=== PATIENT | female | born 1960 | race Caucasian/White ===

== ENCOUNTER 2017-02-12 10:25 | Emergency (ER) | payer MEDICARE ==
[2017-02-12] MEDS ORDERED: Ketorolac 60 MG/2 ML SDV IM ONE (10:51)
--- NOTE | 2017-02-12 10:51 | EDM.PDOC ---
ED HPI GENERAL MEDICAL PROBLEM - General Chief Complaint: Back Pain or Injury Stated Complaint: SCIATIC NERVE PAIN Time Seen by Provider: 02/12/17 10:26 Source of Information: Reports: Patient History Limitations: Reports: No Limitations - History of Present Illness INITIAL COMMENTS - FREE TEXT/NARRATIVE: HISTORY AND PHYSICAL: History of present illness: Patient is a 56-year-old female who presents to the emergency room today with complaints of left low back pain that radiates down her left gluteal since . Patient reports she has a history of sciatica and has been treated for it multiple times through the emergency room and through her primary caregiver. she was "rolling out of bed" and felt left low back pain. Since that time the pain has increased with movement, twisting, or bending at the waist. Patient denies any dysuria or difficulty starting her stream. She denies any changes in her bowel patterns. Is not incontinent of urine or stool. Denies any numbness or tingling to the lower extremities. Denies any recent injury or trauma. Patient reports that she took a leftover Tramadol early this morning, around 0600, along with a Flexeril. These medications helped "somewhat" but proceeded to present to the emergency room for further medication treatment. Patient has a past medical history of diabetes type 2, sciatic nerve pain, and one episode of a kidney stone. Review of systems: As per history of present illness and below otherwise all systems reviewed and negative. Past medical history: As per history of present illness and as reviewed below otherwise noncontributory. Surgical history: As per history of present illness and as reviewed below otherwise noncontributory. Social history: No reported history of drug or alcohol abuse. Family history: As per history of present illness and as reviewed below otherwise noncontributory. Physical exam: Gen.: Nontoxic-appearing 56-year-old female. Able to speak in full sentences without shortness of breath. And oriented HEENT: Atraumatic, normocephalic, pupils reactive, negative for conjunctival pallor or scleral icterus, mucous membranes moist, throat clear, neck supple, nontender, trachea midline. Lungs: Clear to auscultation, breath sounds equal bilaterally, chest nontender. Heart: S1S2, regular rate and rhythm Abdomen: Soft, nondistended, nontender. Negative for masses or hepatosplenomegaly. Negative for costovertebral tenderness. Back: C-spine and back were palpated without any tenderness, crepitus, step- offs or obvious deformities. Pelvis: Stable nontender. Genitourinary: Deferred. Rectal: Deferred. Extremities: Atraumatic, negative for cords or calf pain. Neurovascular unremarkable. Neuro: Awake, alert, oriented. Cranial nerves II through XII unremarkable. Cerebellum unremarkable. Motor and sensory unremarkable throughout. Exam nonfocal. After doing a history and physical on the patient and would like to get a urinalysis. Patient reports "I know there is nothing urinary with this pain" and and declines a urinalysis at this time. He should reports that this pain is identical to previous sciatic pain. Encouraged patient to follow-up with her primary care provider, patient is agreeable. Limited amount of pain medication/ muscle relaxors will be given to patient to fill. Patient is agreeable to plan of care and denies any further questions at this time Diagnostics: Declined [facility] [employer]: IM Toradol and Norflex Impression: Sciatica back pain Plan: 1. Please take your medications as prescribed. Perform gentle stretching. May apply gentle heat to area, 20 minutes on and 20 minutes off. 2. Follow-up with your primary caregiver in the next 1-2 days. Turned to the ED as needed as discussed. Definitive disposition and diagnosis as appropriate pending reevaluation and review of above. Onset Date: 02/10/17 Duration: Day(s): Location: Reports: Back left lower back Pain Score (Numeric/FACES): 8 - Related Data Allergies Allergy/AdvReac Type Severity Reaction Status Date / Time adhesive Allergy Burning Verified 02/12/17 10:27 hydromorphone HCl Allergy Chest Verified 02/12/17 10:27 [From Dilaudid] Presssure latex Allergy Burning Verified 02/12/17 10:27 shellfish derived Allergy Swelling Verified 02/12/17 10:27 Home Meds: Home Meds Albuterol [Proair HFA] INH PRN 08/07/14 [History] Budesonide/Formoterol [Symbicort 160-4.5 MCG] INH 08/07/14 [History] Lisinopril PO DAILY 08/07/14 [History] Montelukast Sodium [Singulair] PO BEDTIME 08/07/14 [History] atorvaSTATin [Lipitor] 12/05/14 [History] metFORMIN [Glucophage] 1,500 mg PO WITHDINNER 08/08/15 [History] Past Medical History - Past Health History Medical/Surgical History: Denies Medical/Surgical History HEENT History: Reports: Impaired Vision, Other (See Below) Other HEENT History: Allergies Cardiovascular History: Reports: Hypertension Respiratory History: Reports: Asthma Gastrointestinal History: Reports: Cholelithiasis Genitourinary History: Reports: Renal Calculus [employer] History: Reports: Musculoskeletal History: Reports: Arthritis, Other (See Below) Other Musculoskeletal History: Degenerative bone disease Neurological History: Reports: None Psychiatric History: Reports: None Endocrine/Metabolic History: Reports: Diabetes, Type II, Obesity/BMI 30+ Hematologic History: Reports: None Immunologic History: Reports: None Oncologic (Cancer) History: Reports: None Dermatologic History: Reports: None - Infectious Disease History Infectious Disease History: Reports: Chicken Pox, Measles, Mumps - Past Surgical History GI Surgical History: Reports: Cholecystectomy Female Surgical History: Reports: Section, Hysterectomy Musculoskeletal Surgical History: Reports: Other (See Below) Social & Family History - Family History Family Medical History: Noncontributory - Tobacco Use Smoking Status *Q: Never Smoker Second Hand Smoke Exposure: No - Caffeine Use Caffeine Use: Reports: Coffee Caffeine Use Comment: 1 cup daily - Alcohol Use Days Per Week of Alcohol Use: 0 - Recreational Drug Use Recreational Drug Use: No ED ROS GENERAL - Review of Systems Review Of Systems: ROS reveals no pertinent complaints other than HPI. ED EXAM,LOWER BACK PAIN/INJURY - Physical Exam Exam: See Below (See dictation) Course - Vital Signs Last Recorded V/S: Last Vital Signs Temp 36.4 C 02/12/17 11:22 Pulse 59 L 02/12/17 11:22 Resp 12 02/12/17 11:22 BP 166/83 H 02/12/17 11:22 Pulse Ox 98 02/12/17 11:22 - Orders/Labs/Meds Meds: Medications Discontinued Medications Generic Name Dose Route Start Last Admin Trade Name Freq PRN Reason Stop Dose Admin Ketorolac Tromethamine 60 mg 02/12/17 10:51 02/12/17 11:08 Toradol IM 02/12/17 10:52 60 mg ONETIME ONE Administration Orphenadrine Citrate 60 mg 02/12/17 10:51 02/12/17 11:09 Norflex IM 02/12/17 10:52 60 mg NOW STA Administration Departure - Departure Time of Disposition: 11:36 Disposition: Home, Self-Care 01 Condition: Good Clinical Impression: Sciatica of left side - Discharge Information Referrals: Frank Boggs MD [Primary Care Provider] - Forms: ED Department Discharge Additional Instructions: My general discharge The following information is given to patients seen in the emergency department who are being discharged to home. This information is to outline your options for follow-up care. We provide all patients seen in our emergency department with a follow-up referral. The need for follow-up, as well as the timing and circumstances, are variable depending upon the specifics of your emergency department visit. If you don't have a primary care physician on staff, we will provide you with a referral. We always advise you to contact your personal physician following an emergency department visit to inform them of the circumstance of the visit and for follow-up with them and/or the need for any referrals to a consulting specialist. The emergency department will also refer you to a specialist when appropriate. This referral assures that you have the opportunity for follow-up care with a specialist. All of these measure are taken in an effort to provide you with optimal care, which includes your follow-up. Under all circumstances we always encourage you to contact your private physician who remains a resource for coordinating your care. When calling for follow-up care, please make the office aware that this follow-up is from your recent emergency room visit. If for any reason you are refused follow-up, please contact the [facility] Emergency Department at and asked to speak to the emergency department charge nurse. [facility] [address] [place] [id number] 1. Please take your medications as prescribed. Do not take any additional NSAIDs such as ibuprofen or Aleve while taking the [place]. Please take these medications with food. Please make sure you're not driving or needing to be functioning while taking the Flexeril. 2. Perform gentle stretching. May apply gentle heat to area, 20 minutes on and 20 minutes off. 3. Follow-up with your primary caregiver in the next 1-2 days. Turned to the ED as needed as discussed.
[2017-02-12 11:57] VITALS: BP 147/98
== END 2017-02-12 12:15 | disposition home or self-care (01) ==
LOC: MW.ED 10:25
DX: M54.42 Lumbago with sciatica, left side (principal); J45.909 Unspecified asthma, uncomplicated; I10 Essential (primary) hypertension; E11.9 Type 2 diabetes mellitus without complications; E66.9 Obesity, unspecified; Z88.5 Allergy status to narcotic agent; Z91.040 Latex allergy status; Z91.013 Allergy to seafood; Z87.442 Personal history of urinary calculi; Z90.49 Acquired absence of other specified parts of digestive tract; Z90.710 Acquired absence of both cervix and uterus; Z68.43 Body mass index [BMI] 50.0-59.9, adult
CPT/HCPCS: 96372; 99283; J1885; J2360

== ENCOUNTER 2017-09-25 15:22 | Emergency (ER) | payer MEDICARE ==
--- NOTE | 2017-09-25 16:01 | EDM.PDOC ---
ED HPI GENERAL MEDICAL PROBLEM - General Stated Complaint: UTI Time Seen by Provider: 09/25/17 15:37 Source of Information: Reports: Patient History Limitations: Reports: No Limitations - History of Present Illness INITIAL COMMENTS - FREE TEXT/NARRATIVE: HISTORY AND PHYSICAL: History of present illness: Patient is a 57-year-old female who presents to the emergency room today with complaints of dysuria, urgency and pelvic discomfort. She states she was treated on 09/06/2017 with oral Cipro. Since that time she felt like her symptoms have worsened. Review of systems: As per history of present illness and below otherwise all systems reviewed and negative. Past medical history: As per history of present illness and as reviewed below otherwise noncontributory. Surgical history: As per history of present illness and as reviewed below otherwise noncontributory. Social history: No reported history of drug or alcohol abuse. Family history: As per history of present illness and as reviewed below otherwise noncontributory. Physical exam: General: Well-developed and well-nourished 57-year-old female. Alert and oriented. Nontoxic appearing and in no acute distress. HEENT: Atraumatic, normocephalic, pupils equal and reactive bilaterally, negative for conjunctival pallor or scleral icterus, mucous membranes moist, throat clear, neck supple, nontender, trachea midline. No drooling or trismus noted. No meningeal signs Lungs: Clear to auscultation, breath sounds equal bilaterally, chest nontender. Heart: S1S2, regular rate and rhythm without overt murmur Abdomen: Soft, nondistended, nontender. Negative for masses or hepatosplenomegaly. Negative for costovertebral tenderness. Pelvis: Stable nontender. Genitourinary: Deferred. Rectal: Deferred. Skin: Intact, warm, dry. No lesions or rashes noted. Extremities: Atraumatic, negative for cords or calf pain. Neurovascular unremarkable. Neuro: Awake, alert, oriented. Cranial nerves II through XII unremarkable. Cerebellum unremarkable. Motor and sensory unremarkable throughout. Exam nonfocal. Notes: Culture was added onto the UA. Bactrim DS 1 tab twice a day 10 days. Pyridium 100 mg 3 times a day 2 days. Supportive care measures were reviewed and discussed. She voices understanding and is agreeable to plan of care. Denies any further questions at this time. Diagnostics: UA, [facility] [employer]: [] Impression: UTI Plan: 1. Please take the antibiotic as prescribed. Increase your oral fluids. 2. Pyridium for discomfort one tab 3 times daily over the next 2 days. 3. Follow-up with your primary care provider next week. Return to the ED as needed and as discussed. Definitive disposition and diagnosis as appropriate pending reevaluation and review of above. Duration: Day(s): Location: Reports: Pelvis bladder Pain Score (Numeric/FACES): 8 - Related Data Allergies Allergy/AdvReac Type Severity Reaction Status Date / Time adhesive Allergy Burning Verified 09/25/17 15:52 hydromorphone HCl Allergy Chest Verified 09/25/17 15:52 [From Dilaudid] Presssure latex Allergy Burning Verified 09/25/17 15:52 shellfish derived Allergy Swelling Verified 09/25/17 15:52 Home Meds: Home Meds Albuterol [Proair HFA] 1 dose INH ASDIRECTED PRN 08/07/14 [History] Budesonide/Formoterol [Symbicort 160-4.5 MCG] 1 dose INH ASDIRECTED PRN [History] Montelukast Sodium [Singulair] 10 mg PO BEDTIME 08/07/14 [History] atorvaSTATin [Lipitor] 10 mg PO DAILY 12/05/14 [History] Ciprofloxacin HCl [Cipro] 250 mg PO BID 09/25/17 [History] Losartan [Cozaar] 25 mg PO DAILY 09/25/17 [History] Past Medical History - Past Health History Medical/Surgical History: Denies Medical/Surgical History HEENT History: Reports: Impaired Vision, Other (See Below) Other HEENT History: Allergies Cardiovascular History: Reports: Hypertension Respiratory History: Reports: Asthma Gastrointestinal History: Reports: Cholelithiasis Genitourinary History: Reports: Renal Calculus [employer]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: Musculoskeletal History: Reports: Arthritis, Other (See Below) Other Musculoskeletal History: Degenerative bone disease Neurological History: Reports: None Psychiatric History: Reports: None Endocrine/Metabolic History: Reports: Diabetes, Type II, Obesity/BMI 30+ Hematologic History: Reports: None Immunologic History: Reports: None Oncologic (Cancer) History: Reports: None Dermatologic History: Reports: None - Infectious Disease History Infectious Disease History: Reports: Chicken Pox, Measles, Mumps - Past Surgical History Head Surgeries/Procedures: Reports: None HEENT Surgical History: Reports: None Cardiovascular Surgical History: Reports: None GI Surgical History: Reports: Cholecystectomy Female Surgical History: Reports: Section, Hysterectomy Musculoskeletal Surgical History: Reports: Other (See Below) Social & Family History - Family History Family Medical History: Noncontributory - Tobacco Use Smoking Status *Q: Never Smoker Second Hand Smoke Exposure: No - Caffeine Use Caffeine Use: Reports: Coffee, Tea Caffeine Use Comment: 1 cup daily - Recreational Drug Use Recreational Drug Use: No ED ROS GENERAL - Review of Systems Review Of Systems: ROS reveals no pertinent complaints other than HPI. ED EXAM, RENAL/ - Physical Exam Exam: See Below (See dictation) Course - Vital Signs Last Recorded V/S: Last Vital Signs Temp 96.9 F 09/25/17 15:56 Pulse 102 H 09/25/17 15:56 Resp 18 09/25/17 15:56 BP 170/79 H 09/25/17 15:56 Pulse Ox 96 09/25/17 15:56 - Orders/Labs/Meds Orders: Active Orders 24 hr Category Date Time Status CULTURE URINE [RM] Stat Lab 09/25/17 15:51 Ordered UA W/MICROSCOPIC [URIN] Stat Lab 09/25/17 15:51 Ordered Labs: Laboratory Tests 09/25/17 Range/Units 15:51 Urine Color YELLOW Urine Appearance CLEAR Urine pH 6.0 (5.0-8.0) Ur Specific [place] 1.010 (1.001-1.035) Urine Protein NEGATIVE (NEGATIVE) mg/dL Urine Glucose (UA) NEGATIVE (NEGATIVE) mg/dL Urine Ketones NEGATIVE (NEGATIVE) mg/dL Urine Occult Blood NEGATIVE (NEGATIVE) Urine Nitrite NEGATIVE (NEGATIVE) Urine Bilirubin NEGATIVE (NEGATIVE) Urine Urobilinogen 0.2 (<2.0) EU/dL Ur Leukocyte Esterase MODERATE (NEGATIVE) Urine RBC NONE SEEN (0-2/HPF) Urine WBC 2-4 (0-5/HPF) Ur Epithelial Cells FEW (NONE-FEW) Urine Bacteria FEW (NEGATIVE) Departure - Departure Time of Disposition: 16:17 Disposition: Home, Self-Care 01 Clinical Impression: UTI, Urinary tract infectious disease - Discharge Information Instructions: Urinary Tract Infection, Adult, [id number] Referrals: Frank Boggs MD [Primary Care Provider] - Additional Instructions: The following information is given to patients seen in the emergency department who are being discharged to home. This information is to outline your options for follow-up care. We provide all patients seen in our emergency department with a follow-up referral. The need for follow-up, as well as the timing and circumstances, are variable depending upon the specifics of your emergency department visit. If you don't have a primary care physician on staff, we will provide you with a referral. We always advise you to contact your personal physician following an emergency department visit to inform them of the circumstance of the visit and for follow-up with them and/or the need for any referrals to a consulting specialist. The emergency department will also refer you to a specialist when appropriate. This referral assures that you have the opportunity for follow-up care with a specialist. All of these measure are taken in an effort to provide you with optimal care, which includes your follow-up. Under all circumstances we always encourage you to contact your private physician who remains a resource for coordinating your care. When calling for follow-up care, please make the office aware that this follow-up is from your recent emergency room visit. If for any reason you are refused follow-up, please contact the [facility] Emergency Department at and asked to speak to the emergency department charge nurse. [facility] [address] [place], [place] [id number] 1. Please take the antibiotic as prescribed. Increase your oral fluids. 2. Pyridium for discomfort one tab 3 times daily over the next 2 days. 3. Follow-up with your primary care provider next week. Return to the ED as needed and as discussed. - My Orders Last 24 Hours: My Active Orders 09/25/17 15:51 CULTURE URINE [RM] Stat UA W/MICROSCOPIC [URIN] Stat - Assessment/Plan Last 24 Hours: My Active Orders 09/25/17 15:51 CULTURE URINE [RM] Stat UA W/MICROSCOPIC [URIN] Stat
[2017-09-25 17:24] VITALS: BP 143/81
== END 2017-09-25 16:30 | disposition home or self-care (01) ==
LOC: MW.ED 15:22
DX: N39.0 Urinary tract infection, site not specified (principal); I10 Essential (primary) hypertension; E11.9 Type 2 diabetes mellitus without complications; Z88.5 Allergy status to narcotic agent; Z91.040 Latex allergy status; Z91.013 Allergy to seafood; Z79.899 Other long term (current) drug therapy
CPT/HCPCS: 81001; 87086; 99283

== ENCOUNTER 2020-02-21 11:05 | Emergency (ER) | payer MEDICARE | END 2020-02-21 12:04 | disposition left against medical advice (07) | LOC: MW.ED 11:05 | DX: Z53.21 Procedure and treatment not carried out due to patient leaving prior to being seen by health care provider (principal) ==

== ENCOUNTER 2020-10-29 14:23 | Inpatient (IN) | payer MEDICARE ==
[2020-10-29] MEDS ORDERED: REMDESIVIR 200 MG in Sodium Chloride 0.9% 250 ML IV ONE ×2 (14:47→15:00)
--- NOTE | 2020-10-29 14:47 | PCM.EKG ---
#1 Interpretation EKG Date: 10/29/20 Time: 14:34 Rhythm: NSR Rate (Beats/Min): 111 [place]: LAD-Left [place]prise Deviation P-Wave: Present QRS: Normal (Q waves in III, aVF) ST-T: Normal QT: Normal Comparison: NA - No Prior EKG EKG Interpretation Comments: Sinus Rhythm with LAD and inferior Q waves
[2020-10-29] MEDS ORDERED: Dexamethasone 10 MG/ML SDV IVPUSH ONE (14:48)
[2020-10-29] MEDS ORDERED: Sodium Chloride 0.9% 1,000 ML IV SCH (15:15)
[2020-10-29 15:26] LABS: BLOOD UREA NITROGEN,BUN 15 mg/dL (7.0-18.0); CARBON DIOXIDE,CO2 22.3 mmol/L (21.0-32.0); CHLORIDE,CL 99 mmol/L (98-107); GLUCOSE RANDOM 274 mg/dL (74-106); SODIUM,NA 133 mmol/L (136-145)
--- NOTE | 2020-10-29 15:43 | CR ---
Indication: Dyspnea Technique: Chest 1 view Comparison: August 08, 2012 Findings/Impression: Normal cardiac size and pulmonary vasculature. Vague patchy opacities in lungs concerning for infection, including COVID-19. No pneumothorax or effusion. Internal fixation hardware in the upper thoracic spine. Dictated by Malika Zelaya MD @ 10/29/2020 3:42:[address] Malika Zelaya @ Oct 29 2020 3:42PM
--- NOTE | 2020-10-29 16:30 | EDM.PDOC ---
ED HPI GENERAL MEDICAL PROBLEM - General Chief Complaint: Respiratory Problem Stated Complaint: SOB Time Seen by Provider: 10/29/20 14:26 - Related Data Allergies Allergy/AdvReac Type Severity Reaction Status Date / Time adhesive Allergy Burning Verified 10/29/20 14:45 hydromorphone HCl Allergy Chest Verified 10/29/20 14:45 [From Dilaudid] Presssure latex Allergy Burning Verified 10/29/20 14:45 shellfish derived Allergy Swelling Verified 10/29/20 14:45 Home Meds: Home Meds Albuterol [Proair HFA] 1 dose INH ASDIRECTED PRN 08/07/14 [History] Budesonide/Formoterol [Symbicort 160-4.5 MCG] 1 dose INH ASDIRECTED PRN 08/07/14 [History] Montelukast Sodium [Singulair] 10 mg PO BEDTIME 08/07/14 [History] atorvaSTATin [Lipitor] 10 mg PO DAILY 12/05/14 [History] Ciprofloxacin HCl [Cipro] 250 mg PO BID 09/25/17 [History] Losartan [Cozaar] 25 mg PO DAILY 09/25/17 [History] Past Medical History - Past Health History Medical/Surgical History: Denies Medical/Surgical History HEENT History: Reports: Impaired Vision, Other (See Below) Other HEENT History: Allergies Cardiovascular History: Reports: Hypertension Respiratory History: Reports: Asthma Gastrointestinal History: Reports: Cholelithiasis Genitourinary History: Reports: Renal Calculus 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: Musculoskeletal History: Reports: Arthritis, Other (See Below) Other Musculoskeletal History: Degenerative bone disease Neurological History: Reports: None Psychiatric History: Reports: None Endocrine/Metabolic History: Reports: Diabetes, Type II, Obesity/BMI 30+ Hematologic History: Reports: None Immunologic History: Reports: None Oncologic (Cancer) History: Reports: None Dermatologic History: Reports: None - Infectious Disease History Infectious Disease History: Reports: Chicken Pox, Measles, Mumps - Past Surgical History Head Surgeries/Procedures: Reports: None HEENT Surgical History: Reports: None Cardiovascular Surgical History: Reports: None Respiratory Surgical History: Reports: None GI Surgical History: Reports: Cholecystectomy Female Surgical History: Reports: Section, Hysterectomy Endocrine Surgical History: Reports: None Neurological Surgical History: Reports: None Musculoskeletal Surgical History: Reports: Other (See Below) Other Musculoskeletal Surgeries/Procedures:: c-spine surgery Dermatological Surgical History: Reports: None Social & Family History - Family History Family Medical History: No Pertinent Family History - Tobacco Use Tobacco Use Status *Q: Never Tobacco User Second Hand Smoke Exposure: No - Caffeine Use Caffeine Use: Reports: None Caffeine Use Comment: 1 cup daily - Recreational Drug Use Recreational Drug Use: No Course - Vital Signs Last Recorded V/S: Last Vital Signs Temp 36.6 C 10/29/20 14:25 Pulse 107 H 10/29/20 15:01 Resp 23 H 10/29/20 15:01 BP 134/71 10/29/20 15:01 Pulse Ox 90 L 10/29/20 15:01 - Orders/Labs/Meds Orders: Active Orders 24 hr Category Date Time Status Admission Status [Patient Status] [ADT] Stat ADT 10/29/20 16:28 Ordered EKG Documentation Completion [RC] STAT Care 10/29/20 14:44 Active BILIRUBIN DIRECT [CHEM] DAILY Lab 10/30/20 15:00 Ordered BILIRUBIN DIRECT [CHEM] DAILY Lab 10/31/20 15:00 Ordered BILIRUBIN DIRECT [CHEM] DAILY Lab 11/01/20 15:00 Ordered BILIRUBIN DIRECT [CHEM] DAILY Lab 11/02/20 15:00 Ordered COMPREHENSIVE METABOLIC PN,CMP [CHEM] DAILY Lab 10/30/20 15:00 Ordered COMPREHENSIVE METABOLIC PN,CMP [CHEM] DAILY Lab 10/31/20 15:00 Ordered COMPREHENSIVE METABOLIC PN,CMP [CHEM] DAILY Lab 11/01/20 15:00 Ordered COMPREHENSIVE METABOLIC PN,CMP [CHEM] DAILY Lab 11/02/20 15:00 Ordered Sodium Chloride 0.9% [Normal Saline] 1,000 ml Med 10/29/20 15:15 Active IV ASDIRECTED Medication Orders Sodium Chloride (Normal Saline) 1,000 mls @ 50 mls/hr IV ASDIRECTED MITCHELL Last Admin: 10/29/20 15:21 Dose: 50 mls/hr Documented by: JAYDE Labs: Laboratory Tests 10/29/20 10/29/20 10/29/20 Range/Units 14:26 14:36 14:36 WBC 3.48 L (4.0-11.0) K/uL RBC 4.38 (4.30-5.90) M/uL Hgb 13.5 (12.0-16.0) g/dL Hct 39.4 (36.0-46.0) % MCV 90.0 (80.0-98.0) fL MCH 30.8 (27.0-32.0) pg MCHC 34.3 (31.0-37.0) g/dL RDW Std Deviation 44.2 (28.0-62.0) fl RDW Coeff of Ry 13 (11.0-15.0) % Plt Count 109 L (150-400) K/uL MPV 9.20 (7.40-12.00) fL Neut % (Auto) 64.9 (48.0-80.0) % Lymph % (Auto) 23.0 (16.0-40.0) % F[place]ardo % (Auto) 12.1 (0.0-15.0) % Eos % (Auto) 0.0 (0.0-7.0) % Baso % (Auto) 0.0 (0.0-1.5) % Neut # (Auto) 2.3 (1.4-5.7) K/uL Lymph # (Auto) 0.8 (0.6-2.4) K/uL [place]ardo # (Auto) 0.4 (0.0-0.8) K/uL Eos # (Auto) 0.0 (0.0-0.7) K/uL Baso # (Auto) 0.0 (0.0-0.1) K/uL Nucleated RBC % 0.0 /100WBC Nucleated RBCs # 0 K/uL D-Dimer, Quantitative 0.55 H (0.0-0.50) mg/L FEU Sodium (136-145) mmol/L Potassium (3.5-5.1) mmol/L Chloride (98-107) mmol/L Carbon Dioxide (21.0-32.0) mmol/L BUN (7.0-18.0) mg/dL Creatinine (0.6-1.0) mg/dL Est Cr Clr Drug Dosing mL/min Estimated GFR (MDRD) ml/min Glucose (74-106) mg/dL Lactic Acid (0.4-2.0) mmol/L Calcium (8.5-10.1) mg/dL Magnesium (1.8-2.4) mg/dL Total Bilirubin (0.2-1.0) mg/dL Direct Bilirubin 0.10 (0.0-0.5) mg/dL AST (15-37) IU/L ALT (14-63) IU/L Alkaline Phosphatase (46-116) U/L Troponin I (0.000-0.056) ng/mL Total Protein (6.4-8.2) g/dL Albumin (3.4-5.0) g/dL Globulin (2.6-4.0) g/dL Albumin/Globulin Ratio (0.9-1.6) 10/29/20 10/29/20 Range/Units 14:36 14:36 WBC (4.0-11.0) K/uL RBC (4.30-5.90) M/uL Hgb (12.0-16.0) g/dL Hct (36.0-46.0) % MCV (80.0-98.0) fL MCH (27.0-32.0) pg MCHC (31.0-37.0) g/dL RDW Std Deviation (28.0-62.0) fl RDW Coeff of Ry (11.0-15.0) % Plt Count (150-400) K/uL MPV (7.40-12.00) fL Neut % (Auto) (48.0-80.0) % Lymph % (Auto) (16.0-40.0) % [place]ardo % (Auto) (0.0-15.0) % Eos % (Auto) (0.0-7.0) % Baso % (Auto) (0.0-1.5) % Neut # (Auto) (1.4-5.7) K/uL Lymph # (Auto) (0.6-2.4) K/uL [place]ardo # (Auto) (0.0-0.8) K/uL Eos # (Auto) (0.0-0.7) K/uL Baso # (Auto) (0.0-0.1) K/uL Nucleated RBC % /100WBC Nucleated RBCs # K/uL D-Dimer, Quantitative (0.0-0.50) mg/L FEU Sodium 133 L (136-145) mmol/L Potassium 4.0 (3.5-5.1) mmol/L Chloride 99 (98-107) mmol/L Carbon Dioxide 22.3 (21.0-32.0) mmol/L BUN 15 (7.0-18.0) mg/dL Creatinine 1.0 (0.6-1.0) mg/dL Est Cr Clr Drug Dosing 54.60 mL/min Estimated GFR (MDRD) 56.2 ml/min Glucose 274 H (74-106) mg/dL Lactic Acid 1.9 (0.4-2.0) mmol/L Calcium 7.8 L (8.5-10.1) mg/dL Magnesium 1.9 (1.8-2.4) mg/dL Total Bilirubin 0.5 (0.2-1.0) mg/dL Direct Bilirubin (0.0-0.5) mg/dL AST 42 H (15-37) IU/L ALT 37 (14-63) IU/L Alkaline Phosphatase 85 (46-116) U/L Troponin I < 0.050 (0.000-0.056) ng/mL Total Protein 6.8 (6.4-8.2) g/dL Albumin 3.2 L (3.4-5.0) g/dL Globulin 3.6 (2.6-4.0) g/dL Albumin/Globulin Ratio 0.9 (0.9-1.6) Meds: Medications Generic Name Dose Route Start Last Admin Trade Name Blas PRN Reason Stop Dose Admin Sodium Chloride 1,000 mls @ 50 mls/hr 10/29/20 15:15 10/29/20 15:21 Normal Saline IV 50 mls/hr ASDIRECTED MITCHELL Administration Discontinued Medications Generic Name Dose Route Start Last Admin Trade Name Blas PRN Reason Stop Dose Admin Dexamethasone 10 mg 10/29/20 14:48 10/29/20 15:22 Dexamethasone 10 Mg/Ml Sdv IVPUSH 10/29/20 14:49 10 mg ONETIME ONE Administration Remdesivir 200 mg/ Sodium 250 mls @ 250 mls/hr 10/29/20 14:47 10/29/20 15:08 Chloride IV 10/29/20 14:48 Not Given ONETIME ONE Remdesivir 200 mg/ Sodium 250 mls @ 250 mls/hr 10/29/20 15:00 10/29/20 15:27 Chloride IV 10/29/20 15:59 250 mls/hr ONETIME ONE Administration Departure - Departure Time of Disposition: 16:29 Disposition: Admitted As Inpatient 64 Condition: Fair Clinical Impression: Hypoxia - Discharge Information Referrals: PCP,Unknown [Primary Care Provider] - Sepsis Event Note (ED) - Evaluation Sepsis Screening Result: Possible Sepsis Risk - Focused Exam Vital Signs: Vital Signs Temp Pulse Resp BP Pulse Ox 10/29/20 15:01 107 H 23 H 134/71 90 L 10/29/20 14:25 36.6 C 111 H 24 H 178/92 H 82 L - My Orders Last 24 Hours: My Active Orders 10/29/20 14:44 EKG Documentation Completion [RC] STAT 10/29/20 15:15 Sodium Chloride 0.9% [Normal Saline] 1,000 ml IV ASDIRECTED 10/29/20 16:28 Admission Status [Patient Status] [ADT] Stat 10/30/20 15:00 BILIRUBIN DIRECT [CHEM] DAILY COMPREHENSIVE METABOLIC PN,CMP [CHEM] DAILY 10/31/20 15:00 BILIRUBIN DIRECT [CHEM] DAILY COMPREHENSIVE METABOLIC PN,CMP [CHEM] DAILY 11/01/20 15:00 BILIRUBIN DIRECT [CHEM] DAILY COMPREHENSIVE METABOLIC PN,CMP [CHEM] DAILY 11/02/20 15:00 BILIRUBIN DIRECT [CHEM] DAILY COMPREHENSIVE METABOLIC PN,CMP [CHEM] DAILY - Assessment/Plan Last 24 Hours: My Active Orders 10/29/20 14:44 EKG Documentation Completion [RC] STAT 10/29/20 15:15 Sodium Chloride 0.9% [Normal Saline] 1,000 ml IV ASDIRECTED 10/29/20 16:28 Admission Status [Patient Status] [ADT] Stat 10/30/20 15:00 BILIRUBIN DIRECT [CHEM] DAILY COMPREHENSIVE METABOLIC PN,CMP [CHEM] DAILY 10/31/20 15:00 BILIRUBIN DIRECT [CHEM] DAILY COMPREHENSIVE METABOLIC PN,CMP [CHEM] DAILY 11/01/20 15:00 BILIRUBIN DIRECT [CHEM] DAILY COMPREHENSIVE METABOLIC PN,CMP [CHEM] DAILY 11/02/20 15:00 BILIRUBIN DIRECT [CHEM] DAILY COMPREHENSIVE METABOLIC PN,CMP [CHEM] DAILY
--- NOTE | 2020-10-29 17:46 | EDM.PDOC ---
ED HPI GENERAL MEDICAL PROBLEM - General Chief Complaint: Respiratory Problem Stated Complaint: SOB Time Seen by Provider: 10/29/20 14:26 - History of Present Illness INITIAL COMMENTS - FREE TEXT/NARRATIVE: CHIEF COMPLAINT(S): Shortness of breath HISTORY OF PRESENT ILLNESS: This is a 60-year-old woman with a past medical history diabetes mellitus, hypertension, hyperlipidemia, obstructive sleep apnea, asthma, COPD with recent diagnosis of COVID-19 6 days ago with symptoms for approximately 9 days who comes to the emergency department with a chief complaint of shortness of breath. The patient presents from [facility] as the patient was scheduled for outpatient Bamlanivimab, however the patient was found to be hypoxic and no longer a candidate for this treatment and they sent her to the emergency department. The patient states that she has been experiencing cough, shortness of breath and severe fatigue. She denies any chest pain. She states that she has had on and off fevers and just is not feeling well. She denies any lower extremity edema, recent travel, recent surgery, prior history of DVT or PE. She stated that initially she was having nausea, diarrhea which has since improved. REVIEW OF SYSTEMS: Constitutional: Positive for intermittent fever and fatigue. Denies chills Eyes: Denies eye pain Ears, Nose, Mouth, & Throat: Denies earache Cardiovascular: Denies chest pain Respiratory: Positive for shortness of breath and cough. Gastrointestinal: Denies Nausea, vomiting, diarrhea, hematochezia. Genitourinary: Denies hematuria Skin:Denies a rash MSK: Denies joint pain Neurological: Denies blurred vision Psychiatric: Denies depression PAST MEDICAL HISTORY: As per history of present illness and as reviewed below otherwise noncontributory. SURGICAL HISTORY: As per history of present illness and as reviewed below otherwise noncontributory. SOCIAL HISTORY: As per history of present illness and as reviewed below otherwise noncontributory. FAMILY HISTORY: As per history of present illness and as reviewed below otherwise noncontributory. EXAMINATION OF ORGAN SYSTEMS/BODY AREAS: Constitutional: Blood pressure was 178/92, heart rate 111, respiratory rate 24 with an oxygen saturation of 82% on room air. Temperature 36.6. On 4 L nasal cannula the patient did improve to 90 to 93%. General: Morbidly obese woman who is mildly tachypneic but overall is in no acute distress. Psychiatric: Appropriate mood and affect. Eyes: No scleral icterus or conjunctival erythema ENMT: Moist mucous membranes. No pharyngeal erythema Cardiovascular: Regular, rate, and rhythm. No gallops, murmurs, or rubs. Bilateral upper extremity pulses symmetric and intact. No peripheral edema. No JVD. Respiratory: Lungs clear to auscultation bilaterally. No wheezes, rales, or rhonchi. Gastrointestinal: Soft, non-tender, non-distended. Normoactive bowel sounds Genitourinary: No suprapubic tenderness Musculoskeletal: Normal range of motion. Skin: No lesions or abrasions. Neurological: Alert, GCS 15 MEDICAL DECISION MAKING AND COURSE IN THE ED WITH INTERPRETATION/REVIEW OF DIAGNOSTIC STUDIES: This is a 60-year-old woman with a past medical history diabetes mellitus, hypertension, hyperlipidemia, obstructive sleep apnea, asthma, COPD with recent diagnosis of COVID-19 6 days ago with symptoms for approximately 9 days who comes to the emergency department with worsening hypoxia with known COVID-19 positive approximately 6 days ago. At this time we did obtain a screening EKG which did not reveal acute signs of ischemia. Will obtain laboratory analysis including CBC, CMP, lactic acid, bilirubin, troponin, chest x-ray and a D-dimer as she is tachycardic. I do believe any further work- up is indicated. pvc monitor interpretation, pulse oximetry interpretation revealed sinus tachycardia on the monitor and with good waveform pulse oximetry was 93% on 4 L nasal cannula. Laboratory: CBC reveals leukopenia with a WBC count of 3.48 and thrombocytopenia with a platelet count of 109. D-dimer is elevated at 0.55 however age-adjusted it is within the normal range. CMP reveals hyponatremia at 133, hyperglycemia 274, hypocalcemia at 7.8, mild elevation in AST at 42. Troponin is negative. The radiological images were viewed by myself along with reading the report from the radiologist. Chest x-ray reveals vague patchy opacities in bilateral lungs concerning for infection including COVID-19. Given the patient does not have a white count and is known Covid positive I do not believe antibiotics are indicated at this time. I did start the patient on remdesivir and provided the patient with 10 mg of IV Decadron. I discussed admission for with the patient. She was amenable to this plan. I contacted Dr. Reardon who accepted the patient for admission. DISPOSITION: Patient was admitted to the hospital in stable condition CONDITION: Serious PROCEDURES: Cardiac monitoring interpretation, pulse oximetry interpretation FINAL IMPRESSION(S)/DIAGNOSES: 1. Acute hypoxic respiratory failure secondary to COVID-19 pneumonia 2. Acute COVID-19 pneumonia 3. Thrombocytopenia Critical Care Procedure Note Authorized and performed by: Sergei Mcmahon M.D. Critical Care Time: 34 minutes Due to a high probability of clinically significant, life threatening deterioration, the patient required my highest level of preparedness to intervene emergently and I personally spent this critical care time directly and personally managing the patient. This critical care time included obtaining a history, examining the patient, pulse oximetry; ordering and review of studies; arranging urgent treatment with development of a management plan; evaluation of a patients reponse to treatment; frequent assessment; and discussions with other providers. This critical care time was performed to assess and manage the high probability of imminent, life threatening deterioration that could result in multiorgan failure. It was exclusive of separate billable procedures and treat ing other patients. Please see MDM section and rest of the note for further information on patient assessment and treatment. Please see MDM section and rest of the note for further information on patient assessment and treatment. Sergei Mcmahon M.D. - Related Data Allergies Allergy/AdvReac Type Severity Reaction Status Date / Time adhesive Allergy Burning Verified 10/29/20 18:52 hydromorphone HCl Allergy Chest Verified 10/29/20 18:52 [From Dilaudid] Presssure latex Allergy Burning Verified 10/29/20 18:52 shellfish derived Allergy Swelling Verified 10/29/20 18:52 Home Meds: Home Meds Albuterol [Proair HFA] 1 dose INH ASDIRECTED PRN 08/07/14 [History] Budesonide/Formoterol [Symbicort 160-4.5 MCG] 1 dose INH BID PRN 08/07/14 [History] Montelukast Sodium [Singulair] 10 mg PO BEDTIME 08/07/14 [History] atorvaSTATin [Lipitor] 10 mg PO DAILY 12/05/14 [History] Ciprofloxacin HCl [Cipro] 250 mg PO BID 09/25/17 [History] Losartan [Cozaar] 25 mg PO DAILY 09/25/17 [History] Past Medical History - Past Health History Medical/Surgical History: Denies Medical/Surgical History HEENT History: Reports: Impaired Vision, Other (See Below) Other HEENT History: Allergies Cardiovascular History: Reports: Hypertension Respiratory History: Reports: Asthma Gastrointestinal History: Reports: Cholelithiasis Genitourinary History: Reports: Renal Calculus [employer] History: Reports: Musculoskeletal History: Reports: Arthritis, Other (See Below) Other Musculoskeletal History: Degenerative bone disease Neurological History: Reports: None Psychiatric History: Reports: None Endocrine/Metabolic History: Reports: Diabetes, Type II, Obesity/BMI 30+ Hematologic History: Reports: None Immunologic History: Reports: None Oncologic (Cancer) History: Reports: None Dermatologic History: Reports: None - Infectious Disease History Infectious Disease History: Reports: Chicken Pox, Measles, Mumps - Past Surgical History Head Surgeries/Procedures: Reports: None HEENT Surgical History: Reports: None Cardiovascular Surgical History: Reports: None Respiratory Surgical History: Reports: None GI Surgical History: Reports: Cholecystectomy Female Surgical History: Reports: Section, Hysterectomy Endocrine Surgical History: Reports: None Neurological Surgical History: Reports: None Musculoskeletal Surgical History: Reports: Other (See Below) Other Musculoskeletal Surgeries/Procedures:: c-spine surgery Dermatological Surgical History: Reports: None Social & Family History - Family History Family Medical History: No Pertinent Family History - Tobacco Use Tobacco Use Status *Q: Never Tobacco User Second Hand Smoke Exposure: No - Caffeine Use Caffeine Use: Reports: None Caffeine Use Comment: 1 cup daily - Recreational Drug Use Recreational Drug Use: No ED ROS GENERAL - Review of Systems Review Of Systems: See Below ED EXAM, GENERAL - Physical Exam Exam: See Below Course - Vital Signs Last Recorded V/S: Last Vital Signs Temp 36.2 C 10/29/20 20:00 Pulse 97 10/29/20 17:16 Resp 20 10/29/20 20:00 BP 141/84 H 10/29/20 20:00 Pulse Ox 91 L 10/29/20 20:00 - Orders/Labs/Meds Orders: Active Orders 24 hr Category Date Time Status BILIRUBIN DIRECT [CHEM] DAILY Lab 10/30/20 15:00 Ordered BILIRUBIN DIRECT [CHEM] DAILY Lab 10/31/20 15:00 Ordered BILIRUBIN DIRECT [CHEM] DAILY Lab 11/01/20 15:00 Ordered BILIRUBIN DIRECT [CHEM] DAILY Lab 11/02/20 15:00 Ordered COMPREHENSIVE METABOLIC PN,CMP [CHEM] DAILY Lab 10/30/20 15:00 Ordered COMPREHENSIVE METABOLIC PN,CMP [CHEM] DAILY Lab 10/31/20 15:00 Ordered COMPREHENSIVE METABOLIC PN,CMP [CHEM] DAILY Lab 11/01/20 15:00 Ordered COMPREHENSIVE METABOLIC PN,CMP [CHEM] DAILY Lab 11/02/20 15:00 Ordered Sodium Chloride 0.9% [Normal Saline] 1,000 ml Med 10/29/20 15:15 Active IV ASDIRECTED Medication Orders Dextrose/Water (50% Dextrose In Water 50 Ml Syringe) 50 ml IVPUSH ASDIRECTED PRN PRN Reason: Hypoglycemia Glucagon (Glucagon,Human Recombinant 1 Mg Vial) 1 mg IM ASDIRECTED PRN PRN Reason: Hypoglycemia Sodium Chloride (Normal Saline) 1,000 mls @ 50 mls/hr IV ASDIRECTED MITCHELL Last Admin: 10/29/20 15:21 Dose: 50 mls/hr Documented by: JAYDE Insulin Aspart (Insulin Aspart 100 Units/Ml 3 Ml Pen) [facility]; Protocol Last Admin: 10/29/20 20:32 Dose: 5 units Documented by: GÉNESIS Labs: Laboratory Tests 10/29/20 10/29/20 10/29/20 Range/Units 14:26 14:36 14:36 WBC 3.48 L (4.0-11.0) K/uL RBC 4.38 (4.30-5.90) M/uL Hgb 13.5 (12.0-16.0) g/dL Hct 39.4 (36.0-46.0) % MCV 90.0 (80.0-98.0) fL MCH 30.8 (27.0-32.0) pg MCHC 34.3 (31.0-37.0) g/dL RDW Std Deviation 44.2 (28.0-62.0) fl RDW Coeff of Ry 13 (11.0-15.0) % Plt Count 109 L (150-400) K/uL MPV 9.20 (7.40-12.00) fL Neut % (Auto) 64.9 (48.0-80.0) % Lymph % (Auto) 23.0 (16.0-40.0) % [place] % (Auto) 12.1 (0.0-15.0) % Eos % (Auto) 0.0 (0.0-7.0) % Baso % (Auto) 0.0 (0.0-1.5) % Neut # (Auto) 2.3 (1.4-5.7) K/uL Lymph # (Auto) 0.8 (0.6-2.4) K/uL [place] # (Auto) 0.4 (0.0-0.8) K/uL Eos # (Auto) 0.0 (0.0-0.7) K/uL Baso # (Auto) 0.0 (0.0-0.1) K/uL Nucleated RBC % 0.0 /100WBC Nucleated RBCs # 0 K/uL D-Dimer, Quantitative 0.55 H (0.0-0.50) mg/L FEU Sodium (136-145) mmol/L Potassium (3.5-5.1) mmol/L Chloride (98-107) mmol/L Carbon Dioxide (21.0-32.0) mmol/L BUN (7.0-18.0) mg/dL Creatinine (0.6-1.0) mg/dL Est Cr Clr Drug Dosing mL/min Estimated GFR (MDRD) ml/min Glucose (74-106) mg/dL Lactic Acid (0.4-2.0) mmol/L Calcium (8.5-10.1) mg/dL Magnesium (1.8-2.4) mg/dL Total Bilirubin (0.2-1.0) mg/dL Direct Bilirubin 0.10 (0.0-0.5) mg/dL AST (15-37) IU/L ALT (14-63) IU/L Alkaline Phosphatase (46-116) U/L Troponin I (0.000-0.056) ng/mL Total Protein (6.4-8.2) g/dL Albumin (3.4-5.0) g/dL Globulin (2.6-4.0) g/dL Albumin/Globulin Ratio (0.9-1.6) 10/29/20 10/29/20 Range/Units 14:36 14:36 WBC (4.0-11.0) K/uL RBC (4.30-5.90) M/uL Hgb (12.0-16.0) g/dL Hct (36.0-46.0) % MCV (80.0-98.0) fL MCH (27.0-32.0) pg MCHC (31.0-37.0) g/dL RDW Std Deviation (28.0-62.0) fl RDW Coeff of Ry (11.0-15.0) % Plt Count (150-400) K/uL MPV (7.40-12.00) fL Neut % (Auto) (48.0-80.0) % Lymph % (Auto) (16.0-40.0) % [place] % (Auto) (0.0-15.0) % Eos % (Auto) (0.0-7.0) % Baso % (Auto) (0.0-1.5) % Neut # (Auto) (1.4-5.7) K/uL Lymph # (Auto) (0.6-2.4) K/uL [place] # (Auto) (0.0-0.8) K/uL Eos # (Auto) (0.0-0.7) K/uL Baso # (Auto) (0.0-0.1) K/uL Nucleated RBC % /100WBC Nucleated RBCs # K/uL D-Dimer, Quantitative (0.0-0.50) mg/L FEU Sodium 133 L (136-145) mmol/L Potassium 4.0 (3.5-5.1) mmol/L Chloride 99 (98-107) mmol/L Carbon Dioxide 22.3 (21.0-32.0) mmol/L BUN 15 (7.0-18.0) mg/dL Creatinine 1.0 (0.6-1.0) mg/dL Est Cr Clr Drug Dosing 54.60 mL/min Estimated GFR (MDRD) 56.2 ml/min Glucose 274 H (74-106) mg/dL Lactic Acid 1.9 (0.4-2.0) mmol/L Calcium 7.8 L (8.5-10.1) mg/dL Magnesium 1.9 (1.8-2.4) mg/dL Total Bilirubin 0.5 (0.2-1.0) mg/dL Direct Bilirubin (0.0-0.5) mg/dL AST 42 H (15-37) IU/L ALT 37 (14-63) IU/L Alkaline Phosphatase 85 (46-116) U/L Troponin I < 0.050 (0.000-0.056) ng/mL Total Protein 6.8 (6.4-8.2) g/dL Albumin 3.2 L (3.4-5.0) g/dL Globulin 3.6 (2.6-4.0) g/dL Albumin/Globulin Ratio 0.9 (0.9-1.6) Meds: Medications Generic Name Dose Route Start Last Admin Trade Name Blas PRN Reason Stop Dose Admin Dextrose/Water 50 ml 10/29/20 19:38 50% Dextrose In Water 50 Ml Syringe IVPUSH ASDIRECTED PRN Hypoglycemia Glucagon 1 mg 10/29/20 19:38 Glucagon,Human Recombinant 1 Mg Vial IM ASDIRECTED PRN Hypoglycemia Sodium Chloride 1,000 mls @ 50 mls/hr 10/29/20 15:15 10/29/20 15:21 Normal Saline IV 50 mls/hr ASDIRECTED MITCHELL Administration Insulin Aspart 0 unit 10/29/20 20:15 10/29/20 20:32 Insulin Aspart 100 Units/Ml 3 Ml Pen SUBCUT 5 units [facility] Administration Protocol Discontinued Medications Generic Name Dose Route Start Last Admin Trade Name Blas PRN Reason Stop Dose Admin Dexamethasone 10 mg 10/29/20 14:48 10/29/20 15:22 Dexamethasone 10 Mg/Ml Sdv IVPUSH 10/29/20 14:49 10 mg ONETIME ONE Administration Remdesivir 200 mg/ Sodium 250 mls @ 250 mls/hr 10/29/20 14:47 10/29/20 15:08 Chloride IV 10/29/20 14:48 Not Given ONETIME ONE Remdesivir 200 mg/ Sodium 250 mls @ 250 mls/hr 10/29/20 15:00 10/29/20 15:27 Chloride IV 10/29/20 15:59 250 mls/hr ONETIME ONE Administration Insulin Aspart 0 unit 10/30/20 07:30 Insulin Aspart 100 Units/Ml 3 Ml Pen SUBCUT [facility] Protocol Departure - Departure Time of Disposition: 16:28 Disposition: Admitted As Inpatient 64 Condition: Fair Clinical Impression: Hypoxia - Discharge Information Sepsis Event Note (ED) - Evaluation Sepsis Screening Result: Possible Sepsis Risk - Focused Exam Vital Signs: Vital Signs Temp Pulse Resp BP Pulse Ox 10/29/20 16:01 22 H 131/73 93 L 10/29/20 15:01 107 H 23 H 134/71 90 L 10/29/20 14:25 36.6 C 111 H 24 H 178/92 H 82 L - My Orders Last 24 Hours: My Active Orders 10/29/20 15:15 Sodium Chloride 0.9% [Normal Saline] 1,000 ml IV ASDIRECTED 10/30/20 15:00 BILIRUBIN DIRECT [CHEM] DAILY COMPREHENSIVE METABOLIC PN,CMP [CHEM] DAILY 10/31/20 15:00 BILIRUBIN DIRECT [CHEM] DAILY COMPREHENSIVE METABOLIC PN,CMP [CHEM] DAILY 11/01/20 15:00 BILIRUBIN DIRECT [CHEM] DAILY COMPREHENSIVE METABOLIC PN,CMP [CHEM] DAILY 11/02/20 15:00 BILIRUBIN DIRECT [CHEM] DAILY COMPREHENSIVE METABOLIC PN,CMP [CHEM] DAILY - Assessment/Plan Last 24 Hours: My Active Orders 10/29/20 15:15 Sodium Chloride 0.9% [Normal Saline] 1,000 ml IV ASDIRECTED 10/30/20 15:00 BILIRUBIN DIRECT [CHEM] DAILY COMPREHENSIVE METABOLIC PN,CMP [CHEM] DAILY 10/31/20 15:00 BILIRUBIN DIRECT [CHEM] DAILY COMPREHENSIVE METABOLIC PN,CMP [CHEM] DAILY 11/01/20 15:00 BILIRUBIN DIRECT [CHEM] DAILY COMPREHENSIVE METABOLIC PN,CMP [CHEM] DAILY 11/02/20 15:00 BILIRUBIN DIRECT [CHEM] DAILY COMPREHENSIVE METABOLIC PN,CMP [CHEM] DAILY
[2020-10-29] MEDS ORDERED: 50% Dextrose in Water 50 ML Syringe IVPUSH PRN (19:38)
[2020-10-29] MEDS ORDERED: Glucagon,Human Recombinant 1 MG Vial IM PRN (19:38)
[2020-10-29] MEDS: Insulin Aspart 100 Units/ML 3 ML Pen SUBCUT SCH (20:32)
[2020-10-29] MEDS ORDERED: Enoxaparin 40 MG/0.4 ML Syringe SUBCUT SCH (22:00)
[2020-10-29] MEDS: Ciprofloxacin 250 MG Tab PO SCH (22:28)
[2020-10-29] MEDS: Montelukast 10 MG Tab PO SCH (22:28)
[2020-10-29] MEDS: Budesonide/Formoterol 160-4.5 MCG/Puff 6 GM Inhaler INH SCH (23:26)
--- NOTE | 2020-10-29 23:34 | PCM.HP.2 ---
H&P History of Present Illness - General Date of Service: 10/30/20 Admit Problem/Dx: Admission Diagnosis/Problem Admission Diagnosis/Problem Hypoxia - History of Present Illness Initial Comments - Free Text/Narative: 60 yo female with pmh of HTN, COPD, DM, JAZMIN who was recently diagnosed with COVID and scheduled for antibody therapy today. When she presented to infusion center she was found to be hypoxic satting mid 80s on room and was transfered to the ED. She reports one week history of shortness of breath, fever, chills and cough. - Related Data Allergies/Adverse Reactions: Allergies Allergy/AdvReac Type Severity Reaction Status Date / Time adhesive Allergy Burning Verified 10/29/20 18:52 hydromorphone HCl Allergy Chest Verified 10/29/20 18:52 [From Dilaudid] Presssure latex Allergy Burning Verified 10/29/20 18:52 shellfish derived Allergy Swelling Verified 10/29/20 18:52 Home Medications: Home Meds Albuterol [Proair HFA] 2 puff INH Q4HR PRN 08/07/14 [History] Budesonide/Formoterol [Symbicort 160-4.5 MCG] 2 puff INH BID 08/07/14 [History] Montelukast Sodium [Singulair] 10 mg PO BEDTIME 08/07/14 [History] Ciprofloxacin HCl [Cipro] 250 mg PO BID 09/25/17 [History] Losartan [Cozaar] 25 mg PO DAILY 09/25/17 [History] Omeprazole 20 mg PO BID 10/30/20 [History] nitrofurantoin macrocrystaL [Macrodantin] 50 mg PO BEDTIME 10/30/20 [History] Past Medical History - Past Health History Medical/Surgical History: Denies Medical/Surgical History HEENT History: Reports: Impaired Vision, Other (See Below) Other HEENT History: Allergies Cardiovascular History: Reports: Hypertension Respiratory History: Reports: Asthma Gastrointestinal History: Reports: Cholelithiasis Genitourinary History: Reports: Renal Calculus [employer] History: Reports: Musculoskeletal History: Reports: Arthritis, Other (See Below) Other Musculoskeletal History: Degenerative bone disease Neurological History: Reports: None Psychiatric History: Reports: None Endocrine/Metabolic History: Reports: Diabetes, Type II, Obesity/BMI 30+ Hematologic History: Reports: None Immunologic History: Reports: None Oncologic (Cancer) History: Reports: None Dermatologic History: Reports: None - Infectious Disease History Infectious Disease History: Reports: Chicken Pox, Measles, Mumps - Past Surgical History Head Surgeries/Procedures: Reports: None HEENT Surgical History: Reports: None Cardiovascular Surgical History: Reports: None Respiratory Surgical History: Reports: None GI Surgical History: Reports: Cholecystectomy Female Surgical History: Reports: Section, Hysterectomy Endocrine Surgical History: Reports: None Neurological Surgical History: Reports: None Musculoskeletal Surgical History: Reports: Other (See Below) Other Musculoskeletal Surgeries/Procedures:: c-spine surgery Dermatological Surgical History: Reports: None Social & Family History - Family History Family Medical History: No Pertinent Family History - Tobacco Use Tobacco Use Status *Q: Former Tobacco User Used Tobacco, but Quit: Yes Month/Year Tobacco Last Used: 1985 Tobacco Use Comment: Patient stopped smoking 35 years ago Second Hand Smoke Exposure: No - Caffeine Use Caffeine Use: Reports: Coffee Caffeine Use Comment: 1 iced coffee a day - Recreational Drug Use Recreational Drug Use: No H&P Review of Systems - Review of Systems: Review Of Systems: Comprehensive ROS is negative, except as noted in HPI. Exam - Exam Exam: See Below - Vital Signs Vital Signs: Last Vital Signs Temp 36.2 C 10/29/20 20:00 Pulse 97 10/29/20 17:16 Resp 20 10/29/20 20:00 BP 141/84 H 10/29/20 20:00 Pulse Ox 91 L 10/29/20 20:00 Weight: 175.767 kg - Exam General: Alert, Oriented HEENT: Mucosa Moist & [place] Lungs: Clear to Auscultation, Normal Respiratory Effort Cardiovascular: Regular Rate, Regular Rhythm GI/Abdominal Exam: Normal Bowel Sounds, Soft, Non-Tender Extremities: Non-Tender, Pedal Edema (+1) Skin: Warm, Dry, Intact - Patient Data Lab Results Last 24 hrs: Laboratory Results - last 24 hr 10/29/20 10/29/20 10/29/20 Range/Units 14:26 14:36 14:36 WBC 3.48 L (4.0-11.0) K/uL RBC 4.38 (4.30-5.90) M/uL Hgb 13.5 (12.0-16.0) g/dL Hct 39.4 (36.0-46.0) % MCV 90.0 (80.0-98.0) fL MCH 30.8 (27.0-32.0) pg MCHC 34.3 (31.0-37.0) g/dL RDW Std Deviation 44.2 (28.0-62.0) fl RDW Coeff of Ry 13 (11.0-15.0) % Plt Count 109 L (150-400) K/uL MPV 9.20 (7.40-12.00) fL Neut % (Auto) 64.9 (48.0-80.0) % Lymph % (Auto) 23.0 (16.0-40.0) % [place] % (Auto) 12.1 (0.0-15.0) % Eos % (Auto) 0.0 (0.0-7.0) % Baso % (Auto) 0.0 (0.0-1.5) % Neut # (Auto) 2.3 (1.4-5.7) K/uL Lymph # (Auto) 0.8 (0.6-2.4) K/uL [place] # (Auto) 0.4 (0.0-0.8) K/uL Eos # (Auto) 0.0 (0.0-0.7) K/uL Baso # (Auto) 0.0 (0.0-0.1) K/uL Nucleated RBC % 0.0 /100WBC Nucleated RBCs # 0 K/uL D-Dimer, Quantitative 0.55 H (0.0-0.50) mg/L FEU Sodium (136-145) mmol/L Potassium (3.5-5.1) mmol/L Chloride (98-107) mmol/L Carbon Dioxide (21.0-32.0) mmol/L BUN (7.0-18.0) mg/dL Creatinine (0.6-1.0) mg/dL Est Cr Clr Drug Dosing mL/min Estimated GFR (MDRD) ml/min Glucose (74-106) mg/dL POC Glucose (70-99) mg/dL Lactic Acid (0.4-2.0) mmol/L Calcium (8.5-10.1) mg/dL Magnesium (1.8-2.4) mg/dL Total Bilirubin (0.2-1.0) mg/dL Direct Bilirubin 0.10 (0.0-0.5) mg/dL AST (15-37) IU/L ALT (14-63) IU/L Alkaline Phosphatase (46-116) U/L Troponin I (0.000-0.056) ng/mL Total Protein (6.4-8.2) g/dL Albumin (3.4-5.0) g/dL Globulin (2.6-4.0) g/dL Albumin/Globulin Ratio (0.9-1.6) 10/29/20 10/29/20 10/29/20 Range/Units 14:36 14:36 19:58 WBC (4.0-11.0) K/uL RBC (4.30-5.90) M/uL Hgb (12.0-16.0) g/dL Hct (36.0-46.0) % MCV (80.0-98.0) fL MCH (27.0-32.0) pg MCHC (31.0-37.0) g/dL RDW Std Deviation (28.0-62.0) fl RDW Coeff of Ry (11.0-15.0) % Plt Count (150-400) K/uL MPV (7.40-12.00) fL Neut % (Auto) (48.0-80.0) % Lymph % (Auto) (16.0-40.0) % [place] % (Auto) (0.0-15.0) % Eos % (Auto) (0.0-7.0) % Baso % (Auto) (0.0-1.5) % Neut # (Auto) (1.4-5.7) K/uL Lymph # (Auto) (0.6-2.4) K/uL [place] # (Auto) (0.0-0.8) K/uL Eos # (Auto) (0.0-0.7) K/uL Baso # (Auto) (0.0-0.1) K/uL Nucleated RBC % /100WBC Nucleated RBCs # K/uL D-Dimer, Quantitative (0.0-0.50) mg/L FEU Sodium 133 L (136-145) mmol/L Potassium 4.0 (3.5-5.1) mmol/L Chloride 99 (98-107) mmol/L Carbon Dioxide 22.3 (21.0-32.0) mmol/L BUN 15 (7.0-18.0) mg/dL Creatinine 1.0 (0.6-1.0) mg/dL Est Cr Clr Drug Dosing 54.60 mL/min Estimated GFR (MDRD) 56.2 ml/min Glucose 274 H (74-106) mg/dL POC Glucose 305 H (70-99) mg/dL Lactic Acid 1.9 (0.4-2.0) mmol/L Calcium 7.8 L (8.5-10.1) mg/dL Magnesium 1.9 (1.8-2.4) mg/dL Total Bilirubin 0.5 (0.2-1.0) mg/dL Direct Bilirubin (0.0-0.5) mg/dL AST 42 H (15-37) IU/L ALT 37 (14-63) IU/L Alkaline Phosphatase 85 (46-116) U/L Troponin I < 0.050 (0.000-0.056) ng/mL Total Protein 6.8 (6.4-8.2) g/dL Albumin 3.2 L (3.4-5.0) g/dL Globulin 3.6 (2.6-4.0) g/dL Albumin/Globulin Ratio 0.9 (0.9-1.6) Result Diagrams: 10/31/20 05:23 10/31/20 05:23 Sepsis Event Note - Evaluation Sepsis Screening Result: Sepsis Risk - Focused Exam Vital Signs: Vital Signs Temp Pulse Resp BP BP Pulse Ox 10/29/20 20:00 36.2 C 20 141/84 H 91 L 10/29/20 18:38 36.3 C 16 134/79 89 L 10/29/20 17:16 97 25 H 143/79 H 93 L 10/29/20 16:01 22 H 131/73 93 L 10/29/20 15:01 107 H 23 H 134/71 90 L 10/29/20 14:25 36.6 C 111 H 24 H 178/92 H 82 L Problem List Initiated/Reviewed/Updated: Yes Orders Last 24hrs: Active Orders 24 hr Category Date Time Status Admission Status [Patient Status] [ADT] Stat ADT 10/29/20 16:28 Active Blood Glucose Check, Bedside [RC] TIDAC Care 10/30/20 06:30 Active RT Post Treatment Assessment [RC] Click to Edit Care 10/29/20 22:02 Active RT Pre-Treatment Assessment [RC] Click to Edit Care 10/29/20 22:02 Active ADA Diabetic [[place]izen [place] [employer] Diet] [DIET Diet 10/30/20 Dinner Active ] BILIRUBIN DIRECT [CHEM] DAILY Lab 10/30/20 15:00 Ordered BILIRUBIN DIRECT [CHEM] DAILY Lab 10/31/20 15:00 Ordered BILIRUBIN DIRECT [CHEM] DAILY Lab 11/01/20 15:00 Ordered BILIRUBIN DIRECT [CHEM] DAILY Lab 11/02/20 15:00 Ordered COMPREHENSIVE METABOLIC PN,CMP [CHEM] DAILY Lab 10/30/20 15:00 Ordered COMPREHENSIVE METABOLIC PN,CMP [CHEM] DAILY Lab 10/31/20 15:00 Ordered COMPREHENSIVE METABOLIC PN,CMP [CHEM] DAILY Lab 11/01/20 15:00 Ordered COMPREHENSIVE METABOLIC PN,CMP [CHEM] DAILY Lab 11/02/20 15:00 Ordered Albuterol [Ventolin HFA] Med 10/29/20 21:59 Active 0 gm INH Q4H PRN Budesonide/Formoterol [Symbicort 160-4.5 MCG] Med 10/29/20 22:00 Active 0 gm INH BID Ciprofloxacin [Ciprofloxacin HCl] Med 10/29/20 22:02 Active 250 mg PO BID Dextrose 50% in Water Med 10/29/20 19:38 Active 50 ml IVPUSH ASDIRECTED PRN Enoxaparin [Lovenox] Med 10/29/20 22:00 Active 40 mg SUBCUT Q24H Glucagon,Human Recombinant [GlucaGen] Med 10/29/20 19:38 Active 1 mg IM ASDIRECTED PRN Insulin Aspart [NovoLOG] Med 10/29/20 20:15 Active See Protocol SUBCUT TIDA Losartan [Cozaar] Med 10/30/20 09:00 Active 25 mg PO DAILY Montelukast [Singulair] Med 10/29/20 22:00 Active 10 mg PO BEDTIME Sodium Chloride 0.9% [Normal Saline] 1,000 ml Med 10/29/20 15:15 Active IV ASDIRECTED Medication Orders Albuterol (Albuterol 8 Gm Inhaler) 0 gm INH Q4H PRN PRN Reason: Shortness of Breath Budesonide/Formoterol Fumarate (Budesonide/Formoterol 160-4.5 Mcg/Puff 6 Gm Inhaler) 0 gm INH BID [facility] Last Admin: 10/29/20 23:26 Dose: Not Given Documented by: GÉNESIS Ciprofloxacin (Ciprofloxacin 250 Mg Tab) 250 mg PO BID [facility] Last Admin: 10/29/20 22:28 Dose: 250 mg Documented by: GÉNESIS Dextrose/Water (50% Dextrose In Water 50 Ml Syringe) 50 ml IVPUSH ASDIRECTED PRN PRN Reason: Hypoglycemia Enoxaparin Sodium (Enoxaparin 40 Mg/0.4 Ml Syringe) 40 mg SUBCUT Q24H [facility] Last Admin: 10/29/20 22:29 Dose: 40 mg Documented by: GÉNESIS Glucagon (Glucagon,Human Recombinant 1 Mg Vial) 1 mg IM ASDIRECTED PRN PRN Reason: Hypoglycemia Sodium Chloride (Normal Saline) 1,000 mls @ 50 mls/hr IV ASDIRECTED [facility] Last Admin: 10/29/20 15:21 Dose: 50 mls/hr Documented by: JAYDE Insulin Aspart (Insulin Aspart 100 Units/Ml 3 Ml Pen) 0 unit SUBCUT TIDAC [facility]; Protocol Last Admin: 10/29/20 20:32 Dose: 5 units Documented by: GÉNESIS Losartan Potassium (Losartan 50 Mg Tab) 25 mg PO DAILY [facility] Montelukast Sodium (Montelukast 10 Mg Tab) 10 mg PO BEDTIME [facility] Last Admin: 10/29/20 22:28 Dose: 10 mg Documented by: GÉNSEIS Assessment/Plan Comment:: 60 yo female admitted with acute hypoxic respiratory failure due to COVID pneumonia COVID: treating with remdesivir, dexamethasone and supplemental oxygen, lovenox for DVT prophylaxis JAZMIN: CPAP at night DM: sliding scale insulin, will check HgA1c HTN/COPD: resume home meds
[2020-10-30 05:57] LABS: HEMOGLOBIN A1C 8.3 %
[2020-10-30 06:15] LABS: CARBON DIOXIDE,CO2 23.2 mmol/L (21.0-32.0); POTASSIUM,K 4.3 mmol/L (3.5-5.1)
[2020-10-30] MEDS ORDERED: Insulin Aspart 100 Units/ML 3 ML Pen SUBCUT SCH (07:30)
[2020-10-30] MEDS: Losartan 50 MG Tab PO SCH (08:20)
[2020-10-30] MEDS: Ciprofloxacin 250 MG Tab PO SCH ×2 (08:21→20:16)
[2020-10-30] MEDS: Insulin Aspart 100 Units/ML 3 ML Pen SUBCUT SCH ×3 (08:23→18:42)
[2020-10-30] MEDS: Budesonide/Formoterol 160-4.5 MCG/Puff 6 GM Inhaler INH SCH ×2 (09:26→20:17)
[2020-10-30] MEDS: Enoxaparin 40 MG/0.4 ML Syringe SUBCUT SCH ×2 (12:27→23:35)
[2020-10-30] MEDS ORDERED: REMDESIVIR 100 MG in Sodium Chloride 0.9% 100 ML IV SCH (15:00)
[2020-10-30 15:42] LABS: CARBON DIOXIDE,CO2 24.4 mmol/L (21.0-32.0); POTASSIUM,K 4.5 mmol/L (3.5-5.1)
[2020-10-30] MEDS ORDERED: Sodium Chloride 0.9% 2.5 ML Syringe FLUSH PRN (15:49)
--- NOTE | 2020-10-30 16:44 | PCM.PN ---
- General Info Date of Service: 10/30/20 Admission Dx/Problem (Free Text): Admission Diagnosis/Problem Admission Diagnosis/Problem Hypoxia secondary to Covid pneumonia Subjective Update: 60-year-old female with past medical history of hypertension, COPD, diabetes mellitus, JAZMIN with recent diagnosis of Covid was found to be hypoxic saturating in the 80s with associated symptoms of shortness of breath, fever, chills and cough. There were no overnight events, patient remained on CPAP, this morning is on 4 l nasal cannula. States she is much improved, denies any fever, chills, shortness of breath. However continues to complain of productive cough. - Review of Systems General: Reports: No Symptoms HEENT: Reports: No Symptoms Pulmonary: Reports: Cough. Denies: Shortness of Breath, Pleuritic Chest Pain, Hemoptysis, Wheezing Cardiovascular: Reports: No Symptoms Gastrointestinal: Reports: No Symptoms Genitourinary: Reports: No Symptoms Musculoskeletal: Reports: No Symptoms Skin: Reports: No Symptoms Neurological: Reports: No Symptoms Psychiatric: Reports: No Symptoms - Patient Data Vitals - Most Recent: Last Vital Signs Temp 97.3 F 10/30/20 11:48 Pulse 90 10/30/20 11:48 Resp 19 10/30/20 11:48 BP 140/61 10/30/20 11:48 Pulse Ox 90 L 10/30/20 11:48 Weight - Most Recent: 387 lb 8 oz I&O - Last 24 Hours: Intake & Output 10/30/20 10/30/20 10/30/20 06:59 14:59 22:59 Intake Total 1500 Output Total 1450 Balance 50 Lab Results Last 24 Hours: Laboratory Results - last 24 hr 10/29/20 10/30/20 10/30/20 Range/Units 19:58 00:50 05:16 WBC 2.80 L (4.0-11.0) K/uL RBC 4.28 L (4.30-5.90) M/uL Hgb 13.1 (12.0-16.0) g/dL Hct 38.7 (36.0-46.0) % MCV 90.4 (80.0-98.0) fL MCH 30.6 (27.0-32.0) pg MCHC 33.9 (31.0-37.0) g/dL RDW Std Deviation 44.0 (28.0-62.0) fl RDW Coeff of Ry 13 (11.0-15.0) % Plt Count 120 L (150-400) K/uL MPV 9.20 (7.40-12.00) fL Neut % (Auto) 61.7 (48.0-80.0) % Lymph % (Auto) 25.4 (16.0-40.0) % [place] % (Auto) 12.5 (0.0-15.0) % Eos % (Auto) 0.0 (0.0-7.0) % Baso % (Auto) 0.4 (0.0-1.5) % Neut # (Auto) 1.7 (1.4-5.7) K/uL Lymph # (Auto) 0.7 (0.6-2.4) K/uL [place] # (Auto) 0.4 (0.0-0.8) K/uL Eos # (Auto) 0.0 (0.0-0.7) K/uL Baso # (Auto) 0.0 (0.0-0.1) K/uL Nucleated RBC % 0.0 /100WBC Nucleated RBCs # 0 K/uL Sodium (136-145) mmol/L Potassium (3.5-5.1) mmol/L Chloride (98-107) mmol/L Carbon Dioxide (21.0-32.0) mmol/L BUN (7.0-18.0) mg/dL Creatinine (0.6-1.0) mg/dL Est Cr Clr Drug Dosing mL/min Estimated GFR (MDRD) ml/min Glucose (74-106) mg/dL POC Glucose 305 H (70-99) mg/dL Hemoglobin A1c (4.5 - 6.2) % Calcium (8.5-10.1) mg/dL Total Bilirubin (0.2-1.0) mg/dL Direct Bilirubin 0.10 (0.0-0.5) mg/dL AST (15-37) IU/L ALT (14-63) IU/L Alkaline Phosphatase (46-116) U/L Total Protein (6.4-8.2) g/dL Albumin (3.4-5.0) g/dL Globulin (2.6-4.0) g/dL Albumin/Globulin Ratio (0.9-1.6) 10/30/20 10/30/20 10/30/20 Range/Units 05:16 05:16 06:48 WBC (4.0-11.0) K/uL RBC (4.30-5.90) M/uL Hgb (12.0-16.0) g/dL Hct (36.0-46.0) % MCV (80.0-98.0) fL MCH (27.0-32.0) pg MCHC (31.0-37.0) g/dL RDW Std Deviation (28.0-62.0) fl RDW Coeff of Ry (11.0-15.0) % Plt Count (150-400) K/uL MPV (7.40-12.00) fL Neut % (Auto) (48.0-80.0) % Lymph % (Auto) (16.0-40.0) % [place] % (Auto) (0.0-15.0) % Eos % (Auto) (0.0-7.0) % Baso % (Auto) (0.0-1.5) % Neut # (Auto) (1.4-5.7) K/uL Lymph # (Auto) (0.6-2.4) K/uL [place] # (Auto) (0.0-0.8) K/uL Eos # (Auto) (0.0-0.7) K/uL Baso # (Auto) (0.0-0.1) K/uL Nucleated RBC % /100WBC Nucleated RBCs # K/uL Sodium 134 L (136-145) mmol/L Potassium 4.3 (3.5-5.1) mmol/L Chloride 99 (98-107) mmol/L Carbon Dioxide 23.2 (21.0-32.0) mmol/L BUN 17 (7.0-18.0) mg/dL Creatinine 1.0 (0.6-1.0) mg/dL Est Cr Clr Drug Dosing 58.84 mL/min Estimated GFR (MDRD) 56.2 ml/min Glucose 311 H (74-106) mg/dL POC Glucose 299 H (70-99) mg/dL Hemoglobin A1c 8.3 H (4.5 - 6.2) % Calcium 7.6 L (8.5-10.1) mg/dL Total Bilirubin 0.4 (0.2-1.0) mg/dL Direct Bilirubin (0.0-0.5) mg/dL AST 41 H (15-37) IU/L ALT 37 (14-63) IU/L Alkaline Phosphatase 85 (46-116) U/L Total Protein 6.8 (6.4-8.2) g/dL Albumin 3.0 L (3.4-5.0) g/dL Globulin 3.8 (2.6-4.0) g/dL Albumin/Globulin Ratio 0.8 L (0.9-1.6) 10/30/20 10/30/20 Range/Units 12:23 15:13 WBC (4.0-11.0) K/uL RBC (4.30-5.90) M/uL Hgb (12.0-16.0) g/dL Hct (36.0-46.0) % MCV (80.0-98.0) fL MCH (27.0-32.0) pg MCHC (31.0-37.0) g/dL RDW Std Deviation (28.0-62.0) fl RDW Coeff of Ry (11.0-15.0) % Plt Count (150-400) K/uL MPV (7.40-12.00) fL Neut % (Auto) (48.0-80.0) % Lymph % (Auto) (16.0-40.0) % [place] % (Auto) (0.0-15.0) % Eos % (Auto) (0.0-7.0) % Baso % (Auto) (0.0-1.5) % Neut # (Auto) (1.4-5.7) K/uL Lymph # (Auto) (0.6-2.4) K/uL [place] # (Auto) (0.0-0.8) K/uL Eos # (Auto) (0.0-0.7) K/uL Baso # (Auto) (0.0-0.1) K/uL Nucleated RBC % /100WBC Nucleated RBCs # K/uL Sodium 136 (136-145) mmol/L Potassium 4.5 (3.5-5.1) mmol/L Chloride 100 (98-107) mmol/L Carbon Dioxide 24.4 (21.0-32.0) mmol/L BUN 17 (7.0-18.0) mg/dL Creatinine 1.0 (0.6-1.0) mg/dL Est Cr Clr Drug Dosing 58.84 mL/min Estimated GFR (MDRD) 56.2 ml/min Glucose 269 H (74-106) mg/dL POC Glucose 257 H (70-99) mg/dL Hemoglobin A1c (4.5 - 6.2) % Calcium 7.8 L (8.5-10.1) mg/dL Total Bilirubin 0.4 (0.2-1.0) mg/dL Direct Bilirubin 0.10 (0.0-0.5) mg/dL AST 45 H (15-37) IU/L ALT 34 (14-63) IU/L Alkaline Phosphatase 85 (46-116) U/L Total Protein 6.5 (6.4-8.2) g/dL Albumin 3.1 L (3.4-5.0) g/dL Globulin 3.4 (2.6-4.0) g/dL Albumin/Globulin Ratio 0.9 (0.9-1.6) Med Orders - Current: Current Medications Albuterol (Albuterol 8 Gm Inhaler) 0 gm INH Q4H PRN PRN Reason: Shortness of Breath Budesonide/Formoterol Fumarate (Budesonide/Formoterol 160-4.5 Mcg/Puff 6 Gm Inhaler) 0 gm INH BID [facility] Last Admin: 10/30/20 09:26 Dose: Not Given Documented by: Ciprofloxacin (Ciprofloxacin 250 Mg Tab) 250 mg PO BID [facility] Last Admin: 10/30/20 08:21 Dose: 250 mg Documented by: Dexamethasone (Dexamethasone 4 Mg Tab) 6 mg PO DAILY [facility] Dextrose/Water (50% Dextrose In Water 50 Ml Syringe) 50 ml IVPUSH ASDIRECTED PRN PRN Reason: Hypoglycemia Enoxaparin Sodium (Enoxaparin 40 Mg/0.4 Ml Syringe) 40 mg SUBCUT Q12H [facility] Last Admin: 10/30/20 12:27 Dose: 40 mg Documented by: Glucagon (Glucagon,Human Recombinant 1 Mg Vial) 1 mg IM ASDIRECTED PRN PRN Reason: Hypoglycemia Remdesivir 100 mg/ Sodium (Chloride) 100 mls @ 100 mls/hr IV Q24H [facility] Stop: 11/02/20 15:59 Insulin Aspart (Insulin Aspart 100 Units/Ml 3 Ml Pen) 0 unit SUBCUT TIDAC [facility]; Protocol Last Admin: 10/30/20 12:30 Dose: 3 units Documented by: Losartan Potassium (Losartan 50 Mg Tab) 25 mg PO DAILY [facility] Last Admin: 10/30/20 08:20 Dose: 25 mg Documented by: Montelukast Sodium (Montelukast 10 Mg Tab) 10 mg PO BEDTIME [facility] Last Admin: 10/29/20 22:28 Dose: 10 mg Documented by: Sodium Chloride (Sodium Chloride 0.9% 2.5 Ml Syringe) 2.5 ml FLUSH ASDIRECTED PRN PRN Reason: Keep Vein Open Discontinued Medications Dexamethasone (Dexamethasone 10 Mg/Ml Sdv) 10 mg IVPUSH ONETIME ONE Stop: 10/29/20 14:49 Last Admin: 10/29/20 15:22 Dose: 10 mg Documented by: Enoxaparin Sodium (Enoxaparin 40 Mg/0.4 Ml Syringe) 40 mg SUBCUT Q24H [facility] Last Admin: 10/29/20 22:29 Dose: 40 mg Documented by: Remdesivir 200 mg/ Sodium (Chloride) 250 mls @ 250 mls/hr IV ONETIME ONE Stop: 10/29/20 14:48 Last Admin: 10/29/20 15:08 Dose: Not Given Documented by: Remdesivir 200 mg/ Sodium (Chloride) 250 mls @ 250 mls/hr IV ONETIME ONE Stop: 10/29/20 15:59 Last Admin: 10/29/20 15:27 Dose: 250 mls/hr Documented by: Sodium Chloride (Normal Saline) 1,000 mls @ 50 mls/hr IV ASDIRECTED [facility] Last Admin: 10/29/20 15:21 Dose: 50 mls/hr Documented by: Insulin Aspart (Insulin Aspart 100 Units/Ml 3 Ml Pen) 0 unit SUBCUT TIDAC [facility]; Protocol - Exam Quality Assessment: Supplemental Oxygen, DVT Prophylaxis General: Alert, Oriented, Cooperative HEENT: Pupils Equal, Pupils Reactive, EOMI, Mucous Membr. Moist/[place] Neck: Supple Lungs: Clear to Auscultation, Normal Respiratory Effort Cardiovascular: Regular Rate, Regular Rhythm GI/Abdominal Exam: Normal Bowel Sounds, Soft, Non-Tender, No Organomegaly Extremities: Normal Inspection, Normal Range of Motion, Non-Tender, No Pedal Edema, Normal Capillary Refill Peripheral Pulses: 2+: Carotid (L), Carotid (R), Dorsalis Pedis (L), Dorsalis Pedis (R) Skin: Warm, Dry, Intact Neurological: No New Focal Deficit Psy/Mental Status: Alert, Normal Affect, Normal Mood - Patient Data Lab Results Last 24 hrs: Laboratory Results - last 24 hr 10/29/20 10/30/20 10/30/20 Range/Units 19:58 00:50 05:16 WBC 2.80 L (4.0-11.0) K/uL RBC 4.28 L (4.30-5.90) M/uL Hgb 13.1 (12.0-16.0) g/dL Hct 38.7 (36.0-46.0) % MCV 90.4 (80.0-98.0) fL MCH 30.6 (27.0-32.0) pg MCHC 33.9 (31.0-37.0) g/dL RDW Std Deviation 44.0 (28.0-62.0) fl RDW Coeff of Ry 13 (11.0-15.0) % Plt Count 120 L (150-400) K/uL MPV 9.20 (7.40-12.00) fL Neut % (Auto) 61.7 (48.0-80.0) % Lymph % (Auto) 25.4 (16.0-40.0) % [place] % (Auto) 12.5 (0.0-15.0) % Eos % (Auto) 0.0 (0.0-7.0) % Baso % (Auto) 0.4 (0.0-1.5) % Neut # (Auto) 1.7 (1.4-5.7) K/uL Lymph # (Auto) 0.7 (0.6-2.4) K/uL [place] # (Auto) 0.4 (0.0-0.8) K/uL Eos # (Auto) 0.0 (0.0-0.7) K/uL Baso # (Auto) 0.0 (0.0-0.1) K/uL Nucleated RBC % 0.0 /100WBC Nucleated RBCs # 0 K/uL Sodium (136-145) mmol/L Potassium (3.5-5.1) mmol/L Chloride (98-107) mmol/L Carbon Dioxide (21.0-32.0) mmol/L BUN (7.0-18.0) mg/dL Creatinine (0.6-1.0) mg/dL Est Cr Clr Drug Dosing mL/min Estimated GFR (MDRD) ml/min Glucose (74-106) mg/dL POC Glucose 305 H (70-99) mg/dL Hemoglobin A1c (4.5 - 6.2) % Calcium (8.5-10.1) mg/dL Total Bilirubin (0.2-1.0) mg/dL Direct Bilirubin 0.10 (0.0-0.5) mg/dL AST (15-37) IU/L ALT (14-63) IU/L Alkaline Phosphatase (46-116) U/L Total Protein (6.4-8.2) g/dL Albumin (3.4-5.0) g/dL Globulin (2.6-4.0) g/dL Albumin/Globulin Ratio (0.9-1.6) 10/30/20 10/30/20 10/30/20 Range/Units 05:16 05:16 06:48 WBC (4.0-11.0) K/uL RBC (4.30-5.90) M/uL Hgb (12.0-16.0) g/dL Hct (36.0-46.0) % MCV (80.0-98.0) fL MCH (27.0-32.0) pg MCHC (31.0-37.0) g/dL RDW Std Deviation (28.0-62.0) fl RDW Coeff of Ry (11.0-15.0) % Plt Count (150-400) K/uL MPV (7.40-12.00) fL Neut % (Auto) (48.0-80.0) % Lymph % (Auto) (16.0-40.0) % [place] % (Auto) (0.0-15.0) % Eos % (Auto) (0.0-7.0) % Baso % (Auto) (0.0-1.5) % Neut # (Auto) (1.4-5.7) K/uL Lymph # (Auto) (0.6-2.4) K/uL [place] # (Auto) (0.0-0.8) K/uL Eos # (Auto) (0.0-0.7) K/uL Baso # (Auto) (0.0-0.1) K/uL Nucleated RBC % /100WBC Nucleated RBCs # K/uL Sodium 134 L (136-145) mmol/L Potassium 4.3 (3.5-5.1) mmol/L Chloride 99 (98-107) mmol/L Carbon Dioxide 23.2 (21.0-32.0) mmol/L BUN 17 (7.0-18.0) mg/dL Creatinine 1.0 (0.6-1.0) mg/dL Est Cr Clr Drug Dosing 58.84 mL/min Estimated GFR (MDRD) 56.2 ml/min Glucose 311 H (74-106) mg/dL POC Glucose 299 H (70-99) mg/dL Hemoglobin A1c 8.3 H (4.5 - 6.2) % Calcium 7.6 L (8.5-10.1) mg/dL Total Bilirubin 0.4 (0.2-1.0) mg/dL Direct Bilirubin (0.0-0.5) mg/dL AST 41 H (15-37) IU/L ALT 37 (14-63) IU/L Alkaline Phosphatase 85 (46-116) U/L Total Protein 6.8 (6.4-8.2) g/dL Albumin 3.0 L (3.4-5.0) g/dL Globulin 3.8 (2.6-4.0) g/dL Albumin/Globulin Ratio 0.8 L (0.9-1.6) 10/30/20 10/30/20 Range/Units 12:23 15:13 WBC (4.0-11.0) K/uL RBC (4.30-5.90) M/uL Hgb (12.0-16.0) g/dL Hct (36.0-46.0) % MCV (80.0-98.0) fL MCH (27.0-32.0) pg MCHC (31.0-37.0) g/dL RDW Std Deviation (28.0-62.0) fl RDW Coeff of Ry (11.0-15.0) % Plt Count (150-400) K/uL MPV (7.40-12.00) fL Neut % (Auto) (48.0-80.0) % Lymph % (Auto) (16.0-40.0) % [place] % (Auto) (0.0-15.0) % Eos % (Auto) (0.0-7.0) % Baso % (Auto) (0.0-1.5) % Neut # (Auto) (1.4-5.7) K/uL Lymph # (Auto) (0.6-2.4) K/uL [place] # (Auto) (0.0-0.8) K/uL Eos # (Auto) (0.0-0.7) K/uL Baso # (Auto) (0.0-0.1) K/uL Nucleated RBC % /100WBC Nucleated RBCs # K/uL Sodium 136 (136-145) mmol/L Potassium 4.5 (3.5-5.1) mmol/L Chloride 100 (98-107) mmol/L Carbon Dioxide 24.4 (21.0-32.0) mmol/L BUN 17 (7.0-18.0) mg/dL Creatinine 1.0 (0.6-1.0) mg/dL Est Cr Clr Drug Dosing 58.84 mL/min Estimated GFR (MDRD) 56.2 ml/min Glucose 269 H (74-106) mg/dL POC Glucose 257 H (70-99) mg/dL Hemoglobin A1c (4.5 - 6.2) % Calcium 7.8 L (8.5-10.1) mg/dL Total Bilirubin 0.4 (0.2-1.0) mg/dL Direct Bilirubin 0.10 (0.0-0.5) mg/dL AST 45 H (15-37) IU/L ALT 34 (14-63) IU/L Alkaline Phosphatase 85 (46-116) U/L Total Protein 6.5 (6.4-8.2) g/dL Albumin 3.1 L (3.4-5.0) g/dL Globulin 3.4 (2.6-4.0) g/dL Albumin/Globulin Ratio 0.9 (0.9-1.6) Result Diagrams: 10/30/20 05:16 10/30/20 15:13 Sepsis Event Note - Evaluation Sepsis Screening Result: Sepsis Risk - Focused Exam Vital Signs: Vital Signs Temp Pulse Resp BP BP Pulse Ox 10/30/20 11:48 97.3 F 90 19 140/61 90 L 10/30/20 08:20 136/78 10/30/20 08:00 97.6 F 21 H 136/78 89 L - Problem List Review Problem List Initiated/Reviewed/Updated: Yes - My Orders Last 24 Hours: My Active Orders 10/30/20 11:46 Resuscitation Status Routine - Plan Plan:: 60 yo female admitted with acute hypoxic respiratory failure due to COVID pneumo cris. 1. Acute hypoxic respiratory failure secondary to Covid pneumonia: Supplemental O2 as necessary, currently on 4 l nasal cannula with use of CPAP at night, wean as tolerated. Continue with remdesivir, dexamethasone and supplemental oxygen, lovenox 40 every 12 hours for DVT prophylaxis per patient body habitus. 2. JAZMIN: CPAP at night 3. DM: sliding scale insulin, A1c was 8.3, therefore patient will require being put back on home regimen. Patient is currently on steroids therefore sugar levels also appear to be elevated, this morning was 311. Will evaluate daily use and adjust dose for long and short acting accordingly. 4. Past medical history of HTN/COPD: resume home meds.
[2020-10-30] MEDS: Dexamethasone 4 MG Tab PO SCH (17:29)
[2020-10-30] MEDS: REMDESIVIR 100 MG in Sodium Chloride 0.9% 100 ML IV SCH (17:30)
[2020-10-30] MEDS: Albuterol 8 GM Inhaler INH PRN ×2 (20:14→23:57)
[2020-10-30] MEDS: Benzonatate 100 MG Cap PO PRN (20:16)
[2020-10-30] MEDS: Montelukast 10 MG Tab PO SCH (20:16)
[2020-10-30] MEDS ORDERED: Insulin Glargine,Human Rec. Analog 100 Units/ML 3 ML Pen SUBCUT SCH (21:00)
[2020-10-30] MEDS ORDERED: Insulin Glargine,Human Rec. Analog 100 Units/ML 3 ML Pen ONE (23:51)
[2020-10-31] MEDS: Benzonatate 100 MG Cap PO PRN ×2 (02:30→08:31)
[2020-10-31 04:49] VITALS: PULSE 77
[2020-10-31] MEDS: Albuterol 8 GM Inhaler INH PRN (05:25)
[2020-10-31] MEDS: Insulin Aspart 100 Units/ML 3 ML Pen SUBCUT SCH ×3 (07:40→17:32)
--- NOTE | 2020-10-31 07:59 | PCM.PN ---
- General Info Date of Service: 10/31/20 Admission Dx/Problem (Free Text): Admission Diagnosis/Problem Admission Diagnosis/Problem Hypoxia secondary to Covid pneumonia - Patient Data Vitals - Most Recent: Last Vital Signs Temp 96.8 F L 10/31/20 04:00 Pulse 77 10/31/20 04:00 Resp 20 10/31/20 04:00 BP 165/79 H 10/31/20 04:00 Pulse Ox 92 L 10/31/20 07:39 Weight - Most Recent: 175.767 kg I&O - Last 24 Hours: Intake & Output 10/30/20 10/31/20 10/31/20 22:59 06:59 14:59 Intake Total 1350 980 Output Total 900 1250 Balance 450 -270 Lab Results Last 24 Hours: Laboratory Results - last 24 hr 10/30/20 10/30/20 10/30/20 Range/Units 12:23 15:13 17:23 WBC (4.0-11.0) K/uL RBC (4.30-5.90) M/uL Hgb (12.0-16.0) g/dL Hct (36.0-46.0) % MCV (80.0-98.0) fL MCH (27.0-32.0) pg MCHC (31.0-37.0) g/dL RDW Std Deviation (28.0-62.0) fl RDW Coeff of Ry (11.0-15.0) % Plt Count (150-400) K/uL MPV (7.40-12.00) fL Neut % (Auto) (48.0-80.0) % Lymph % (Auto) (16.0-40.0) % [place] % (Auto) (0.0-15.0) % Eos % (Auto) (0.0-7.0) % Baso % (Auto) (0.0-1.5) % Neut # (Auto) (1.4-5.7) K/uL Lymph # (Auto) (0.6-2.4) K/uL [place] # (Auto) (0.0-0.8) K/uL Eos # (Auto) (0.0-0.7) K/uL Baso # (Auto) (0.0-0.1) K/uL Nucleated RBC % /100WBC Nucleated RBCs # K/uL Sodium 136 (136-145) mmol/L Potassium 4.5 (3.5-5.1) mmol/L Chloride 100 (98-107) mmol/L Carbon Dioxide 24.4 (21.0-32.0) mmol/L BUN 17 (7.0-18.0) mg/dL Creatinine 1.0 (0.6-1.0) mg/dL Est Cr Clr Drug Dosing 58.84 mL/min Estimated GFR (MDRD) 56.2 ml/min Glucose 269 H (74-106) mg/dL POC Glucose 257 H 230 H (70-99) mg/dL Calcium 7.8 L (8.5-10.1) mg/dL Total Bilirubin 0.4 (0.2-1.0) mg/dL Direct Bilirubin 0.10 (0.0-0.5) mg/dL AST 45 H (15-37) IU/L ALT 34 (14-63) IU/L Alkaline Phosphatase 85 (46-116) U/L Total Protein 6.5 (6.4-8.2) g/dL Albumin 3.1 L (3.4-5.0) g/dL Globulin 3.4 (2.6-4.0) g/dL Albumin/Globulin Ratio 0.9 (0.9-1.6) 10/30/20 10/31/20 10/31/20 Range/Units 23:54 05:23 05:23 WBC 4.04 (4.0-11.0) K/uL RBC 4.35 (4.30-5.90) M/uL Hgb 13.2 (12.0-16.0) g/dL Hct 39.6 (36.0-46.0) % MCV 91.0 (80.0-98.0) fL MCH 30.3 (27.0-32.0) pg MCHC 33.3 (31.0-37.0) g/dL RDW Std Deviation 44.6 (28.0-62.0) fl RDW Coeff of Ry 13 (11.0-15.0) % Plt Count 143 L (150-400) K/uL MPV 9.20 (7.40-12.00) fL Neut % (Auto) 62.7 (48.0-80.0) % Lymph % (Auto) 26.5 (16.0-40.0) % [place] % (Auto) 10.6 (0.0-15.0) % Eos % (Auto) 0.0 (0.0-7.0) % Baso % (Auto) 0.2 (0.0-1.5) % Neut # (Auto) 2.5 (1.4-5.7) K/uL Lymph # (Auto) 1.1 (0.6-2.4) K/uL [place] # (Auto) 0.4 (0.0-0.8) K/uL Eos # (Auto) 0.0 (0.0-0.7) K/uL Baso # (Auto) 0.0 (0.0-0.1) K/uL Nucleated RBC % 0.0 /100WBC Nucleated RBCs # 0 K/uL Sodium 135 L (136-145) mmol/L Potassium 5.0 (3.5-5.1) mmol/L Chloride 100 (98-107) mmol/L Carbon Dioxide 25.0 (21.0-32.0) mmol/L BUN 21 H (7.0-18.0) mg/dL Creatinine 1.0 (0.6-1.0) mg/dL Est Cr Clr Drug Dosing 58.84 mL/min Estimated GFR (MDRD) 56.2 ml/min Glucose 356 H (74-106) mg/dL POC Glucose 305 H (70-99) mg/dL Calcium 7.9 L (8.5-10.1) mg/dL Total Bilirubin 0.4 (0.2-1.0) mg/dL Direct Bilirubin (0.0-0.5) mg/dL AST 43 H (15-37) IU/L ALT 38 (14-63) IU/L Alkaline Phosphatase 82 (46-116) U/L Total Protein 6.7 (6.4-8.2) g/dL Albumin 3.0 L (3.4-5.0) g/dL Globulin 3.7 (2.6-4.0) g/dL Albumin/Globulin Ratio 0.8 L (0.9-1.6) /18/ Range/Units 06:34 WBC (4.0-11.0) K/uL RBC (4.30-5.90) M/uL Hgb (12.0-16.0) g/dL Hct (36.0-46.0) % MCV (80.0-98.0) fL MCH (27.0-32.0) pg MCHC (31.0-37.0) g/dL RDW Std Deviation (28.0-62.0) fl RDW Coeff of Ry (11.0-15.0) % Plt Count (150-400) K/uL MPV (7.40-12.00) fL Neut % (Auto) (48.0-80.0) % Lymph % (Auto) (16.0-40.0) % [place] % (Auto) (0.0-15.0) % Eos % (Auto) (0.0-7.0) % Baso % (Auto) (0.0-1.5) % Neut # (Auto) (1.4-5.7) K/uL Lymph # (Auto) (0.6-2.4) K/uL [place] # (Auto) (0.0-0.8) K/uL Eos # (Auto) (0.0-0.7) K/uL Baso # (Auto) (0.0-0.1) K/uL Nucleated RBC % /100WBC Nucleated RBCs # K/uL Sodium (136-145) mmol/L Potassium (3.5-5.1) mmol/L Chloride (98-107) mmol/L Carbon Dioxide (21.0-32.0) mmol/L BUN (7.0-18.0) mg/dL Creatinine (0.6-1.0) mg/dL Est Cr Clr Drug Dosing mL/min Estimated GFR (MDRD) ml/min Glucose (74-106) mg/dL POC Glucose 319 H (70-99) mg/dL Calcium (8.5-10.1) mg/dL Total Bilirubin (0.2-1.0) mg/dL Direct Bilirubin (0.0-0.5) mg/dL AST (15-37) IU/L ALT (14-63) IU/L Alkaline Phosphatase (46-116) U/L Total Protein (6.4-8.2) g/dL Albumin (3.4-5.0) g/dL Globulin (2.6-4.0) g/dL Albumin/Globulin Ratio (0.9-1.6) Med Orders - Current: Current Medications Albuterol (Albuterol 8 Gm Inhaler) 0 gm INH Q4H PRN PRN Reason: Shortness of Breath Last Admin: 10/31/20 05:25 Dose: 2 puff Documented by: Benzonatate (Benzonatate 100 Mg Cap) 100 mg PO Q6H PRN PRN Reason: Cough Last Admin: 10/31/20 02:30 Dose: 100 mg Documented by: Budesonide/Formoterol Fumarate (Budesonide/Formoterol 160-4.5 Mcg/Puff 6 Gm Inha ler) 0 gm INH BID [facility] Last Admin: 10/30/20 20:17 Dose: Not Given Documented by: Ciprofloxacin (Ciprofloxacin 250 Mg Tab) 250 mg PO BID [facility] Last Admin: 10/30/20 20:16 Dose: 250 mg Documented by: Dexamethasone (Dexamethasone 4 Mg Tab) 6 mg PO DAILY [facility] Last Admin: 10/30/20 17:29 Dose: 6 mg Documented by: Dextrose/Water (50% Dextrose In Water 50 Ml Syringe) 50 ml IVPUSH ASDIRECTED PRN PRN Reason: Hypoglycemia Enoxaparin Sodium (Enoxaparin 40 Mg/0.4 Ml Syringe) 40 mg SUBCUT Q12H [facility] Last Admin: 10/30/20 23:35 Dose: 40 mg Documented by: Glucagon (Glucagon,Human Recombinant 1 Mg Vial) 1 mg IM ASDIRECTED PRN PRN Reason: Hypoglycemia Remdesivir 100 mg/ Sodium (Chloride) 100 mls @ 100 mls/hr IV Q24H [facility] Stop: 11/02/20 18:14 Last Admin: 10/30/20 17:30 Dose: 100 mls/hr Documented by: Insulin Aspart (Insulin Aspart 100 Units/Ml 3 Ml Pen) 0 unit SUBCUT TIDAC [facility]; Protocol Last Admin: 10/31/20 07:40 Dose: 8 units Documented by: Insulin Glargine (Insulin Glargine,Human Rec. Analog 100 Units/Ml 3 Ml Pen) 5 units SUBCUT BEDTIME [facility] Last Admin: 10/30/20 23:54 Dose: 5 units Documented by: Losartan Potassium (Losartan 50 Mg Tab) 25 mg PO DAILY [facility] Last Admin: 10/30/20 08:20 Dose: 25 mg Documented by: Montelukast Sodium (Montelukast 10 Mg Tab) 10 mg PO BEDTIME [facility] Last Admin: 10/30/20 20:16 Dose: 10 mg Documented by: Sodium Chloride (Sodium Chloride 0.9% 2.5 Ml Syringe) 2.5 ml FLUSH ASDIRECTED PRN PRN Reason: Keep Vein Open Discontinued Medications Dexamethasone (Dexamethasone 10 Mg/Ml Sdv) 10 mg IVPUSH ONETIME ONE Stop: 10/29/20 14:49 Last Admin: 10/29/20 15:22 Dose: 10 mg Documented by: Enoxaparin Sodium (Enoxaparin 40 Mg/0.4 Ml Syringe) 40 mg SUBCUT Q24H [facility] Last Admin: 10/29/20 22:29 Dose: 40 mg Documented by: Remdesivir 200 mg/ Sodium (Chloride) 250 mls @ 250 mls/hr IV ONETIME ONE Stop: 10/29/20 14:48 Last Admin: 10/29/20 15:08 Dose: Not Given Documented by: Remdesivir 200 mg/ Sodium (Chloride) 250 mls @ 250 mls/hr IV ONETIME ONE Stop: 10/29/20 15:59 Last Admin: 10/29/20 15:27 Dose: 250 mls/hr Documented by: Sodium Chloride (Normal Saline) 1,000 mls @ 50 mls/hr IV ASDIRECTED [facility] Last Admin: 10/29/20 15:21 Dose: 50 mls/hr Documented by: Remdesivir 100 mg/ Sodium (Chloride) 100 mls @ 100 mls/hr IV Q24H [facility] Stop: 11/02/20 15:59 Last Admin: 10/30/20 19:19 Dose: Not Given Documented by: Insulin Aspart (Insulin Aspart 100 Units/Ml 3 Ml Pen) 0 unit SUBCUT TIDAC [facility]; Protocol Insulin Glargine (Insulin Glargine,Human Rec. Analog 100 Units/Ml 3 Ml Pen) Confirm Administered Dose 300 units .ROUTE .STK-MED ONE Stop: 10/30/20 23:52 Last Admin: 10/31/20 00:45 Dose: Not Given Documented by: - Patient Data Lab Results Last 24 hrs: Laboratory Results - last 24 hr 06/17/21 06/17/21 06/17/21 Range/Units 12:23 15:13 17:23 WBC (4.0-11.0) K/uL RBC (4.30-5.90) M/uL Hgb (12.0-16.0) g/dL Hct (36.0-46.0) % MCV (80.0-98.0) fL MCH (27.0-32.0) pg MCHC (31.0-37.0) g/dL RDW Std Deviation (28.0-62.0) fl RDW Coeff of Ry (11.0-15.0) % Plt Count (150-400) K/uL MPV (7.40-12.00) fL Neut % (Auto) (48.0-80.0) % Lymph % (Auto) (16.0-40.0) % [place] % (Auto) (0.0-15.0) % Eos % (Auto) (0.0-7.0) % Baso % (Auto) (0.0-1.5) % Neut # (Auto) (1.4-5.7) K/uL Lymph # (Auto) (0.6-2.4) K/uL [place] # (Auto) (0.0-0.8) K/uL Eos # (Auto) (0.0-0.7) K/uL Baso # (Auto) (0.0-0.1) K/uL Nucleated RBC % /100WBC Nucleated RBCs # K/uL Sodium 136 (136-145) mmol/L Potassium 4.5 (3.5-5.1) mmol/L Chloride 100 (98-107) mmol/L Carbon Dioxide 24.4 (21.0-32.0) mmol/L BUN 17 (7.0-18.0) mg/dL Creatinine 1.0 (0.6-1.0) mg/dL Est Cr Clr Drug Dosing 58.84 mL/min Estimated GFR (MDRD) 56.2 ml/min Glucose 269 H (74-106) mg/dL POC Glucose 257 H 230 H (70-99) mg/dL Calcium 7.8 L (8.5-10.1) mg/dL Total Bilirubin 0.4 (0.2-1.0) mg/dL Direct Bilirubin 0.10 (0.0-0.5) mg/dL AST 45 H (15-37) IU/L ALT 34 (14-63) IU/L Alkaline Phosphatase 85 (46-116) U/L Total Protein 6.5 (6.4-8.2) g/dL Albumin 3.1 L (3.4-5.0) g/dL Globulin 3.4 (2.6-4.0) g/dL Albumin/Globulin Ratio 0.9 (0.9-1.6) 10/30/20 10/31/20 10/31/20 Range/Units 23:54 05:23 05:23 WBC 4.04 (4.0-11.0) K/uL RBC 4.35 (4.30-5.90) M/uL Hgb 13.2 (12.0-16.0) g/dL Hct 39.6 (36.0-46.0) % MCV 91.0 (80.0-98.0) fL MCH 30.3 (27.0-32.0) pg MCHC 33.3 (31.0-37.0) g/dL RDW Std Deviation 44.6 (28.0-62.0) fl RDW Coeff of Ry 13 (11.0-15.0) % Plt Count 143 L (150-400) K/uL MPV 9.20 (7.40-12.00) fL Neut % (Auto) 62.7 (48.0-80.0) % Lymph % (Auto) 26.5 (16.0-40.0) % [place] % (Auto) 10.6 (0.0-15.0) % Eos % (Auto) 0.0 (0.0-7.0) % Baso % (Auto) 0.2 (0.0-1.5) % Neut # (Auto) 2.5 (1.4-5.7) K/uL Lymph # (Auto) 1.1 (0.6-2.4) K/uL [place] # (Auto) 0.4 (0.0-0.8) K/uL Eos # (Auto) 0.0 (0.0-0.7) K/uL Baso # (Auto) 0.0 (0.0-0.1) K/uL Nucleated RBC % 0.0 /100WBC Nucleated RBCs # 0 K/uL Sodium 135 L (136-145) mmol/L Potassium 5.0 (3.5-5.1) mmol/L Chloride 100 (98-107) mmol/L Carbon Dioxide 25.0 (21.0-32.0) mmol/L BUN 21 H (7.0-18.0) mg/dL Creatinine 1.0 (0.6-1.0) mg/dL Est Cr Clr Drug Dosing 58.84 mL/min Estimated GFR (MDRD) 56.2 ml/min Glucose 356 H (74-106) mg/dL POC Glucose 305 H (70-99) mg/dL Calcium 7.9 L (8.5-10.1) mg/dL Total Bilirubin 0.4 (0.2-1.0) mg/dL Direct Bilirubin (0.0-0.5) mg/dL AST 43 H (15-37) IU/L ALT 38 (14-63) IU/L Alkaline Phosphatase 82 (46-116) U/L Total Protein 6.7 (6.4-8.2) g/dL Albumin 3.0 L (3.4-5.0) g/dL Globulin 3.7 (2.6-4.0) g/dL Albumin/Globulin Ratio 0.8 L (0.9-1.6) 10/31/20 Range/Units 06:34 WBC (4.0-11.0) K/uL RBC (4.30-5.90) M/uL Hgb (12.0-16.0) g/dL Hct (36.0-46.0) % MCV (80.0-98.0) fL MCH (27.0-32.0) pg MCHC (31.0-37.0) g/dL RDW Std Deviation (28.0-62.0) fl RDW Coeff of Ry (11.0-15.0) % Plt Count (150-400) K/uL MPV (7.40-12.00) fL Neut % (Auto) (48.0-80.0) % Lymph % (Auto) (16.0-40.0) % [place] % (Auto) (0.0-15.0) % Eos % (Auto) (0.0-7.0) % Baso % (Auto) (0.0-1.5) % Neut # (Auto) (1.4-5.7) K/uL Lymph # (Auto) (0.6-2.4) K/uL [place] # (Auto) (0.0-0.8) K/uL Eos # (Auto) (0.0-0.7) K/uL Baso # (Auto) (0.0-0.1) K/uL Nucleated RBC % /100WBC Nucleated RBCs # K/uL Sodium (136-145) mmol/L Potassium (3.5-5.1) mmol/L Chloride (98-107) mmol/L Carbon Dioxide (21.0-32.0) mmol/L BUN (7.0-18.0) mg/dL Creatinine (0.6-1.0) mg/dL Est Cr Clr Drug Dosing mL/min Estimated GFR (MDRD) ml/min Glucose (74-106) mg/dL POC Glucose 319 H (70-99) mg/dL Calcium (8.5-10.1) mg/dL Total Bilirubin (0.2-1.0) mg/dL Direct Bilirubin (0.0-0.5) mg/dL AST (15-37) IU/L ALT (14-63) IU/L Alkaline Phosphatase (46-116) U/L Total Protein (6.4-8.2) g/dL Albumin (3.4-5.0) g/dL Globulin (2.6-4.0) g/dL Albumin/Globulin Ratio (0.9-1.6) Result Diagrams: 10/31/20 05:23 10/31/20 05:23 Sepsis Event Note - Evaluation Sepsis Screening Result: Sepsis Risk - Focused Exam Vital Signs: Vital Signs Temp Pulse Resp BP Pulse Ox Pulse Ox 10/31/20 07:39 92 L 10/31/20 04:00 96.8 F L 77 20 165/79 H 94 L 10/30/20 23:32 97.5 F 20 145/73 H 91 L 10/30/20 20:00 97.7 F 110 H 20 140/73 89 L - My Orders Last 24 Hours: My Active Orders 10/30/20 11:30 Enoxaparin [Lovenox] 40 mg SUBCUT Q12H 10/30/20 15:49 Oxygen Therapy [RC] PRN Up to Chair [RC] ASDIRECTED VTE/DVT Education [RC] PER UNIT ROUTINE Vital Signs [RC] Q4H Sodium Chloride 0.9% [Saline Flush] 2.5 ml FLUSH ASDIRECTED PRN Saline Lock Insert [OM.PC] Routine 10/30/20 15:50 RT Incentive Spirometry [RC] Q1HWA RT Acapella [RESPCARE] Routine 10/30/20 15:54 Intake and Output [RC] QSHIFT - Plan Plan:: 60 yo female admitted with acute hypoxic respiratory failure due to COVID pneumonia. 1. Acute hypoxic respiratory failure secondary to Covid pneumonia: Supplemental O2 as necessary, currently on 4 l nasal cannula with use of CPAP at night, wean as tolerated. Continue with remdesivir, dexamethasone and supplemental oxygen, lovenox 40 every 12 hours for DVT prophylaxis per patient body habitus. 2. JAZMIN: CPAP at night 3. DM: sliding scale insulin, A1c was 8.3, therefore patient will require being put back on home regimen. Patient is currently on steroids therefore sugar levels also appear to be elevated, this morning was 311. Will evaluate daily use and adjust dose for long and short acting accordingly. 4. Past medical history of HTN/COPD: resume home meds.
[2020-10-31] MEDS: Losartan 50 MG Tab PO SCH (08:31)
[2020-10-31] MEDS: Ciprofloxacin 250 MG Tab PO SCH ×2 (08:32→21:30)
[2020-10-31] MEDS: Dexamethasone 4 MG Tab PO SCH (08:32)
[2020-10-31] MEDS ORDERED: Tocilizumab 400 MG/20 ML SDV IV ONE (09:47)
[2020-10-31] MEDS: Budesonide/Formoterol 160-4.5 MCG/Puff 6 GM Inhaler INH SCH ×2 (09:49→21:58)
[2020-10-31] MEDS: Enoxaparin 40 MG/0.4 ML Syringe SUBCUT SCH ×2 (10:58→23:43)
--- NOTE | 2020-10-31 11:10 | PCM.PN ---
- General Info Date of Service: 10/31/20 - Review of Systems Systems Review Comment:: feeling better, still short of breath - Patient Data Vitals - Most Recent: Last Vital Signs Temp 36.2 C 10/31/20 08:00 Pulse 77 10/31/20 04:00 Resp 22 H 10/31/20 08:00 BP 134/71 10/31/20 08:31 Pulse Ox 89 L 10/31/20 08:00 Weight - Most Recent: 175.767 kg I&O - Last 24 Hours: Intake & Output 10/30/20 10/31/20 10/31/20 22:59 06:59 14:59 Intake Total 1350 980 Output Total 900 1250 Balance 450 -270 Lab Results Last 24 Hours: Laboratory Results - last 24 hr 10/30/20 10/30/20 10/30/20 Range/Units 12:23 15:13 17:23 WBC (4.0-11.0) K/uL RBC (4.30-5.90) M/uL Hgb (12.0-16.0) g/dL Hct (36.0-46.0) % MCV (80.0-98.0) fL MCH (27.0-32.0) pg MCHC (31.0-37.0) g/dL RDW Std Deviation (28.0-62.0) fl RDW Coeff of Ry (11.0-15.0) % Plt Count (150-400) K/uL MPV (7.40-12.00) fL Neut % (Auto) (48.0-80.0) % Lymph % (Auto) (16.0-40.0) % [place] % (Auto) (0.0-15.0) % Eos % (Auto) (0.0-7.0) % Baso % (Auto) (0.0-1.5) % Neut # (Auto) (1.4-5.7) K/uL Lymph # (Auto) (0.6-2.4) K/uL [place] # (Auto) (0.0-0.8) K/uL Eos # (Auto) (0.0-0.7) K/uL Baso # (Auto) (0.0-0.1) K/uL Nucleated RBC % /100WBC Nucleated RBCs # K/uL Sodium 136 (136-145) mmol/L Potassium 4.5 (3.5-5.1) mmol/L Chloride 100 (98-107) mmol/L Carbon Dioxide 24.4 (21.0-32.0) mmol/L BUN 17 (7.0-18.0) mg/dL Creatinine 1.0 (0.6-1.0) mg/dL Est Cr Clr Drug Dosing 58.84 mL/min Estimated GFR (MDRD) 56.2 ml/min Glucose 269 H (74-106) mg/dL POC Glucose 257 H 230 H (70-99) mg/dL Calcium 7.8 L (8.5-10.1) mg/dL Total Bilirubin 0.4 (0.2-1.0) mg/dL Direct Bilirubin 0.10 (0.0-0.5) mg/dL AST 45 H (15-37) IU/L ALT 34 (14-63) IU/L Alkaline Phosphatase 85 (46-116) U/L Total Protein 6.5 (6.4-8.2) g/dL Albumin 3.1 L (3.4-5.0) g/dL Globulin 3.4 (2.6-4.0) g/dL Albumin/Globulin Ratio 0.9 (0.9-1.6) 10/30/20 10/31/20 10/31/20 Range/Units 23:54 05:23 05:23 WBC 4.04 (4.0-11.0) K/uL RBC 4.35 (4.30-5.90) M/uL Hgb 13.2 (12.0-16.0) g/dL Hct 39.6 (36.0-46.0) % MCV 91.0 (80.0-98.0) fL MCH 30.3 (27.0-32.0) pg MCHC 33.3 (31.0-37.0) g/dL RDW Std Deviation 44.6 (28.0-62.0) fl RDW Coeff of Ry 13 (11.0-15.0) % Plt Count 143 L (150-400) K/uL MPV 9.20 (7.40-12.00) fL Neut % (Auto) 62.7 (48.0-80.0) % Lymph % (Auto) 26.5 (16.0-40.0) % [place] % (Auto) 10.6 (0.0-15.0) % Eos % (Auto) 0.0 (0.0-7.0) % Baso % (Auto) 0.2 (0.0-1.5) % Neut # (Auto) 2.5 (1.4-5.7) K/uL Lymph # (Auto) 1.1 (0.6-2.4) K/uL [place] # (Auto) 0.4 (0.0-0.8) K/uL Eos # (Auto) 0.0 (0.0-0.7) K/uL Baso # (Auto) 0.0 (0.0-0.1) K/uL Nucleated RBC % 0.0 /100WBC Nucleated RBCs # 0 K/uL Sodium 135 L (136-145) mmol/L Potassium 5.0 (3.5-5.1) mmol/L Chloride 100 (98-107) mmol/L Carbon Dioxide 25.0 (21.0-32.0) mmol/L BUN 21 H (7.0-18.0) mg/dL Creatinine 1.0 (0.6-1.0) mg/dL Est Cr Clr Drug Dosing 58.84 mL/min Estimated GFR (MDRD) 56.2 ml/min Glucose 356 H (74-106) mg/dL POC Glucose 305 H (70-99) mg/dL Calcium 7.9 L (8.5-10.1) mg/dL Total Bilirubin 0.4 (0.2-1.0) mg/dL Direct Bilirubin (0.0-0.5) mg/dL AST 43 H (15-37) IU/L ALT 38 (14-63) IU/L Alkaline Phosphatase 82 (46-116) U/L Total Protein 6.7 (6.4-8.2) g/dL Albumin 3.0 L (3.4-5.0) g/dL Globulin 3.7 (2.6-4.0) g/dL Albumin/Globulin Ratio 0.8 L (0.9-1.6) /18/ Range/Units 06:34 WBC (4.0-11.0) K/uL RBC (4.30-5.90) M/uL Hgb (12.0-16.0) g/dL Hct (36.0-46.0) % MCV (80.0-98.0) fL MCH (27.0-32.0) pg MCHC (31.0-37.0) g/dL RDW Std Deviation (28.0-62.0) fl RDW Coeff of Ry (11.0-15.0) % Plt Count (150-400) K/uL MPV (7.40-12.00) fL Neut % (Auto) (48.0-80.0) % Lymph % (Auto) (16.0-40.0) % [place] % (Auto) (0.0-15.0) % Eos % (Auto) (0.0-7.0) % Baso % (Auto) (0.0-1.5) % Neut # (Auto) (1.4-5.7) K/uL Lymph # (Auto) (0.6-2.4) K/uL [place] # (Auto) (0.0-0.8) K/uL Eos # (Auto) (0.0-0.7) K/uL Baso # (Auto) (0.0-0.1) K/uL Nucleated RBC % /100WBC Nucleated RBCs # K/uL Sodium (136-145) mmol/L Potassium (3.5-5.1) mmol/L Chloride (98-107) mmol/L Carbon Dioxide (21.0-32.0) mmol/L BUN (7.0-18.0) mg/dL Creatinine (0.6-1.0) mg/dL Est Cr Clr Drug Dosing mL/min Estimated GFR (MDRD) ml/min Glucose (74-106) mg/dL POC Glucose 319 H (70-99) mg/dL Calcium (8.5-10.1) mg/dL Total Bilirubin (0.2-1.0) mg/dL Direct Bilirubin (0.0-0.5) mg/dL AST (15-37) IU/L ALT (14-63) IU/L Alkaline Phosphatase (46-116) U/L Total Protein (6.4-8.2) g/dL Albumin (3.4-5.0) g/dL Globulin (2.6-4.0) g/dL Albumin/Globulin Ratio (0.9-1.6) Med Orders - Current: Current Medications Albuterol (Albuterol 8 Gm Inhaler) 0 gm INH Q4H PRN PRN Reason: Shortness of Breath Last Admin: 10/31/20 05:25 Dose: 2 puff Documented by: Benzonatate (Benzonatate 100 Mg Cap) 100 mg PO Q6H PRN PRN Reason: Cough Last Admin: 10/31/20 08:31 Dose: 100 mg Documented by: Budesonide/Formoterol Fumarate (Budesonide/Formoterol 160-4.5 Mcg/Puff 6 Gm Inhaler) 0 gm INH BID [facility] Last Admin: 10/31/20 09:49 Dose: Not Given Documented by: Ciprofloxacin (Ciprofloxacin 250 Mg Tab) 250 mg PO BID [facility] Last Admin: 10/31/20 08:32 Dose: 250 mg Documented by: Dexamethasone (Dexamethasone 4 Mg Tab) 6 mg PO DAILY [facility] Last Admin: 10/31/20 08:32 Dose: 6 mg Documented by: Dextrose/Water (50% Dextrose In Water 50 Ml Syringe) 50 ml IVPUSH ASDIRECTED PRN PRN Reason: Hypoglycemia Enoxaparin Sodium (Enoxaparin 40 Mg/0.4 Ml Syringe) 40 mg SUBCUT Q12H [facility] Last Admin: 10/31/20 10:58 Dose: 40 mg Documented by: Glucagon (Glucagon,Human Recombinant 1 Mg Vial) 1 mg IM ASDIRECTED PRN PRN Reason: Hypoglycemia Remdesivir 100 mg/ Sodium (Chloride) 100 mls @ 100 mls/hr IV Q24H [facility] Stop: 11/02/20 18:14 Last Admin: 10/30/20 17:30 Dose: 100 mls/hr Documented by: Tocilizumab 800 mg/ Sodium (Chloride) 100 mls @ 100 mls/hr IV ONETIME ONE Stop: 10/31/20 11:29 Last Admin: 10/31/20 10:45 Dose: 100 mls/hr Documented by: Insulin Aspart (Insulin Aspart 100 Units/Ml 3 Ml Pen) 0 unit SUBCUT TIDAC [facility]; Protocol Last Admin: 10/31/20 07:40 Dose: 8 units Documented by: Insulin Glargine (Insulin Glargine,Human Rec. Analog 100 Units/Ml 3 Ml Pen) 10 units SUBCUT BEDTIME [facility] Losartan Potassium (Losartan 50 Mg Tab) 25 mg PO DAILY [facility] Last Admin: 10/31/20 08:31 Dose: 25 mg Documented by: Montelukast Sodium (Montelukast 10 Mg Tab) 10 mg PO BEDTIME [facility] Last Admin: 10/30/20 20:16 Dose: 10 mg Documented by: Sodium Chloride (Sodium Chloride 0.9% 2.5 Ml Syringe) 2.5 ml FLUSH ASDIRECTED PRN PRN Reason: Keep Vein Open Discontinued Medications Dexamethasone (Dexamethasone 10 Mg/Ml Sdv) 10 mg IVPUSH ONETIME ONE Stop: 10/29/20 14:49 Last Admin: 10/29/20 15:22 Dose: 10 mg Documented by: Enoxaparin Sodium (Enoxaparin 40 Mg/0.4 Ml Syringe) 40 mg SUBCUT Q24H [facility] Last Admin: 10/29/20 22:29 Dose: 40 mg Documented by: Remdesivir 200 mg/ Sodium (Chloride) 250 mls @ 250 mls/hr IV ONETIME ONE Stop: 10/29/20 14:48 Last Admin: 10/29/20 15:08 Dose: Not Given Documented by: Remdesivir 200 mg/ Sodium (Chloride) 250 mls @ 250 mls/hr IV ONETIME ONE Stop: 10/29/20 15:59 Last Admin: 10/29/20 15:27 Dose: 250 mls/hr Documented by: Sodium Chloride (Normal Saline) 1,000 mls @ 50 mls/hr IV ASDIRECTED [facility] Last Admin: 10/29/20 15:21 Dose: 50 mls/hr Documented by: Remdesivir 100 mg/ Sodium (Chloride) 100 mls @ 100 mls/hr IV Q24H [facility] Stop: 11/02/20 15:59 Last Admin: 10/30/20 19:19 Dose: Not Given Documented by: Insulin Aspart (Insulin Aspart 100 Units/Ml 3 Ml Pen) 0 unit SUBCUT TIDAC [facility]; Protocol Insulin Glargine (Insulin Glargine,Human Rec. Analog 100 Units/Ml 3 Ml Pen) 5 units SUBCUT BEDTIME [facility] Last Admin: 10/30/20 23:54 Dose: 5 units Documented by: Insulin Glargine (Insulin Glargine,Human Rec. Analog 100 Units/Ml 3 Ml Pen) Confirm Administered Dose 300 units .ROUTE .STK-MED ONE Stop: 10/30/20 23:52 Last Admin: 10/31/20 00:45 Dose: Not Given Documented by: - Exam General: Alert, Oriented Neck: Supple Lungs: Clear to Auscultation, Normal Respiratory Effort Cardiovascular: Regular Rate, Regular Rhythm GI/Abdominal Exam: Soft, Non-Tender, No Distention Extremities: Non-Tender, Pedal Edema (+1) Skin: Warm, Dry, Intact Neurological: No New Focal Deficit - Patient Data Lab Results Last 24 hrs: Laboratory Results - last 24 hr 10/30/20 10/30/20 10/30/20 Range/Units 12:23 15:13 17:23 WBC (4.0-11.0) K/uL RBC (4.30-5.90) M/uL Hgb (12.0-16.0) g/dL Hct (36.0-46.0) % MCV (80.0-98.0) fL MCH (27.0-32.0) pg MCHC (31.0-37.0) g/dL RDW Std Deviation (28.0-62.0) fl RDW Coeff of Ry (11.0-15.0) % Plt Count (150-400) K/uL MPV (7.40-12.00) fL Neut % (Auto) (48.0-80.0) % Lymph % (Auto) (16.0-40.0) % [place] % (Auto) (0.0-15.0) % Eos % (Auto) (0.0-7.0) % Baso % (Auto) (0.0-1.5) % Neut # (Auto) (1.4-5.7) K/uL Lymph # (Auto) (0.6-2.4) K/uL [place] # (Auto) (0.0-0.8) K/uL Eos # (Auto) (0.0-0.7) K/uL Baso # (Auto) (0.0-0.1) K/uL Nucleated RBC % /100WBC Nucleated RBCs # K/uL Sodium 136 (136-145) mmol/L Potassium 4.5 (3.5-5.1) mmol/L Chloride 100 (98-107) mmol/L Carbon Dioxide 24.4 (21.0-32.0) mmol/L BUN 17 (7.0-18.0) mg/dL Creatinine 1.0 (0.6-1.0) mg/dL Est Cr Clr Drug Dosing 58.84 mL/min Estimated GFR (MDRD) 56.2 ml/min Glucose 269 H (74-106) mg/dL POC Glucose 257 H 230 H (70-99) mg/dL Calcium 7.8 L (8.5-10.1) mg/dL Total Bilirubin 0.4 (0.2-1.0) mg/dL Direct Bilirubin 0.10 (0.0-0.5) mg/dL AST 45 H (15-37) IU/L ALT 34 (14-63) IU/L Alkaline Phosphatase 85 (46-116) U/L Total Protein 6.5 (6.4-8.2) g/dL Albumin 3.1 L (3.4-5.0) g/dL Globulin 3.4 (2.6-4.0) g/dL Albumin/Globulin Ratio 0.9 (0.9-1.6) 10/30/20 10/31/20 10/31/20 Range/Units 23:54 05:23 05:23 WBC 4.04 (4.0-11.0) K/uL RBC 4.35 (4.30-5.90) M/uL Hgb 13.2 (12.0-16.0) g/dL Hct 39.6 (36.0-46.0) % MCV 91.0 (80.0-98.0) fL MCH 30.3 (27.0-32.0) pg MCHC 33.3 (31.0-37.0) g/dL RDW Std Deviation 44.6 (28.0-62.0) fl RDW Coeff of Ry 13 (11.0-15.0) % Plt Count 143 L (150-400) K/uL MPV 9.20 (7.40-12.00) fL Neut % (Auto) 62.7 (48.0-80.0) % Lymph % (Auto) 26.5 (16.0-40.0) % [place] % (Auto) 10.6 (0.0-15.0) % Eos % (Auto) 0.0 (0.0-7.0) % Baso % (Auto) 0.2 (0.0-1.5) % Neut # (Auto) 2.5 (1.4-5.7) K/uL Lymph # (Auto) 1.1 (0.6-2.4) K/uL [place] # (Auto) 0.4 (0.0-0.8) K/uL Eos # (Auto) 0.0 (0.0-0.7) K/uL Baso # (Auto) 0.0 (0.0-0.1) K/uL Nucleated RBC % 0.0 /100WBC Nucleated RBCs # 0 K/uL Sodium 135 L (136-145) mmol/L Potassium 5.0 (3.5-5.1) mmol/L Chloride 100 (98-107) mmol/L Carbon Dioxide 25.0 (21.0-32.0) mmol/L BUN 21 H (7.0-18.0) mg/dL Creatinine 1.0 (0.6-1.0) mg/dL Est Cr Clr Drug Dosing 58.84 mL/min Estimated GFR (MDRD) 56.2 ml/min Glucose 356 H (74-106) mg/dL POC Glucose 305 H (70-99) mg/dL Calcium 7.9 L (8.5-10.1) mg/dL Total Bilirubin 0.4 (0.2-1.0) mg/dL Direct Bilirubin (0.0-0.5) mg/dL AST 43 H (15-37) IU/L ALT 38 (14-63) IU/L Alkaline Phosphatase 82 (46-116) U/L Total Protein 6.7 (6.4-8.2) g/dL Albumin 3.0 L (3.4-5.0) g/dL Globulin 3.7 (2.6-4.0) g/dL Albumin/Globulin Ratio 0.8 L (0.9-1.6) /18/21 Range/Units 06:34 WBC (4.0-11.0) K/uL RBC (4.30-5.90) M/uL Hgb (12.0-16.0) g/dL Hct (36.0-46.0) % MCV (80.0-98.0) fL MCH (27.0-32.0) pg MCHC (31.0-37.0) g/dL RDW Std Deviation (28.0-62.0) fl RDW Coeff of Ry (11.0-15.0) % Plt Count (150-400) K/uL MPV (7.40-12.00) fL Neut % (Auto) (48.0-80.0) % Lymph % (Auto) (16.0-40.0) % [place] % (Auto) (0.0-15.0) % Eos % (Auto) (0.0-7.0) % Baso % (Auto) (0.0-1.5) % Neut # (Auto) (1.4-5.7) K/uL Lymph # (Auto) (0.6-2.4) K/uL [place] # (Auto) (0.0-0.8) K/uL Eos # (Auto) (0.0-0.7) K/uL Baso # (Auto) (0.0-0.1) K/uL Nucleated RBC % /100WBC Nucleated RBCs # K/uL Sodium (136-145) mmol/L Potassium (3.5-5.1) mmol/L Chloride (98-107) mmol/L Carbon Dioxide (21.0-32.0) mmol/L BUN (7.0-18.0) mg/dL Creatinine (0.6-1.0) mg/dL Est Cr Clr Drug Dosing mL/min Estimated GFR (MDRD) ml/min Glucose (74-106) mg/dL POC Glucose 319 H (70-99) mg/dL Calcium (8.5-10.1) mg/dL Total Bilirubin (0.2-1.0) mg/dL Direct Bilirubin (0.0-0.5) mg/dL AST (15-37) IU/L ALT (14-63) IU/L Alkaline Phosphatase (46-116) U/L Total Protein (6.4-8.2) g/dL Albumin (3.4-5.0) g/dL Globulin (2.6-4.0) g/dL Albumin/Globulin Ratio (0.9-1.6) Result Diagrams: 10/31/20 05:23 10/31/20 05:23 Sepsis Event Note - Evaluation Sepsis Screening Result: Sepsis Risk - Focused Exam Vital Signs: Vital Signs Temp Pulse Resp BP BP Pulse Ox Pulse Ox 10/31/20 08:31 134/71 10/31/20 08:00 36.2 C 22 H 134/71 89 L 10/31/20 07:39 92 L 10/31/20 04:00 36.0 C L 77 20 165/79 H 94 L 10/30/20 23:32 36.4 C 20 145/73 H 91 L - Problem List Review Problem List Initiated/Reviewed/Updated: Yes - My Orders Last 24 Hours: My Active Orders 10/30/20 15:00 dexAMETHasone 6 mg PO DAILY 10/30/20 Dinner ADA Diabetic [[place] [employer] Diet] [DIET] 10/30/20 17:15 Remdesivir 100 mg Sodium Chloride 0.9% [Normal Saline] 100 ml IV Q24H 10/31/20 07:23 Supplemental O2 [Oxygen Therapy] [RC] ASDIRECTED 11/01/20 05:11 CBC WITH AUTO DIFF [HEME] AM COMPREHENSIVE METABOLIC PN,CMP [CHEM] AM 11/02/20 05:11 CBC WITH AUTO DIFF [HEME] AM COMPREHENSIVE METABOLIC PN,CMP [CHEM] AM 11/03/20 05:11 CBC WITH AUTO DIFF [HEME] AM COMPREHENSIVE METABOLIC PN,CMP [CHEM] AM - Plan Plan:: 60 yo female admitted with acute hypoxic respiratory failure due to COVID pneumonia COVID: treating with remdesivir, dexamethasone lovenox for DVT prophylaxis, due to increasing oxygen demands with heated high flow nasal canula will give Actemra and CT PE scan ordered JAZMIN: CPAP at night DM: sliding scale insulin, will check HgA1c, will increase lantus to 10 daily HTN/COPD: resume home meds
[2020-10-31] MEDS ORDERED: Iopamidol 755 MG/ML 200 ML Multipack Bottle IVPUSH ONE ×2 (12:58→13:00)
[2020-10-31] MEDS ORDERED: Iopamidol 755 MG/ML 500 ML Multipack Bottle IVPUSH ONE (13:01)
--- NOTE | 2020-10-31 14:00 | CT ---
INDICATION: Dyspnea, positive COVID-19 infection TECHNIQUE: CT chest pulmonary PE protocol acquired with 100 cc Isovue 370 IV contrast. COMPARISON: None FINDINGS: Cardiovascular structures: Normal vascular enhancement of the pulmonary arteries, no sign of pulmonary embolism. Heart size is normal. No sign of aneurysm in the thoracic aorta. Mediastinum and navjot: No mass or adenopathy. Shotty mediastinal lymph nodes. Lungs: Ground-glass opacities throughout the lungs. Pleura and pericardium: No effusions. Chest wall and axilla: No mass or adenopathy. Upper abdomen: Unremarkable. Bones: No significant findings. IMPRESSION: No pulmonary embolism. Ground-glass opacities throughout the lungs consistent with COVID-19 infection. Please note that all CT scans at this facility use dose modulation, iterative reconstruction, and/or weight-based dosing when appropriate to reduce radiation dose to as low as reasonably achievable. Dictated by Malika Zelaya MD @ 10/31/2020 1:58:[address] Malika Zelaya @ Oct 31 2020 1:58PM
[2020-10-31] MEDS: REMDESIVIR 100 MG in Sodium Chloride 0.9% 100 ML IV SCH (17:32)
[2020-10-31] MEDS ORDERED: Insulin Glargine,Human Rec. Analog 100 Units/ML 3 ML Pen SUBCUT SCH (21:00)
[2020-10-31] MEDS: Montelukast 10 MG Tab PO SCH (21:52)
[2020-11-01 05:55] LABS: BLOOD UREA NITROGEN,BUN 23 mg/dL (7.0-18.0); CARBON DIOXIDE,CO2 24.3 mmol/L (21.0-32.0); CHLORIDE,CL 102 mmol/L (98-107); GLUCOSE RANDOM 314 mg/dL (74-106); POTASSIUM,K 4.7 mmol/L (3.5-5.1); SODIUM,NA 137 mmol/L (136-145)
[2020-11-01] MEDS: Budesonide/Formoterol 160-4.5 MCG/Puff 6 GM Inhaler INH SCH ×2 (08:34→20:19)
[2020-11-01] MEDS: Albuterol 8 GM Inhaler INH PRN (08:38)
[2020-11-01] MEDS: Ciprofloxacin 250 MG Tab PO SCH ×2 (08:57→20:13)
[2020-11-01] MEDS: Benzonatate 100 MG Cap PO PRN (08:57)
[2020-11-01] MEDS: Losartan 50 MG Tab PO SCH (08:57)
[2020-11-01] MEDS: Dexamethasone 4 MG Tab PO SCH (08:57)
[2020-11-01] MEDS: Insulin Aspart 100 Units/ML 3 ML Pen SUBCUT SCH ×3 (08:58→17:46)
[2020-11-01] MEDS: Enoxaparin 40 MG/0.4 ML Syringe SUBCUT SCH ×2 (12:21→23:59)
--- NOTE | 2020-11-01 14:04 | PCM.PN ---
- General Info Date of Service: 11/01/20 - Review of Systems Systems Review Comment:: feeling a little bit better - Patient Data Vitals - Most Recent: Last Vital Signs Temp 36.4 C 11/01/20 08:00 Pulse 77 10/31/20 04:00 Resp 20 11/01/20 08:00 BP 134/69 11/01/20 08:57 Pulse Ox 91 L 11/01/20 08:00 Weight - Most Recent: 175.767 kg I&O - Last 24 Hours: Intake & Output 10/31/20 11/01/20 11/01/20 22:59 06:59 14:59 Intake Total 2000 900 Output Total 1500 Balance 2000 -600 Lab Results Last 24 Hours: Laboratory Results - last 24 hr 10/31/20 10/31/20 11/01/20 Range/Units 17:30 21:55 05:05 WBC 3.30 L (4.0-11.0) K/uL RBC 4.36 (4.30-5.90) M/uL Hgb 13.4 (12.0-16.0) g/dL Hct 39.2 (36.0-46.0) % MCV 89.9 (80.0-98.0) fL MCH 30.7 (27.0-32.0) pg MCHC 34.2 (31.0-37.0) g/dL RDW Std Deviation 43.4 (28.0-62.0) fl RDW Coeff of Ry 13 (11.0-15.0) % Plt Count 161 (150-400) K/uL MPV 9.20 (7.40-12.00) fL Neut % (Auto) 44.5 L (48.0-80.0) % Lymph % (Auto) 35.5 (16.0-40.0) % [place] % (Auto) 19.7 H (0.0-15.0) % Eos % (Auto) 0.0 (0.0-7.0) % Baso % (Auto) 0.3 (0.0-1.5) % Neut # (Auto) 1.5 (1.4-5.7) K/uL Lymph # (Auto) 1.2 (0.6-2.4) K/uL [place] # (Auto) 0.7 (0.0-0.8) K/uL Eos # (Auto) 0.0 (0.0-0.7) K/uL Baso # (Auto) 0.0 (0.0-0.1) K/uL Nucleated RBC % 0.0 /100WBC Nucleated RBCs # 0 K/uL Sodium (136-145) mmol/L Potassium (3.5-5.1) mmol/L Chloride (98-107) mmol/L Carbon Dioxide (21.0-32.0) mmol/L BUN (7.0-18.0) mg/dL Creatinine (0.6-1.0) mg/dL Est Cr Clr Drug Dosing mL/min Estimated GFR (MDRD) ml/min Glucose (74-106) mg/dL POC Glucose 325 H 312 H (70-99) mg/dL Calcium (8.5-10.1) mg/dL Total Bilirubin (0.2-1.0) mg/dL AST (15-37) IU/L ALT (14-63) IU/L Alkaline Phosphatase (46-116) U/L Total Protein (6.4-8.2) g/dL Albumin (3.4-5.0) g/dL Globulin (2.6-4.0) g/dL Albumin/Globulin Ratio (0.9-1.6) 11/01/20 11/01/20 Range/Units 05:05 08:51 WBC (4.0-11.0) K/uL RBC (4.30-5.90) M/uL Hgb (12.0-16.0) g/dL Hct (36.0-46.0) % MCV (80.0-98.0) fL MCH (27.0-32.0) pg MCHC (31.0-37.0) g/dL RDW Std Deviation (28.0-62.0) fl RDW Coeff of Ry (11.0-15.0) % Plt Count (150-400) K/uL MPV (7.40-12.00) fL Neut % (Auto) (48.0-80.0) % Lymph % (Auto) (16.0-40.0) % [place] % (Auto) (0.0-15.0) % Eos % (Auto) (0.0-7.0) % Baso % (Auto) (0.0-1.5) % Neut # (Auto) (1.4-5.7) K/uL Lymph # (Auto) (0.6-2.4) K/uL [place] # (Auto) (0.0-0.8) K/uL Eos # (Auto) (0.0-0.7) K/uL Baso # (Auto) (0.0-0.1) K/uL Nucleated RBC % /100WBC Nucleated RBCs # K/uL Sodium 137 (136-145) mmol/L Potassium 4.7 (3.5-5.1) mmol/L Chloride 102 (98-107) mmol/L Carbon Dioxide 24.3 (21.0-32.0) mmol/L BUN 23 H (7.0-18.0) mg/dL Creatinine 0.9 (0.6-1.0) mg/dL Est Cr Clr Drug Dosing 65.38 mL/min Estimated GFR (MDRD) > 60.0 ml/min Glucose 314 H (74-106) mg/dL POC Glucose 280 H (70-99) mg/dL Calcium 8.0 L (8.5-10.1) mg/dL Total Bilirubin 0.4 (0.2-1.0) mg/dL AST 41 H (15-37) IU/L ALT 38 (14-63) IU/L Alkaline Phosphatase 82 (46-116) U/L Total Protein 6.7 (6.4-8.2) g/dL Albumin 3.0 L (3.4-5.0) g/dL Globulin 3.7 (2.6-4.0) g/dL Albumin/Globulin Ratio 0.8 L (0.9-1.6) Med Orders - Current: Current Medications Albuterol (Albuterol 8 Gm Inhaler) 0 gm INH Q4HRRT PRN PRN Reason: Shortness of Breath Last Admin: 11/01/20 08:38 Dose: 2 puff Documented by: Benzonatate (Benzonatate 100 Mg Cap) 100 mg PO Q6H PRN PRN Reason: Cough Last Admin: 11/01/20 08:57 Dose: 100 mg Documented by: Budesonide/Formoterol Fumarate (Budesonide/Formoterol 160-4.5 Mcg/Puff 6 Gm Inhaler) 0 gm INH BID [facility] Last Admin: 11/01/20 08:34 Dose: Not Given Documented by: Ciprofloxacin (Ciprofloxacin 250 Mg Tab) 250 mg PO BID [facility] Last Admin: 11/01/20 08:57 Dose: 250 mg Documented by: Dexamethasone (Dexamethasone 4 Mg Tab) 6 mg PO DAILY [facility] Last Admin: 11/01/20 08:57 Dose: 6 mg Documented by: Dextrose/Water (50% Dextrose In Water 50 Ml Syringe) 50 ml IVPUSH ASDIRECTED PRN PRN Reason: Hypoglycemia Enoxaparin Sodium (Enoxaparin 40 Mg/0.4 Ml Syringe) 40 mg SUBCUT Q12H [facility] Last Admin: 11/01/20 12:21 Dose: 40 mg Documented by: Glucagon (Glucagon,Human Recombinant 1 Mg Vial) 1 mg IM ASDIRECTED PRN PRN Reason: Hypoglycemia Remdesivir 100 mg/ Sodium (Chloride) 100 mls @ 100 mls/hr IV Q24H [facility] Stop: 11/02/20 18:14 Last Admin: 10/31/20 17:32 Dose: 100 mls/hr Documented by: Insulin Aspart (Insulin Aspart 100 Units/Ml 3 Ml Pen) 0 unit SUBCUT TIDAC [facility]; Protocol Last Admin: 11/01/20 12:26 Dose: 12 units Documented by: Insulin Glargine (Insulin Glargine,Human Rec. Analog 100 Units/Ml 3 Ml Pen) 15 units SUBCUT BEDTIME [facility] Losartan Potassium (Losartan 50 Mg Tab) 25 mg PO DAILY [facility] Last Admin: 11/01/20 08:57 Dose: 25 mg Documented by: Montelukast Sodium (Montelukast 10 Mg Tab) 10 mg PO BEDTIME [facility] Last Admin: 10/31/20 21:52 Dose: 10 mg Documented by: Sodium Chloride (Sodium Chloride 0.9% 2.5 Ml Syringe) 2.5 ml FLUSH ASDIRECTED PRN PRN Reason: Keep Vein Open Discontinued Medications Albuterol (Albuterol 8 Gm Inhaler) 0 gm INH Q4H PRN PRN Reason: Shortness of Breath Last Admin: 10/31/20 05:25 Dose: 2 puff Documented by: Dexamethasone (Dexamethasone 10 Mg/Ml Sdv) 10 mg IVPUSH ONETIME ONE Stop: 10/29/20 14:49 Last Admin: 10/29/20 15:22 Dose: 10 mg Documented by: Enoxaparin Sodium (Enoxaparin 40 Mg/0.4 Ml Syringe) 40 mg SUBCUT Q24H [facility] Last Admin: 10/29/20 22:29 Dose: 40 mg Documented by: Remdesivir 200 mg/ Sodium (Chloride) 250 mls @ 250 mls/hr IV ONETIME ONE Stop: 10/29/20 14:48 Last Admin: 10/29/20 15:08 Dose: Not Given Documented by: Remdesivir 200 mg/ Sodium (Chloride) 250 mls @ 250 mls/hr IV ONETIME ONE Stop: 10/29/20 15:59 Last Admin: 10/29/20 15:27 Dose: 250 mls/hr Documented by: Sodium Chloride (Normal Saline) 1,000 mls @ 50 mls/hr IV ASDIRECTED [facility] Last Admin: 10/29/20 15:21 Dose: 50 mls/hr Documented by: Remdesivir 100 mg/ Sodium (Chloride) 100 mls @ 100 mls/hr IV Q24H [facility] Stop: 11/02/20 15:59 Last Admin: 10/30/20 19:19 Dose: Not Given Documented by: Tocilizumab 800 mg/ Sodium (Chloride) 100 mls @ 100 mls/hr IV ONETIME ONE Stop: 10/31/20 11:29 Last Admin: 10/31/20 10:45 Dose: 100 mls/hr Documented by: Insulin Aspart (Insulin Aspart 100 Units/Ml 3 Ml Pen) 0 unit SUBCUT TIDAC [facility]; Protocol Insulin Glargine (Insulin Glargine,Human Rec. Analog 100 Units/Ml 3 Ml Pen) 5 units SUBCUT BEDTIME [facility] Last Admin: 10/30/20 23:54 Dose: 5 units Documented by: Insulin Glargine (Insulin Glargine,Human Rec. Analog 100 Units/Ml 3 Ml Pen) Confirm Administered Dose 300 units .ROUTE .STK-MED ONE Stop: 10/30/20 23:52 Last Admin: 10/31/20 00:45 Dose: Not Given Documented by: Insulin Glargine (Insulin Glargine,Human Rec. Analog 100 Units/Ml 3 Ml Pen) 10 units SUBCUT BEDTIME [facility] Last Admin: 10/31/20 21:53 Dose: 10 units Documented by: Iopamidol (Iopamidol 755 Mg/Ml 200 Ml Multipack Bottle) 100 ml IVPUSH ONETIME ONE Stop: 10/31/20 12:59 Last Admin: 10/31/20 19:36 Dose: Not Given Documented by: Iopamidol (Iopamidol 755 Mg/Ml 200 Ml Multipack Bottle) 100 ml IVPUSH ONETIME ONE Stop: 10/31/20 13:01 Last Admin: 10/31/20 19:34 Dose: Not Given Documented by: Iopamidol (Iopamidol 755 Mg/Ml 500 Ml Multipack Bottle) 100 ml IVPUSH ONETIME ONE Stop: 10/31/20 13:02 Last Admin: 10/31/20 13:02 Dose: 100 ml Documented by: - Exam General: Alert, Oriented Lungs: Clear to Auscultation, Normal Respiratory Effort, Crackles (at right base) GI/Abdominal Exam: Soft, Non-Tender, No Distention Extremities: Non-Tender, Pedal Edema (+1) Skin: Warm, Dry, Intact Neurological: No New Focal Deficit - Patient Data Lab Results Last 24 hrs: Laboratory Results - last 24 hr 10/31/20 10/31/20 11/01/20 Range/Units 17:30 21:55 05:05 WBC 3.30 L (4.0-11.0) K/uL RBC 4.36 (4.30-5.90) M/uL Hgb 13.4 (12.0-16.0) g/dL Hct 39.2 (36.0-46.0) % MCV 89.9 (80.0-98.0) fL MCH 30.7 (27.0-32.0) pg MCHC 34.2 (31.0-37.0) g/dL RDW Std Deviation 43.4 (28.0-62.0) fl RDW Coeff of Ry 13 (11.0-15.0) % Plt Count 161 (150-400) K/uL MPV 9.20 (7.40-12.00) fL Neut % (Auto) 44.5 L (48.0-80.0) % Lymph % (Auto) 35.5 (16.0-40.0) % [place] % (Auto) 19.7 H (0.0-15.0) % Eos % (Auto) 0.0 (0.0-7.0) % Baso % (Auto) 0.3 (0.0-1.5) % Neut # (Auto) 1.5 (1.4-5.7) K/uL Lymph # (Auto) 1.2 (0.6-2.4) K/uL [place] # (Auto) 0.7 (0.0-0.8) K/uL Eos # (Auto) 0.0 (0.0-0.7) K/uL Baso # (Auto) 0.0 (0.0-0.1) K/uL Nucleated RBC % 0.0 /100WBC Nucleated RBCs # 0 K/uL Sodium (136-145) mmol/L Potassium (3.5-5.1) mmol/L Chloride (98-107) mmol/L Carbon Dioxide (21.0-32.0) mmol/L BUN (7.0-18.0) mg/dL Creatinine (0.6-1.0) mg/dL Est Cr Clr Drug Dosing mL/min Estimated GFR (MDRD) ml/min Glucose (74-106) mg/dL POC Glucose 325 H 312 H (70-99) mg/dL Calcium (8.5-10.1) mg/dL Total Bilirubin (0.2-1.0) mg/dL AST (15-37) IU/L ALT (14-63) IU/L Alkaline Phosphatase (46-116) U/L Total Protein (6.4-8.2) g/dL Albumin (3.4-5.0) g/dL Globulin (2.6-4.0) g/dL Albumin/Globulin Ratio (0.9-1.6) 11/01/20 11/01/20 Range/Units 05:05 08:51 WBC (4.0-11.0) K/uL RBC (4.30-5.90) M/uL Hgb (12.0-16.0) g/dL Hct (36.0-46.0) % MCV (80.0-98.0) fL MCH (27.0-32.0) pg MCHC (31.0-37.0) g/dL RDW Std Deviation (28.0-62.0) fl RDW Coeff of Ry (11.0-15.0) % Plt Count (150-400) K/uL MPV (7.40-12.00) fL Neut % (Auto) (48.0-80.0) % Lymph % (Auto) (16.0-40.0) % [place] % (Auto) (0.0-15.0) % Eos % (Auto) (0.0-7.0) % Baso % (Auto) (0.0-1.5) % Neut # (Auto) (1.4-5.7) K/uL Lymph # (Auto) (0.6-2.4) K/uL [place] # (Auto) (0.0-0.8) K/uL Eos # (Auto) (0.0-0.7) K/uL Baso # (Auto) (0.0-0.1) K/uL Nucleated RBC % /100WBC Nucleated RBCs # K/uL Sodium 137 (136-145) mmol/L Potassium 4.7 (3.5-5.1) mmol/L Chloride 102 (98-107) mmol/L Carbon Dioxide 24.3 (21.0-32.0) mmol/L BUN 23 H (7.0-18.0) mg/dL Creatinine 0.9 (0.6-1.0) mg/dL Est Cr Clr Drug Dosing 65.38 mL/min Estimated GFR (MDRD) > 60.0 ml/min Glucose 314 H (74-106) mg/dL POC Glucose 280 H (70-99) mg/dL Calcium 8.0 L (8.5-10.1) mg/dL Total Bilirubin 0.4 (0.2-1.0) mg/dL AST 41 H (15-37) IU/L ALT 38 (14-63) IU/L Alkaline Phosphatase 82 (46-116) U/L Total Protein 6.7 (6.4-8.2) g/dL Albumin 3.0 L (3.4-5.0) g/dL Globulin 3.7 (2.6-4.0) g/dL Albumin/Globulin Ratio 0.8 L (0.9-1.6) Result Diagrams: 11/01/20 05:05 11/01/20 05:05 Sepsis Event Note - Evaluation Sepsis Screening Result: No Definite Risk - Focused Exam Vital Signs: Vital Signs Temp Resp BP BP Pulse Ox Pulse Ox 11/01/20 08:57 134/69 11/01/20 08:00 36.4 C 20 134/69 91 L 11/01/20 07:00 92 L 11/01/20 04:00 36.4 C 20 129/72 91 L - Problem List Review Problem List Initiated/Reviewed/Updated: Yes - My Orders Last 24 Hours: My Active Orders 11/01/20 10:00 Albuterol [Ventolin HFA] 0 gm INH Q4HRRT PRN 11/01/20 21:00 Insulin Glarg,Human.Rec.Analog [LantUS Solostar] 15 units SUBCUT BEDTIME 11/02/20 05:11 CBC WITH AUTO DIFF [HEME] AM COMPREHENSIVE METABOLIC PN,CMP [CHEM] AM 11/03/20 05:11 CBC WITH AUTO DIFF [HEME] AM COMPREHENSIVE METABOLIC PN,CMP [CHEM] AM - Plan Plan:: 60 yo female admitted with acute hypoxic respiratory failure due to COVID pneumonia COVID: treating with remdesivir, dexamethasone lovenox for DVT prophylaxis, continue HHFNC, received Actemra yesterday. CT chest was negative for PE, did show bilateral ground glass opacities JAZMIN: CPAP at night DM: sliding scale insulin, will check HgA1c, will increase lantus to 15 daily HTN/COPD: resume home meds
[2020-11-01] MEDS: Albuterol/Ipratropium 4 GM Inhalation Spray INH SCH ×3 (14:31→23:59)
[2020-11-01] MEDS: REMDESIVIR 100 MG in Sodium Chloride 0.9% 100 ML IV SCH (17:31)
[2020-11-01] MEDS: Montelukast 10 MG Tab PO SCH (20:13)
[2020-11-01] MEDS ORDERED: Insulin Glargine,Human Rec. Analog 100 Units/ML 3 ML Pen SUBCUT SCH (21:00)
[2020-11-02] MEDS: Omeprazole 20 MG Cap.CR PO SCH ×3 (00:53→17:43)
[2020-11-02] MEDS: Albuterol 8 GM Inhaler INH PRN (03:36)
[2020-11-02] MEDS: Benzonatate 100 MG Cap PO PRN ×2 (03:37→17:41)
[2020-11-02] MEDS: Albuterol/Ipratropium 4 GM Inhalation Spray INH SCH ×3 (05:47→17:31)
[2020-11-02 05:57] LABS: CARBON DIOXIDE,CO2 26.3 mmol/L (21.0-32.0); POTASSIUM,K 4.5 mmol/L (3.5-5.1)
[2020-11-02] MEDS: Dexamethasone 4 MG Tab PO SCH (08:48)
[2020-11-02] MEDS: Losartan 50 MG Tab PO SCH (08:48)
[2020-11-02] MEDS: Ciprofloxacin 250 MG Tab PO SCH ×2 (08:49→20:15)
[2020-11-02] MEDS: Insulin Aspart 100 Units/ML 3 ML Pen SUBCUT SCH ×5 (08:52→18:43)
[2020-11-02] MEDS: Budesonide/Formoterol 160-4.5 MCG/Puff 6 GM Inhaler INH SCH ×2 (08:54→20:16)
--- NOTE | 2020-11-02 10:42 | PCM.PN ---
- General Info Date of Service: 11/02/20 Admission Dx/Problem (Free Text): Admission Diagnosis/Problem Admission Diagnosis/Problem acute hypoxic respiratory failure secondary to Covid pneumonia Subjective Update: Patient is a 60-year-old female with past medical history of hypertension, COPD, diabetes mellitus, JAZMIN who was admitted for acute hypoxic respiratory failure secondary to Covid pneumonia. Overnight patient, refused to use her CPAP as it she said it felt uncomfortable, was found to be satting in the 70s with activity, therefore was given Ventolin and Tessalon Perles, which quickly resumed her O2 saturations into normal range once patient settled down. This morning pt was sitting up in chair, enjoying her breakfast in no acute distress with heated high flow setting 90 to 91%. Patient appears to be stable, denies any fever, chills, shortness of breath. All questions and concerns were addressed at bedside. Functional Status: Reports: Pain Controlled, Tolerating Diet, Urinating, Incentive Spirometry - Review of Systems General: Reports: No Symptoms HEENT: Reports: No Symptoms Pulmonary: Reports: Cough, Wheezing Cardiovascular: Reports: No Symptoms Gastrointestinal: Reports: No Symptoms Genitourinary: Reports: No Symptoms Musculoskeletal: Reports: No Symptoms Skin: Reports: No Symptoms Neurological: Reports: No Symptoms Psychiatric: Reports: No Symptoms - Patient Data Vitals - Most Recent: Last Vital Signs Temp 96.8 F L 11/02/20 08:00 Pulse 77 10/31/20 04:00 Resp 22 H 11/02/20 08:00 BP 127/67 11/02/20 08:48 Pulse Ox 86 L 11/02/20 08:00 Weight - Most Recent: 387 lb 8 oz I&O - Last 24 Hours: Intake & Output 11/01/20 11/02/20 11/02/20 22:59 06:59 14:59 Intake Total 800 850 Output Total 1500 1350 Balance -700 -500 Lab Results Last 24 Hours: Laboratory Results - last 24 hr 11/01/20 11/01/20 11/01/20 Range/Units 12:23 17:45 20:15 WBC (4.0-11.0) K/uL RBC (4.30-5.90) M/uL Hgb (12.0-16.0) g/dL Hct (36.0-46.0) % MCV (80.0-98.0) fL MCH (27.0-32.0) pg MCHC (31.0-37.0) g/dL RDW Std Deviation (28.0-62.0) fl RDW Coeff of Ry (11.0-15.0) % Plt Count (150-400) K/uL MPV (7.40-12.00) fL Add Manual Diff Neutrophils % (Manual) (48.0-80.0) % Lymphocytes % (Manual) (16.0-40.0) % Monocytes % (Manual) (0.0-15.0) % Nucleated RBC % /100WBC Absolute Seg Neuts (1.4-5.7) Lymphocytes # (Manual) (0.6-2.4) Monocytes # (Manual) (0.0-0.8) Nucleated RBCs # K/uL Sodium (136-145) mmol/L Potassium (3.5-5.1) mmol/L Chloride (98-107) mmol/L Carbon Dioxide (21.0-32.0) mmol/L BUN (7.0-18.0) mg/dL Creatinine (0.6-1.0) mg/dL Est Cr Clr Drug Dosing mL/min Estimated GFR (MDRD) ml/min Glucose (74-106) mg/dL POC Glucose 342 H 324 H 359 H (70-99) mg/dL Calcium (8.5-10.1) mg/dL Total Bilirubin (0.2-1.0) mg/dL AST (15-37) IU/L ALT (14-63) IU/L Alkaline Phosphatase (46-116) U/L Total Protein (6.4-8.2) g/dL Albumin (3.4-5.0) g/dL Globulin (2.6-4.0) g/dL Albumin/Globulin Ratio (0.9-1.6) 11/02/20 11/02/20 11/02/20 Range/Units 05:05 05:05 06:24 WBC 3.33 L (4.0-11.0) K/uL RBC 4.32 (4.30-5.90) M/uL Hgb 13.2 (12.0-16.0) g/dL Hct 38.7 (36.0-46.0) % MCV 89.6 (80.0-98.0) fL MCH 30.6 (27.0-32.0) pg MCHC 34.1 (31.0-37.0) g/dL RDW Std Deviation 43.2 (28.0-62.0) fl RDW Coeff of Ry 13 (11.0-15.0) % Plt Count 163 (150-400) K/uL MPV 9.20 (7.40-12.00) fL Add Manual Diff YES Neutrophils % (Manual) 55 (48.0-80.0) % Lymphocytes % (Manual) 29 (16.0-40.0) % Monocytes % (Manual) 16 H (0.0-15.0) % Nucleated RBC % 0.0 /100WBC Absolute Seg Neuts 1.8 (1.4-5.7) Lymphocytes # (Manual) 1.0 (0.6-2.4) Monocytes # (Manual) 0.5 (0.0-0.8) Nucleated RBCs # 0 K/uL Sodium 136 (136-145) mmol/L Potassium 4.5 (3.5-5.1) mmol/L Chloride 101 (98-107) mmol/L Carbon Dioxide 26.3 (21.0-32.0) mmol/L BUN 22 H (7.0-18.0) mg/dL Creatinine 1.0 (0.6-1.0) mg/dL Est Cr Clr Drug Dosing 58.84 mL/min Estimated GFR (MDRD) 56.2 ml/min Glucose 285 H (74-106) mg/dL POC Glucose 265 H (70-99) mg/dL Calcium 7.7 L (8.5-10.1) mg/dL Total Bilirubin 0.5 (0.2-1.0) mg/dL AST 41 H (15-37) IU/L ALT 54 (14-63) IU/L Alkaline Phosphatase 72 (46-116) U/L Total Protein 6.4 (6.4-8.2) g/dL Albumin 2.9 L (3.4-5.0) g/dL Globulin 3.5 (2.6-4.0) g/dL Albumin/Globulin Ratio 0.8 L (0.9-1.6) Med Orders - Current: Current Medications Albuterol (Albuterol 8 Gm Inhaler) 0 gm INH Q4HRRT PRN PRN Reason: Shortness of Breath Last Admin: 11/02/20 03:36 Dose: 2 puff Documented by: Albuterol/Ipratropium (Albuterol/Ipratropium 4 Gm Inhalation [place]) 0 gm INH Q6HRRT [facility] Last Admin: 11/02/20 05:47 Dose: 1 puff Documented by: Benzonatate (Benzonatate 100 Mg Cap) 100 mg PO Q6H PRN PRN Reason: Cough Last Admin: 11/02/20 03:37 Dose: 100 mg Documented by: Budesonide/Formoterol Fumarate (Budesonide/Formoterol 160-4.5 Mcg/Puff 6 Gm Inhaler) 0 gm INH BID [facility] Last Admin: 11/02/20 08:54 Dose: Not Given Documented by: Ciprofloxacin (Ciprofloxacin 250 Mg Tab) 250 mg PO BID [facility] Last Admin: 11/02/20 08:49 Dose: 250 mg Documented by: Dexamethasone (Dexamethasone 4 Mg Tab) 6 mg PO DAILY [facility] Last Admin: 11/02/20 08:48 Dose: 6 mg Documented by: Dextrose/Water (50% Dextrose In Water 50 Ml Syringe) 50 ml IVPUSH ASDIRECTED PRN PRN Reason: Hypoglycemia Enoxaparin Sodium (Enoxaparin 40 Mg/0.4 Ml Syringe) 40 mg SUBCUT Q12H [facility] Last Admin: 11/01/20 23:59 Dose: 40 mg Documented by: Glucagon (Glucagon,Human Recombinant 1 Mg Vial) 1 mg IM ASDIRECTED PRN PRN Reason: Hypoglycemia Remdesivir 100 mg/ Sodium (Chloride) 100 mls @ 100 mls/hr IV Q24H [facility] Stop: 11/02/20 18:14 Last Admin: 11/01/20 17:31 Dose: 100 mls/hr Documented by: Insulin Aspart (Insulin Aspart 100 Units/Ml 3 Ml Pen) 5 unit SUBCUT TIDAC [facility]; Protocol Insulin Glargine (Insulin Glargine,Human Rec. Analog 100 Units/Ml 3 Ml Pen) 20 units SUBCUT BEDTIME [facility] Losartan Potassium (Losartan 50 Mg Tab) 25 mg PO DAILY [facility] Last Admin: 11/02/20 08:48 Dose: 25 mg Documented by: Montelukast Sodium (Montelukast 10 Mg Tab) 10 mg PO BEDTIME [facility] Last Admin: 11/01/20 20:13 Dose: 10 mg Documented by: Omeprazole (Omeprazole 20 Mg Cap.Cr) 20 mg PO BIDAC [facility] Last Admin: 11/02/20 08:50 Dose: 20 mg Documented by: Sodium Chloride (Sodium Chloride 0.9% 2.5 Ml Syringe) 2.5 ml FLUSH ASDIRECTED PRN PRN Reason: Keep Vein Open Discontinued Medications Albuterol (Albuterol 8 Gm Inhaler) 0 gm INH Q4H PRN PRN Reason: Shortness of Breath Last Admin: 10/31/20 05:25 Dose: 2 puff Documented by: Dexamethasone (Dexamethasone 10 Mg/Ml Sdv) 10 mg IVPUSH ONETIME ONE Stop: 10/29/20 14:49 Last Admin: 10/29/20 15:22 Dose: 10 mg Documented by: Enoxaparin Sodium (Enoxaparin 40 Mg/0.4 Ml Syringe) 40 mg SUBCUT Q24H [facility] Last Admin: 10/29/20 22:29 Dose: 40 mg Documented by: Remdesivir 200 mg/ Sodium (Chloride) 250 mls @ 250 mls/hr IV ONETIME ONE Stop: 10/29/20 14:48 Last Admin: 10/29/20 15:08 Dose: Not Given Documented by: Remdesivir 200 mg/ Sodium (Chloride) 250 mls @ 250 mls/hr IV ONETIME ONE Stop: 10/29/20 15:59 Last Admin: 10/29/20 15:27 Dose: 250 mls/hr Documented by: Sodium Chloride (Normal Saline) 1,000 mls @ 50 mls/hr IV ASDIRECTED [facility] Last Admin: 10/29/20 15:21 Dose: 50 mls/hr Documented by: Remdesivir 100 mg/ Sodium (Chloride) 100 mls @ 100 mls/hr IV Q24H [facility] Stop: 11/02/20 15:59 Last Admin: 10/30/20 19:19 Dose: Not Given Documented by: Tocilizumab 800 mg/ Sodium (Chloride) 100 mls @ 100 mls/hr IV ONETIME ONE Stop: 10/31/20 11:29 Last Admin: 10/31/20 10:45 Dose: 100 mls/hr Documented by: Insulin Aspart (Insulin Aspart 100 Units/Ml 3 Ml Pen) 0 unit SUBCUT TIDAC [facility]; Protocol Insulin Aspart (Insulin Aspart 100 Units/Ml 3 Ml Pen) 0 unit SUBCUT TIDAC [facility]; Protocol Last Admin: 11/02/20 08:52 Dose: 9 units Documented by: Insulin Glargine (Insulin Glargine,Human Rec. Analog 100 Units/Ml 3 Ml Pen) 5 units SUBCUT BEDTIME [place] Last Admin: 10/30/20 23:54 Dose: 5 units Documented by: Insulin Glargine (Insulin Glargine,Human Rec. Analog 100 Units/Ml 3 Ml Pen) Confirm Administered Dose 300 units .ROUTE .STK-MED ONE Stop: 10/30/20 23:52 Last Admin: 10/31/20 00:45 Dose: Not Given Documented by: Insulin Glargine (Insulin Glargine,Human Rec. Analog 100 Units/Ml 3 Ml Pen) 10 units SUBCUT BEDTIME [facility] Last Admin: 10/31/20 21:53 Dose: 10 units Documented by: Insulin Glargine (Insulin Glargine,Human Rec. Analog 100 Units/Ml 3 Ml Pen) 15 units SUBCUT BEDTIME [facility] Last Admin: 11/01/20 20:13 Dose: 15 units Documented by: Iopamidol (Iopamidol 755 Mg/Ml 200 Ml Multipack Bottle) 100 ml IVPUSH ONETIME ONE Stop: 10/31/20 12:59 Last Admin: 10/31/20 19:36 Dose: Not Given Documented by: Iopamidol (Iopamidol 755 Mg/Ml 200 Ml Multipack Bottle) 100 ml IVPUSH ONETIME ONE Stop: 10/31/20 13:01 Last Admin: 10/31/20 19:34 Dose: Not Given Documented by: Iopamidol (Iopamidol 755 Mg/Ml 500 Ml Multipack Bottle) 100 ml IVPUSH ONETIME ONE Stop: 10/31/20 13:02 Last Admin: 10/31/20 13:02 Dose: 100 ml Documented by: - Exam Quality Assessment: Supplemental Oxygen, DVT Prophylaxis General: Alert, Oriented, Cooperative HEENT: Pupils Equal, Pupils Reactive, EOMI, Mucous Membr. Moist/[place] Neck: Supple, No JVD Lungs: Clear to Auscultation, Normal Respiratory Effort Cardiovascular: Regular Rate, Regular Rhythm GI/Abdominal Exam: Normal Bowel Sounds, Soft, Non-Tender, No Organomegaly, No Distention Extremities: Normal Inspection, Normal Range of Motion, Non-Tender, No Pedal Edema, Normal Capillary Refill Peripheral Pulses: 2+: Carotid (L), Carotid (R), Dorsalis Pedis (L), Dorsalis Pedis (R) Skin: Warm, Dry, Intact Neurological: No New Focal Deficit Psy/Mental Status: Alert, Normal Affect, Normal Mood - Patient Data Lab Results Last 24 hrs: Laboratory Results - last 24 hr 11/01/20 11/01/20 11/01/20 Range/Units 12:23 17:45 20:15 WBC (4.0-11.0) K/uL RBC (4.30-5.90) M/uL Hgb (12.0-16.0) g/dL Hct (36.0-46.0) % MCV (80.0-98.0) fL MCH (27.0-32.0) pg MCHC (31.0-37.0) g/dL RDW Std Deviation (28.0-62.0) fl RDW Coeff of Ry (11.0-15.0) % Plt Count (150-400) K/uL MPV (7.40-12.00) fL Add Manual Diff Neutrophils % (Manual) (48.0-80.0) % Lymphocytes % (Manual) (16.0-40.0) % Monocytes % (Manual) (0.0-15.0) % Nucleated RBC % /100WBC Absolute Seg Neuts (1.4-5.7) Lymphocytes # (Manual) (0.6-2.4) Monocytes # (Manual) (0.0-0.8) Nucleated RBCs # K/uL Sodium (136-145) mmol/L Potassium (3.5-5.1) mmol/L Chloride (98-107) mmol/L Carbon Dioxide (21.0-32.0) mmol/L BUN (7.0-18.0) mg/dL Creatinine (0.6-1.0) mg/dL Est Cr Clr Drug Dosing mL/min Estimated GFR (MDRD) ml/min Glucose (74-106) mg/dL POC Glucose 342 H 324 H 359 H (70-99) mg/dL Calcium (8.5-10.1) mg/dL Total Bilirubin (0.2-1.0) mg/dL AST (15-37) IU/L ALT (14-63) IU/L Alkaline Phosphatase (46-116) U/L Total Protein (6.4-8.2) g/dL Albumin (3.4-5.0) g/dL Globulin (2.6-4.0) g/dL Albumin/Globulin Ratio (0.9-1.6) 11/02/20 11/02/20 11/02/20 Range/Units 05:05 05:05 06:24 WBC 3.33 L (4.0-11.0) K/uL RBC 4.32 (4.30-5.90) M/uL Hgb 13.2 (12.0-16.0) g/dL Hct 38.7 (36.0-46.0) % MCV 89.6 (80.0-98.0) fL MCH 30.6 (27.0-32.0) pg MCHC 34.1 (31.0-37.0) g/dL RDW Std Deviation 43.2 (28.0-62.0) fl RDW Coeff of Ry 13 (11.0-15.0) % Plt Count 163 (150-400) K/uL MPV 9.20 (7.40-12.00) fL Add Manual Diff YES Neutrophils % (Manual) 55 (48.0-80.0) % Lymphocytes % (Manual) 29 (16.0-40.0) % Monocytes % (Manual) 16 H (0.0-15.0) % Nucleated RBC % 0.0 /100WBC Absolute Seg Neuts 1.8 (1.4-5.7) Lymphocytes # (Manual) 1.0 (0.6-2.4) Monocytes # (Manual) 0.5 (0.0-0.8) Nucleated RBCs # 0 K/uL Sodium 136 (136-145) mmol/L Potassium 4.5 (3.5-5.1) mmol/L Chloride 101 (98-107) mmol/L Carbon Dioxide 26.3 (21.0-32.0) mmol/L BUN 22 H (7.0-18.0) mg/dL Creatinine 1.0 (0.6-1.0) mg/dL Est Cr Clr Drug Dosing 58.84 mL/min Estimated GFR (MDRD) 56.2 ml/min Glucose 285 H (74-106) mg/dL POC Glucose 265 H (70-99) mg/dL Calcium 7.7 L (8.5-10.1) mg/dL Total Bilirubin 0.5 (0.2-1.0) mg/dL AST 41 H (15-37) IU/L ALT 54 (14-63) IU/L Alkaline Phosphatase 72 (46-116) U/L Total Protein 6.4 (6.4-8.2) g/dL Albumin 2.9 L (3.4-5.0) g/dL Globulin 3.5 (2.6-4.0) g/dL Albumin/Globulin Ratio 0.8 L (0.9-1.6) Result Diagrams: 11/02/20 05:05 11/02/20 05:05 Sepsis Event Note - Evaluation Sepsis Screening Result: No Definite Risk - Focused Exam Vital Signs: Vital Signs Temp Resp BP BP Pulse Ox Pulse Ox 11/02/20 08:48 127/67 11/02/20 08:00 96.8 F L 22 H 127/67 86 L 11/02/20 07:00 91 L 11/02/20 04:00 96.9 F 20 138/71 91 L 11/01/20 23:55 96.9 F 20 132/78 91 L - Problem List Review Problem List Initiated/Reviewed/Updated: Yes - My Orders Last 24 Hours: My Active Orders 11/02/20 10:41 Echo 2D wo Cont [US] Routine 11/02/20 11:30 Insulin Aspart [NovoLOG] 5 unit SUBCUT TIDAC 11/02/20 21:00 Insulin Glarg,Human.Rec.Analog [LantUS Solostar] 20 units SUBCUT BEDTIME - Plan Plan:: 60 yo female with past medical history of COPD/JAZMIN admitted with acute hypoxic respiratory failure due to COVID pneumonia. 1. AHRF secondary to COVID pneumonia: Patient remains on heated high flow, will continue to wean as tolerated, Combivent Q6HRS and Ventolin Q4Hrs as needed, completed remdesivir last night, continue with dexamethasone for total 10 days, DVT prophylaxis Lovenox 40 BID, Tessalon Perles for cough and ciprofloxacin 250 BID. Echo ordered to ensure no underlying CHF contributing to hypoxia. 2. Past medical history of diabetes mellitus: Patient is on steroids, home dose was adjusted to long-acting 15 units, and moderate dose sliding scale. Will increase to 20 units long-acting at bedtime, 5 units NovoLog using moderate dose sliding scale. Continue with [place] diabetic diet. 3. Past medical history of JAZMIN: Continue using CPAP at night; patient states that she tolerates her home device better, will have her daughter bring in home device. 4. Past medical history of HTN/COPD: resume home meds
[2020-11-02] MEDS: Enoxaparin 40 MG/0.4 ML Syringe SUBCUT SCH ×2 (12:12→22:42)
[2020-11-02] MEDS: REMDESIVIR 100 MG in Sodium Chloride 0.9% 100 ML IV SCH (17:40)
[2020-11-02] MEDS: Montelukast 10 MG Tab PO SCH (20:16)
[2020-11-02] MEDS ORDERED: Insulin Glargine,Human Rec. Analog 100 Units/ML 3 ML Pen SUBCUT SCH (21:00)
[2020-11-03] MEDS: Albuterol 8 GM Inhaler INH PRN (05:04)
[2020-11-03] MEDS: Benzonatate 100 MG Cap PO PRN ×2 (05:20→21:56)
[2020-11-03 06:00] LABS: CARBON DIOXIDE,CO2 23.5 mmol/L (21.0-32.0); POTASSIUM,K 4.1 mmol/L (3.5-5.1)
[2020-11-03] MEDS: Albuterol/Ipratropium 4 GM Inhalation Spray INH SCH ×5 (06:16→21:55)
[2020-11-03] MEDS: Omeprazole 20 MG Cap.CR PO SCH ×2 (08:41→18:03)
[2020-11-03] MEDS: Losartan 50 MG Tab PO SCH (08:42)
[2020-11-03] MEDS: Dexamethasone 4 MG Tab PO SCH (08:42)
[2020-11-03] MEDS: Ciprofloxacin 250 MG Tab PO SCH ×2 (08:42→20:51)
[2020-11-03] MEDS: Budesonide/Formoterol 160-4.5 MCG/Puff 6 GM Inhaler INH SCH ×2 (09:00→20:33)
[2020-11-03] MEDS: Insulin Aspart 100 Units/ML 3 ML Pen SUBCUT SCH ×6 (09:22→18:04)
--- NOTE | 2020-11-03 10:59 | PCM.PN ---
- General Info Date of Service: 11/03/20 Admission Dx/Problem (Free Text): Admission Diagnosis/Problem Admission Diagnosis/Problem acute hypoxic respiratory failure secondary to Covid pneumonia Subjective Update: 60-year-old female admitted for acute hypoxic respiratory failure secondary to Covid pneumonia. Overnight patient, was unable to localize her home CPAP due to requiring settings. Therefore was continued heated high flow, did not rest comfortably appears tired and dyspneic. Again this morning patient was found to be satting in the 70s with ambulation to the restroom, therefore was given Ventolin and Tessalon Perles, which eventually settled down back into the 89-91. Patient seen and examined at bedside this morning sitting up in chair, enjoying her breakfast in no acute distress with heated high flow setting 90 to 91%. Patient appears to be stable, denies any fever, chills, shortness of breath. All questions and concerns were addressed at bedside. Functional Status: Reports: Tolerating Diet, Ambulating, Urinating, Incentive Spirometry - Review of Systems General: Reports: No Symptoms HEENT: Reports: No Symptoms Pulmonary: Reports: Cough, Wheezing Cardiovascular: Reports: No Symptoms Gastrointestinal: Reports: Constipation Genitourinary: Reports: No Symptoms Musculoskeletal: Reports: No Symptoms Skin: Reports: No Symptoms Neurological: Reports: No Symptoms Psychiatric: Reports: No Symptoms - Patient Data Vitals - Most Recent: Last Vital Signs Temp 96.6 F L 11/03/20 08:00 Pulse 77 10/31/20 04:00 Resp 21 H 11/03/20 08:00 BP 115/74 11/03/20 08:42 Pulse Ox 83 L 11/03/20 08:00 Weight - Most Recent: 387 lb 8 oz I&O - Last 24 Hours: Intake & Output 11/02/20 11/03/20 11/03/20 22:59 06:59 14:59 Intake Total 500 Output Total 600 Balance -100 Lab Results Last 24 Hours: Laboratory Results - last 24 hr 11/02/20 11/02/20 11/02/20 Range/Units 08:41 14:19 18:41 WBC (4.0-11.0) K/uL RBC (4.30-5.90) M/uL Hgb (12.0-16.0) g/dL Hct (36.0-46.0) % MCV (80.0-98.0) fL MCH (27.0-32.0) pg MCHC (31.0-37.0) g/dL RDW Std Deviation (28.0-62.0) fl RDW Coeff of Ry (11.0-15.0) % Plt Count (150-400) K/uL MPV (7.40-12.00) fL Add Manual Diff Neutrophils % (Manual) (48.0-80.0) % Lymphocytes % (Manual) (16.0-40.0) % Monocytes % (Manual) (0.0-15.0) % Nucleated RBC % /100WBC Absolute Seg Neuts (1.4-5.7) Lymphocytes # (Manual) (0.6-2.4) Monocytes # (Manual) (0.0-0.8) Nucleated RBCs # K/uL ABG pH (7.35-7.45) ABG pCO2 (35-45) mmHG ABG pO2 (80-105) mmHG ABG HCO3 (22-26) mEq/L ABG Total CO2 (23-27) mmol/L ABG Base Excess (-2.0-3.0) Sodium (136-145) mmol/L Potassium (3.5-5.1) mmol/L Chloride (98-107) mmol/L Carbon Dioxide (21.0-32.0) mmol/L BUN (7.0-18.0) mg/dL Creatinine (0.6-1.0) mg/dL Est Cr Clr Drug Dosing mL/min Estimated GFR (MDRD) ml/min Glucose (74-106) mg/dL POC Glucose 262 H 351 H 332 H (70-99) mg/dL Calcium (8.5-10.1) mg/dL Magnesium (1.8-2.4) mg/dL Total Bilirubin (0.2-1.0) mg/dL AST (15-37) IU/L ALT (14-63) IU/L Alkaline Phosphatase (46-116) U/L Total Protein (6.4-8.2) g/dL Albumin (3.4-5.0) g/dL Globulin (2.6-4.0) g/dL Albumin/Globulin Ratio (0.9-1.6) 11/02/20 11/03/20 11/03/20 Range/Units 22:38 04:53 04:53 WBC 3.87 L (4.0-11.0) K/uL RBC 4.48 (4.30-5.90) M/uL Hgb 13.5 (12.0-16.0) g/dL Hct 39.8 (36.0-46.0) % MCV 88.8 (80.0-98.0) fL MCH 30.1 (27.0-32.0) pg MCHC 33.9 (31.0-37.0) g/dL RDW Std Deviation 42.3 (28.0-62.0) fl RDW Coeff of Ry 13 (11.0-15.0) % Plt Count 177 (150-400) K/uL MPV 9.30 (7.40-12.00) fL Add Manual Diff YES Neutrophils % (Manual) 53 (48.0-80.0) % Lymphocytes % (Manual) 31 (16.0-40.0) % Monocytes % (Manual) 16 H (0.0-15.0) % Nucleated RBC % 0.0 /100WBC Absolute Seg Neuts 2.1 (1.4-5.7) Lymphocytes # (Manual) 1.2 (0.6-2.4) Monocytes # (Manual) 0.6 (0.0-0.8) Nucleated RBCs # 0 K/uL ABG pH (7.35-7.45) ABG pCO2 (35-45) mmHG ABG pO2 (80-105) mmHG ABG HCO3 (22-26) mEq/L ABG Total CO2 (23-27) mmol/L ABG Base Excess (-2.0-3.0) Sodium 136 (136-145) mmol/L Potassium 4.1 (3.5-5.1) mmol/L Chloride 102 (98-107) mmol/L Carbon Dioxide 23.5 (21.0-32.0) mmol/L BUN 23 H (7.0-18.0) mg/dL Creatinine 1.0 (0.6-1.0) mg/dL Est Cr Clr Drug Dosing 58.84 mL/min Estimated GFR (MDRD) 56.2 ml/min Glucose 277 H (74-106) mg/dL POC Glucose 274 H (70-99) mg/dL Calcium 7.9 L (8.5-10.1) mg/dL Magnesium (1.8-2.4) mg/dL Total Bilirubin 0.5 (0.2-1.0) mg/dL AST 38 H (15-37) IU/L ALT 52 (14-63) IU/L Alkaline Phosphatase 78 (46-116) U/L Total Protein 6.3 L (6.4-8.2) g/dL Albumin 3.0 L (3.4-5.0) g/dL Globulin 3.3 (2.6-4.0) g/dL Albumin/Globulin Ratio 0.9 (0.9-1.6) 11/03/20 11/03/20 11/03/20 Range/Units 04:53 06:18 09:40 WBC (4.0-11.0) K/uL RBC (4.30-5.90) M/uL Hgb (12.0-16.0) g/dL Hct (36.0-46.0) % MCV (80.0-98.0) fL MCH (27.0-32.0) pg MCHC (31.0-37.0) g/dL RDW Std Deviation (28.0-62.0) fl RDW Coeff of Ry (11.0-15.0) % Plt Count (150-400) K/uL MPV (7.40-12.00) fL Add Manual Diff Neutrophils % (Manual) (48.0-80.0) % Lymphocytes % (Manual) (16.0-40.0) % Monocytes % (Manual) (0.0-15.0) % Nucleated RBC % /100WBC Absolute Seg Neuts (1.4-5.7) Lymphocytes # (Manual) (0.6-2.4) Monocytes # (Manual) (0.0-0.8) Nucleated RBCs # K/uL ABG pH 7.46 H (7.35-7.45) ABG pCO2 34 L (35-45) mmHG ABG pO2 56 L (80-105) mmHG ABG HCO3 24 (22-26) mEq/L ABG Total CO2 21.5 L (23-27) mmol/L ABG Base Excess 0.9 (-2.0-3.0) Sodium (136-145) mmol/L Potassium (3.5-5.1) mmol/L Chloride (98-107) mmol/L Carbon Dioxide (21.0-32.0) mmol/L BUN (7.0-18.0) mg/dL Creatinine (0.6-1.0) mg/dL Est Cr Clr Drug Dosing mL/min Estimated GFR (MDRD) ml/min Glucose (74-106) mg/dL POC Glucose 233 H (70-99) mg/dL Calcium (8.5-10.1) mg/dL Magnesium 2.1 (1.8-2.4) mg/dL Total Bilirubin (0.2-1.0) mg/dL AST (15-37) IU/L ALT (14-63) IU/L Alkaline Phosphatase (46-116) U/L Total Protein (6.4-8.2) g/dL Albumin (3.4-5.0) g/dL Globulin (2.6-4.0) g/dL Albumin/Globulin Ratio (0.9-1.6) Med Orders - Current: Current Medications Albuterol (Albuterol 8 Gm Inhaler) 0 gm INH Q4HRRT PRN PRN Reason: Shortness of Breath Last Admin: 11/03/20 05:04 Dose: 2 puff Documented by: Albuterol/Ipratropium (Albuterol/Ipratropium 4 Gm Inhalation [place]) 0 gm INH Q4H [facility] Benzonatate (Benzonatate 100 Mg Cap) 100 mg PO Q6H PRN PRN Reason: Cough Last Admin: 11/03/20 05:20 Dose: 100 mg Documented by: Budesonide/Formoterol Fumarate (Budesonide/Formoterol 160-4.5 Mcg/Puff 6 Gm Inhaler) 0 gm INH BID [facility] Last Admin: 11/03/20 09:00 Dose: Not Given Documented by: Ciprofloxacin (Ciprofloxacin 250 Mg Tab) 250 mg PO BID [facility] Last Admin: 11/03/20 08:42 Dose: 250 mg Documented by: Dexamethasone (Dexamethasone 4 Mg Tab) 6 mg PO DAILY [facility] Last Admin: 11/03/20 08:42 Dose: 6 mg Documented by: Dextrose/Water (50% Dextrose In Water 50 Ml Syringe) 50 ml IVPUSH ASDIRECTED PRN PRN Reason: Hypoglycemia Enoxaparin Sodium (Enoxaparin 40 Mg/0.4 Ml Syringe) 40 mg SUBCUT Q12H [facility] Last Admin: 11/02/20 22:42 Dose: 40 mg Documented by: Glucagon (Glucagon,Human Recombinant 1 Mg Vial) 1 mg IM ASDIRECTED PRN PRN Reason: Hypoglycemia Insulin Aspart (Insulin Aspart 100 Units/Ml 3 Ml Pen) 0 unit SUBCUT TIDAC [facility]; Protocol Last Admin: 11/03/20 09:23 Dose: 4 units Documented by: Insulin Aspart (Insulin Aspart 100 Units/Ml 3 Ml Pen) 6 unit SUBCUT TIDAC [facility] Insulin Glargine (Insulin Glargine,Human Rec. Analog 100 Units/Ml 3 Ml Pen) 24 units SUBCUT BEDTIME [facility] Losartan Potassium (Losartan 50 Mg Tab) 25 mg PO DAILY [facility] Last Admin: 11/03/20 08:42 Dose: 25 mg Documented by: Montelukast Sodium (Montelukast 10 Mg Tab) 10 mg PO BEDTIME [facility] Last Admin: 11/02/20 20:16 Dose: 10 mg Documented by: Omeprazole (Omeprazole 20 Mg Cap.Cr) 20 mg PO BIDAC [facility] Last Admin: 11/03/20 08:41 Dose: 20 mg Documented by: Sodium Chloride (Sodium Chloride 0.9% 2.5 Ml Syringe) 2.5 ml FLUSH ASDIRECTED PRN PRN Reason: Keep Vein Open Discontinued Medications Albuterol (Albuterol 8 Gm Inhaler) 0 gm INH Q4H PRN PRN Reason: Shortness of Breath Last Admin: 10/31/20 05:25 Dose: 2 puff Documented by: Albuterol/Ipratropium (Albuterol/Ipratropium 4 Gm Inhalation [place]) 0 gm INH Q6HRRT [facility] Last Admin: 11/03/20 06:16 Dose: 1 puff Documented by: Dexamethasone (Dexamethasone 10 Mg/Ml Sdv) 10 mg IVPUSH ONETIME ONE Stop: 10/29/20 14:49 Last Admin: 10/29/20 15:22 Dose: 10 mg Documented by: Enoxaparin Sodium (Enoxaparin 40 Mg/0.4 Ml Syringe) 40 mg SUBCUT Q24H [facility] Last Admin: 10/29/20 22:29 Dose: 40 mg Documented by: Remdesivir 200 mg/ Sodium (Chloride) 250 mls @ 250 mls/hr IV ONETIME ONE Stop: 10/29/20 14:48 Last Admin: 10/29/20 15:08 Dose: Not Given Documented by: Remdesivir 200 mg/ Sodium (Chloride) 250 mls @ 250 mls/hr IV ONETIME ONE Stop: 10/29/20 15:59 Last Admin: 10/29/20 15:27 Dose: 250 mls/hr Documented by: Sodium Chloride (Normal Saline) 1,000 mls @ 50 mls/hr IV ASDIRECTED [facility] Last Admin: 10/29/20 15:21 Dose: 50 mls/hr Documented by: Remdesivir 100 mg/ Sodium (Chloride) 100 mls @ 100 mls/hr IV Q24H [facility] Stop: 11/02/20 15:59 Last Admin: 10/30/20 19:19 Dose: Not Given Documented by: Remdesivir 100 mg/ Sodium (Chloride) 100 mls @ 100 mls/hr IV Q24H [facility] Stop: 11/02/20 18:14 Last Admin: 11/02/20 17:40 Dose: 100 mls/hr Documented by: Tocilizumab 800 mg/ Sodium (Chloride) 100 mls @ 100 mls/hr IV ONETIME ONE Stop: 10/31/20 11:29 Last Admin: 10/31/20 10:45 Dose: 100 mls/hr Documented by: Insulin Aspart (Insulin Aspart 100 Units/Ml 3 Ml Pen) 0 unit SUBCUT TIDAC [facility]; Protocol Insulin Aspart (Insulin Aspart 100 Units/Ml 3 Ml Pen) 0 unit SUBCUT TIDAC [facility]; Protocol Last Admin: 11/02/20 08:52 Dose: 9 units Documented by: Insulin Aspart (Insulin Aspart 100 Units/Ml 3 Ml Pen) 5 unit SUBCUT TIDAC [facility] Last Admin: 11/03/20 09:22 Dose: 5 units Documented by: Insulin Glargine (Insulin Glargine,Human Rec. Analog 100 Units/Ml 3 Ml Pen) 5 units SUBCUT BEDTIME [facility] Last Admin: 10/30/20 23:54 Dose: 5 units Documented by: Insulin Glargine (Insulin Glargine,Human Rec. Analog 100 Units/Ml 3 Ml Pen) Confirm Administered Dose 300 units .ROUTE .STK-MED ONE Stop: 10/30/20 23:52 Last Admin: 10/31/20 00:45 Dose: Not Given Documented by: Insulin Glargine (Insulin Glargine,Human Rec. Analog 100 Units/Ml 3 Ml Pen) 10 units SUBCUT BEDTIME [facility] Last Admin: 10/31/20 21:53 Dose: 10 units Documented by: Insulin Glargine (Insulin Glargine,Human Rec. Analog 100 Units/Ml 3 Ml Pen) 15 units SUBCUT BEDTIME [facility] Last Admin: 11/01/20 20:13 Dose: 15 units Documented by: Insulin Glargine (Insulin Glargine,Human Rec. Analog 100 Units/Ml 3 Ml Pen) 20 units SUBCUT BEDTIME [facility] Last Admin: 11/02/20 22:00 Dose: 20 units Documented by: Iopamidol (Iopamidol 755 Mg/Ml 200 Ml Multipack Bottle) 100 ml IVPUSH ONETIME ONE Stop: 10/31/20 12:59 Last Admin: 10/31/20 19:36 Dose: Not Given Documented by: Iopamidol (Iopamidol 755 Mg/Ml 200 Ml Multipack Bottle) 100 ml IVPUSH ONETIME ONE Stop: 10/31/20 13:01 Last Admin: 10/31/20 19:34 Dose: Not Given Documented by: Iopamidol (Iopamidol 755 Mg/Ml 500 Ml Multipack Bottle) 100 ml IVPUSH ONETIME ONE Stop: 10/31/20 13:02 Last Admin: 10/31/20 13:02 Dose: 100 ml Documented by: - Exam Quality Assessment: Supplemental Oxygen, DVT Prophylaxis General: Alert, Oriented, Cooperative, No Acute Distress HEENT: Pupils Equal, Pupils Reactive, EOMI, Mucous Membr. Moist/[place] Neck: Supple, No JVD Lungs: Clear to Auscultation, Normal Respiratory Effort Cardiovascular: Regular Rate, Regular Rhythm GI/Abdominal Exam: Normal Bowel Sounds, Soft, Non-Tender, No Organomegaly, No Distention. No: Distended, Guarding, Rigid, Tender, Abnormal Bowel Sounds Extremities: Normal Inspection, Normal Range of Motion, Non-Tender, Normal Capillary Refill, Pedal Edema (1+) Peripheral Pulses: 2+: Carotid (L), Carotid (R), Dorsalis Pedis (L), Dorsalis Pedis (R) Skin: Warm, Dry, Intact Neurological: No New Focal Deficit Psy/Mental Status: Alert, Normal Affect, Normal Mood - Patient Data Lab Results Last 24 hrs: Laboratory Results - last 24 hr 11/02/20 11/02/20 11/02/20 Range/Units 08:41 14:19 18:41 WBC (4.0-11.0) K/uL RBC (4.30-5.90) M/uL Hgb (12.0-16.0) g/dL Hct (36.0-46.0) % MCV (80.0-98.0) fL MCH (27.0-32.0) pg MCHC (31.0-37.0) g/dL RDW Std Deviation (28.0-62.0) fl RDW Coeff of Ry (11.0-15.0) % Plt Count (150-400) K/uL MPV (7.40-12.00) fL Add Manual Diff Neutrophils % (Manual) (48.0-80.0) % Lymphocytes % (Manual) (16.0-40.0) % Monocytes % (Manual) (0.0-15.0) % Nucleated RBC % /100WBC Absolute Seg Neuts (1.4-5.7) Lymphocytes # (Manual) (0.6-2.4) Monocytes # (Manual) (0.0-0.8) Nucleated RBCs # K/uL ABG pH (7.35-7.45) ABG pCO2 (35-45) mmHG ABG pO2 (80-105) mmHG ABG HCO3 (22-26) mEq/L ABG Total CO2 (23-27) mmol/L ABG Base Excess (-2.0-3.0) Sodium (136-145) mmol/L Potassium (3.5-5.1) mmol/L Chloride (98-107) mmol/L Carbon Dioxide (21.0-32.0) mmol/L BUN (7.0-18.0) mg/dL Creatinine (0.6-1.0) mg/dL Est Cr Clr Drug Dosing mL/min Estimated GFR (MDRD) ml/min Glucose (74-106) mg/dL POC Glucose 262 H 351 H 332 H (70-99) mg/dL Calcium (8.5-10.1) mg/dL Magnesium (1.8-2.4) mg/dL Total Bilirubin (0.2-1.0) mg/dL AST (15-37) IU/L ALT (14-63) IU/L Alkaline Phosphatase (46-116) U/L Total Protein (6.4-8.2) g/dL Albumin (3.4-5.0) g/dL Globulin (2.6-4.0) g/dL Albumin/Globulin Ratio (0.9-1.6) 11/02/20 11/03/20 11/03/20 Range/Units 22:38 04:53 04:53 WBC 3.87 L (4.0-11.0) K/uL RBC 4.48 (4.30-5.90) M/uL Hgb 13.5 (12.0-16.0) g/dL Hct 39.8 (36.0-46.0) % MCV 88.8 (80.0-98.0) fL MCH 30.1 (27.0-32.0) pg MCHC 33.9 (31.0-37.0) g/dL RDW Std Deviation 42.3 (28.0-62.0) fl RDW Coeff of Ry 13 (11.0-15.0) % Plt Count 177 (150-400) K/uL MPV 9.30 (7.40-12.00) fL Add Manual Diff YES Neutrophils % (Manual) 53 (48.0-80.0) % Lymphocytes % (Manual) 31 (16.0-40.0) % Monocytes % (Manual) 16 H (0.0-15.0) % Nucleated RBC % 0.0 /100WBC Absolute Seg Neuts 2.1 (1.4-5.7) Lymphocytes # (Manual) 1.2 (0.6-2.4) Monocytes # (Manual) 0.6 (0.0-0.8) Nucleated RBCs # 0 K/uL ABG pH (7.35-7.45) ABG pCO2 (35-45) mmHG ABG pO2 (80-105) mmHG ABG HCO3 (22-26) mEq/L ABG Total CO2 (23-27) mmol/L ABG Base Excess (-2.0-3.0) Sodium 136 (136-145) mmol/L Potassium 4.1 (3.5-5.1) mmol/L Chloride 102 (98-107) mmol/L Carbon Dioxide 23.5 (21.0-32.0) mmol/L BUN 23 H (7.0-18.0) mg/dL Creatinine 1.0 (0.6-1.0) mg/dL Est Cr Clr Drug Dosing 58.84 mL/min Estimated GFR (MDRD) 56.2 ml/min Glucose 277 H (74-106) mg/dL POC Glucose 274 H (70-99) mg/dL Calcium 7.9 L (8.5-10.1) mg/dL Magnesium (1.8-2.4) mg/dL Total Bilirubin 0.5 (0.2-1.0) mg/dL AST 38 H (15-37) IU/L ALT 52 (14-63) IU/L Alkaline Phosphatase 78 (46-116) U/L Total Protein 6.3 L (6.4-8.2) g/dL Albumin 3.0 L (3.4-5.0) g/dL Globulin 3.3 (2.6-4.0) g/dL Albumin/Globulin Ratio 0.9 (0.9-1.6) 11/03/20 11/03/20 11/03/20 Range/Units 04:53 06:18 09:40 WBC (4.0-11.0) K/uL RBC (4.30-5.90) M/uL Hgb (12.0-16.0) g/dL Hct (36.0-46.0) % MCV (80.0-98.0) fL MCH (27.0-32.0) pg MCHC (31.0-37.0) g/dL RDW Std Deviation (28.0-62.0) fl RDW Coeff of Ry (11.0-15.0) % Plt Count (150-400) K/uL MPV (7.40-12.00) fL Add Manual Diff Neutrophils % (Manual) (48.0-80.0) % Lymphocytes % (Manual) (16.0-40.0) % Monocytes % (Manual) (0.0-15.0) % Nucleated RBC % /100WBC Absolute Seg Neuts (1.4-5.7) Lymphocytes # (Manual) (0.6-2.4) Monocytes # (Manual) (0.0-0.8) Nucleated RBCs # K/uL ABG pH 7.46 H (7.35-7.45) ABG pCO2 34 L (35-45) mmHG ABG pO2 56 L (80-105) mmHG ABG HCO3 24 (22-26) mEq/L ABG Total CO2 21.5 L (23-27) mmol/L ABG Base Excess 0.9 (-2.0-3.0) Sodium (136-145) mmol/L Potassium (3.5-5.1) mmol/L Chloride (98-107) mmol/L Carbon Dioxide (21.0-32.0) mmol/L BUN (7.0-18.0) mg/dL Creatinine (0.6-1.0) mg/dL Est Cr Clr Drug Dosing mL/min Estimated GFR (MDRD) ml/min Glucose (74-106) mg/dL POC Glucose 233 H (70-99) mg/dL Calcium (8.5-10.1) mg/dL Magnesium 2.1 (1.8-2.4) mg/dL Total Bilirubin (0.2-1.0) mg/dL AST (15-37) IU/L ALT (14-63) IU/L Alkaline Phosphatase (46-116) U/L Total Protein (6.4-8.2) g/dL Albumin (3.4-5.0) g/dL Globulin (2.6-4.0) g/dL Albumin/Globulin Ratio (0.9-1.6) Result Diagrams: 11/03/20 04:53 11/03/20 04:53 Sepsis Event Note - Evaluation Sepsis Screening Result: No Definite Risk - Focused Exam Vital Signs: Vital Signs Temp Resp BP BP Pulse Ox Pulse Ox 11/03/20 08:42 115/74 11/03/20 08:00 96.6 F L 21 H 115/74 83 L 11/03/20 07:00 91 L 11/03/20 04:00 97.2 F 21 H 133/71 89 L 11/03/20 00:00 96.7 F L 21 H 135/71 90 L - Problem List & Annotations (1) COVID-19 SNOMED Code(s): 331840810 Code(s): U07.1 - COVID-19 Status: Acute Current Visit: Yes (2) Hypoxia SNOMED Code(s): 263465247 Code(s): R09.02 - HYPOXEMIA Status: Acute Current Visit: Yes - Problem List Review Problem List Initiated/Reviewed/Updated: Yes - My Orders Last 24 Hours: My Active Orders 11/02/20 10:41 Echo 2D wo Cont [US] Routine 11/02/20 11:30 Insulin Aspart [NovoLOG] 0 unit SUBCUT TIDAC - Plan Plan:: 60 yo female with past medical history of COPD/JAZMIN admitted with acute hypoxic respiratory failure due to COVID pneumonia. 1. AHRF secondary to COVID pneumonia: Patient remains on heated high flow with increased oxygen demand pressure 40 FiO2 90%, will continue to wean as tolerated, Combivent adjusted to Q4HRS and V entolin Q4Hrs as needed, completed remdesivir last night, continue with dexamethasone for total 10 days, DVT prophylaxis Lovenox 40 BID, Tessalon Perles for cough and ciprofloxacin 250 BID. Echo ordered to ensure no underlying CHF contributing to hypoxia. Repeat chest x-ray indicated shallow inspiration infiltrates no significant changes from previous compared October 29, 2020. 20 Lasix one-time dose. Patient has history of leg cramping due to hypokalemia associated with use of Lasix, therefore we will continue to monitor potassium levels and magnesium closely. Continue to maintain a negative balance to avoid any chest congestion. Encourage patient to prone to recruit more airways. eICU consulted, they will continue to follow their recommendations are much appreciated. 2. Past medical history of diabetes mellitus: Sugars remain elevated to 77 this morning Patient is on steroids, adjusted Lantus to 25 units, and moderate dose sliding scale with 6 units. Continue with [place] diabetic diet. 3. Constipation: No BM since 2 days, patient tolerating diet, will provide patient with 100 mg docusate twice daily, senna 8.6 mg twice daily. 4. Past medical history of JAZMIN: Continue using CPAP at night; patient states that she tolerates her home device better, will have her daughter bring in home device. 5. Past medical history of HTN/COPD: resume home meds
--- NOTE | 2020-11-03 11:39 | CR ---
INDICATION: Worsening hypoxia. TECHNIQUE: Upright portable AP image of the chest. COMPARISON: 10/29/2020. FINDINGS: Shallow inspiration and the diffuse infiltrates. No pleural effusion. Heart size within normal limits. Mild right diaphragmatic elevation. Pulmonary veins difficult to assess due to the infiltrates. IMPRESSION: 1. Shallow inspiration and diffuse infiltrates. 2. Mild right diaphragmatic elevation. Dictated by Ayush Juarez MD @ 11/03/2020 11:37:[address] Ayush Juarez @ Nov 03 2020 11:37AM
[2020-11-03] MEDS ORDERED: Furosemide 20 MG/2 ML VIAL IVPUSH ONE (12:06)
--- NOTE | 2020-11-03 12:26 | PN ---
[facility] Physician - Brief Progress [id number]/21/2021 12:20[facility] [place], [place] - EMERALDN (ARIANA) - EMERALDN ANNA NOESandyDate of Service 11/03/2020 12:20HPI/Events of Note eICU Admission NotePatient is a 60-year-old female with a past medical history significant fo r COPD, JAZMIN on CPAP, type 2 diabetes, hypertension. Patient was recently diagnosed with COVID-19 wit h symptom onset almost 10 days ago. Was admitted for acute hypoxemic respiratory failure. Has been having increasing FiO2 requirements on heated high flow nasal cannula. CT PE study was negative for acute PE. No concern for bacterial pneumonia. Patient has been on remdesivir and steroid therapy.On cameraxthe patient is awake, comfortably tachypneic on heated high flow nasal cannulaReviewedVitalsE MR notesLabsNone available imagingMicroMedicationseICU impressionsAcute hypoxemic respiratory failure COVID-19 pneumoniaHistory of JAZMIN on CPAPHistory of COPD, not in exacerbationHypertensionType 2 diabet esQI measureseICU recommendationsContinue respiratory support with heated high flow nasal cannula, ma ximize flow rate, maintain saturations greater than 92%Highly encouraged self proning as tolerated, p recedex may assist compliance/tolerance with proningIf patient develops progressive hypoxemia or incr eased work of breathing, or increasing CO2 retention can transition to BiPAP for additional support a nd oxygenationCovid therapy with course of dexamethasone, remdesivirPatient is a candidate for Tocili zumab and would add this to her regiment, this was discussed with primary teamContinue ciprofloxacin, at this time however there is no concern for external pneumonia, procalcitonin is a send out testTre nd daily BMP LFTs while on remdesivirTrend Covid inflammatory markersMaintain euvolemiaVTE prophylaxi s with Lovenox BID notedGlycemic control per protocol, blood sugar target between 140-180Thank you fo r allowing us to participate in the care of your patient. Critical care; 35 minutes total evaluation time Interventions Major-Infection - evaluation and management, Respiratory failure - evaluation and management
[2020-11-03] MEDS: Enoxaparin 40 MG/0.4 ML Syringe SUBCUT SCH ×2 (12:42→22:45)
[2020-11-03] MEDS ORDERED: Docusate Sodium 100 MG Cap PO PRN (14:02)
[2020-11-03] MEDS ORDERED: Sennosides 8.6 MG Tab PO PRN (14:04)
[2020-11-03] MEDS: Montelukast 10 MG Tab PO SCH (20:51)
[2020-11-03] MEDS: Insulin Glargine,Human Rec. Analog 100 Units/ML 3 ML Pen SUBCUT SCH (20:57)
[2020-11-04] MEDS: Albuterol/Ipratropium 4 GM Inhalation Spray INH SCH ×6 (01:08→21:12)
[2020-11-04] MEDS: Benzonatate 100 MG Cap PO PRN ×2 (05:22→21:12)
[2020-11-04] MEDS: Albuterol 8 GM Inhaler INH PRN ×2 (05:22→20:25)
[2020-11-04 06:07] LABS: CARBON DIOXIDE,CO2 24.5 mmol/L (21.0-32.0); POTASSIUM,K 3.9 mmol/L (3.5-5.1)
--- NOTE | 2020-11-04 08:16 | PCM.PN ---
<Isabel Eason - Last Filed: 11/05/20 20:32> - General Info Date of Service: 11/04/20 Admission Dx/Problem (Free Text): Admission Diagnosis/Problem Admission Diagnosis/Problem acute hypoxic respiratory failure secondary to Covid pneumonia Subjective Update: 60-year-old female admitted for acute hypoxic respiratory failure secondary to Covid pneumonia. on heated high flow, tolerating it well, no chest pain, patient states that she feels fine. Functional Status: Reports: Tolerating Diet, Incentive Spirometry - Review of Systems General: Reports: No Symptoms HEENT: Reports: No Symptoms Pulmonary: Reports: Cough, Sputum. Denies: Shortness of Breath, Pleuritic Chest Pain, Hemoptysis, Wheezing Cardiovascular: Reports: No Symptoms Gastrointestinal: Reports: No Symptoms Genitourinary: Reports: No Symptoms Musculoskeletal: Reports: No Symptoms Skin: Reports: No Symptoms Neurological: Reports: No Symptoms Psychiatric: Reports: No Symptoms - Patient Data Vitals - Most Recent: Last Vital Signs Temp 97 F 11/04/20 05:00 Pulse 77 10/31/20 04:00 Resp 19 11/04/20 07:00 BP 122/63 11/04/20 05:00 Pulse Ox 88 L 11/04/20 07:00 Weight - Most Recent: 175.767 kg I&O - Last 24 Hours: Intake & Output 11/03/20 11/04/20 11/04/20 22:59 06:59 14:59 Intake Total 1000 650 Output Total 1500 1300 Balance -500 -650 Lab Results Last 24 Hours: Laboratory Results - last 24 hr 11/03/20 11/03/20 11/03/20 Range/Units 04:53 09:40 12:49 WBC (4.0-11.0) K/uL RBC (4.30-5.90) M/uL Hgb (12.0-16.0) g/dL Hct (36.0-46.0) % MCV (80.0-98.0) fL MCH (27.0-32.0) pg MCHC (31.0-37.0) g/dL RDW Std Deviation (28.0-62.0) fl RDW Coeff of Ry (11.0-15.0) % Plt Count (150-400) K/uL MPV (7.40-12.00) fL Neut % (Auto) (48.0-80.0) % Lymph % (Auto) (16.0-40.0) % [place] % (Auto) (0.0-15.0) % Eos % (Auto) (0.0-7.0) % Baso % (Auto) (0.0-1.5) % Neut # (Auto) (1.4-5.7) K/uL Lymph # (Auto) (0.6-2.4) K/uL [place] # (Auto) (0.0-0.8) K/uL Eos # (Auto) (0.0-0.7) K/uL Baso # (Auto) (0.0-0.1) K/uL Nucleated RBC % /100WBC Nucleated RBCs # K/uL ABG pH 7.46 H (7.35-7.45) ABG pCO2 34 L (35-45) mmHG ABG pO2 56 L (80-105) mmHG ABG HCO3 24 (22-26) mEq/L ABG Total CO2 21.5 L (23-27) mmol/L ABG Base Excess 0.9 (-2.0-3.0) Sodium (136-145) mmol/L Potassium (3.5-5.1) mmol/L Chloride (98-107) mmol/L Carbon Dioxide (21.0-32.0) mmol/L BUN (7.0-18.0) mg/dL Creatinine (0.6-1.0) mg/dL Est Cr Clr Drug Dosing mL/min Estimated GFR (MDRD) ml/min Glucose (74-106) mg/dL POC Glucose 277 H (70-99) mg/dL Calcium (8.5-10.1) mg/dL Phosphorus (2.6-4.7) mg/dL Magnesium 2.1 (1.8-2.4) mg/dL Total Bilirubin (0.2-1.0) mg/dL AST (15-37) IU/L ALT (14-63) IU/L Alkaline Phosphatase (46-116) U/L Total Protein (6.4-8.2) g/dL Albumin (3.4-5.0) g/dL Globulin (2.6-4.0) g/dL Albumin/Globulin Ratio (0.9-1.6) 06/21/21 06/21/21 06/22/21 Range/Units 18:01 20:55 05:25 WBC 5.76 (4.0-11.0) K/uL RBC 4.71 (4.30-5.90) M/uL Hgb 14.5 (12.0-16.0) g/dL Hct 41.8 (36.0-46.0) % MCV 88.7 (80.0-98.0) fL MCH 30.8 (27.0-32.0) pg MCHC 34.7 (31.0-37.0) g/dL RDW Std Deviation 42.4 (28.0-62.0) fl RDW Coeff of Ry 13 (11.0-15.0) % Plt Count 226 (150-400) K/uL MPV 9.40 (7.40-12.00) fL Neut % (Auto) 46.7 L (48.0-80.0) % Lymph % (Auto) 42.7 H (16.0-40.0) % [place] % (Auto) 10.4 (0.0-15.0) % Eos % (Auto) 0.0 (0.0-7.0) % Baso % (Auto) 0.2 (0.0-1.5) % Neut # (Auto) 2.7 (1.4-5.7) K/uL Lymph # (Auto) 2.5 H (0.6-2.4) K/uL [place] # (Auto) 0.6 (0.0-0.8) K/uL Eos # (Auto) 0.0 (0.0-0.7) K/uL Baso # (Auto) 0.0 (0.0-0.1) K/uL Nucleated RBC % 0.0 /100WBC Nucleated RBCs # 0 K/uL ABG pH (7.35-7.45) ABG pCO2 (35-45) mmHG ABG pO2 (80-105) mmHG ABG HCO3 (22-26) mEq/L ABG Total CO2 (23-27) mmol/L ABG Base Excess (-2.0-3.0) Sodium (136-145) mmol/L Potassium (3.5-5.1) mmol/L Chloride (98-107) mmol/L Carbon Dioxide (21.0-32.0) mmol/L BUN (7.0-18.0) mg/dL Creatinine (0.6-1.0) mg/dL Est Cr Clr Drug Dosing mL/min Estimated GFR (MDRD) ml/min Glucose (74-106) mg/dL POC Glucose 244 H 249 H (70-99) mg/dL Calcium (8.5-10.1) mg/dL Phosphorus (2.6-4.7) mg/dL Magnesium (1.8-2.4) mg/dL Total Bilirubin (0.2-1.0) mg/dL AST (15-37) IU/L ALT (14-63) IU/L Alkaline Phosphatase (46-116) U/L Total Protein (6.4-8.2) g/dL Albumin (3.4-5.0) g/dL Globulin (2.6-4.0) g/dL Albumin/Globulin Ratio (0.9-1.6) 11/04/20 11/04/20 Range/Units 05:25 05:26 WBC (4.0-11.0) K/uL RBC (4.30-5.90) M/uL Hgb (12.0-16.0) g/dL Hct (36.0-46.0) % MCV (80.0-98.0) fL MCH (27.0-32.0) pg MCHC (31.0-37.0) g/dL RDW Std Deviation (28.0-62.0) fl RDW Coeff of Ry (11.0-15.0) % Plt Count (150-400) K/uL MPV (7.40-12.00) fL Neut % (Auto) (48.0-80.0) % Lymph % (Auto) (16.0-40.0) % [place] % (Auto) (0.0-15.0) % Eos % (Auto) (0.0-7.0) % Baso % (Auto) (0.0-1.5) % Neut # (Auto) (1.4-5.7) K/uL Lymph # (Auto) (0.6-2.4) K/uL [place] # (Auto) (0.0-0.8) K/uL Eos # (Auto) (0.0-0.7) K/uL Baso # (Auto) (0.0-0.1) K/uL Nucleated RBC % /100WBC Nucleated RBCs # K/uL ABG pH (7.35-7.45) ABG pCO2 (35-45) mmHG ABG pO2 (80-105) mmHG ABG HCO3 (22-26) mEq/L ABG Total CO2 (23-27) mmol/L ABG Base Excess (-2.0-3.0) Sodium 138 (136-145) mmol/L Potassium 3.9 (3.5-5.1) mmol/L Chloride 101 (98-107) mmol/L Carbon Dioxide 24.5 (21.0-32.0) mmol/L BUN 20 H (7.0-18.0) mg/dL Creatinine 1.1 H (0.6-1.0) mg/dL Est Cr Clr Drug Dosing 53.49 mL/min Estimated GFR (MDRD) 50.3 ml/min Glucose 199 H (74-106) mg/dL POC Glucose 198 H (70-99) mg/dL Calcium 8.3 L (8.5-10.1) mg/dL Phosphorus 3.7 (2.6-4.7) mg/dL Magnesium 2.1 (1.8-2.4) mg/dL Total Bilirubin 0.6 (0.2-1.0) mg/dL AST 36 (15-37) IU/L ALT 59 (14-63) IU/L Alkaline Phosphatase 79 (46-116) U/L Total Protein 6.3 L (6.4-8.2) g/dL Albumin 3.0 L (3.4-5.0) g/dL Globulin 3.3 (2.6-4.0) g/dL Albumin/Globulin Ratio 0.9 (0.9-1.6) Med Orders - Current: Current Medications Albuterol (Albuterol 8 Gm Inhaler) 0 gm INH Q4HRRT PRN PRN Reason: Shortness of Breath Last Admin: 11/04/20 05:22 Dose: 2 puff Documented by: Albuterol/Ipratropium (Albuterol/Ipratropium 4 Gm Inhalation [place]) 0 gm INH Q4H [facility] Last Admin: 11/04/20 05:12 Dose: 1 puff Documented by: Benzonatate (Benzonatate 100 Mg Cap) 100 mg PO Q6H PRN PRN Reason: Cough Last Admin: 11/04/20 05:22 Dose: 100 mg Documented by: Budesonide/Formoterol Fumarate (Budesonide/Formoterol 160-4.5 Mcg/Puff 6 Gm Inhaler) 0 gm INH BID [facility] [place] Last Admin: 11/03/20 20:33 Dose: Not Given Documented by: Ciprofloxacin (Ciprofloxacin 250 Mg Tab) 250 mg PO BID [facility] [place] Last Admin: 11/03/20 20:51 Dose: 250 mg Documented by: Dexamethasone (Dexamethasone 4 Mg Tab) 6 mg PO DAILY [facility] [place] Last Admin: 11/03/20 08:42 Dose: 6 mg Documented by: Dextrose/Water (50% Dextrose In Water 50 Ml Syringe) 50 ml IVPUSH ASDIRECTED PRN PRN Reason: Hypoglycemia Docusate Sodium (Docusate Sodium 100 Mg Cap) 100 mg PO Q12H PRN PRN Reason: Constipation Enoxaparin Sodium (Enoxaparin 40 Mg/0.4 Ml Syringe) 40 mg SUBCUT Q12H [facility] [place] Last Admin: 11/03/20 22:45 Dose: 40 mg Documented by: Glucagon (Glucagon,Human Recombinant 1 Mg Vial) 1 mg IM ASDIRECTED PRN PRN Reason: Hypoglycemia Insulin Aspart (Insulin Aspart 100 Units/Ml 3 Ml Pen) 0 unit SUBCUT TIDAC [facility] [place]; Protocol Last Admin: 11/03/20 18:04 Dose: 4 units Documented by: Insulin Aspart (Insulin Aspart 100 Units/Ml 3 Ml Pen) 6 unit SUBCUT TIDAC [facility] [place] Last Admin: 11/03/20 18:03 Dose: 6 units Documented by: Insulin Glargine (Insulin Glargine,Human Rec. Analog 100 Units/Ml 3 Ml Pen) 24 units SUBCUT BEDTIME [facility] [place] Last Admin: 11/03/20 20:57 Dose: 24 units Documented by: Losartan Potassium (Losartan 50 Mg Tab) 25 mg PO DAILY [facility] [place] Last Admin: 11/03/20 08:42 Dose: 25 mg Documented by: Montelukast Sodium (Montelukast 10 Mg Tab) 10 mg PO BEDTIME [facility] [place] Last Admin: 11/03/20 20:51 Dose: 10 mg Documented by: Omeprazole (Omeprazole 20 Mg Cap.Cr) 20 mg PO BIDAC [facility] [place] Last Admin: 11/03/20 18:03 Dose: 20 mg Documented by: Senna (Sennosides 8.6 Mg Tab) 8.6 mg PO Q12H PRN PRN Reason: Constipation Sodium Chloride (Sodium Chloride 0.9% 2.5 Ml Syringe) 2.5 ml FLUSH ASDIRECTED PRN PRN Reason: Keep Vein Open Discontinued Medications Albuterol (Albuterol 8 Gm Inhaler) 0 gm INH Q4H PRN PRN Reason: Shortness of Breath Last Admin: 10/31/20 05:25 Dose: 2 puff Documented by: Albuterol/Ipratropium (Albuterol/Ipratropium 4 Gm Inhalation [place]) 0 gm INH Q6HRRT [facility] [place] Last Admin: 11/03/20 06:16 Dose: 1 puff Documented by: Dexamethasone (Dexamethasone 10 Mg/Ml Sdv) 10 mg IVPUSH ONETIME ONE Stop: 10/29/20 14:49 Last Admin: 10/29/20 15:22 Dose: 10 mg Documented by: Enoxaparin Sodium (Enoxaparin 40 Mg/0.4 Ml Syringe) 40 mg SUBCUT Q24H [facility] [place] Last Admin: 10/29/20 22:29 Dose: 40 mg Documented by: Furosemide (Furosemide 20 Mg/2 Ml Vial) 20 mg IVPUSH NOW ONE Stop: 11/03/20 12:07 Last Admin: 11/03/20 12:42 Dose: 20 mg Documented by: Remdesivir 200 mg/ Sodium (Chloride) 250 mls @ 250 mls/hr IV ONETIME ONE Stop: 10/29/20 14:48 Last Admin: 10/29/20 15:08 Dose: Not Given Documented by: Remdesivir 200 mg/ Sodium (Chloride) 250 mls @ 250 mls/hr IV ONETIME ONE Stop: 10/29/20 15:59 Last Admin: 10/29/20 15:27 Dose: 250 mls/hr Documented by: Sodium Chloride (Normal Saline) 1,000 mls @ 50 mls/hr IV ASDIRECTED [facility] [place] Last Admin: 10/29/20 15:21 Dose: 50 mls/hr Documented by: Remdesivir 100 mg/ Sodium (Chloride) 100 mls @ 100 mls/hr IV Q24H [facility] [place] Stop: 11/02/20 15:59 Last Admin: 10/30/20 19:19 Dose: Not Given Documented by: Remdesivir 100 mg/ Sodium (Chloride) 100 mls @ 100 mls/hr IV Q24H [facility] Stop: 11/02/20 18:14 Last Admin: 11/02/20 17:40 Dose: 100 mls/hr Documented by: Tocilizumab 800 mg/ Sodium (Chloride) 100 mls @ 100 mls/hr IV ONETIME ONE Stop: 10/31/20 11:29 Last Admin: 10/31/20 10:45 Dose: 100 mls/hr Documented by: Insulin Aspart (Insulin Aspart 100 Units/Ml 3 Ml Pen) 0 unit SUBCUT TIDAC [facility]; Protocol Insulin Aspart (Insulin Aspart 100 Units/Ml 3 Ml Pen) 0 unit SUBCUT TIDAC [facility]; Protocol Last Admin: 11/02/20 08:52 Dose: 9 units Documented by: Insulin Aspart (Insulin Aspart 100 Units/Ml 3 Ml Pen) 5 unit SUBCUT TIDAC [facility] [place] Last Admin: 11/03/20 09:22 Dose: 5 units Documented by: Insulin Glargine (Insulin Glargine,Human Rec. Analog 100 Units/Ml 3 Ml Pen) 5 units SUBCUT BEDTIME [facility] [place] Last Admin: 10/30/20 23:54 Dose: 5 units Documented by: Insulin Glargine (Insulin Glargine,Human Rec. Analog 100 Units/Ml 3 Ml Pen) Confirm Administered Dose 300 units .ROUTE .STK-MED ONE Stop: 10/30/20 23:52 Last Admin: 10/31/20 00:45 Dose: Not Given Documented by: Insulin Glargine (Insulin Glargine,Human Rec. Analog 100 Units/Ml 3 Ml Pen) 10 units SUBCUT BEDTIME [facility] [place] Last Admin: 10/31/20 21:53 Dose: 10 units Documented by: Insulin Glargine (Insulin Glargine,Human Rec. Analog 100 Units/Ml 3 Ml Pen) 15 units SUBCUT BEDTIME [facility] [place] Last Admin: 11/01/20 20:13 Dose: 15 units Documented by: Insulin Glargine (Insulin Glargine,Human Rec. Analog 100 Units/Ml 3 Ml Pen) 20 units SUBCUT BEDTIME [facility] [place] Last Admin: 11/02/20 22:00 Dose: 20 units Documented by: Iopamidol (Iopamidol 755 Mg/Ml 200 Ml Multipack Bottle) 100 ml IVPUSH ONETIME ONE Stop: 10/31/20 12:59 Last Admin: 10/31/20 19:36 Dose: Not Given Documented by: Iopamidol (Iopamidol 755 Mg/Ml 200 Ml Multipack Bottle) 100 ml IVPUSH ONETIME ONE Stop: 10/31/20 13:01 Last Admin: 10/31/20 19:34 Dose: Not Given Documented by: Iopamidol (Iopamidol 755 Mg/Ml 500 Ml Multipack Bottle) 100 ml IVPUSH ONETIME ONE Stop: 10/31/20 13:02 Last Admin: 10/31/20 13:02 Dose: 100 ml Documented by: - Exam Quality Assessment: Supplemental Oxygen, DVT Prophylaxis General: Alert, Oriented, Cooperative, No Acute Distress HEENT: Pupils Equal, Pupils Reactive Neck: Supple Lungs: Clear to Auscultation, Normal Respiratory Effort Cardiovascular: Regular Rate, Regular Rhythm GI/Abdominal Exam: Normal Bowel Sounds, Soft, Non-Tender Extremities: Normal Inspection, Normal Range of Motion, Non-Tender, Normal Capillary Refill, Pedal Edema. No: Umu's Sign, Leg Pain, Limited Range of Motion, Increased Warmth, Redness Peripheral Pulses: 2+: Carotid (L), Carotid (R), Dorsalis Pedis (L), Dorsalis P geovanni (R) Skin: Warm, Dry, Intact Neurological: No New Focal Deficit Psy/Mental Status: Alert, Normal Affect, Normal Mood - Patient Data Lab Results Last 24 hrs: Laboratory Results - last 24 hr 11/03/20 11/03/20 11/03/20 Range/Units 04:53 09:40 12:49 WBC (4.0-11.0) K/uL RBC (4.30-5.90) M/uL Hgb (12.0-16.0) g/dL Hct (36.0-46.0) % MCV (80.0-98.0) fL MCH (27.0-32.0) pg MCHC (31.0-37.0) g/dL RDW Std Deviation (28.0-62.0) fl RDW Coeff of Ry (11.0-15.0) % Plt Count (150-400) K/uL MPV (7.40-12.00) fL Neut % (Auto) (48.0-80.0) % Lymph % (Auto) (16.0-40.0) % [place] % (Auto) (0.0-15.0) % Eos % (Auto) (0.0-7.0) % Baso % (Auto) (0.0-1.5) % Neut # (Auto) (1.4-5.7) K/uL Lymph # (Auto) (0.6-2.4) K/uL [place] # (Auto) (0.0-0.8) K/uL Eos # (Auto) (0.0-0.7) K/uL Baso # (Auto) (0.0-0.1) K/uL Nucleated RBC % /100WBC Nucleated RBCs # K/uL ABG pH 7.46 H (7.35-7.45) ABG pCO2 34 L (35-45) mmHG ABG pO2 56 L (80-105) mmHG ABG HCO3 24 (22-26) mEq/L ABG Total CO2 21.5 L (23-27) mmol/L ABG Base Excess 0.9 (-2.0-3.0) Sodium (136-145) mmol/L Potassium (3.5-5.1) mmol/L Chloride (98-107) mmol/L Carbon Dioxide (21.0-32.0) mmol/L BUN (7.0-18.0) mg/dL Creatinine (0.6-1.0) mg/dL Est Cr Clr Drug Dosing mL/min Estimated GFR (MDRD) ml/min Glucose (74-106) mg/dL POC Glucose 277 H (70-99) mg/dL Calcium (8.5-10.1) mg/dL Phosphorus (2.6-4.7) mg/dL Magnesium 2.1 (1.8-2.4) mg/dL Total Bilirubin (0.2-1.0) mg/dL AST (15-37) IU/L ALT (14-63) IU/L Alkaline Phosphatase (46-116) U/L Total Protein (6.4-8.2) g/dL Albumin (3.4-5.0) g/dL Globulin (2.6-4.0) g/dL Albumin/Globulin Ratio (0.9-1.6) 11/03/20 11/03/20 11/04/20 Range/Units 18:01 20:55 05:25 WBC 5.76 (4.0-11.0) K/uL RBC 4.71 (4.30-5.90) M/uL Hgb 14.5 (12.0-16.0) g/dL Hct 41.8 (36.0-46.0) % MCV 88.7 (80.0-98.0) fL MCH 30.8 (27.0-32.0) pg MCHC 34.7 (31.0-37.0) g/dL RDW Std Deviation 42.4 (28.0-62.0) fl RDW Coeff of Ry 13 (11.0-15.0) % Plt Count 226 (150-400) K/uL MPV 9.40 (7.40-12.00) fL Neut % (Auto) 46.7 L (48.0-80.0) % Lymph % (Auto) 42.7 H (16.0-40.0) % [place] % (Auto) 10.4 (0.0-15.0) % Eos % (Auto) 0.0 (0.0-7.0) % Baso % (Auto) 0.2 (0.0-1.5) % Neut # (Auto) 2.7 (1.4-5.7) K/uL Lymph # (Auto) 2.5 H (0.6-2.4) K/uL [place] # (Auto) 0.6 (0.0-0.8) K/uL Eos # (Auto) 0.0 (0.0-0.7) K/uL Baso # (Auto) 0.0 (0.0-0.1) K/uL Nucleated RBC % 0.0 /100WBC Nucleated RBCs # 0 K/uL ABG pH (7.35-7.45) ABG pCO2 (35-45) mmHG ABG pO2 (80-105) mmHG ABG HCO3 (22-26) mEq/L ABG Total CO2 (23-27) mmol/L ABG Base Excess (-2.0-3.0) Sodium (136-145) mmol/L Potassium (3.5-5.1) mmol/L Chloride (98-107) mmol/L Carbon Dioxide (21.0-32.0) mmol/L BUN (7.0-18.0) mg/dL Creatinine (0.6-1.0) mg/dL Est Cr Clr Drug Dosing mL/min Estimated GFR (MDRD) ml/min Glucose (74-106) mg/dL POC Glucose 244 H 249 H (70-99) mg/dL Calcium (8.5-10.1) mg/dL Phosphorus (2.6-4.7) mg/dL Magnesium (1.8-2.4) mg/dL Total Bilirubin (0.2-1.0) mg/dL AST (15-37) IU/L ALT (14-63) IU/L Alkaline Phosphatase (46-116) U/L Total Protein (6.4-8.2) g/dL Albumin (3.4-5.0) g/dL Globulin (2.6-4.0) g/dL Albumin/Globulin Ratio (0.9-1.6) 11/04/20 11/04/20 Range/Units 05:25 05:26 WBC (4.0-11.0) K/uL RBC (4.30-5.90) M/uL Hgb (12.0-16.0) g/dL Hct (36.0-46.0) % MCV (80.0-98.0) fL MCH (27.0-32.0) pg MCHC (31.0-37.0) g/dL RDW Std Deviation (28.0-62.0) fl RDW Coeff of Ry (11.0-15.0) % Plt Count (150-400) K/uL MPV (7.40-12.00) fL Neut % (Auto) (48.0-80.0) % Lymph % (Auto) (16.0-40.0) % [place] % (Auto) (0.0-15.0) % Eos % (Auto) (0.0-7.0) % Baso % (Auto) (0.0-1.5) % Neut # (Auto) (1.4-5.7) K/uL Lymph # (Auto) (0.6-2.4) K/uL [place] # (Auto) (0.0-0.8) K/uL Eos # (Auto) (0.0-0.7) K/uL Baso # (Auto) (0.0-0.1) K/uL Nucleated RBC % /100WBC Nucleated RBCs # K/uL ABG pH (7.35-7.45) ABG pCO2 (35-45) mmHG ABG pO2 (80-105) mmHG ABG HCO3 (22-26) mEq/L ABG Total CO2 (23-27) mmol/L ABG Base Excess (-2.0-3.0) Sodium 138 (136-145) mmol/L Potassium 3.9 (3.5-5.1) mmol/L Chloride 101 (98-107) mmol/L Carbon Dioxide 24.5 (21.0-32.0) mmol/L BUN 20 H (7.0-18.0) mg/dL Creatinine 1.1 H (0.6-1.0) mg/dL Est Cr Clr Drug Dosing 53.49 mL/min Estimated GFR (MDRD) 50.3 ml/min Glucose 199 H (74-106) mg/dL POC Glucose 198 H (70-99) mg/dL Calcium 8.3 L (8.5-10.1) mg/dL Phosphorus 3.7 (2.6-4.7) mg/dL Magnesium 2.1 (1.8-2.4) mg/dL Total Bilirubin 0.6 (0.2-1.0) mg/dL AST 36 (15-37) IU/L ALT 59 (14-63) IU/L Alkaline Phosphatase 79 (46-116) U/L Total Protein 6.3 L (6.4-8.2) g/dL Albumin 3.0 L (3.4-5.0) g/dL Globulin 3.3 (2.6-4.0) g/dL Albumin/Globulin Ratio 0.9 (0.9-1.6) Result Diagrams: 11/05/20 04:55 11/05/20 04:55 Sepsis Event Note - Evaluation Sepsis Screening Result: No Definite Risk - Focused Exam Vital Signs: Vital Signs Temp Resp BP Pulse Ox Pulse Ox 11/04/20 07:00 19 88 L 11/04/20 06:00 21 H 95 11/04/20 05:00 97 F 16 122/63 90 L 11/04/20 04:00 20 93 L 11/04/20 03:58 93 L 11/04/20 03:00 22 H 91 L 11/04/20 02:00 19 97 11/04/20 01:00 97.2 F 19 141/69 H 95 11/04/20 00:00 23 H 91 L 11/03/20 23:00 17 93 L 11/03/20 22:00 23 H 90 L 11/03/20 21:00 21 H 121/76 92 L - Problem List & Annotations (1) COVID-19 SNOMED Code(s): 960165137 Code(s): U07.1 - COVID-19 Status: Acute Current Visit: Yes (2) Hypoxia SNOMED Code(s): 279024613 Code(s): R09.02 - HYPOXEMIA Status: Acute Current Visit: Yes - Problem List Review Problem List Initiated/Reviewed/Updated: Yes - My Orders Last 24 Hours: My Active Orders 11/03/20 14:02 Docusate Sodium [Colace] 100 mg PO Q12H PRN 11/03/20 14:04 Sennosides [Senna] 8.6 mg PO Q12H PRN 11/05/20 05:11 CBC WITH AUTO DIFF [HEME] AM CMP [COMPREHENSIVE METABOLIC PN,CMP] [CHEM] AM MAGNESIUM [CHEM] AM PHOSPHORUS [CHEM] AM 11/06/20 05:11 CBC WITH AUTO DIFF [HEME] AM CMP [COMPREHENSIVE METABOLIC PN,CMP] [CHEM] AM MAGNESIUM [CHEM] AM PHOSPHORUS [CHEM] AM 11/07/20 05:11 CBC WITH AUTO DIFF [HEME] AM CMP [COMPREHENSIVE METABOLIC PN,CMP] [CHEM] AM MAGNESIUM [CHEM] AM PHOSPHORUS [CHEM] AM - Plan Plan:: 60 yo female with past medical history of COPD/JAZMIN admitted with acute hypoxic respiratory failure due to COVID pneumonia. 1. AHRF secondary to COVID pneumonia: Patient remains on heated high flow with increased oxygen demand pressure 50 FiO2 80%, will continue to wean as tolerated, Combivent Q4HRS and Ventolin Q4Hrs as needed, completed remdesivir and Taclozimab , continue with dexamethasone for total 10 days, DVT prophylaxis Lovenox 40 BID, Tessalon Perles for cough and ciprofloxacin 250 BID. Echo ordered to ensure no underlying CHF contributing to hypoxia. Repeat chest x-ray indicated shallow inspiration infiltrates no significant changes from previous compared October 29, 2020. Continue to maintain a negative balance to avoid any chest congestion. Encourage patient to prone to recruit more airways. eICU consulted, they will continue to follow their recommendations are much appreciated. Will have CTA again to ensure no new clots contributing to oxygen demand. 2. Past medical history of diabetes mellitus: Improved, 199 this morning patient remains on steroids, however will adjust l yesi-acting and sliding scale with goals of keeping blood sugars between 140 and 180. Continue with [place] diabetic diet. 3. Constipation: Resolved, 1 bowel movement last in last 24 hours. Continue with docusate and senna, encourage fiber intake and appropriate hydration while maintaining nega tive fluid balance. 4. Past medical history of JAZMIN: Ensure appropriate use of either CPAP or heated high flow appropriate oxygenation overnight. 5. Past medical history of HTN/COPD: resume home meds <Kathy Vieyra - Last Filed: 11/07/20 11:34> - Patient Data Vitals - Most Recent: Last Vital Signs Temp 36.6 C 11/07/20 09:00 Pulse 77 10/31/20 04:00 Resp 23 H 11/07/20 11:00 BP 118/65 11/07/20 10:00 Pulse Ox 92 L 11/07/20 11:00 I&O - Last 24 Hours: Intake & Output 11/06/20 11/07/20 11/07/20 22:59 06:59 14:59 Intake Total 850 150 Output Total 0 Balance 850 150 Lab Results Last 24 Hours: Laboratory Results - last 24 hr 11/06/20 11/06/20 11/06/20 Range/Units 11:42 13:47 17:14 WBC (4.0-11.0) K/uL RBC (4.30-5.90) M/uL Hgb (12.0-16.0) g/dL Hct (36.0-46.0) % MCV (80.0-98.0) fL MCH (27.0-32.0) pg MCHC (31.0-37.0) g/dL RDW Std Deviation (28.0-62.0) fl RDW Coeff of Ry (11.0-15.0) % Plt Count (150-400) K/uL MPV (7.40-12.00) fL Neut % (Auto) (48.0-80.0) % Lymph % (Auto) (16.0-40.0) % [place] % (Auto) (0.0-15.0) % Eos % (Auto) (0.0-7.0) % Baso % (Auto) (0.0-1.5) % Neut # (Auto) (1.4-5.7) K/uL Lymph # (Auto) (0.6-2.4) K/uL [place] # (Auto) (0.0-0.8) K/uL Eos # (Auto) (0.0-0.7) K/uL Baso # (Auto) (0.0-0.1) K/uL Sodium (136-145) mmol/L Potassium (3.5-5.1) mmol/L Chloride (98-107) mmol/L Carbon Dioxide (21.0-32.0) mmol/L BUN (7.0-18.0) mg/dL Creatinine (0.6-1.0) mg/dL Est Cr Clr Drug Dosing mL/min Estimated GFR (MDRD) ml/min Glucose (74-106) mg/dL POC Glucose 248 H 241 H 292 H (70-99) mg/dL Calcium (8.5-10.1) mg/dL Phosphorus (2.6-4.7) mg/dL Magnesium (1.8-2.4) mg/dL 11/06/20 11/07/20 11/07/20 Range/Units 20:57 05:10 05:10 WBC 3.47 L (4.0-11.0) K/uL RBC 4.52 (4.30-5.90) M/uL Hgb 14.0 (12.0-16.0) g/dL Hct 40.6 (36.0-46.0) % MCV 89.8 (80.0-98.0) fL MCH 31.0 (27.0-32.0) pg MCHC 34.5 (31.0-37.0) g/dL RDW Std Deviation 42.8 (28.0-62.0) fl RDW Coeff of Ry 13 (11.0-15.0) % Plt Count 206 (150-400) K/uL MPV 9.40 (7.40-12.00) fL Neut % (Auto) 59.3 (48.0-80.0) % Lymph % (Auto) 27.7 (16.0-40.0) % [place] % (Auto) 8.4 (0.0-15.0) % Eos % (Auto) 4.3 (0.0-7.0) % Baso % (Auto) 0.3 (0.0-1.5) % Neut # (Auto) 2.1 (1.4-5.7) K/uL Lymph # (Auto) 1.0 (0.6-2.4) K/uL [place] # (Auto) 0.3 (0.0-0.8) K/uL Eos # (Auto) 0.2 (0.0-0.7) K/uL Baso # (Auto) 0.0 (0.0-0.1) K/uL Sodium (136-145) mmol/L Potassium (3.5-5.1) mmol/L Chloride (98-107) mmol/L Carbon Dioxide (21.0-32.0) mmol/L BUN (7.0-18.0) mg/dL Creatinine (0.6-1.0) mg/dL Est Cr Clr Drug Dosing mL/min Estimated GFR (MDRD) ml/min Glucose (74-106) mg/dL POC Glucose 230 H (70-99) mg/dL Calcium (8.5-10.1) mg/dL Phosphorus 3.6 (2.6-4.7) mg/dL Magnesium 1.9 (1.8-2.4) mg/dL 11/07/20 11/07/20 Range/Units 05:10 06:23 WBC (4.0-11.0) K/uL RBC (4.30-5.90) M/uL Hgb (12.0-16.0) g/dL Hct (36.0-46.0) % MCV (80.0-98.0) fL MCH (27.0-32.0) pg MCHC (31.0-37.0) g/dL RDW Std Deviation (28.0-62.0) fl RDW Coeff of Ry (11.0-15.0) % Plt Count (150-400) K/uL MPV (7.40-12.00) fL Neut % (Auto) (48.0-80.0) % Lymph % (Auto) (16.0-40.0) % [place] % (Auto) (0.0-15.0) % Eos % (Auto) (0.0-7.0) % Baso % (Auto) (0.0-1.5) % Neut # (Auto) (1.4-5.7) K/uL Lymph # (Auto) (0.6-2.4) K/uL [place] # (Auto) (0.0-0.8) K/uL Eos # (Auto) (0.0-0.7) K/uL Baso # (Auto) (0.0-0.1) K/uL Sodium 140 (136-145) mmol/L Potassium 4.2 (3.5-5.1) mmol/L Chloride 105 (98-107) mmol/L Carbon Dioxide 25.9 (21.0-32.0) mmol/L BUN 17 (7.0-18.0) mg/dL Creatinine 1.0 (0.6-1.0) mg/dL Est Cr Clr Drug Dosing 58.84 mL/min Estimated GFR (MDRD) 56.2 ml/min Glucose 169 H (74-106) mg/dL POC Glucose 164 H (70-99) mg/dL Calcium 8.4 L (8.5-10.1) mg/dL Phosphorus (2.6-4.7) mg/dL Magnesium (1.8-2.4) mg/dL Med Orders - Current: Current Medications Albuterol (Albuterol 8 Gm Inhaler) 0 gm INH Q4HRRT PRN PRN Reason: Shortness of Breath Last Admin: 11/06/20 02:15 Dose: 2 puff Documented by: Albuterol/Ipratropium (Albuterol/Ipratropium 4 Gm Inhalation [place]) 0 gm INH Q4H MITCHELL Last Admin: 11/07/20 10:30 Dose: 1 puff Documented by: Benzonatate (Benzonatate 100 Mg Cap) 100 mg PO Q6H PRN PRN Reason: Cough Last Admin: 11/07/20 09:26 Dose: 100 mg Documented by: Dexamethasone (Dexamethasone 4 Mg Tab) 6 mg PO DAILY [facility] Last Admin: 11/07/20 09:09 Dose: 6 mg Documented by: Dextrose/Water (50% Dextrose In Water 50 Ml Syringe) 50 ml IVPUSH ASDIRECTED PRN PRN Reason: Hypoglycemia Docusate Sodium (Docusate Sodium 100 Mg Cap) 100 mg PO Q12H PRN PRN Reason: Constipation Enoxaparin Sodium (Enoxaparin 40 Mg/0.4 Ml Syringe) 40 mg SUBCUT Q12H [facility] Last Admin: 11/06/20 22:32 Dose: 40 mg Documented by: Glucagon (Glucagon,Human Recombinant 1 Mg Vial) 1 mg IM ASDIRECTED PRN PRN Reason: Hypoglycemia Insulin Aspart (Insulin Aspart 100 Units/Ml 3 Ml Pen) 0 unit SUBCUT TIDAC [facility]; Protocol Last Admin: 11/07/20 09:07 Dose: 2 units Documented by: Insulin Aspart (Insulin Aspart 100 Units/Ml 3 Ml Pen) 6 unit SUBCUT TIDAC [facility] Last Admin: 11/07/20 09:06 Dose: 6 units Documented by: Insulin Glargine (Insulin Glargine,Human Rec. Analog 100 Units/Ml 3 Ml Pen) 24 units SUBCUT BEDTIME [facility] Last Admin: 11/06/20 21:03 Dose: 24 units Documented by: Lorazepam (Lorazepam 2 Mg/Ml Sdv) 0.5 mg IVPUSH Q4H PRN PRN Reason: Anxiety Last Admin: 11/06/20 22:58 Dose: 0.5 mg Documented by: Losartan Potassium (Losartan 50 Mg Tab) 25 mg PO DAILY [facility] Last Admin: 11/07/20 09:09 Dose: 25 mg Documented by: Montelukast Sodium (Montelukast 10 Mg Tab) 10 mg PO BEDTIME [facility] Last Admin: 11/06/20 21:02 Dose: 10 mg Documented by: Omeprazole (Omeprazole 20 Mg Cap.Cr) 20 mg PO BIDAC [facility] Last Admin: 11/07/20 09:09 Dose: 20 mg Documented by: Budesonide/Formoterol 160-4.5 Mcg/Puff 6 Gm Inhaler 0 each INH BID [facility] Senna (Sennosides 8.6 Mg Tab) 8.6 mg PO Q12H PRN PRN Reason: Constipation Sodium Chloride (Sodium Chloride 0.9% 2.5 Ml Syringe) 2.5 ml FLUSH ASDIRECTED PRN PRN Reason: Keep Vein Open Discontinued Medications Albuterol (Albuterol 8 Gm Inhaler) 0 gm INH Q4H PRN PRN Reason: Shortness of Breath Last Admin: 10/31/20 05:25 Dose: 2 puff Documented by: Albuterol/Ipratropium (Albuterol/Ipratropium 4 Gm Inhalation [place]) 0 gm INH Q6HRRT [facility] Last Admin: 11/03/20 06:16 Dose: 1 puff Documented by: Budesonide/Formoterol Fumarate (Budesonide/Formoterol 160-4.5 Mcg/Puff 6 Gm In haler) 0 gm INH BID [facility] Last Admin: 11/07/20 09:15 Dose: Not Given Documented by: Ciprofloxacin (Ciprofloxacin 250 Mg Tab) 250 mg PO BID [facility] Last Admin: 11/04/20 08:30 Dose: 250 mg Documented by: Dexamethasone (Dexamethasone 10 Mg/Ml Sdv) 10 mg IVPUSH ONETIME ONE Stop: 10/29/20 14:49 Last Admin: 10/29/20 15:22 Dose: 10 mg Documented by: Enoxaparin Sodium (Enoxaparin 40 Mg/0.4 Ml Syringe) 40 mg SUBCUT Q24H [facility] [place] Last Admin: 10/29/20 22:29 Dose: 40 mg Documented by: Furosemide (Furosemide 20 Mg/2 Ml Vial) 20 mg IVPUSH NOW ONE Stop: 11/03/20 12:07 Last Admin: 11/03/20 12:42 Dose: 20 mg Documented by: Remdesivir 200 mg/ Sodium (Chloride) 250 mls @ 250 mls/hr IV ONETIME ONE Stop: 10/29/20 14:48 Last Admin: 10/29/20 15:08 Dose: Not Given Documented by: Remdesivir 200 mg/ Sodium (Chloride) 250 mls @ 250 mls/hr IV ONETIME ONE Stop: 10/29/20 15:59 Last Admin: 10/29/20 15:27 Dose: 250 mls/hr Documented by: Sodium Chloride (Normal Saline) 1,000 mls @ 50 mls/hr IV ASDIRECTED [facility] [place] Last Admin: 10/29/20 15:21 Dose: 50 mls/hr Documented by: Remdesivir 100 mg/ Sodium (Chloride) 100 mls @ 100 mls/hr IV Q24H [facility] Stop: 11/02/20 15:59 Last Admin: 10/30/20 19:19 Dose: Not Given Documented by: Remdesivir 100 mg/ Sodium (Chloride) 100 mls @ 100 mls/hr IV Q24H [facility] Stop: 11/02/20 18:14 Last Admin: 11/02/20 17:40 Dose: 100 mls/hr Documented by: Tocilizumab 800 mg/ Sodium (Chloride) 100 mls @ 100 mls/hr IV ONETIME ONE Stop: 10/31/20 11:29 Last Admin: 10/31/20 10:45 Dose: 100 mls/hr Documented by: Insulin Aspart (Insulin Aspart 100 Units/Ml 3 Ml Pen) 0 unit SUBCUT TIDAC [facility]; Protocol Insulin Aspart (Insulin Aspart 100 Units/Ml 3 Ml Pen) 0 unit SUBCUT TIDAC [facility]; Protocol Last Admin: 11/02/20 08:52 Dose: 9 units Documented by: Insulin Aspart (Insulin Aspart 100 Units/Ml 3 Ml Pen) 5 unit SUBCUT TIDAC [facility] Last Admin: 11/03/20 09:22 Dose: 5 units Documented by: Insulin Glargine (Insulin Glargine,Human Rec. Analog 100 Units/Ml 3 Ml Pen) 5 units SUBCUT BEDTIME [facility] Last Admin: 10/30/20 23:54 Dose: 5 units Documented by: Insulin Glargine (Insulin Glargine,Human Rec. Analog 100 Units/Ml 3 Ml Pen) Confirm Administered Dose 300 units .ROUTE .STK-MED ONE Stop: 10/30/20 23:52 Last Admin: 10/31/20 00:45 Dose: Not Given Documented by: Insulin Glargine (Insulin Glargine,Human Rec. Analog 100 Units/Ml 3 Ml Pen) 10 units SUBCUT BEDTIME [facility] Last Admin: 10/31/20 21:53 Dose: 10 units Documented by: Insulin Glargine (Insulin Glargine,Human Rec. Analog 100 Units/Ml 3 Ml Pen) 15 units SUBCUT BEDTIME [facility] Last Admin: 11/01/20 20:13 Dose: 15 units Documented by: Insulin Glargine (Insulin Glargine,Human Rec. Analog 100 Units/Ml 3 Ml Pen) 20 units SUBCUT BEDTIME [facility] Last Admin: 11/02/20 22:00 Dose: 20 units Documented by: Iopamidol (Iopamidol 755 Mg/Ml 200 Ml Multipack Bottle) 100 ml IVPUSH ONETIME ONE Stop: 10/31/20 12:59 Last Admin: 10/31/20 19:36 Dose: Not Given Documented by: Iopamidol (Iopamidol 755 Mg/Ml 200 Ml Multipack Bottle) 100 ml IVPUSH ONETIME ONE Stop: 10/31/20 13:01 Last Admin: 10/31/20 19:34 Dose: Not Given Documented by: Iopamidol (Iopamidol 755 Mg/Ml 500 Ml Multipack Bottle) 100 ml IVPUSH ONETIME ONE Stop: 10/31/20 13:02 Last Admin: 10/31/20 13:02 Dose: 100 ml Documented by: Iopamidol (Iopamidol 755 Mg/Ml 500 Ml Multipack Bottle) 100 ml IVPUSH ONETIME STA Stop: 11/04/20 15:19 Last Admin: 11/04/20 15:19 Dose: 100 ml Documented by: Budesonide/Formoterol 160-4.5 Mcg/Puff 6 Gm Inhaler 0 each INH BID [facility] - Patient Data Lab Results Last 24 hrs: Laboratory Results - last 24 hr 11/06/20 11/06/20 11/06/20 Range/Units 11:42 13:47 17:14 WBC (4.0-11.0) K/uL RBC (4.30-5.90) M/uL Hgb (12.0-16.0) g/dL Hct (36.0-46.0) % MCV (80.0-98.0) fL MCH (27.0-32.0) pg MCHC (31.0-37.0) g/dL RDW Std Deviation (28.0-62.0) fl RDW Coeff of Ry (11.0-15.0) % Plt Count (150-400) K/uL MPV (7.40-12.00) fL Neut % (Auto) (48.0-80.0) % Lymph % (Auto) (16.0-40.0) % [place] % (Auto) (0.0-15.0) % Eos % (Auto) (0.0-7.0) % Baso % (Auto) (0.0-1.5) % Neut # (Auto) (1.4-5.7) K/uL Lymph # (Auto) (0.6-2.4) K/uL [place] # (Auto) (0.0-0.8) K/uL Eos # (Auto) (0.0-0.7) K/uL Baso # (Auto) (0.0-0.1) K/uL Sodium (136-145) mmol/L Potassium (3.5-5.1) mmol/L Chloride (98-107) mmol/L Carbon Dioxide (21.0-32.0) mmol/L BUN (7.0-18.0) mg/dL Creatinine (0.6-1.0) mg/dL Est Cr Clr Drug Dosing mL/min Estimated GFR (MDRD) ml/min Glucose (74-106) mg/dL POC Glucose 248 H 241 H 292 H (70-99) mg/dL Calcium (8.5-10.1) mg/dL Phosphorus (2.6-4.7) mg/dL Magnesium (1.8-2.4) mg/dL 11/06/20 11/07/20 11/07/20 Range/Units 20:57 05:10 05:10 WBC 3.47 L (4.0-11.0) K/uL RBC 4.52 (4.30-5.90) M/uL Hgb 14.0 (12.0-16.0) g/dL Hct 40.6 (36.0-46.0) % MCV 89.8 (80.0-98.0) fL MCH 31.0 (27.0-32.0) pg MCHC 34.5 (31.0-37.0) g/dL RDW Std Deviation 42.8 (28.0-62.0) fl RDW Coeff of Ry 13 (11.0-15.0) % Plt Count 206 (150-400) K/uL MPV 9.40 (7.40-12.00) fL Neut % (Auto) 59.3 (48.0-80.0) % Lymph % (Auto) 27.7 (16.0-40.0) % [place] % (Auto) 8.4 (0.0-15.0) % Eos % (Auto) 4.3 (0.0-7.0) % Baso % (Auto) 0.3 (0.0-1.5) % Neut # (Auto) 2.1 (1.4-5.7) K/uL Lymph # (Auto) 1.0 (0.6-2.4) K/uL [place] # (Auto) 0.3 (0.0-0.8) K/uL Eos # (Auto) 0.2 (0.0-0.7) K/uL Baso # (Auto) 0.0 (0.0-0.1) K/uL Sodium (136-145) mmol/L Potassium (3.5-5.1) mmol/L Chloride (98-107) mmol/L Carbon Dioxide (21.0-32.0) mmol/L BUN (7.0-18.0) mg/dL Creatinine (0.6-1.0) mg/dL Est Cr Clr Drug Dosing mL/min Estimated GFR (MDRD) ml/min Glucose (74-106) mg/dL POC Glucose 230 H (70-99) mg/dL Calcium (8.5-10.1) mg/dL Phosphorus 3.6 (2.6-4.7) mg/dL Magnesium 1.9 (1.8-2.4) mg/dL 11/07/20 11/07/20 Range/Units 05:10 06:23 WBC (4.0-11.0) K/uL RBC (4.30-5.90) M/uL Hgb (12.0-16.0) g/dL Hct (36.0-46.0) % MCV (80.0-98.0) fL MCH (27.0-32.0) pg MCHC (31.0-37.0) g/dL RDW Std Deviation (28.0-62.0) fl RDW Coeff of Ry (11.0-15.0) % Plt Count (150-400) K/uL MPV (7.40-12.00) fL Neut % (Auto) (48.0-80.0) % Lymph % (Auto) (16.0-40.0) % [place] % (Auto) (0.0-15.0) % Eos % (Auto) (0.0-7.0) % Baso % (Auto) (0.0-1.5) % Neut # (Auto) (1.4-5.7) K/uL Lymph # (Auto) (0.6-2.4) K/uL [place] # (Auto) (0.0-0.8) K/uL Eos # (Auto) (0.0-0.7) K/uL Baso # (Auto) (0.0-0.1) K/uL Sodium 140 (136-145) mmol/L Potassium 4.2 (3.5-5.1) mmol/L Chloride 105 (98-107) mmol/L Carbon Dioxide 25.9 (21.0-32.0) mmol/L BUN 17 (7.0-18.0) mg/dL Creatinine 1.0 (0.6-1.0) mg/dL Est Cr Clr Drug Dosing 58.84 mL/min Estimated GFR (MDRD) 56.2 ml/min Glucose 169 H (74-106) mg/dL POC Glucose 164 H (70-99) mg/dL Calcium 8.4 L (8.5-10.1) mg/dL Phosphorus (2.6-4.7) mg/dL Magnesium (1.8-2.4) mg/dL Result Diagrams: 11/07/20 05:10 11/07/20 05:10 Sepsis Event Note - Focused Exam Vital Signs: Vital Signs Temp Resp BP BP Pulse Ox Pulse Ox 11/07/20 11:00 23 H 92 L 11/07/20 10:00 24 H 118/65 94 L 11/07/20 09:09 115/66 11/07/20 09:00 36.6 C 21 H 115/66 84 L 11/07/20 08:00 36.5 C 21 H 128/68 90 L 11/07/20 07:00 20 146/72 H 92 L 11/07/20 06:00 21 H 144/74 H 86 L 88 L 11/07/20 05:00 22 H 89 L 11/07/20 04:00 35.8 C L 21 H 161/91 H 89 L 11/07/20 03:00 21 H 90 L 11/07/20 02:00 21 H 88 L 11/07/20 01:00 20 149/81 H 91 L 11/07/20 00:00 36.2 C 22 H 91 L - Problem List & Annotations (1) Acute respiratory failure with hypoxia SNOMED Code(s): 36870699, 254876198 Code(s): J96.01 - ACUTE RESPIRATORY FAILURE WITH HYPOXIA Status: Acute Current Visit: Yes (2) COVID-19 SNOMED Code(s): 415328405 Code(s): U07.1 - COVID-19 Status: Acute Current Visit: Yes (3) Hypoxia SNOMED Code(s): 301984250 Code(s): R09.02 - HYPOXEMIA Status: Acute Current Visit: Yes - Plan Plan:: I have seen and evaluated the patient and agree with the residents note unless specified in my note
[2020-11-04] MEDS: Losartan 50 MG Tab PO SCH (08:29)
[2020-11-04] MEDS: Omeprazole 20 MG Cap.CR PO SCH ×2 (08:30→18:16)
[2020-11-04] MEDS: Ciprofloxacin 250 MG Tab PO SCH (08:30)
[2020-11-04] MEDS: Dexamethasone 4 MG Tab PO SCH (08:31)
[2020-11-04] MEDS: Insulin Aspart 100 Units/ML 3 ML Pen SUBCUT SCH ×6 (08:32→18:17)
[2020-11-04] MEDS: Budesonide/Formoterol 160-4.5 MCG/Puff 6 GM Inhaler INH SCH ×2 (09:25→20:24)
[2020-11-04] MEDS: Enoxaparin 40 MG/0.4 ML Syringe SUBCUT SCH ×2 (12:23→23:18)
[2020-11-04] MEDS ORDERED: Iopamidol 755 MG/ML 500 ML Multipack Bottle IVPUSH STA (15:18)
--- NOTE | 2020-11-04 16:08 | CT ---
INDICATION: Shortness of breath. COMPARISON: 10/31/2020. TECHNIQUE: CT angiography of the chest PE protocol. 100 cc IV Isovue-[id number]. FINDINGS: No evidence of central PE. Opacification of the segmental and subsegmental branches is suboptimal. Heart is normal in size. No pericardial effusion. Prominent mediastinal lymph nodes are likely reactive. Cholecystectomy. Hepatic steatosis. Cervical spine hardware. Degenerative changes in the spine. Extensive bilateral ground-glass opacities consistent with history of COVID-19 pneumonia. Soft tissue gas in the upper mediastinum and neck is new from prior exam. No pleural effusion or pneumothorax. IMPRESSION: 1. No evidence of central PE. Limited evaluation of segmental and subsegmental branches. 2. Extensive ground-glass opacities are increased from prior consistent with history of COVID-19 infection. 3. Subcutaneous emphysema in the upper mediastinum and lower neck, new from prior exam. 4. Hepatic steatosis. Please note that all CT scans at this facility use dose modulation, iterative reconstruction, and/or weight-based dosing when appropriate to reduce radiation dose to as low as reasonably achievable. Dictated by Arik Solano MD @ 11/04/2020 4:07:[address] Arik Solano @ Nov 04 2020 4:07PM
--- NOTE | 2020-11-04 17:55 | PN ---
[facility] Physician - Brief Progress [id number]/22/2021 17:54[facility] [place], [facility] - [facility] ANNA NOESandyDate of Service 11/04/2020 17:54HPI/Events of Note eICU Progress [id number] admitted for hypoxic respiratory failure attributed to COVID. History o btained primarily from review of EMR and discussion with bedside physician.Notable events: HFNC requi rements continue to uptrend. Repeat CT imaging today revealed subcutaneous emphysema. Per discussion with bedside physician, patient had received 'antibody therapy', although it remains unclear whether patient had received tocilizumab. Per review of labs, ER documentation and H&P there does not appear to be mention of tocilizumab or a CRP level.Camera exam: Sitting up in chair. Vitals monitor reviewed .eICU Recommendations:Isolation precautions per local policyDexamethasone 6mg daily for 10 days, stat us post remdesivirContinue to monitor subcutaneous emphysemaSuggest targeting a neutral to negative n et fluid balance as tolerated hemodynamicallyCRP now, confirm whether patient has received tocilizuma b. If CRP elevated >7.5mg/dL, and patient has not received tocilizumab, would contact eICU to discuss tocilizumab therapyProcalcitonin now, stop antibiotics as patient has received 7 days of therapy. If procalcitonin returns elevated reasonable to restart antibiotics - would start broad spectrum antibi otic therapy if antibiotics are restartedDVT and GI prophylaxis as appropriate.Thank you for allowing us to participate in the care of this patient.Unless otherwise specified, defer implementation of ab ove recommendations to discretion of bedside provider. Please do not hesitate to contact the eICU ser vice for questions, clarification, or assistance with implementation.The above note transcribed with the assistance of dictation software. Please excuse any errors.Interventions Major-Respiratory failur e - evaluation and management
--- NOTE | 2020-11-04 18:14 | PN ---
[facility] Physician - Brief Progress [id number]/22/2021 18:14[facility] lanie [place], [place] - [place] (ARIANA) - ANNA JOHANSENDate of Service 11/04/2020 18:14HPI/Events of Note eICU Update NoteNotified patient received tocilizumab on 10/31.Interventions Major-Respiratory failure - evaluation and management 18:1 4
[2020-11-04] MEDS: Montelukast 10 MG Tab PO SCH (20:24)
[2020-11-04] MEDS: Insulin Glargine,Human Rec. Analog 100 Units/ML 3 ML Pen SUBCUT SCH (20:31)
[2020-11-05] MEDS: Albuterol/Ipratropium 4 GM Inhalation Spray INH SCH ×6 (02:49→22:34)
[2020-11-05 06:52] LABS: POTASSIUM,K 3.8 mmol/L (3.5-5.1)
[2020-11-05] MEDS: Losartan 50 MG Tab PO SCH (09:06)
[2020-11-05] MEDS: Omeprazole 20 MG Cap.CR PO SCH ×2 (09:06→18:04)
[2020-11-05] MEDS: Dexamethasone 4 MG Tab PO SCH (09:06)
[2020-11-05] MEDS: Insulin Aspart 100 Units/ML 3 ML Pen SUBCUT SCH ×6 (09:07→18:05)
[2020-11-05] MEDS: Budesonide/Formoterol 160-4.5 MCG/Puff 6 GM Inhaler INH SCH ×2 (09:32→20:18)
[2020-11-05] MEDS: Enoxaparin 40 MG/0.4 ML Syringe SUBCUT SCH ×2 (12:19→22:34)
--- NOTE | 2020-11-05 13:02 | PCM.PN ---
- General Info Date of Service: 11/05/20 Admission Dx/Problem (Free Text): Admission Diagnosis/Problem Admission Diagnosis/Problem acute hypoxic respiratory failure secondary to Covid pneumonia Subjective Update: 60-year-old female admitted for acute hypoxic respiratory failure secondary to Covid pneumonia. on heated high flow, tolerating it well, no chest pain, pat ient states that she feels fine. Functional Status: Reports: Tolerating Diet, Ambulating, Urinating - Review of Systems General: Denies: Fever, Weakness, Fatigue Pulmonary: Reports: Shortness of Breath, Cough. Denies: Pleuritic Chest Pain Cardiovascular: Reports: Dyspnea on Exertion. Denies: Chest Pain, Palpitations Gastrointestinal: Denies: Abdominal Pain, Constipation, Decreased Appetite Genitourinary: Denies: Dysuria, Frequency, Burning Musculoskeletal: Denies: Neck Pain, Shoulder Pain, Arm Pain Skin: Denies: Cyanosis, Jaundice, Mottled Neurological: Denies: Confusion, Dizziness, Headache - Patient Data Vitals - Most Recent: Last Vital Signs Temp 36.2 C 11/05/20 08:00 Pulse 77 10/31/20 04:00 Resp 13 11/05/20 09:00 BP 122/70 11/05/20 09:06 Pulse Ox 86 L 11/05/20 09:00 Weight - Most Recent: 175.767 kg I&O - Last 24 Hours: Intake & Output 11/04/20 11/05/20 11/05/20 22:59 06:59 14:59 Intake Total 900 Output Total 1000 Balance -100 Lab Results Last 24 Hours: Laboratory Results - last 24 hr 11/04/20 11/04/20 11/04/20 Range/Units 18:15 18:35 20:30 WBC (4.0-11.0) K/uL RBC (4.30-5.90) M/uL Hgb (12.0-16.0) g/dL Hct (36.0-46.0) % MCV (80.0-98.0) fL MCH (27.0-32.0) pg MCHC (31.0-37.0) g/dL RDW Std Deviation (28.0-62.0) fl RDW Coeff of Ry (11.0-15.0) % Plt Count (150-400) K/uL MPV (7.40-12.00) fL Add Manual Diff Neutrophils % (Manual) (48.0-80.0) % Lymphocytes % (Manual) (16.0-40.0) % Monocytes % (Manual) (0.0-15.0) % Eosinophils % (Manual) (0.0-7.0) % Nucleated RBC % /100WBC Absolute Seg Neuts (1.4-5.7) Lymphocytes # (Manual) (0.6-2.4) Monocytes # (Manual) (0.0-0.8) Eosinophils # (Manual) (0.0-0.7) Nucleated RBCs # K/uL Sodium (136-145) mmol/L Potassium (3.5-5.1) mmol/L Chloride (98-107) mmol/L Carbon Dioxide (21.0-32.0) mmol/L BUN (7.0-18.0) mg/dL Creatinine (0.6-1.0) mg/dL Est Cr Clr Drug Dosing mL/min Estimated GFR (MDRD) ml/min Glucose (74-106) mg/dL POC Glucose 284 H 250 H (70-99) mg/dL Calcium (8.5-10.1) mg/dL Phosphorus (2.6-4.7) mg/dL Magnesium (1.8-2.4) mg/dL Total Bilirubin (0.2-1.0) mg/dL AST (15-37) IU/L ALT (14-63) IU/L Alkaline Phosphatase (46-116) U/L C-Reactive Protein <0.20 (0.00-0.90) mg/dL Total Protein (6.4-8.2) g/dL Albumin (3.4-5.0) g/dL Globulin (2.6-4.0) g/dL Albumin/Globulin Ratio (0.9-1.6) 11/05/20 11/05/20 11/05/20 Range/Units 04:55 04:55 07:01 WBC 3.81 L (4.0-11.0) K/uL RBC 4.53 (4.30-5.90) M/uL Hgb 13.8 (12.0-16.0) g/dL Hct 40.2 (36.0-46.0) % MCV 88.7 (80.0-98.0) fL MCH 30.5 (27.0-32.0) pg MCHC 34.3 (31.0-37.0) g/dL RDW Std Deviation 42.5 (28.0-62.0) fl RDW Coeff of Ry 13 (11.0-15.0) % Plt Count 208 (150-400) K/uL MPV 9.50 (7.40-12.00) fL Add Manual Diff YES Neutrophils % (Manual) 66 (48.0-80.0) % Lymphocytes % (Manual) 30 (16.0-40.0) % Monocytes % (Manual) 3 (0.0-15.0) % Eosinophils % (Manual) 1 (0.0-7.0) % Nucleated RBC % 0.0 /100WBC Absolute Seg Neuts 2.5 (1.4-5.7) Lymphocytes # (Manual) 1.1 (0.6-2.4) Monocytes # (Manual) 0.1 (0.0-0.8) Eosinophils # (Manual) 0.0 (0.0-0.7) Nucleated RBCs # 0 K/uL Sodium 139 (136-145) mmol/L Potassium 3.8 (3.5-5.1) mmol/L Chloride 103 (98-107) mmol/L Carbon Dioxide 26.0 (21.0-32.0) mmol/L BUN 19 H (7.0-18.0) mg/dL Creatinine 1.0 (0.6-1.0) mg/dL Est Cr Clr Drug Dosing 58.84 mL/min Estimated GFR (MDRD) 56.2 ml/min Glucose 151 H (74-106) mg/dL POC Glucose 159 H (70-99) mg/dL Calcium 8.1 L (8.5-10.1) mg/dL Phosphorus 3.2 (2.6-4.7) mg/dL Magnesium 2.0 (1.8-2.4) mg/dL Total Bilirubin 0.7 (0.2-1.0) mg/dL AST 35 (15-37) IU/L ALT 52 (14-63) IU/L Alkaline Phosphatase 70 (46-116) U/L C-Reactive Protein (0.00-0.90) mg/dL Total Protein 6.0 L (6.4-8.2) g/dL Albumin 3.0 L (3.4-5.0) g/dL Globulin 3.0 (2.6-4.0) g/dL Albumin/Globulin Ratio 1.0 (0.9-1.6) 11/05/20 Range/Units 12:18 WBC (4.0-11.0) K/uL RBC (4.30-5.90) M/uL Hgb (12.0-16.0) g/dL Hct (36.0-46.0) % MCV (80.0-98.0) fL MCH (27.0-32.0) pg MCHC (31.0-37.0) g/dL RDW Std Deviation (28.0-62.0) fl RDW Coeff of Ry (11.0-15.0) % Plt Count (150-400) K/uL MPV (7.40-12.00) fL Add Manual Diff Neutrophils % (Manual) (48.0-80.0) % Lymphocytes % (Manual) (16.0-40.0) % Monocytes % (Manual) (0.0-15.0) % Eosinophils % (Manual) (0.0-7.0) % Nucleated RBC % /100WBC Absolute Seg Neuts (1.4-5.7) Lymphocytes # (Manual) (0.6-2.4) Monocytes # (Manual) (0.0-0.8) Eosinophils # (Manual) (0.0-0.7) Nucleated RBCs # K/uL Sodium (136-145) mmol/L Potassium (3.5-5.1) mmol/L Chloride (98-107) mmol/L Carbon Dioxide (21.0-32.0) mmol/L BUN (7.0-18.0) mg/dL Creatinine (0.6-1.0) mg/dL Est Cr Clr Drug Dosing mL/min Estimated GFR (MDRD) ml/min Glucose (74-106) mg/dL POC Glucose 271 H (70-99) mg/dL Calcium (8.5-10.1) mg/dL Phosphorus (2.6-4.7) mg/dL Magnesium (1.8-2.4) mg/dL Total Bilirubin (0.2-1.0) mg/dL AST (15-37) IU/L ALT (14-63) IU/L Alkaline Phosphatase (46-116) U/L C-Reactive Protein (0.00-0.90) mg/dL Total Protein (6.4-8.2) g/dL Albumin (3.4-5.0) g/dL Globulin (2.6-4.0) g/dL Albumin/Globulin Ratio (0.9-1.6) Med Orders - Current: Current Medications Albuterol (Albuterol 8 Gm Inhaler) 0 gm INH Q4HRRT PRN PRN Reason: Shortness of Breath Last Admin: 11/04/20 20:25 Dose: 2 puff Documented by: Albuterol/Ipratropium (Albuterol/Ipratropium 4 Gm Inhalation [facility]) 0 gm INH Q4H [facility] Last Admin: 11/05/20 09:31 Dose: 1 puff Documented by: Benzonatate (Benzonatate 100 Mg Cap) 100 mg PO Q6H PRN PRN Reason: Cough Last Admin: 11/04/20 21:12 Dose: 100 mg Documented by: Budesonide/Formoterol Fumarate (Budesonide/Formoterol 160-4.5 Mcg/Puff 6 Gm Inhaler) 0 gm INH BID [facility] Last Admin: 11/05/20 09:32 Dose: Not Given Documented by: Dexamethasone (Dexamethasone 4 Mg Tab) 6 mg PO DAILY [facility] [place] Last Admin: 11/05/20 09:06 Dose: 6 mg Documented by: Dextrose/Water (50% Dextrose In Water 50 Ml Syringe) 50 ml IVPUSH ASDIRECTED PRN PRN Reason: Hypoglycemia Docusate Sodium (Docusate Sodium 100 Mg Cap) 100 mg PO Q12H PRN PRN Reason: Constipation Enoxaparin Sodium (Enoxaparin 40 Mg/0.4 Ml Syringe) 40 mg SUBCUT Q12H [facility] [place] Last Admin: 11/05/20 12:19 Dose: 40 mg Documented by: Glucagon (Glucagon,Human Recombinant 1 Mg Vial) 1 mg IM ASDIRECTED PRN PRN Reason: Hypoglycemia Insulin Aspart (Insulin Aspart 100 Units/Ml 3 Ml Pen) 0 unit SUBCUT TIDAC [facility]; Protocol Last Admin: 11/05/20 12:19 Dose: 6 units Documented by: Insulin Aspart (Insulin Aspart 100 Units/Ml 3 Ml Pen) 6 unit SUBCUT TIDAC [facility] [place] Last Admin: 11/05/20 12:20 Dose: 6 units Documented by: Insulin Glargine (Insulin Glargine,Human Rec. Analog 100 Units/Ml 3 Ml Pen) 24 units SUBCUT BEDTIME [facility] [place] Last Admin: 11/04/20 20:31 Dose: 24 units Documented by: Losartan Potassium (Losartan 50 Mg Tab) 25 mg PO DAILY [facility] [place] Last Admin: 11/05/20 09:06 Dose: 25 mg Documented by: Montelukast Sodium (Montelukast 10 Mg Tab) 10 mg PO BEDTIME [facility] [place] Last Admin: 11/04/20 20:24 Dose: 10 mg Documented by: Omeprazole (Omeprazole 20 Mg Cap.Cr) 20 mg PO BIDAC [facility] [place] Last Admin: 11/05/20 09:06 Dose: 20 mg Documented by: Senna (Sennosides 8.6 Mg Tab) 8.6 mg PO Q12H PRN PRN Reason: Constipation Sodium Chloride (Sodium Chloride 0.9% 2.5 Ml Syringe) 2.5 ml FLUSH ASDIRECTED PRN PRN Reason: Keep Vein Open Discontinued Medications Albuterol (Albuterol 8 Gm Inhaler) 0 gm INH Q4H PRN PRN Reason: Shortness of Breath Last Admin: 10/31/20 05:25 Dose: 2 puff Documented by: Albuterol/Ipratropium (Albuterol/Ipratropium 4 Gm Inhalation [facility]) 0 gm INH Q6HRRT [facility] Last Admin: 11/03/20 06:16 Dose: 1 puff Documented by: Ciprofloxacin (Ciprofloxacin 250 Mg Tab) 250 mg PO BID [facility] [place] Last Admin: 11/04/20 08:30 Dose: 250 mg Documented by: Dexamethasone (Dexamethasone 10 Mg/Ml Sdv) 10 mg IVPUSH ONETIME ONE Stop: 10/29/20 14:49 Last Admin: 10/29/20 15:22 Dose: 10 mg Documented by: Enoxaparin Sodium (Enoxaparin 40 Mg/0.4 Ml Syringe) 40 mg SUBCUT Q24H [facility] [place] Last Admin: 10/29/20 22:29 Dose: 40 mg Documented by: Furosemide (Furosemide 20 Mg/2 Ml Vial) 20 mg IVPUSH NOW ONE Stop: 11/03/20 12:07 Last Admin: 11/03/20 12:42 Dose: 20 mg Documented by: Remdesivir 200 mg/ Sodium (Chloride) 250 mls @ 250 mls/hr IV ONETIME ONE Stop: 10/29/20 14:48 Last Admin: 10/29/20 15:08 Dose: Not Given Documented by: Remdesivir 200 mg/ Sodium (Chloride) 250 mls @ 250 mls/hr IV ONETIME ONE Stop: 10/29/20 15:59 Last Admin: 10/29/20 15:27 Dose: 250 mls/hr Documented by: Sodium Chloride (Normal Saline) 1,000 mls @ 50 mls/hr IV ASDIRECTED [facility] Last Admin: 10/29/20 15:21 Dose: 50 mls/hr Documented by: Remdesivir 100 mg/ Sodium (Chloride) 100 mls @ 100 mls/hr IV Q24H [facility] Stop: 11/02/20 15:59 Last Admin: 10/30/20 19:19 Dose: Not Given Documented by: Remdesivir 100 mg/ Sodium (Chloride) 100 mls @ 100 mls/hr IV Q24H [facility] Stop: 11/02/20 18:14 Last Admin: 11/02/20 17:40 Dose: 100 mls/hr Documented by: Tocilizumab 800 mg/ Sodium (Chloride) 100 mls @ 100 mls/hr IV ONETIME ONE Stop: 10/31/20 11:29 Last Admin: 10/31/20 10:45 Dose: 100 mls/hr Documented by: Insulin Aspart (Insulin Aspart 100 Units/Ml 3 Ml Pen) 0 unit SUBCUT TIDAC [facility]; Protocol Insulin Aspart (Insulin Aspart 100 Units/Ml 3 Ml Pen) 0 unit SUBCUT TIDAC [facility]; Protocol Last Admin: 11/02/20 08:52 Dose: 9 units Documented by: Insulin Aspart (Insulin Aspart 100 Units/Ml 3 Ml Pen) 5 unit SUBCUT TIDAC [facility] [place] Last Admin: 11/03/20 09:22 Dose: 5 units Documented by: Insulin Glargine (Insulin Glargine,Human Rec. Analog 100 Units/Ml 3 Ml Pen) 5 units SUBCUT BEDTIME [facility] [place] Last Admin: 10/30/20 23:54 Dose: 5 units Documented by: Insulin Glargine (Insulin Glargine,Human Rec. Analog 100 Units/Ml 3 Ml Pen) Confirm Administered Dose 300 units .ROUTE .STK-MED ONE Stop: 10/30/20 23:52 Last Admin: 10/31/20 00:45 Dose: Not Given Documented by: Insulin Glargine (Insulin Glargine,Human Rec. Analog 100 Units/Ml 3 Ml Pen) 10 units SUBCUT BEDTIME [facility] [place] Last Admin: 10/31/20 21:53 Dose: 10 units Documented by: Insulin Glargine (Insulin Glargine,Human Rec. Analog 100 Units/Ml 3 Ml Pen) 15 units SUBCUT BEDTIME [facility] [place] Last Admin: 11/01/20 20:13 Dose: 15 units Documented by: Insulin Glargine (Insulin Glargine,Human Rec. Analog 100 Units/Ml 3 Ml Pen) 20 units SUBCUT BEDTIME [facility] [place] Last Admin: 11/02/20 22:00 Dose: 20 units Documented by: Iopamidol (Iopamidol 755 Mg/Ml 200 Ml Multipack Bottle) 100 ml IVPUSH ONETIME ONE Stop: 10/31/20 12:59 Last Admin: 10/31/20 19:36 Dose: Not Given Documented by: Iopamidol (Iopamidol 755 Mg/Ml 200 Ml Multipack Bottle) 100 ml IVPUSH ONETIME ONE Stop: 10/31/20 13:01 Last Admin: 10/31/20 19:34 Dose: Not Given Documented by: Iopamidol (Iopamidol 755 Mg/Ml 500 Ml Multipack Bottle) 100 ml IVPUSH ONETIME ONE Stop: 10/31/20 13:02 Last Admin: 10/31/20 13:02 Dose: 100 ml Documented by: Iopamidol (Iopamidol 755 Mg/Ml 500 Ml Multipack Bottle) 100 ml IVPUSH ONETIME STA Stop: 11/04/20 15:19 Last Admin: 11/04/20 15:19 Dose: 100 ml Documented by: - Exam Quality Assessment: Supplemental Oxygen General: Alert, Oriented, Cooperative, No Acute Distress Neck: Supple Lungs: Normal Respiratory Effort, Crackles, Rhonchi, Other (Coarse breath sounds). No: Decreased Breath Sounds Cardiovascular: Regular Rate, Regular Rhythm, No Murmurs GI/Abdominal Exam: Normal Bowel Sounds, Soft, Non-Tender Extremities: Normal Inspection, Normal Range of Motion - Patient Data Lab Results Last 24 hrs: Laboratory Results - last 24 hr 0611/04/20 11/04/20 Range/Units 18:15 18:35 20:30 WBC (4.0-11.0) K/uL RBC (4.30-5.90) M/uL Hgb (12.0-16.0) g/dL Hct (36.0-46.0) % MCV (80.0-98.0) fL MCH (27.0-32.0) pg MCHC (31.0-37.0) g/dL RDW Std Deviation (28.0-62.0) fl RDW Coeff of Ry (11.0-15.0) % Plt Count (150-400) K/uL MPV (7.40-12.00) fL Add Manual Diff Neutrophils % (Manual) (48.0-80.0) % Lymphocytes % (Manual) (16.0-40.0) % Monocytes % (Manual) (0.0-15.0) % Eosinophils % (Manual) (0.0-7.0) % Nucleated RBC % /100WBC Absolute Seg Neuts (1.4-5.7) Lymphocytes # (Manual) (0.6-2.4) Monocytes # (Manual) (0.0-0.8) Eosinophils # (Manual) (0.0-0.7) Nucleated RBCs # K/uL Sodium (136-145) mmol/L Potassium (3.5-5.1) mmol/L Chloride (98-107) mmol/L Carbon Dioxide (21.0-32.0) mmol/L BUN (7.0-18.0) mg/dL Creatinine (0.6-1.0) mg/dL Est Cr Clr Drug Dosing mL/min Estimated GFR (MDRD) ml/min Glucose (74-106) mg/dL POC Glucose 284 H 250 H (70-99) mg/dL Calcium (8.5-10.1) mg/dL Phosphorus (2.6-4.7) mg/dL Magnesium (1.8-2.4) mg/dL Total Bilirubin (0.2-1.0) mg/dL AST (15-37) IU/L ALT (14-63) IU/L Alkaline Phosphatase (46-116) U/L C-Reactive Protein <0.20 (0.00-0.90) mg/dL Total Protein (6.4-8.2) g/dL Albumin (3.4-5.0) g/dL Globulin (2.6-4.0) g/dL Albumin/Globulin Ratio (0.9-1.6) 11/05/20 11/05/20 11/05/20 Range/Units 04:55 04:55 07:01 WBC 3.81 L (4.0-11.0) K/uL RBC 4.53 (4.30-5.90) M/uL Hgb 13.8 (12.0-16.0) g/dL Hct 40.2 (36.0-46.0) % MCV 88.7 (80.0-98.0) fL MCH 30.5 (27.0-32.0) pg MCHC 34.3 (31.0-37.0) g/dL RDW Std Deviation 42.5 (28.0-62.0) fl RDW Coeff of Ry 13 (11.0-15.0) % Plt Count 208 (150-400) K/uL MPV 9.50 (7.40-12.00) fL Add Manual Diff YES Neutrophils % (Manual) 66 (48.0-80.0) % Lymphocytes % (Manual) 30 (16.0-40.0) % Monocytes % (Manual) 3 (0.0-15.0) % Eosinophils % (Manual) 1 (0.0-7.0) % Nucleated RBC % 0.0 /100WBC Absolute Seg Neuts 2.5 (1.4-5.7) Lymphocytes # (Manual) 1.1 (0.6-2.4) Monocytes # (Manual) 0.1 (0.0-0.8) Eosinophils # (Manual) 0.0 (0.0-0.7) Nucleated RBCs # 0 K/uL Sodium 139 (136-145) mmol/L Potassium 3.8 (3.5-5.1) mmol/L Chloride 103 (98-107) mmol/L Carbon Dioxide 26.0 (21.0-32.0) mmol/L BUN 19 H (7.0-18.0) mg/dL Creatinine 1.0 (0.6-1.0) mg/dL Est Cr Clr Drug Dosing 58.84 mL/min Estimated GFR (MDRD) 56.2 ml/min Glucose 151 H (74-106) mg/dL POC Glucose 159 H (70-99) mg/dL Calcium 8.1 L (8.5-10.1) mg/dL Phosphorus 3.2 (2.6-4.7) mg/dL Magnesium 2.0 (1.8-2.4) mg/dL Total Bilirubin 0.7 (0.2-1.0) mg/dL AST 35 (15-37) IU/L ALT 52 (14-63) IU/L Alkaline Phosphatase 70 (46-116) U/L C-Reactive Protein (0.00-0.90) mg/dL Total Protein 6.0 L (6.4-8.2) g/dL Albumin 3.0 L (3.4-5.0) g/dL Globulin 3.0 (2.6-4.0) g/dL Albumin/Globulin Ratio 1.0 (0.9-1.6) 11/05/20 Range/Units 12:18 WBC (4.0-11.0) K/uL RBC (4.30-5.90) M/uL Hgb (12.0-16.0) g/dL Hct (36.0-46.0) % MCV (80.0-98.0) fL MCH (27.0-32.0) pg MCHC (31.0-37.0) g/dL RDW Std Deviation (28.0-62.0) fl RDW Coeff of Ry (11.0-15.0) % Plt Count (150-400) K/uL MPV (7.40-12.00) fL Add Manual Diff Neutrophils % (Manual) (48.0-80.0) % Lymphocytes % (Manual) (16.0-40.0) % Monocytes % (Manual) (0.0-15.0) % Eosinophils % (Manual) (0.0-7.0) % Nucleated RBC % /100WBC Absolute Seg Neuts (1.4-5.7) Lymphocytes # (Manual) (0.6-2.4) Monocytes # (Manual) (0.0-0.8) Eosinophils # (Manual) (0.0-0.7) Nucleated RBCs # K/uL Sodium (136-145) mmol/L Potassium (3.5-5.1) mmol/L Chloride (98-107) mmol/L Carbon Dioxide (21.0-32.0) mmol/L BUN (7.0-18.0) mg/dL Creatinine (0.6-1.0) mg/dL Est Cr Clr Drug Dosing mL/min Estimated GFR (MDRD) ml/min Glucose (74-106) mg/dL POC Glucose 271 H (70-99) mg/dL Calcium (8.5-10.1) mg/dL Phosphorus (2.6-4.7) mg/dL Magnesium (1.8-2.4) mg/dL Total Bilirubin (0.2-1.0) mg/dL AST (15-37) IU/L ALT (14-63) IU/L Alkaline Phosphatase (46-116) U/L C-Reactive Protein (0.00-0.90) mg/dL Total Protein (6.4-8.2) g/dL Albumin (3.4-5.0) g/dL Globulin (2.6-4.0) g/dL Albumin/Globulin Ratio (0.9-1.6) Result Diagrams: 11/05/20 04:55 11/05/20 04:55 Sepsis Event Note - Evaluation Sepsis Screening Result: No Definite Risk - Focused Exam Vital Signs: Vital Signs Temp Resp BP BP Pulse Ox Pulse Ox 11/05/20 09:06 122/70 11/05/20 09:00 13 86 L 11/05/20 08:00 36.2 C 14 122/70 98 11/05/20 07:00 24 H 123/68 91 L 89 L 11/05/20 06:00 15 123/65 91 L 11/05/20 05:00 18 115/67 92 L 11/05/20 04:00 35.9 C L 10 L 115/67 93 L 11/05/20 03:00 10 L 140/74 92 L 11/05/20 02:00 22 H 130/70 91 L 11/05/20 01:00 25 H 131/68 88 L - Problem List & Annotations (1) Acute respiratory failure with hypoxia SNOMED Code(s): 23140598, 776310018 Code(s): J96.01 - ACUTE RESPIRATORY FAILURE WITH HYPOXIA Status: Acute Current Visit: Yes (2) COVID-19 SNOMED Code(s): 562176691 Code(s): U07.1 - COVID-19 Status: Acute Current Visit: Yes (3) Hypoxia SNOMED Code(s): 320691298 Code(s): R09.02 - HYPOXEMIA Status: Acute Current Visit: Yes - Problem List Review Problem List Initiated/Reviewed/Updated: Yes - Plan Plan:: 60 yo female with past medical history of COPD/JAZMIN admitted with acute hypoxic respiratory failure due to COVID pneumonia. 1. AHRF secondary to COVID pneumonia: Patient remains on heated high flow with increased oxygen demand 50 FiO2 90%, will continue to wean as tolerated, Combivent adjusted to Q4HRS and Ventolin Q4Hrs as needed, completed remdesivir, continue with dexamethasone for total 10 days, DVT prophylaxis Lovenox 40 BID, Tessalon Perles for cough, antibiotics have been stopped after course was completed, follow-up on procalcitonin level 7 already received tocilizumab Echo ordered to ensure no underlying CHF contributing to hypoxia. CT of the chest done yesterday subcutaneous emphysema noted, no concern for any compartment syndrome or compression at this point, will continue to monitor closely Continue to maintain a negative balance to avoid any chest congestion. Encourage patient to prone to recruit more airways. eICU consulted, they will continue to follow their recommendations are much appreciated. -Patient's oxygen requirement has gone up in last 48 hours even though currently she is stable and tolerating high flow pretty well, next type of escalation would be BiPAP but patient has been on not to tolerate that well in the past. I reconfirmed with patient about her CODE STATUS and about possible intubation and transfer to higher level of care if she clinically deteriorates, patient continues wanting to be DNR/DNI and is not interested in intubation at any point. Patient states that she would rather prefer to be comfortable then be intubated. Patient states that she has discussed this thoroughly with her family who are aware of her wishes. 2. Past medical history of diabetes mellitus: Sliding scale insulin, high-dose Continue with Haitian diabetic diet. 3. Constipation: patient tolerating diet, will provide patient with 100 mg docusate twice daily, senna 8.6 mg twice daily. 4. Past medical history of JAZMIN: Continue using CPAP at night; patient states that she tolerates her home device better, will have her daughter bring in home device. 5. Past medical history of HTN/COPD: resume home meds
[2020-11-05] MEDS: Benzonatate 100 MG Cap PO PRN (20:29)
[2020-11-05] MEDS: Montelukast 10 MG Tab PO SCH (20:29)
[2020-11-05] MEDS: Insulin Glargine,Human Rec. Analog 100 Units/ML 3 ML Pen SUBCUT SCH (20:34)
[2020-11-06] MEDS: Albuterol/Ipratropium 4 GM Inhalation Spray INH SCH ×6 (02:15→21:03)
[2020-11-06] MEDS: Albuterol 8 GM Inhaler INH PRN (02:15)
[2020-11-06 06:39] LABS: BLOOD UREA NITROGEN,BUN 20 mg/dL (7.0-18.0); CARBON DIOXIDE,CO2 22.7 mmol/L (21.0-32.0); CHLORIDE,CL 105 mmol/L (98-107); GLUCOSE RANDOM 153 mg/dL (74-106); POTASSIUM,K 3.9 mmol/L (3.5-5.1); SODIUM,NA 138 mmol/L (136-145)
--- NOTE | 2020-11-06 07:27 | PCM.PN ---
<Isabel Eason - Last Filed: 11/06/20 18:04> - General Info Date of Service: 11/06/20 Admission Dx/Problem (Free Text): Admission Diagnosis/Problem Admission Diagnosis/Problem acute hypoxic respiratory failure secondary to Covid pneumonia Subjective Update: 60-year-old female admitted for acute hypoxic respiratory failure secondary to Covid pneumonia. on heated high flow, tolerating it well, no chest pain, patient states that she feels fine. Functional Status: Reports: Tolerating Diet, Urinating, Incentive Spirometry - Review of Systems General: Reports: No Symptoms HEENT: Reports: No Symptoms Pulmonary: Reports: No Symptoms Cardiovascular: Reports: No Symptoms Gastrointestinal: Reports: No Symptoms Genitourinary: Reports: No Symptoms Musculoskeletal: Reports: No Symptoms Skin: Reports: No Symptoms Neurological: Reports: No Symptoms Psychiatric: Reports: No Symptoms - Patient Data Vitals - Most Recent: Last Vital Signs Temp 97.4 F 11/06/20 04:00 Pulse 77 10/31/20 04:00 Resp 22 H 11/06/20 06:00 BP 138/73 11/06/20 05:00 Pulse Ox 89 L 11/06/20 06:00 Weight - Most Recent: 175.767 kg I&O - Last 24 Hours: Intake & Output 11/05/20 11/06/20 11/06/20 22:59 06:59 14:59 Intake Total 250 Balance 250 Lab Results Last 24 Hours: Laboratory Results - last 24 hr 11/04/20 11/05/20 11/05/20 Range/Units 18:35 12:18 18:01 WBC (4.0-11.0) K/uL RBC (4.30-5.90) M/uL Hgb (12.0-16.0) g/dL Hct (36.0-46.0) % MCV (80.0-98.0) fL MCH (27.0-32.0) pg MCHC (31.0-37.0) g/dL RDW Std Deviation (28.0-62.0) fl RDW Coeff of Ry (11.0-15.0) % Plt Count (150-400) K/uL MPV (7.40-12.00) fL Neut % (Auto) (48.0-80.0) % Lymph % (Auto) (16.0-40.0) % [place] % (Auto) (0.0-15.0) % Eos % (Auto) (0.0-7.0) % Baso % (Auto) (0.0-1.5) % Neut # (Auto) (1.4-5.7) K/uL Lymph # (Auto) (0.6-2.4) K/uL [place] # (Auto) (0.0-0.8) K/uL Eos # (Auto) (0.0-0.7) K/uL Baso # (Auto) (0.0-0.1) K/uL Nucleated RBC % /100WBC Nucleated RBCs # K/uL Sodium (136-145) mmol/L Potassium (3.5-5.1) mmol/L Chloride (98-107) mmol/L Carbon Dioxide (21.0-32.0) mmol/L BUN (7.0-18.0) mg/dL Creatinine (0.6-1.0) mg/dL Est Cr Clr Drug Dosing mL/min Estimated GFR (MDRD) ml/min Glucose (74-106) mg/dL POC Glucose 271 H 263 H (70-99) mg/dL Calcium (8.5-10.1) mg/dL Phosphorus (2.6-4.7) mg/dL Magnesium (1.8-2.4) mg/dL Procalcitonin <0.05 ng/mL 11/05/20 11/06/20 11/06/20 Range/Units 20:33 05:12 05:12 WBC 3.34 L (4.0-11.0) K/uL RBC 4.58 (4.30-5.90) M/uL Hgb 14.2 (12.0-16.0) g/dL Hct 40.6 (36.0-46.0) % MCV 88.6 (80.0-98.0) fL MCH 31.0 (27.0-32.0) pg MCHC 35.0 (31.0-37.0) g/dL RDW Std Deviation 43.4 (28.0-62.0) fl RDW Coeff of Ry 13 (11.0-15.0) % Plt Count 213 (150-400) K/uL MPV 10.10 (7.40-12.00) fL Neut % (Auto) 48.5 (48.0-80.0) % Lymph % (Auto) 41.9 H (16.0-40.0) % [place] % (Auto) 6.3 (0.0-15.0) % Eos % (Auto) 3.0 (0.0-7.0) % Baso % (Auto) 0.3 (0.0-1.5) % Neut # (Auto) 1.6 (1.4-5.7) K/uL Lymph # (Auto) 1.4 (0.6-2.4) K/uL [place] # (Auto) 0.2 (0.0-0.8) K/uL Eos # (Auto) 0.1 (0.0-0.7) K/uL Baso # (Auto) 0.0 (0.0-0.1) K/uL Nucleated RBC % 0.0 /100WBC Nucleated RBCs # 0 K/uL Sodium 138 (136-145) mmol/L Potassium 3.9 (3.5-5.1) mmol/L Chloride 105 (98-107) mmol/L Carbon Dioxide 22.7 (21.0-32.0) mmol/L BUN 20 H (7.0-18.0) mg/dL Creatinine 0.9 (0.6-1.0) mg/dL Est Cr Clr Drug Dosing 65.38 mL/min Estimated GFR (MDRD) > 60.0 ml/min Glucose 153 H (74-106) mg/dL POC Glucose 246 H (70-99) mg/dL Calcium 7.9 L (8.5-10.1) mg/dL Phosphorus 3.6 (2.6-4.7) mg/dL Magnesium 1.9 (1.8-2.4) mg/dL Procalcitonin ng/mL 11/06/20 Range/Units 06:22 WBC (4.0-11.0) K/uL RBC (4.30-5.90) M/uL Hgb (12.0-16.0) g/dL Hct (36.0-46.0) % MCV (80.0-98.0) fL MCH (27.0-32.0) pg MCHC (31.0-37.0) g/dL RDW Std Deviation (28.0-62.0) fl RDW Coeff of Ry (11.0-15.0) % Plt Count (150-400) K/uL MPV (7.40-12.00) fL Neut % (Auto) (48.0-80.0) % Lymph % (Auto) (16.0-40.0) % [place] % (Auto) (0.0-15.0) % Eos % (Auto) (0.0-7.0) % Baso % (Auto) (0.0-1.5) % Neut # (Auto) (1.4-5.7) K/uL Lymph # (Auto) (0.6-2.4) K/uL [place] # (Auto) (0.0-0.8) K/uL Eos # (Auto) (0.0-0.7) K/uL Baso # (Auto) (0.0-0.1) K/uL Nucleated RBC % /100WBC Nucleated RBCs # K/uL Sodium (136-145) mmol/L Potassium (3.5-5.1) mmol/L Chloride (98-107) mmol/L Carbon Dioxide (21.0-32.0) mmol/L BUN (7.0-18.0) mg/dL Creatinine (0.6-1.0) mg/dL Est Cr Clr Drug Dosing mL/min Estimated GFR (MDRD) ml/min Glucose (74-106) mg/dL POC Glucose 161 H (70-99) mg/dL Calcium (8.5-10.1) mg/dL Phosphorus (2.6-4.7) mg/dL Magnesium (1.8-2.4) mg/dL Procalcitonin ng/mL Med Orders - Current: Current Medications Albuterol (Albuterol 8 Gm Inhaler) 0 gm INH Q4HRRT PRN PRN Reason: Shortness of Breath Last Admin: 11/06/20 02:15 Dose: 2 puff Documented by: Albuterol/Ipratropium (Albuterol/Ipratropium 4 Gm Inhalation [place]) 0 gm INH Q4H [facility] Last Admin: 11/06/20 05:00 Dose: 1 puff Documented by: Benzonatate (Benzonatate 100 Mg Cap) 100 mg PO Q6H PRN PRN Reason: Cough Last Admin: 11/05/20 20:29 Dose: 100 mg Documented by: Budesonide/Formoterol Fumarate (Budesonide/Formoterol 160-4.5 Mcg/Puff 6 Gm Inhaler) 0 gm INH BID [facility] Last Admin: 11/05/20 20:18 Dose: Not Given Documented by: Dexamethasone (Dexamethasone 4 Mg Tab) 6 mg PO DAILY [facility] Last Admin: 11/05/20 09:06 Dose: 6 mg Documented by: Dextrose/Water (50% Dextrose In Water 50 Ml Syringe) 50 ml IVPUSH ASDIRECTED P RN PRN Reason: Hypoglycemia Docusate Sodium (Docusate Sodium 100 Mg Cap) 100 mg PO Q12H PRN PRN Reason: Constipation Enoxaparin Sodium (Enoxaparin 40 Mg/0.4 Ml Syringe) 40 mg SUBCUT Q12H [facility] Last Admin: 11/05/20 22:34 Dose: 40 mg Documented by: Glucagon (Glucagon,Human Recombinant 1 Mg Vial) 1 mg IM ASDIRECTED PRN PRN Reason: Hypoglycemia Insulin Aspart (Insulin Aspart 100 Units/Ml 3 Ml Pen) 0 unit SUBCUT TIDAC [facility]; Protocol Last Admin: 11/05/20 18:05 Dose: 6 units Documented by: Insulin Aspart (Insulin Aspart 100 Units/Ml 3 Ml Pen) 6 unit SUBCUT TIDAC [facility] Last Admin: 11/05/20 18:04 Dose: 6 units Documented by: Insulin Glargine (Insulin Glargine,Human Rec. Analog 100 Units/Ml 3 Ml Pen) 24 units SUBCUT BEDTIME [facility] Last Admin: 11/05/20 20:34 Dose: 24 units Documented by: Losartan Potassium (Losartan 50 Mg Tab) 25 mg PO DAILY [facility] Last Admin: 11/05/20 09:06 Dose: 25 mg Documented by: Montelukast Sodium (Montelukast 10 Mg Tab) 10 mg PO BEDTIME [facility] Last Admin: 11/05/20 20:29 Dose: 10 mg Documented by: Omeprazole (Omeprazole 20 Mg Cap.Cr) 20 mg PO BIDAC [facility] Last Admin: 11/05/20 18:04 Dose: 20 mg Documented by: Senna (Sennosides 8.6 Mg Tab) 8.6 mg PO Q12H PRN PRN Reason: Constipation Sodium Chloride (Sodium Chloride 0.9% 2.5 Ml Syringe) 2.5 ml FLUSH ASDIRECTED PRN PRN Reason: Keep Vein Open Discontinued Medications Albuterol (Albuterol 8 Gm Inhaler) 0 gm INH Q4H PRN PRN Reason: Shortness of Breath Last Admin: 10/31/20 05:25 Dose: 2 puff Documented by: Albuterol/Ipratropium (Albuterol/Ipratropium 4 Gm Inhalation [place]) 0 gm INH Q6 HRRT [facility] Last Admin: 11/03/20 06:16 Dose: 1 puff Documented by: Ciprofloxacin (Ciprofloxacin 250 Mg Tab) 250 mg PO BID [facility] Last Admin: 11/04/20 08:30 Dose: 250 mg Documented by: Dexamethasone (Dexamethasone 10 Mg/Ml Sdv) 10 mg IVPUSH ONETIME ONE Stop: 10/29/20 14:49 Last Admin: 10/29/20 15:22 Dose: 10 mg Documented by: Enoxaparin Sodium (Enoxaparin 40 Mg/0.4 Ml Syringe) 40 mg SUBCUT Q24H [facility] Last Admin: 10/29/20 22:29 Dose: 40 mg Documented by: Furosemide (Furosemide 20 Mg/2 Ml Vial) 20 mg IVPUSH NOW ONE Stop: 11/03/20 12:07 Last Admin: 11/03/20 12:42 Dose: 20 mg Documented by: Remdesivir 200 mg/ Sodium (Chloride) 250 mls @ 250 mls/hr IV ONETIME ONE Stop: 10/29/20 14:48 Last Admin: 10/29/20 15:08 Dose: Not Given Documented by: Remdesivir 200 mg/ Sodium (Chloride) 250 mls @ 250 mls/hr IV ONETIME ONE Stop: 10/29/20 15:59 Last Admin: 10/29/20 15:27 Dose: 250 mls/hr Documented by: Sodium Chloride (Normal Saline) 1,000 mls @ 50 mls/hr IV ASDIRECTED [facility] Last Admin: 10/29/20 15:21 Dose: 50 mls/hr Documented by: Remdesivir 100 mg/ Sodium (Chloride) 100 mls @ 100 mls/hr IV Q24H [facility] Stop: 11/02/20 15:59 Last Admin: 10/30/20 19:19 Dose: Not Given Documented by: Remdesivir 100 mg/ Sodium (Chloride) 100 mls @ 100 mls/hr IV Q24H [facility] Stop: 11/02/20 18:14 Last Admin: 11/02/20 17:40 Dose: 100 mls/hr Documented by: Tocilizumab 800 mg/ Sodium (Chloride) 100 mls @ 100 mls/hr IV ONETIME ONE Stop: 10/31/20 11:29 Last Admin: 10/31/20 10:45 Dose: 100 mls/hr Documented by: Insulin Aspart (Insulin Aspart 100 Units/Ml 3 Ml Pen) 0 unit SUBCUT TIDAC [facility]; Protocol Insulin Aspart (Insulin Aspart 100 Units/Ml 3 Ml Pen) 0 unit SUBCUT TIDAC [facility]; Protocol Last Admin: 11/02/20 08:52 Dose: 9 units Documented by: Insulin Aspart (Insulin Aspart 100 Units/Ml 3 Ml Pen) 5 unit SUBCUT TIDAC [facility] Last Admin: 11/03/20 09:22 Dose: 5 units Documented by: Insulin Glargine (Insulin Glargine,Human Rec. Analog 100 Units/Ml 3 Ml Pen) 5 units SUBCUT BEDTIME [facility] Last Admin: 10/30/20 23:54 Dose: 5 units Documented by: Insulin Glargine (Insulin Glargine,Human Rec. Analog 100 Units/Ml 3 Ml Pen) Confirm Administered Dose 300 units .ROUTE .STK-MED ONE Stop: 10/30/20 23:52 Last Admin: 10/31/20 00:45 Dose: Not Given Documented by: Insulin Glargine (Insulin Glargine,Human Rec. Analog 100 Units/Ml 3 Ml Pen) 10 units SUBCUT BEDTIME [facility] Last Admin: 10/31/20 21:53 Dose: 10 units Documented by: Insulin Glargine (Insulin Glargine,Human Rec. Analog 100 Units/Ml 3 Ml Pen) 15 units SUBCUT BEDTIME [facility] Last Admin: 11/01/20 20:13 Dose: 15 units Documented by: Insulin Glargine (Insulin Glargine,Human Rec. Analog 100 Units/Ml 3 Ml Pen) 20 units SUBCUT BEDTIME [facility] Last Admin: 11/02/20 22:00 Dose: 20 units Documented by: Iopamidol (Iopamidol 755 Mg/Ml 200 Ml Multipack Bottle) 100 ml IVPUSH ONETIME ONE Stop: 10/31/20 12:59 Last Admin: 10/31/20 19:36 Dose: Not Given Documented by: Iopamidol (Iopamidol 755 Mg/Ml 200 Ml Multipack Bottle) 100 ml IVPUSH ONETIME ONE Stop: 10/31/20 13:01 Last Admin: 10/31/20 19:34 Dose: Not Given Documented by: Iopamidol (Iopamidol 755 Mg/Ml 500 Ml Multipack Bottle) 100 ml IVPUSH ONETIME ONE Stop: 10/31/20 13:02 Last Admin: 10/31/20 13:02 Dose: 100 ml Documented by: Iopamidol (Iopamidol 755 Mg/Ml 500 Ml Multipack Bottle) 100 ml IVPUSH ONETIME STA Stop: 11/04/20 15:19 Last Admin: 11/04/20 15:19 Dose: 100 ml Documented by: - Exam Quality Assessment: Supplemental Oxygen, DVT Prophylaxis General: Alert, Oriented, Cooperative, No Acute Distress HEENT: Pupils Equal, Pupils Reactive, EOMI, Mucous Membr. Moist/[place] Neck: Supple, No JVD Lungs: Clear to Auscultation, Normal Respiratory Effort, Crackles (Fine crackles in left lower lobe). No: Rhonchi, Stridor Cardiovascular: Regular Rate, Regular Rhythm GI/Abdominal Exam: Normal Bowel Sounds, Soft, Non-Tender Back Exam: Normal Inspection, Full Range of Motion Extremities: Normal Inspection, Normal Range of Motion, Non-Tender, Normal Capillary Refill, Pedal Edema (1+) Peripheral Pulses: 2+: Carotid (L), Carotid (R), Dorsalis Pedis (L), Dorsalis Pedis (R) Skin: Warm, Dry, Intact Neurological: No New Focal Deficit Psy/Mental Status: Alert, Normal Affect, Normal Mood - Patient Data Lab Results Last 24 hrs: Laboratory Results - last 24 hr 11/04/20 11/05/20 11/05/20 Range/Units 18:35 12:18 18:01 WBC (4.0-11.0) K/uL RBC (4.30-5.90) M/uL Hgb (12.0-16.0) g/dL Hct (36.0-46.0) % MCV (80.0-98.0) fL MCH (27.0-32.0) pg MCHC (31.0-37.0) g/dL RDW Std Deviation (28.0-62.0) fl RDW Coeff of Ry (11.0-15.0) % Plt Count (150-400) K/uL MPV (7.40-12.00) fL Neut % (Auto) (48.0-80.0) % Lymph % (Auto) (16.0-40.0) % [place] % (Auto) (0.0-15.0) % Eos % (Auto) (0.0-7.0) % Baso % (Auto) (0.0-1.5) % Neut # (Auto) (1.4-5.7) K/uL Lymph # (Auto) (0.6-2.4) K/uL [place] # (Auto) (0.0-0.8) K/uL Eos # (Auto) (0.0-0.7) K/uL Baso # (Auto) (0.0-0.1) K/uL Nucleated RBC % /100WBC Nucleated RBCs # K/uL Sodium (136-145) mmol/L Potassium (3.5-5.1) mmol/L Chloride (98-107) mmol/L Carbon Dioxide (21.0-32.0) mmol/L BUN (7.0-18.0) mg/dL Creatinine (0.6-1.0) mg/dL Est Cr Clr Drug Dosing mL/min Estimated GFR (MDRD) ml/min Glucose (74-106) mg/dL POC Glucose 271 H 263 H (70-99) mg/dL Calcium (8.5-10.1) mg/dL Phosphorus (2.6-4.7) mg/dL Magnesium (1.8-2.4) mg/dL Procalcitonin <0.05 ng/mL 11/05/20 11/06/20 11/06/20 Range/Units 20:33 05:12 05:12 WBC 3.34 L (4.0-11.0) K/uL RBC 4.58 (4.30-5.90) M/uL Hgb 14.2 (12.0-16.0) g/dL Hct 40.6 (36.0-46.0) % MCV 88.6 (80.0-98.0) fL MCH 31.0 (27.0-32.0) pg MCHC 35.0 (31.0-37.0) g/dL RDW Std Deviation 43.4 (28.0-62.0) fl RDW Coeff of Ry 13 (11.0-15.0) % Plt Count 213 (150-400) K/uL MPV 10.10 (7.40-12.00) fL Neut % (Auto) 48.5 (48.0-80.0) % Lymph % (Auto) 41.9 H (16.0-40.0) % [place] % (Auto) 6.3 (0.0-15.0) % Eos % (Auto) 3.0 (0.0-7.0) % Baso % (Auto) 0.3 (0.0-1.5) % Neut # (Auto) 1.6 (1.4-5.7) K/uL Lymph # (Auto) 1.4 (0.6-2.4) K/uL [place] # (Auto) 0.2 (0.0-0.8) K/uL Eos # (Auto) 0.1 (0.0-0.7) K/uL Baso # (Auto) 0.0 (0.0-0.1) K/uL Nucleated RBC % 0.0 /100WBC Nucleated RBCs # 0 K/uL Sodium 138 (136-145) mmol/L Potassium 3.9 (3.5-5.1) mmol/L Chloride 105 (98-107) mmol/L Carbon Dioxide 22.7 (21.0-32.0) mmol/L BUN 20 H (7.0-18.0) mg/dL Creatinine 0.9 (0.6-1.0) mg/dL Est Cr Clr Drug Dosing 65.38 mL/min Estimated GFR (MDRD) > 60.0 ml/min Glucose 153 H (74-106) mg/dL POC Glucose 246 H (70-99) mg/dL Calcium 7.9 L (8.5-10.1) mg/dL Phosphorus 3.6 (2.6-4.7) mg/dL Magnesium 1.9 (1.8-2.4) mg/dL Procalcitonin ng/mL 11/06/20 Range/Units 06:22 WBC (4.0-11.0) K/uL RBC (4.30-5.90) M/uL Hgb (12.0-16.0) g/dL Hct (36.0-46.0) % MCV (80.0-98.0) fL MCH (27.0-32.0) pg MCHC (31.0-37.0) g/dL RDW Std Deviation (28.0-62.0) fl RDW Coeff of Ry (11.0-15.0) % Plt Count (150-400) K/uL MPV (7.40-12.00) fL Neut % (Auto) (48.0-80.0) % Lymph % (Auto) (16.0-40.0) % [place] % (Auto) (0.0-15.0) % Eos % (Auto) (0.0-7.0) % Baso % (Auto) (0.0-1.5) % Neut # (Auto) (1.4-5.7) K/uL Lymph # (Auto) (0.6-2.4) K/uL [place] # (Auto) (0.0-0.8) K/uL Eos # (Auto) (0.0-0.7) K/uL Baso # (Auto) (0.0-0.1) K/uL Nucleated RBC % /100WBC Nucleated RBCs # K/uL Sodium (136-145) mmol/L Potassium (3.5-5.1) mmol/L Chloride (98-107) mmol/L Carbon Dioxide (21.0-32.0) mmol/L BUN (7.0-18.0) mg/dL Creatinine (0.6-1.0) mg/dL Est Cr Clr Drug Dosing mL/min Estimated GFR (MDRD) ml/min Glucose (74-106) mg/dL POC Glucose 161 H (70-99) mg/dL Calcium (8.5-10.1) mg/dL Phosphorus (2.6-4.7) mg/dL Magnesium (1.8-2.4) mg/dL Procalcitonin ng/mL Result Diagrams: 11/06/20 05:12 11/06/20 05:12 Sepsis Event Note - Evaluation Sepsis Screening Result: No Definite Risk - Focused Exam Vital Signs: Vital Signs Temp Resp BP Pulse Ox 11/06/20 06:00 22 H 89 L 11/06/20 05:00 12 138/73 87 L 11/06/20 04:00 97.4 F 24 H 138/85 89 L 11/06/20 03:00 22 H 88 L 11/06/20 02:00 32 H 84 L 11/06/20 01:00 89 L 11/06/20 00:00 96.9 F 22 H 138/85 90 L 11/05/20 23:00 22 H 86 L 11/05/20 22:00 20 90 L 11/05/20 21:00 28 H 91 L 11/05/20 20:00 24 H 86 L - Problem List & Annotations (1) COVID-19 SNOMED Code(s): 039606335 Code(s): U07.1 - COVID-19 Status: Acute Current Visit: Yes (2) Hypoxia SNOMED Code(s): 476520335 Code(s): R09.02 - HYPOXEMIA Status: Acute Current Visit: Yes - Problem List Review Problem List Initiated/Reviewed/Updated: Yes - My Orders Last 24 Hours: My Active Orders 11/05/20 10:41 Echo Comp wo Cont [US] Routine 11/07/20 05:11 CBC WITH AUTO DIFF [HEME] AM MAGNESIUM [CHEM] AM PHOSPHORUS [CHEM] AM - Plan Plan:: 60 yo female with past medical history of COPD/JAZMIN admitted with acute hypoxic respiratory failure due to COVID pneumonia. 1. AHRF secondary to COVID pneumonia: Patient has completed remdesivir and Taclozimab , Patient continues to require increased oxygen, oxygen saturations overnight were 84 to 89% on pressure of 50 and 95% FiO2, was increased to 80 pressures this morning. Discussed with respiratory therapy patient increasing oxygen demand will likely benefit from BiPAP. Patient was switched to BiPAP, tolerating well, previously patient has felt quite anxious with the use of CPAP or BiPAP therefore have 0.5 mg of Ativan on board for any anxiety and agitation. We will continue to monitor closely and try to wean on BiPAP as tolerated. Currently patient on 100% with settings of 16/10. Continue with Combivent Q4HRS and Ventolin Q4Hrs as needed, continue with dexamethasone for total 10 days, DVT prophylaxis Lovenox 40 BID, Tessalon Perles for cough. If patient starts to tire out we have discussed possibility for need to convert to comfort measures as patient has strictly emphasized that she would not like to be intubated and currently is DNR/DNI. CTA was negative for any new clots;indicated some subcutaneous emphysema, will continue to monitor patient closely to ensure no compromise of airways using BiPAP. Echonondiagnostic due to poor penetration due to technically difficult scan with patient body habitus and lung lobes. Repeat chest x-ray indicated shallow inspiration infiltrates no significant yarelis nges from previous compared October 29, 2020. Continue to maintain a negative balance to avoid any chest congestion. Encourage patient to prone to recruit more airways. eICU consulted, they will continue to follow;their recommendations are much appreciated. 2. Past medical history of diabetes mellitus: Improved, 153 this morning patient remains on steroids, however will adjust long-acting and sliding scale with goals of keeping blood sugars between 140 and 180. Continue with [place] diabetic diet. 3. Constipation: Resolved, 1 bowel movement last in last 24 hours. Continue with docusate and senna, encourage fiber intake and appropriate hydration while maintaining negative fluid balance. 4. Past medical history of JAZMIN: Ensure appropriate use of either CPAP or heated high flow appropriate oxygenation overnight. 5. Past medical history of HTN/COPD: resume home meds <Kathy Vieyra - Last Filed: 11/07/20 11:32> - Patient Data Vitals - Most Recent: Last Vital Signs Temp 36.6 C 11/07/20 09:00 Pulse 77 10/31/20 04:00 Resp 23 H 11/07/20 11:00 BP 118/65 11/07/20 10:00 Pulse Ox 92 L 11/07/20 11:00 I&O - Last 24 Hours: Intake & Output 11/06/20 11/07/20 11/07/20 22:59 06:59 14:59 Intake Total 850 150 Output Total 0 Balance 850 150 Lab Results Last 24 Hours: Laboratory Results - last 24 hr 11/06/20 11/06/20 11/06/20 Range/Units 11:42 13:47 17:14 WBC (4.0-11.0) K/uL RBC (4.30-5.90) M/uL Hgb (12.0-16.0) g/dL Hct (36.0-46.0) % MCV (80.0-98.0) fL MCH (27.0-32.0) pg MCHC (31.0-37.0) g/dL RDW Std Deviation (28.0-62.0) fl RDW Coeff of Ry (11.0-15.0) % Plt Count (150-400) K/uL MPV (7.40-12.00) fL Neut % (Auto) (48.0-80.0) % Lymph % (Auto) (16.0-40.0) % [place] % (Auto) (0.0-15.0) % Eos % (Auto) (0.0-7.0) % Baso % (Auto) (0.0-1.5) % Neut # (Auto) (1.4-5.7) K/uL Lymph # (Auto) (0.6-2.4) K/uL [place] # (Auto) (0.0-0.8) K/uL Eos # (Auto) (0.0-0.7) K/uL Baso # (Auto) (0.0-0.1) K/uL Sodium (136-145) mmol/L Potassium (3.5-5.1) mmol/L Chloride (98-107) mmol/L Carbon Dioxide (21.0-32.0) mmol/L BUN (7.0-18.0) mg/dL Creatinine (0.6-1.0) mg/dL Est Cr Clr Drug Dosing mL/min Estimated GFR (MDRD) ml/min Glucose (74-106) mg/dL POC Glucose 248 H 241 H 292 H (70-99) mg/dL Calcium (8.5-10.1) mg/dL Phosphorus (2.6-4.7) mg/dL Magnesium (1.8-2.4) mg/dL 11/06/20 11/07/20 11/07/20 Range/Units 20:57 05:10 05:10 WBC 3.47 L (4.0-11.0) K/uL RBC 4.52 (4.30-5.90) M/uL Hgb 14.0 (12.0-16.0) g/dL Hct 40.6 (36.0-46.0) % MCV 89.8 (80.0-98.0) fL MCH 31.0 (27.0-32.0) pg MCHC 34.5 (31.0-37.0) g/dL RDW Std Deviation 42.8 (28.0-62.0) fl RDW Coeff of Ry 13 (11.0-15.0) % Plt Count 206 (150-400) K/uL MPV 9.40 (7.40-12.00) fL Neut % (Auto) 59.3 (48.0-80.0) % Lymph % (Auto) 27.7 (16.0-40.0) % [place] % (Auto) 8.4 (0.0-15.0) % Eos % (Auto) 4.3 (0.0-7.0) % Baso % (Auto) 0.3 (0.0-1.5) % Neut # (Auto) 2.1 (1.4-5.7) K/uL Lymph # (Auto) 1.0 (0.6-2.4) K/uL [place] # (Auto) 0.3 (0.0-0.8) K/uL Eos # (Auto) 0.2 (0.0-0.7) K/uL Baso # (Auto) 0.0 (0.0-0.1) K/uL Sodium (136-145) mmol/L Potassium (3.5-5.1) mmol/L Chloride (98-107) mmol/L Carbon Dioxide (21.0-32.0) mmol/L BUN (7.0-18.0) mg/dL Creatinine (0.6-1.0) mg/dL Est Cr Clr Drug Dosing mL/min Estimated GFR (MDRD) ml/min Glucose (74-106) mg/dL POC Glucose 230 H (70-99) mg/dL Calcium (8.5-10.1) mg/dL Phosphorus 3.6 (2.6-4.7) mg/dL Magnesium 1.9 (1.8-2.4) mg/dL 11/07/20 11/07/20 Range/Units 05:10 06:23 WBC (4.0-11.0) K/uL RBC (4.30-5.90) M/uL Hgb (12.0-16.0) g/dL Hct (36.0-46.0) % MCV (80.0-98.0) fL MCH (27.0-32.0) pg MCHC (31.0-37.0) g/dL RDW Std Deviation (28.0-62.0) fl RDW Coeff of Ry (11.0-15.0) % Plt Count (150-400) K/uL MPV (7.40-12.00) fL Neut % (Auto) (48.0-80.0) % Lymph % (Auto) (16.0-40.0) % [place] % (Auto) (0.0-15.0) % Eos % (Auto) (0.0-7.0) % Baso % (Auto) (0.0-1.5) % Neut # (Auto) (1.4-5.7) K/uL Lymph # (Auto) (0.6-2.4) K/uL [place] # (Auto) (0.0-0.8) K/uL Eos # (Auto) (0.0-0.7) K/uL Baso # (Auto) (0.0-0.1) K/uL Sodium 140 (136-145) mmol/L Potassium 4.2 (3.5-5.1) mmol/L Chloride 105 (98-107) mmol/L Carbon Dioxide 25.9 (21.0-32.0) mmol/L BUN 17 (7.0-18.0) mg/dL Creatinine 1.0 (0.6-1.0) mg/dL Est Cr Clr Drug Dosing 58.84 mL/min Estimated GFR (MDRD) 56.2 ml/min Glucose 169 H (74-106) mg/dL POC Glucose 164 H (70-99) mg/dL Calcium 8.4 L (8.5-10.1) mg/dL Phosphorus (2.6-4.7) mg/dL Magnesium (1.8-2.4) mg/dL Med Orders - Current: Current Medications Albuterol (Albuterol 8 Gm Inhaler) 0 gm INH Q4HRRT PRN PRN Reason: Shortness of Breath Last Admin: 11/06/20 02:15 Dose: 2 puff Documented by: Albuterol/Ipratropium (Albuterol/Ipratropium 4 Gm Inhalation [place]) 0 gm INH Q4H [facility] Last Admin: 11/07/20 10:30 Dose: 1 puff Documented by: Benzonatate (Benzonatate 100 Mg Cap) 100 mg PO Q6H PRN PRN Reason: Cough Last Admin: 11/07/20 09:26 Dose: 100 mg Documented by: Dexamethasone (Dexamethasone 4 Mg Tab) 6 mg PO DAILY [facility] Last Admin: 11/07/20 09:09 Dose: 6 mg Documented by: Dextrose/Water (50% Dextrose In Water 50 Ml Syringe) 50 ml IVPUSH ASDIRECTED PRN PRN Reason: Hypoglycemia Docusate Sodium (Docusate Sodium 100 Mg Cap) 100 mg PO Q12H PRN PRN Reason: Constipation Enoxaparin Sodium (Enoxaparin 40 Mg/0.4 Ml Syringe) 40 mg SUBCUT Q12H [facility] Last Admin: 11/06/20 22:32 Dose: 40 mg Documented by: Glucagon (Glucagon,Human Recombinant 1 Mg Vial) 1 mg IM ASDIRECTED PRN PRN Reason: Hypoglycemia Insulin Aspart (Insulin Aspart 100 Units/Ml 3 Ml Pen) 0 unit SUBCUT TIDAC [facility]; Protocol Last Admin: 11/07/20 09:07 Dose: 2 units Documented by: Insulin Aspart (Insulin Aspart 100 Units/Ml 3 Ml Pen) 6 unit SUBCUT TIDAC [facility] Last Admin: 11/07/20 09:06 Dose: 6 units Documented by: Insulin Glargine (Insulin Glargine,Human Rec. Analog 100 Units/Ml 3 Ml Pen) 24 units SUBCUT BEDTIME [facility] Last Admin: 11/06/20 21:03 Dose: 24 units Documented by: Lorazepam (Lorazepam 2 Mg/Ml Sdv) 0.5 mg IVPUSH Q4H PRN PRN Reason: Anxiety Last Admin: 11/06/20 22:58 Dose: 0.5 mg Documented by: Losartan Potassium (Losartan 50 Mg Tab) 25 mg PO DAILY [facility] Last Admin: 11/07/20 09:09 Dose: 25 mg Documented by: Montelukast Sodium (Montelukast 10 Mg Tab) 10 mg PO BEDTIME [facility] Last Admin: 11/06/20 21:02 Dose: 10 mg Documented by: Omeprazole (Omeprazole 20 Mg Cap.Cr) 20 mg PO BIDAC [facility] Last Admin: 11/07/20 09:09 Dose: 20 mg Documented by: Budesonide/Formoterol 160-4.5 Mcg/Puff 6 Gm Inhaler 0 each INH BID [facility] Senna (Sennosides 8.6 Mg Tab) 8.6 mg PO Q12H PRN PRN Reason: Constipation Sodium Chloride (Sodium Chloride 0.9% 2.5 Ml Syringe) 2.5 ml FLUSH ASDIRECTED PRN PRN Reason: Keep Vein Open Discontinued Medications Albuterol (Albuterol 8 Gm Inhaler) 0 gm INH Q4H PRN PRN Reason: Shortness of Breath Last Admin: 10/31/20 05:25 Dose: 2 puff Documented by: Albuterol/Ipratropium (Albuterol/Ipratropium 4 Gm Inhalation [place]) 0 gm INH Q6HRRT [facility] Last Admin: 11/03/20 06:16 Dose: 1 puff Documented by: Budesonide/Formoterol Fumarate (Budesonide/Formoterol 160-4.5 Mcg/Puff 6 Gm Inhaler) 0 gm INH BID [facility] Last Admin: 11/07/20 09:15 Dose: Not Given Documented by: Ciprofloxacin (Ciprofloxacin 250 Mg Tab) 250 mg PO BID [facility] Last Admin: 11/04/20 08:30 Dose: 250 mg Documented by: Dexamethasone (Dexamethasone 10 Mg/Ml Sdv) 10 mg IVPUSH ONETIME ONE Stop: 10/29/20 14:49 Last Admin: 10/29/20 15:22 Dose: 10 mg Documented by: Enoxaparin Sodium (Enoxaparin 40 Mg/0.4 Ml Syringe) 40 mg SUBCUT Q24H [facility] Last Admin: 10/29/20 22:29 Dose: 40 mg Documented by: Furosemide (Furosemide 20 Mg/2 Ml Vial) 20 mg IVPUSH NOW ONE Stop: 11/03/20 12:07 Last Admin: 11/03/20 12:42 Dose: 20 mg Documented by: Remdesivir 200 mg/ Sodium (Chloride) 250 mls @ 250 mls/hr IV ONETIME ONE Stop: 10/29/20 14:48 Last Admin: 10/29/20 15:08 Dose: Not Given Documented by: Remdesivir 200 mg/ Sodium (Chloride) 250 mls @ 250 mls/hr IV ONETIME ONE Stop: 10/29/20 15:59 Last Admin: 10/29/20 15:27 Dose: 250 mls/hr Documented by: Sodium Chloride (Normal Saline) 1,000 mls @ 50 mls/hr IV ASDIRECTED [facility] Last Admin: 10/29/20 15:21 Dose: 50 mls/hr Documented by: Remdesivir 100 mg/ Sodium (Chloride) 100 mls @ 100 mls/hr IV Q24H [facility] Stop: 11/02/20 15:59 Last Admin: 10/30/20 19:19 Dose: Not Given Documented by: Remdesivir 100 mg/ Sodium (Chloride) 100 mls @ 100 mls/hr IV Q24H [facility] Stop: 11/02/20 18:14 Last Admin: 11/02/20 17:40 Dose: 100 mls/hr Documented by: Tocilizumab 800 mg/ Sodium (Chloride) 100 mls @ 100 mls/hr IV ONETIME ONE Stop: 10/31/20 11:29 Last Admin: 10/31/20 10:45 Dose: 100 mls/hr Documented by: Insulin Aspart (Insulin Aspart 100 Units/Ml 3 Ml Pen) 0 unit SUBCUT TIDAC [facility]; Protocol Insulin Aspart (Insulin Aspart 100 Units/Ml 3 Ml Pen) 0 unit SUBCUT TIDAC [facility]; Protocol Last Admin: 11/02/20 08:52 Dose: 9 units Documented by: Insulin Aspart (Insulin Aspart 100 Units/Ml 3 Ml Pen) 5 unit SUBCUT TIDAC [facility] Last Admin: 11/03/20 09:22 Dose: 5 units Documented by: Insulin Glargine (Insulin Glargine,Human Rec. Analog 100 Units/Ml 3 Ml Pen) 5 units SUBCUT BEDTIME [facility] Last Admin: 10/30/20 23:54 Dose: 5 units Documented by: Insulin Glargine (Insulin Glargine,Human Rec. Analog 100 Units/Ml 3 Ml Pen) Confirm Administered Dose 300 units .ROUTE .STK-MED ONE Stop: 10/30/20 23:52 Last Admin: 10/31/20 00:45 Dose: Not Given Documented by: Insulin Glargine (Insulin Glargine,Human Rec. Analog 100 Units/Ml 3 Ml Pen) 10 units SUBCUT BEDTIME [facility] Last Admin: 10/31/20 21:53 Dose: 10 units Documented by: Insulin Glargine (Insulin Glargine,Human Rec. Analog 100 Units/Ml 3 Ml Pen) 15 units SUBCUT BEDTIME [facility] Last Admin: 11/01/20 20:13 Dose: 15 units Documented by: Insulin Glargine (Insulin Glargine,Human Rec. Analog 100 Units/Ml 3 Ml Pen) 20 units SUBCUT BEDTIME [facility] Last Admin: 11/02/20 22:00 Dose: 20 units Documented by: Iopamidol (Iopamidol 755 Mg/Ml 200 Ml Multipack Bottle) 100 ml IVPUSH ONETIME ONE Stop: 10/31/20 12:59 Last Admin: 10/31/20 19:36 Dose: Not Given Documented by: Iopamidol (Iopamidol 755 Mg/Ml 200 Ml Multipack Bottle) 100 ml IVPUSH ONETIME ONE Stop: 10/31/20 13:01 Last Admin: 10/31/20 19:34 Dose: Not Given Documented by: Iopamidol (Iopamidol 755 Mg/Ml 500 Ml Multipack Bottle) 100 ml IVPUSH ONETIME ONE Stop: 10/31/20 13:02 Last Admin: 10/31/20 13:02 Dose: 100 ml Documented by: Iopamidol (Iopamidol 755 Mg/Ml 500 Ml Multipack Bottle) 100 ml IVPUSH ONETIME STA Stop: 11/04/20 15:19 Last Admin: 11/04/20 15:19 Dose: 100 ml Documented by: Budesonide/Formoterol 160-4.5 Mcg/Puff 6 Gm Inhaler 0 each INH BID [facility] - Patient Data Lab Results Last 24 hrs: Laboratory Results - last 24 hr 11/06/20 11/06/20 11/06/20 Range/Units 11:42 13:47 17:14 WBC (4.0-11.0) K/uL RBC (4.30-5.90) M/uL Hgb (12.0-16.0) g/dL Hct (36.0-46.0) % MCV (80.0-98.0) fL MCH (27.0-32.0) pg MCHC (31.0-37.0) g/dL RDW Std Deviation (28.0-62.0) fl RDW Coeff of Ry (11.0-15.0) % Plt Count (150-400) K/uL MPV (7.40-12.00) fL Neut % (Auto) (48.0-80.0) % Lymph % (Auto) (16.0-40.0) % [place] % (Auto) (0.0-15.0) % Eos % (Auto) (0.0-7.0) % Baso % (Auto) (0.0-1.5) % Neut # (Auto) (1.4-5.7) K/uL Lymph # (Auto) (0.6-2.4) K/uL [place] # (Auto) (0.0-0.8) K/uL Eos # (Auto) (0.0-0.7) K/uL Baso # (Auto) (0.0-0.1) K/uL Sodium (136-145) mmol/L Potassium (3.5-5.1) mmol/L Chloride (98-107) mmol/L Carbon Dioxide (21.0-32.0) mmol/L BUN (7.0-18.0) mg/dL Creatinine (0.6-1.0) mg/dL Est Cr Clr Drug Dosing mL/min Estimated GFR (MDRD) ml/min Glucose (74-106) mg/dL POC Glucose 248 H 241 H 292 H (70-99) mg/dL Calcium (8.5-10.1) mg/dL Phosphorus (2.6-4.7) mg/dL Magnesium (1.8-2.4) mg/dL 11/06/20 11/07/20 11/07/20 Range/Units 20:57 05:10 05:10 WBC 3.47 L (4.0-11.0) K/uL RBC 4.52 (4.30-5.90) M/uL Hgb 14.0 (12.0-16.0) g/dL Hct 40.6 (36.0-46.0) % MCV 89.8 (80.0-98.0) fL MCH 31.0 (27.0-32.0) pg MCHC 34.5 (31.0-37.0) g/dL RDW Std Deviation 42.8 (28.0-62.0) fl RDW Coeff of Ry 13 (11.0-15.0) % Plt Count 206 (150-400) K/uL MPV 9.40 (7.40-12.00) fL Neut % (Auto) 59.3 (48.0-80.0) % Lymph % (Auto) 27.7 (16.0-40.0) % [place] % (Auto) 8.4 (0.0-15.0) % Eos % (Auto) 4.3 (0.0-7.0) % Baso % (Auto) 0.3 (0.0-1.5) % Neut # (Auto) 2.1 (1.4-5.7) K/uL Lymph # (Auto) 1.0 (0.6-2.4) K/uL [place] # (Auto) 0.3 (0.0-0.8) K/uL Eos # (Auto) 0.2 (0.0-0.7) K/uL Baso # (Auto) 0.0 (0.0-0.1) K/uL Sodium (136-145) mmol/L Potassium (3.5-5.1) mmol/L Chloride (98-107) mmol/L Carbon Dioxide (21.0-32.0) mmol/L BUN (7.0-18.0) mg/dL Creatinine (0.6-1.0) mg/dL Est Cr Clr Drug Dosing mL/min Estimated GFR (MDRD) ml/min Glucose (74-106) mg/dL POC Glucose 230 H (70-99) mg/dL Calcium (8.5-10.1) mg/dL Phosphorus 3.6 (2.6-4.7) mg/dL Magnesium 1.9 (1.8-2.4) mg/dL 11/07/20 11/07/20 Range/Units 05:10 06:23 WBC (4.0-11.0) K/uL RBC (4.30-5.90) M/uL Hgb (12.0-16.0) g/dL Hct (36.0-46.0) % MCV (80.0-98.0) fL MCH (27.0-32.0) pg MCHC (31.0-37.0) g/dL RDW Std Deviation (28.0-62.0) fl RDW Coeff of Ry (11.0-15.0) % Plt Count (150-400) K/uL MPV (7.40-12.00) fL Neut % (Auto) (48.0-80.0) % Lymph % (Auto) (16.0-40.0) % [place] % (Auto) (0.0-15.0) % Eos % (Auto) (0.0-7.0) % Baso % (Auto) (0.0-1.5) % Neut # (Auto) (1.4-5.7) K/uL Lymph # (Auto) (0.6-2.4) K/uL [place] # (Auto) (0.0-0.8) K/uL Eos # (Auto) (0.0-0.7) K/uL Baso # (Auto) (0.0-0.1) K/uL Sodium 140 (136-145) mmol/L Potassium 4.2 (3.5-5.1) mmol/L Chloride 105 (98-107) mmol/L Carbon Dioxide 25.9 (21.0-32.0) mmol/L BUN 17 (7.0-18.0) mg/dL Creatinine 1.0 (0.6-1.0) mg/dL Est Cr Clr Drug Dosing 58.84 mL/min Estimated GFR (MDRD) 56.2 ml/min Glucose 169 H (74-106) mg/dL POC Glucose 164 H (70-99) mg/dL Calcium 8.4 L (8.5-10.1) mg/dL Phosphorus (2.6-4.7) mg/dL Magnesium (1.8-2.4) mg/dL Result Diagrams: 11/07/20 05:10 11/07/20 05:10 Sepsis Event Note - Focused Exam Vital Signs: Vital Signs Temp Resp BP BP Pulse Ox Pulse Ox 11/07/20 11:00 23 H 92 L 11/07/20 10:00 24 H 118/65 94 L 11/07/20 09:09 115/66 11/07/20 09:00 36.6 C 21 H 115/66 84 L 11/07/20 08:00 36.5 C 21 H 128/68 90 L 11/07/20 07:00 20 146/72 H 92 L 11/07/20 06:00 21 H 144/74 H 86 L 88 L 11/07/20 05:00 22 H 89 L 11/07/20 04:00 35.8 C L 21 H 161/91 H 89 L 11/07/20 03:00 21 H 90 L 11/07/20 02:00 21 H 88 L 11/07/20 01:00 20 149/81 H 91 L 11/07/20 00:00 36.2 C 22 H 91 L - Problem List & Annotations (1) Acute respiratory failure with hypoxia SNOMED Code(s): 90775601, 011358986 Code(s): J96.01 - ACUTE RESPIRATORY FAILURE WITH HYPOXIA Status: Acute Current Visit: Yes (2) COVID-19 SNOMED Code(s): 961954323 Code(s): U07.1 - COVID-19 Status: Acute Current Visit: Yes (3) Hypoxia SNOMED Code(s): 186426530 Code(s): R09.02 - HYPOXEMIA Status: Acute Current Visit: Yes - Plan Plan:: I have seen and evaluated the patient and agree with the residents note unless specified in my note
[2020-11-06] MEDS: Dexamethasone 4 MG Tab PO SCH (08:19)
[2020-11-06] MEDS: Omeprazole 20 MG Cap.CR PO SCH ×2 (08:19→17:10)
[2020-11-06] MEDS: Insulin Aspart 100 Units/ML 3 ML Pen SUBCUT SCH ×6 (08:34→18:12)
[2020-11-06] MEDS: Losartan 50 MG Tab PO SCH (08:36)
[2020-11-06] MEDS: Budesonide/Formoterol 160-4.5 MCG/Puff 6 GM Inhaler INH SCH (08:50)
[2020-11-06] MEDS: Benzonatate 100 MG Cap PO PRN ×2 (09:39→21:02)
[2020-11-06] MEDS: Enoxaparin 40 MG/0.4 ML Syringe SUBCUT SCH ×2 (11:34→22:32)
[2020-11-06] MEDS: Montelukast 10 MG Tab PO SCH (21:02)
[2020-11-06] MEDS: Insulin Glargine,Human Rec. Analog 100 Units/ML 3 ML Pen SUBCUT SCH (21:03)
[2020-11-06] MEDS: LORazepam 2 MG/ML SDV IVPUSH PRN (22:58)
[2020-11-07] MEDS: Albuterol/Ipratropium 4 GM Inhalation Spray INH SCH ×7 (02:12→21:01)
[2020-11-07] MEDS: Budesonide/Formoterol 160-4.5 MCG/Puff 6 GM Inhaler INH SCH ×4 (06:14→20:36)
[2020-11-07 06:56] LABS: CARBON DIOXIDE,CO2 25.9 mmol/L (21.0-32.0); POTASSIUM,K 4.2 mmol/L (3.5-5.1)
[2020-11-07] MEDS: Insulin Aspart 100 Units/ML 3 ML Pen SUBCUT SCH ×6 (09:06→18:30)
[2020-11-07] MEDS: Omeprazole 20 MG Cap.CR PO SCH ×2 (09:09→18:30)
[2020-11-07] MEDS: Dexamethasone 4 MG Tab PO SCH (09:09)
[2020-11-07] MEDS: Losartan 50 MG Tab PO SCH (09:09)
[2020-11-07] MEDS: Benzonatate 100 MG Cap PO PRN ×2 (09:26→18:30)
[2020-11-07] MEDS ORDERED: Budesonide/Formoterol 160-4.5 MCG/Puff 6 GM Inhaler INH SCH (11:09)
--- NOTE | 2020-11-07 11:30 | PN ---
[facility] Physician - Brief Progress [id number]/25/2021 11:16[facility] [place], [place] - LUZ (ARIANA) - LUZ MORENOANNA BROWNING EdDate of Service 11/07/2020 11:16HPI/Events of Note Brief eICU NoteEMR reviewed.60yo female h/o COPD, JAZMIN admitted on 10/29 for hypoxemic respirat ory failure due to COVID. Received Remdesivir and Tocilizumab. On dexamethasone and Lovenox 40 BID. SC air noted on recent imaging. Patient being treated with bronchodilators.Patient seen on camera: older obese female sitting up in bed on bipap in NAD36.5 83 115/66 22 94%Bipap 16//90%, TV 500sLab s reviewed. Last ABG 7.46/34/56 on 11/03/20.Hypoxemic respiratory failure: Recommend follow up ABG o n current bipap settings. Given SC air, you could probably back off on pressures, say decrease to 14 /8 or even lower unless these bipap settings are what the patient uses at home and she is comfortable with them. Goal pO2 55-70, can probably back off on FiO2 as well, ABG would help with management an d I am ordering it. Recommend self proning as tolerated to see if that helps with oxygenation. If p atient cannot tolerate lying on her belly then turning from side to side may also make a difference.D NR/DNIPlease contact us if we may be of assistance.Interventions Major-Respiratory failure - evaluati on and managementMinor-Clinical assessment - ordering diagnostic tests
[2020-11-07] MEDS: Enoxaparin 40 MG/0.4 ML Syringe SUBCUT SCH ×2 (11:55→23:52)
[2020-11-07] MEDS ORDERED: Furosemide 20 MG/2 ML VIAL IVPUSH ONE (13:02)
--- NOTE | 2020-11-07 13:04 | PCM.PN ---
<Isabel Eason - Last Filed: 11/07/20 13:52> - General Info Date of Service: 11/07/20 Admission Dx/Problem (Free Text): Admission Diagnosis/Problem Admission Diagnosis/Problem acute hypoxic respiratory failure secondary to Covid pneumonia Subjective Update: 60-year-old female admitted for acute hypoxic respiratory failure secondary to Covid pneumonia. on heated high flow, tolerating it well, no chest pain, patient states that she feels fine. Functional Status: Reports: Tolerating Diet, New Symptoms, Incentive Spirometry - Review of Systems General: Reports: No Symptoms HEENT: Reports: No Symptoms Pulmonary: Reports: Cough, Sputum, Other (Requiring BiPAP oxygen support) Cardiovascular: Reports: No Symptoms Gastrointestinal: Reports: No Symptoms Genitourinary: Reports: No Symptoms Musculoskeletal: Reports: No Symptoms Skin: Reports: No Symptoms Neurological: Reports: No Symptoms Psychiatric: Reports: No Symptoms - Patient Data Vitals - Most Recent: Last Vital Signs Temp 97.5 F 11/07/20 12:00 Pulse 77 10/31/20 04:00 Resp 25 H 11/07/20 12:00 BP 146/70 H 11/07/20 12:00 Pulse Ox 91 L 11/07/20 12:00 Weight - Most Recent: 175.767 kg I&O - Last 24 Hours: Intake & Output 11/06/20 11/07/20 11/07/20 22:59 06:59 14:59 Intake Total 850 150 Output Total 0 Balance 850 150 Lab Results Last 24 Hours: Laboratory Results - last 24 hr 11/06/20 11/06/20 11/06/20 Range/Units 13:47 17:14 20:57 WBC (4.0-11.0) K/uL RBC (4.30-5.90) M/uL Hgb (12.0-16.0) g/dL Hct (36.0-46.0) % MCV (80.0-98.0) fL MCH (27.0-32.0) pg MCHC (31.0-37.0) g/dL RDW Std Deviation (28.0-62.0) fl RDW Coeff of Ry (11.0-15.0) % Plt Count (150-400) K/uL MPV (7.40-12.00) fL Neut % (Auto) (48.0-80.0) % Lymph % (Auto) (16.0-40.0) % Cherry % (Auto) (0.0-15.0) % Eos % (Auto) (0.0-7.0) % Baso % (Auto) (0.0-1.5) % Neut # (Auto) (1.4-5.7) K/uL Lymph # (Auto) (0.6-2.4) K/uL Cherry # (Auto) (0.0-0.8) K/uL Eos # (Auto) (0.0-0.7) K/uL Baso # (Auto) (0.0-0.1) K/uL Sodium (136-145) mmol/L Potassium (3.5-5.1) mmol/L Chloride (98-107) mmol/L Carbon Dioxide (21.0-32.0) mmol/L BUN (7.0-18.0) mg/dL Creatinine (0.6-1.0) mg/dL Est Cr Clr Drug Dosing mL/min Estimated GFR (MDRD) ml/min Glucose (74-106) mg/dL POC Glucose 241 H 292 H 230 H (70-99) mg/dL Calcium (8.5-10.1) mg/dL Phosphorus (2.6-4.7) mg/dL Magnesium (1.8-2.4) mg/dL 11/07/20 11/07/20 11/07/20 Range/Units 05:10 05:10 05:10 WBC 3.47 L (4.0-11.0) K/uL RBC 4.52 (4.30-5.90) M/uL Hgb 14.0 (12.0-16.0) g/dL Hct 40.6 (36.0-46.0) % MCV 89.8 (80.0-98.0) fL MCH 31.0 (27.0-32.0) pg MCHC 34.5 (31.0-37.0) g/dL RDW Std Deviation 42.8 (28.0-62.0) fl RDW Coeff of Ry 13 (11.0-15.0) % Plt Count 206 (150-400) K/uL MPV 9.40 (7.40-12.00) fL Neut % (Auto) 59.3 (48.0-80.0) % Lymph % (Auto) 27.7 (16.0-40.0) % Cherry % (Auto) 8.4 (0.0-15.0) % Eos % (Auto) 4.3 (0.0-7.0) % Baso % (Auto) 0.3 (0.0-1.5) % Neut # (Auto) 2.1 (1.4-5.7) K/uL Lymph # (Auto) 1.0 (0.6-2.4) K/uL Cherry # (Auto) 0.3 (0.0-0.8) K/uL Eos # (Auto) 0.2 (0.0-0.7) K/uL Baso # (Auto) 0.0 (0.0-0.1) K/uL Sodium 140 (136-145) mmol/L Potassium 4.2 (3.5-5.1) mmol/L Chloride 105 (98-107) mmol/L Carbon Dioxide 25.9 (21.0-32.0) mmol/L BUN 17 (7.0-18.0) mg/dL Creatinine 1.0 (0.6-1.0) mg/dL Est Cr Clr Drug Dosing 58.84 mL/min Estimated GFR (MDRD) 56.2 ml/min Glucose 169 H (74-106) mg/dL POC Glucose (70-99) mg/dL Calcium 8.4 L (8.5-10.1) mg/dL Phosphorus 3.6 (2.6-4.7) mg/dL Magnesium 1.9 (1.8-2.4) mg/dL 11/07/20 11/07/20 Range/Units 06:23 11:54 WBC (4.0-11.0) K/uL RBC (4.30-5.90) M/uL Hgb (12.0-16.0) g/dL Hct (36.0-46.0) % MCV (80.0-98.0) fL MCH (27.0-32.0) pg MCHC (31.0-37.0) g/dL RDW Std Deviation (28.0-62.0) fl RDW Coeff of Ry (11.0-15.0) % Plt Count (150-400) K/uL MPV (7.40-12.00) fL Neut % (Auto) (48.0-80.0) % Lymph % (Auto) (16.0-40.0) % Cherry % (Auto) (0.0-15.0) % Eos % (Auto) (0.0-7.0) % Baso % (Auto) (0.0-1.5) % Neut # (Auto) (1.4-5.7) K/uL Lymph # (Auto) (0.6-2.4) K/uL Cherry # (Auto) (0.0-0.8) K/uL Eos # (Auto) (0.0-0.7) K/uL Baso # (Auto) (0.0-0.1) K/uL Sodium (136-145) mmol/L Potassium (3.5-5.1) mmol/L Chloride (98-107) mmol/L Carbon Dioxide (21.0-32.0) mmol/L BUN (7.0-18.0) mg/dL Creatinine (0.6-1.0) mg/dL Est Cr Clr Drug Dosing mL/min Estimated GFR (MDRD) ml/min Glucose (74-106) mg/dL POC Glucose 164 H 199 H (70-99) mg/dL Calcium (8.5-10.1) mg/dL Phosphorus (2.6-4.7) mg/dL Magnesium (1.8-2.4) mg/dL Med Orders - Current: Current Medications Albuterol (Albuterol 8 Gm Inhaler) 0 gm INH Q4HRRT PRN PRN Reason: Shortness of Breath Last Admin: 11/06/20 02:15 Dose: 2 puff Documented by: Albuterol/Ipratropium (Albuterol/Ipratropium 4 Gm Inhalation Leggett) 0 gm INH Q4H [facility] Last Admin: 11/07/20 10:30 Dose: 1 puff Documented by: Benzonatate (Benzonatate 100 Mg Cap) 100 mg PO Q6H PRN PRN Reason: Cough Last Admin: 11/07/20 09:26 Dose: 100 mg Documented by: Dexamethasone (Dexamethasone 4 Mg Tab) 6 mg PO DAILY [facility] Last Admin: 11/07/20 09:09 Dose: 6 mg Documented by: Dextrose/Water (50% Dextrose In Water 50 Ml Syringe) 50 ml IVPUSH ASDIRECTED PRN PRN Reason: Hypoglycemia Docusate Sodium (Docusate Sodium 100 Mg Cap) 100 mg PO Q12H PRN PRN Reason: Constipation Enoxaparin Sodium (Enoxaparin 40 Mg/0.4 Ml Syringe) 40 mg SUBCUT Q12H [facility] Last Admin: 11/07/20 11:55 Dose: 40 mg Documented by: Furosemide (Furosemide 20 Mg/2 Ml Vial) 20 mg IVPUSH ONETIME ONE Stop: 11/07/20 13:03 Glucagon (Glucagon,Human Recombinant 1 Mg Vial) 1 mg IM ASDIRECTED PRN PRN Reason: Hypoglycemia Insulin Aspart (Insulin Aspart 100 Units/Ml 3 Ml Pen) 0 unit SUBCUT TIDAC [facility]; Protocol Last Admin: 11/07/20 09:07 Dose: 2 units Documented by: Insulin Aspart (Insulin Aspart 100 Units/Ml 3 Ml Pen) 6 unit SUBCUT TIDAC [facility] [place] Last Admin: 11/07/20 09:06 Dose: 6 units Documented by: Insulin Glargine (Insulin Glargine,Human Rec. Analog 100 Units/Ml 3 Ml Pen) 24 units SUBCUT BEDTIME [facility] Last Admin: 11/06/20 21:03 Dose: 24 units Documented by: Lorazepam (Lorazepam 2 Mg/Ml Sdv) 0.5 mg IVPUSH Q4H PRN PRN Reason: Anxiety Last Admin: 11/06/20 22:58 Dose: 0.5 mg Documented by: Losartan Potassium (Losartan 50 Mg Tab) 25 mg PO DAILY [facility] Last Admin: 11/07/20 09:09 Dose: 25 mg Documented by: Montelukast Sodium (Montelukast 10 Mg Tab) 10 mg PO BEDTIME [facility] Last Admin: 11/06/20 21:02 Dose: 10 mg Documented by: Omeprazole (Omeprazole 20 Mg Cap.Cr) 20 mg PO BIDAC [facility] [place] Last Admin: 11/07/20 09:09 Dose: 20 mg Documented by: Budesonide/Formoterol 160-4.5 Mcg/Puff 6 Gm Inhaler 0 each INH BID [facility] Last Admin: 11/07/20 12:17 Dose: 1 each Documented by: Senna (Sennosides 8.6 Mg Tab) 8.6 mg PO Q12H PRN PRN Reason: Constipation Sodium Chloride (Sodium Chloride 0.9% 2.5 Ml Syringe) 2.5 ml FLUSH ASDIRECTED PRN PRN Reason: Keep Vein Open Discontinued Medications Albuterol (Albuterol 8 Gm Inhaler) 0 gm INH Q4H PRN PRN Reason: Shortness of Breath Last Admin: 10/31/20 05:25 Dose: 2 puff Documented by: Albuterol/Ipratropium (Albuterol/Ipratropium 4 Gm Inhalation [place]gett) 0 gm INH Q6HRRT [facility] [place] Last Admin: 11/03/20 06:16 Dose: 1 puff Documented by: Budesonide/Formoterol Fumarate (Budesonide/Formoterol 160-4.5 Mcg/Puff 6 Gm Inha ler) 0 gm INH BID [facility] [place] Last Admin: 11/07/20 09:15 Dose: Not Given Documented by: Ciprofloxacin (Ciprofloxacin 250 Mg Tab) 250 mg PO BID [facility] [place] Last Admin: 11/04/20 08:30 Dose: 250 mg Documented by: Dexamethasone (Dexamethasone 10 Mg/Ml Sdv) 10 mg IVPUSH ONETIME ONE Stop: 10/29/20 14:49 Last Admin: 10/29/20 15:22 Dose: 10 mg Documented by: Enoxaparin Sodium (Enoxaparin 40 Mg/0.4 Ml Syringe) 40 mg SUBCUT Q24H [facility] [place] Last Admin: 10/29/20 22:29 Dose: 40 mg Documented by: Furosemide (Furosemide 20 Mg/2 Ml Vial) 20 mg IVPUSH NOW ONE Stop: 11/03/20 12:07 Last Admin: 11/03/20 12:42 Dose: 20 mg Documented by: Remdesivir 200 mg/ Sodium (Chloride) 250 mls @ 250 mls/hr IV ONETIME ONE Stop: 10/29/20 14:48 Last Admin: 10/29/20 15:08 Dose: Not Given Documented by: Remdesivir 200 mg/ Sodium (Chloride) 250 mls @ 250 mls/hr IV ONETIME ONE Stop: 10/29/20 15:59 Last Admin: 10/29/20 15:27 Dose: 250 mls/hr Documented by: Sodium Chloride (Normal Saline) 1,000 mls @ 50 mls/hr IV ASDIRECTED [facility] Last Admin: 10/29/20 15:21 Dose: 50 mls/hr Documented by: Remdesivir 100 mg/ Sodium (Chloride) 100 mls @ 100 mls/hr IV Q24H [facility] Stop: 11/02/20 15:59 Last Admin: 10/30/20 19:19 Dose: Not Given Documented by: Remdesivir 100 mg/ Sodium (Chloride) 100 mls @ 100 mls/hr IV Q24H [facility] Stop: 11/02/20 18:14 Last Admin: 11/02/20 17:40 Dose: 100 mls/hr Documented by: Tocilizumab 800 mg/ Sodium (Chloride) 100 mls @ 100 mls/hr IV ONETIME ONE Stop: 10/31/20 11:29 Last Admin: 10/31/20 10:45 Dose: 100 mls/hr Documented by: Insulin Aspart (Insulin Aspart 100 Units/Ml 3 Ml Pen) 0 unit SUBCUT TIDAC [facility]; Protocol Insulin Aspart (Insulin Aspart 100 Units/Ml 3 Ml Pen) 0 unit SUBCUT TIDAC [facility]; Protocol Last Admin: 11/02/20 08:52 Dose: 9 units Documented by: Insulin Aspart (Insulin Aspart 100 Units/Ml 3 Ml Pen) 5 unit SUBCUT TIDAC [facility] [place] Last Admin: 11/03/20 09:22 Dose: 5 units Documented by: Insulin Glargine (Insulin Glargine,Human Rec. Analog 100 Units/Ml 3 Ml Pen) 5 units SUBCUT BEDTIME [facility] [place] Last Admin: 10/30/20 23:54 Dose: 5 units Documented by: Insulin Glargine (Insulin Glargine,Human Rec. Analog 100 Units/Ml 3 Ml Pen) Confirm Administered Dose 300 units .ROUTE .STK-MED ONE Stop: 10/30/20 23:52 Last Admin: 10/31/20 00:45 Dose: Not Given Documented by: Insulin Glargine (Insulin Glargine,Human Rec. Analog 100 Units/Ml 3 Ml Pen) 10 units SUBCUT BEDTIME [facility] [place] Last Admin: 10/31/20 21:53 Dose: 10 units Documented by: Insulin Glargine (Insulin Glargine,Human Rec. Analog 100 Units/Ml 3 Ml Pen) 15 units SUBCUT BEDTIME [facility] [place] Last Admin: 11/01/20 20:13 Dose: 15 units Documented by: Insulin Glargine (Insulin Glargine,Human Rec. Analog 100 Units/Ml 3 Ml Pen) 20 units SUBCUT BEDTIME [facility] Last Admin: 11/02/20 22:00 Dose: 20 units Documented by: Iopamidol (Iopamidol 755 Mg/Ml 200 Ml Multipack Bottle) 100 ml IVPUSH ONETIME ONE Stop: 10/31/20 12:59 Last Admin: 10/31/20 19:36 Dose: Not Given Documented by: Iopamidol (Iopamidol 755 Mg/Ml 200 Ml Multipack Bottle) 100 ml IVPUSH ONETIME ONE Stop: 10/31/20 13:01 Last Admin: 10/31/20 19:34 Dose: Not Given Documented by: Iopamidol (Iopamidol 755 Mg/Ml 500 Ml Multipack Bottle) 100 ml IVPUSH ONETIME ONE Stop: 10/31/20 13:02 Last Admin: 10/31/20 13:02 Dose: 100 ml Documented by: Iopamidol (Iopamidol 755 Mg/Ml 500 Ml Multipack Bottle) 100 ml IVPUSH ONETIME STA Stop: 11/04/20 15:19 Last Admin: 11/04/20 15:19 Dose: 100 ml Documented by: Budesonide/Formoterol 160-4.5 Mcg/Puff 6 Gm Inhaler 0 each INH BID [facility] - Exam Quality Assessment: Supplemental Oxygen, DVT Prophylaxis General: Alert, Oriented, Cooperative, No Acute Distress HEENT: Pupils Equal, Pupils Reactive, EOMI, Mucous Membr. Moist/[place] Neck: Supple, Trachea Midline, No JVD Lungs: Clear to Auscultation, Normal Respiratory Effort Cardiovascular: Regular Rate, Regular Rhythm GI/Abdominal Exam: Normal Bowel Sounds, Soft, Non-Tender Back Exam: Normal Inspection, Full Range of Motion Extremities: Normal Inspection, Normal Range of Motion, Non-Tender, No Pedal Edema, Normal Capillary Refill Peripheral Pulses: 2+: Carotid (L), Carotid (R), Dorsalis Pedis (L), Dorsalis Pedis (R) Skin: Warm, Dry, Intact Neurological: No New Focal Deficit Psy/Mental Status: Alert, Normal Affect, Normal Mood - Patient Data Lab Results Last 24 hrs: Laboratory Results - last 24 hr 11/06/20 11/06/20 11/06/20 Range/Units 13:47 17:14 20:57 WBC (4.0-11.0) K/uL RBC (4.30-5.90) M/uL Hgb (12.0-16.0) g/dL Hct (36.0-46.0) % MCV (80.0-98.0) fL MCH (27.0-32.0) pg MCHC (31.0-37.0) g/dL RDW Std Deviation (28.0-62.0) fl RDW Coeff of Ry (11.0-15.0) % Plt Count (150-400) K/uL MPV (7.40-12.00) fL Neut % (Auto) (48.0-80.0) % Lymph % (Auto) (16.0-40.0) % Cherry % (Auto) (0.0-15.0) % Eos % (Auto) (0.0-7.0) % Baso % (Auto) (0.0-1.5) % Neut # (Auto) (1.4-5.7) K/uL Lymph # (Auto) (0.6-2.4) K/uL Cherry # (Auto) (0.0-0.8) K/uL Eos # (Auto) (0.0-0.7) K/uL Baso # (Auto) (0.0-0.1) K/uL Sodium (136-145) mmol/L Potassium (3.5-5.1) mmol/L Chloride (98-107) mmol/L Carbon Dioxide (21.0-32.0) mmol/L BUN (7.0-18.0) mg/dL Creatinine (0.6-1.0) mg/dL Est Cr Clr Drug Dosing mL/min Estimated GFR (MDRD) ml/min Glucose (74-106) mg/dL POC Glucose 241 H 292 H 230 H (70-99) mg/dL Calcium (8.5-10.1) mg/dL Phosphorus (2.6-4.7) mg/dL Magnesium (1.8-2.4) mg/dL 11/07/20 11/07/20 11/07/20 Range/Units 05:10 05:10 05:10 WBC 3.47 L (4.0-11.0) K/uL RBC 4.52 (4.30-5.90) M/uL Hgb 14.0 (12.0-16.0) g/dL Hct 40.6 (36.0-46.0) % MCV 89.8 (80.0-98.0) fL MCH 31.0 (27.0-32.0) pg MCHC 34.5 (31.0-37.0) g/dL RDW Std Deviation 42.8 (28.0-62.0) fl RDW Coeff of Ry 13 (11.0-15.0) % Plt Count 206 (150-400) K/uL MPV 9.40 (7.40-12.00) fL Neut % (Auto) 59.3 (48.0-80.0) % Lymph % (Auto) 27.7 (16.0-40.0) % Cherry % (Auto) 8.4 (0.0-15.0) % Eos % (Auto) 4.3 (0.0-7.0) % Baso % (Auto) 0.3 (0.0-1.5) % Neut # (Auto) 2.1 (1.4-5.7) K/uL Lymph # (Auto) 1.0 (0.6-2.4) K/uL Cherry # (Auto) 0.3 (0.0-0.8) K/uL Eos # (Auto) 0.2 (0.0-0.7) K/uL Baso # (Auto) 0.0 (0.0-0.1) K/uL Sodium 140 (136-145) mmol/L Potassium 4.2 (3.5-5.1) mmol/L Chloride 105 (98-107) mmol/L Carbon Dioxide 25.9 (21.0-32.0) mmol/L BUN 17 (7.0-18.0) mg/dL Creatinine 1.0 (0.6-1.0) mg/dL Est Cr Clr Drug Dosing 58.84 mL/min Estimated GFR (MDRD) 56.2 ml/min Glucose 169 H (74-106) mg/dL POC Glucose (70-99) mg/dL Calcium 8.4 L (8.5-10.1) mg/dL Phosphorus 3.6 (2.6-4.7) mg/dL Magnesium 1.9 (1.8-2.4) mg/dL 11/07/20 11/07/20 Range/Units 06:23 11:54 WBC (4.0-11.0) K/uL RBC (4.30-5.90) M/uL Hgb (12.0-16.0) g/dL Hct (36.0-46.0) % MCV (80.0-98.0) fL MCH (27.0-32.0) pg MCHC (31.0-37.0) g/dL RDW Std Deviation (28.0-62.0) fl RDW Coeff of Ry (11.0-15.0) % Plt Count (150-400) K/uL MPV (7.40-12.00) fL Neut % (Auto) (48.0-80.0) % Lymph % (Auto) (16.0-40.0) % Cherry % (Auto) (0.0-15.0) % Eos % (Auto) (0.0-7.0) % Baso % (Auto) (0.0-1.5) % Neut # (Auto) (1.4-5.7) K/uL Lymph # (Auto) (0.6-2.4) K/uL Cherry # (Auto) (0.0-0.8) K/uL Eos # (Auto) (0.0-0.7) K/uL Baso # (Auto) (0.0-0.1) K/uL Sodium (136-145) mmol/L Potassium (3.5-5.1) mmol/L Chloride (98-107) mmol/L Carbon Dioxide (21.0-32.0) mmol/L BUN (7.0-18.0) mg/dL Creatinine (0.6-1.0) mg/dL Est Cr Clr Drug Dosing mL/min Estimated GFR (MDRD) ml/min Glucose (74-106) mg/dL POC Glucose 164 H 199 H (70-99) mg/dL Calcium (8.5-10.1) mg/dL Phosphorus (2.6-4.7) mg/dL Magnesium (1.8-2.4) mg/dL Result Diagrams: 11/07/20 05:10 11/07/20 05:10 Sepsis Event Note - Evaluation Sepsis Screening Result: No Definite Risk - Focused Exam Vital Signs: Vital Signs Temp Resp BP BP Pulse Ox Pulse Ox 11/07/20 12:00 97.5 F 25 H 146/70 H 91 L 11/07/20 11:00 23 H 135/72 92 L 11/07/20 10:00 24 H 118/65 94 L 11/07/20 09:09 115/66 11/07/20 09:00 97.9 F 21 H 115/66 84 L 11/07/20 08:00 97.7 F 21 H 128/68 90 L 11/07/20 07:00 20 146/72 H 92 L 11/07/20 06:00 21 H 144/74 H 86 L 88 L 11/07/20 05:00 22 H 89 L 11/07/20 04:00 96.4 F L 21 H 161/91 H 89 L 11/07/20 03:00 21 H 90 L 11/07/20 02:00 21 H 88 L - Problem List & Annotations (1) COVID-19 SNOMED Code(s): 209559942 Code(s): U07.1 - COVID-19 Status: Acute Current Visit: Yes (2) Hypoxia SNOMED Code(s): 314641914 Code(s): R09.02 - HYPOXEMIA Status: Acute Current Visit: Yes - Problem List Review Problem List Initiated/Reviewed/Updated: Yes - My Orders Last 24 Hours: My Active Orders 11/07/20 13:02 Furosemide [Lasix] 20 mg IVPUSH ONETIME ONE 11/08/20 05:11 CBC WITH AUTO DIFF [HEME] AM CMP [COMPREHENSIVE METABOLIC PN,CMP] [CHEM] AM MAGNESIUM [CHEM] AM PHOSPHORUS [CHEM] AM - Plan Plan:: 60 yo female with past medical history of COPD/JAZMIN admitted with acute hypoxic respiratory failure due to COVID pneumonia. 1. AHRF secondary to COVID pneumonia: Patient has completed remdesivir and Taclozimab , Patient continues to require increased oxygen, oxygen saturations overnight were 86 to 92% overnight on pressure of 50 and 90% FiO2. In no acute distress, patient was comfortable. We will continue patient on BiPAP, using heated high flow during meals, and wean as tolerated. Continue with Combivent Q4HRS and Ventolin Q4Hrs as needed, continue with dexamethasone for total 10 days, DVT prophylaxis Lovenox 40 BID, Tessalon Perles for cough. If patient starts to tire out we have discussed possibility for need to convert to comfort measures as patient has strictly emphasized that she would not like to be intubated and currently is DNR/DNI. CTA was negative for any new clots;indicated some subcutaneous emphysema, will continue to monitor patient closely to ensure no compromise of airways using BiPAP. Echonondiagnostic due to poor penetration due to technically difficult scan with patient body habitus and lung lobes. Repeat chest x-ray indicated shallow inspiration infiltrates no significant changes from previous compared October 29, 2020. Continue to maintain a negative balance to avoid any chest congestion. Encourage patient to prone to recruit more airways. eICU consulted, they will continue to follow;their recommendations are much appreciated. Spoke to daughter, to ensure patient she is aware of patient's wishes in the event patient was to decline and require intubation or comfort measures. Patient has very strictly indicated that she would like to be kept comfortable and would not like any intubation. Discussed mother's wishes with daughter to ensure family understands and is on board. 2. Past medical history of diabetes mellitus: Improved, 169 today this morning patient remains on steroids, however will adjust long-acting and sliding scale with goals of keeping blood sugars between 140 and 180. Continue with [place] diabetic diet. 3. Constipation: Resolved, 1 bowel movement last in last 24 hours. Continue with docusate and senna, encourage fiber intake and appropriate hydration while maintaining negative fluid balance. 4. Past medical history of JAZMIN: Ensure appropriate use of either CPAP or heated high flow appropriate oxygenati on overnight. 5. Past medical history of HTN/COPD: resume home meds I have seen and evaluated the patient and agree with the residents note unless specified in my note <Kathy Vieyra - Last Filed: 11/11/20 12:33> - Patient Data Vitals - Most Recent: Last Vital Signs Temp 36.2 C 11/11/20 11:24 Pulse 77 10/31/20 04:00 Resp 21 H 11/11/20 12:00 BP 127/64 11/11/20 11:24 Pulse Ox 92 L 11/11/20 12:00 I&O - Last 24 Hours: Intake & Output 0611/11/20 11/11/20 22:59 06:59 14:59 Intake Total 800 Output Total 1350 Balance -550 Lab Results Last 24 Hours: Laboratory Results - last 24 hr 11/10/20 11/10/20 11/11/20 Range/Units 18:24 20:13 05:20 WBC 4.27 (4.0-11.0) K/uL RBC 4.36 (4.30-5.90) M/uL Hgb 13.2 (12.0-16.0) g/dL Hct 38.9 (36.0-46.0) % MCV 89.2 (80.0-98.0) fL MCH 30.3 (27.0-32.0) pg MCHC 33.9 (31.0-37.0) g/dL RDW Std Deviation 44.2 (28.0-62.0) fl RDW Coeff of Ry 14 (11.0-15.0) % Plt Count 162 (150-400) K/uL MPV 9.30 (7.40-12.00) fL Neut % (Auto) 53.8 (48.0-80.0) % Lymph % (Auto) 34.7 (16.0-40.0) % Cherry % (Auto) 8.2 (0.0-15.0) % Eos % (Auto) 2.8 (0.0-7.0) % Baso % (Auto) 0.5 (0.0-1.5) % Neut # (Auto) 2.3 (1.4-5.7) K/uL Lymph # (Auto) 1.5 (0.6-2.4) K/uL Cherry # (Auto) 0.4 (0.0-0.8) K/uL Eos # (Auto) 0.1 (0.0-0.7) K/uL Baso # (Auto) 0.0 (0.0-0.1) K/uL Nucleated RBC % 0.0 /100WBC Nucleated RBCs # 0 K/uL Sodium (136-145) mmol/L Potassium (3.5-5.1) mmol/L Chloride (98-107) mmol/L Carbon Dioxide (21.0-32.0) mmol/L BUN (7.0-18.0) mg/dL Creatinine (0.6-1.0) mg/dL Est Cr Clr Drug Dosing mL/min Estimated GFR (MDRD) ml/min Glucose (74-106) mg/dL POC Glucose 121 H 203 H (70-99) mg/dL Calcium (8.5-10.1) mg/dL Phosphorus (2.6-4.7) mg/dL Magnesium (1.8-2.4) mg/dL 11/11/20 11/11/20 11/11/20 Range/Units 05:20 05:22 09:22 WBC (4.0-11.0) K/uL RBC (4.30-5.90) M/uL Hgb (12.0-16.0) g/dL Hct (36.0-46.0) % MCV (80.0-98.0) fL MCH (27.0-32.0) pg MCHC (31.0-37.0) g/dL RDW Std Deviation (28.0-62.0) fl RDW Coeff of Ry (11.0-15.0) % Plt Count (150-400) K/uL MPV (7.40-12.00) fL Neut % (Auto) (48.0-80.0) % Lymph % (Auto) (16.0-40.0) % Cherry % (Auto) (0.0-15.0) % Eos % (Auto) (0.0-7.0) % Baso % (Auto) (0.0-1.5) % Neut # (Auto) (1.4-5.7) K/uL Lymph # (Auto) (0.6-2.4) K/uL Cherry # (Auto) (0.0-0.8) K/uL Eos # (Auto) (0.0-0.7) K/uL Baso # (Auto) (0.0-0.1) K/uL Nucleated RBC % /100WBC Nucleated RBCs # K/uL Sodium 140 (136-145) mmol/L Potassium 4.0 (3.5-5.1) mmol/L Chloride 107 (98-107) mmol/L Carbon Dioxide 26.9 (21.0-32.0) mmol/L BUN 16 (7.0-18.0) mg/dL Creatinine 0.9 (0.6-1.0) mg/dL Est Cr Clr Drug Dosing 65.38 mL/min Estimated GFR (MDRD) > 60.0 ml/min Glucose 152 H (74-106) mg/dL POC Glucose 142 H 159 H (70-99) mg/dL Calcium 7.9 L (8.5-10.1) mg/dL Phosphorus 3.9 (2.6-4.7) mg/dL Magnesium 1.8 (1.8-2.4) mg/dL Med Orders - Current: Current Medications Albuterol (Albuterol 8 Gm Inhaler) 0 gm INH Q4HRRT PRN PRN Reason: Shortness of Breath Last Admin: 11/10/20 05:14 Dose: 2 puff Documented by: Albuterol/Ipratropium (Albuterol/Ipratropium 4 Gm Inhalation [place]) 0 gm INH Q4H [facility] Last Admin: 11/11/20 09:32 Dose: 1 puff Documented by: Benzonatate (Benzonatate 100 Mg Cap) 100 mg PO Q6H PRN PRN Reason: Cough Last Admin: 11/11/20 05:31 Dose: 100 mg Documented by: Dextrose/Water (50% Dextrose In Water 50 Ml Syringe) 50 ml IVPUSH ASDIRECTED PRN PRN Reason: Hypoglycemia Docusate Sodium (Docusate Sodium 100 Mg Cap) 100 mg PO Q12H PRN PRN Reason: Constipation Enoxaparin Sodium (Enoxaparin 40 Mg/0.4 Ml Syringe) 40 mg SUBCUT Q12H [facility] [place] Last Admin: 11/11/20 11:23 Dose: 40 mg Documented by: Glucagon (Glucagon,Human Recombinant 1 Mg Vial) 1 mg IM ASDIRECTED PRN PRN Reason: Hypoglycemia Insulin Aspart (Insulin Aspart 100 Units/Ml 3 Ml Pen) 0 unit SUBCUT TIDAC [facility] [place]; Protocol Last Admin: 11/11/20 09:23 Dose: 2 units Documented by: Insulin Glargine (Insulin Glargine,Human Rec. Analog 100 Units/Ml 3 Ml Pen) 24 units SUBCUT BEDTIME [facility] Last Admin: 11/10/20 20:14 Dose: 24 units Documented by: Lorazepam (Lorazepam 2 Mg/Ml Sdv) 0.5 mg IVPUSH Q4H PRN PRN Reason: Anxiety Last Admin: 11/08/20 00:33 Dose: 0.5 mg Documented by: Losartan Potassium (Losartan 50 Mg Tab) 25 mg PO DAILY [facility] [place] Last Admin: 11/11/20 09:25 Dose: 25 mg Documented by: Montelukast Sodium (Montelukast 10 Mg Tab) 10 mg PO BEDTIME [facility] [place] Last Admin: 11/10/20 20:03 Dose: 10 mg Documented by: Omeprazole (Omeprazole 20 Mg Cap.Cr) 20 mg PO BIDAC [facility] [place] Last Admin: 11/11/20 06:46 Dose: 20 mg Documented by: Budesonide/Formoterol 160-4.5 Mcg/Puff 6 Gm Inhaler 0 each INH BID [facility] [place] Last Admin: 11/11/20 09:30 Dose: 1 each Documented by: Senna (Sennosides 8.6 Mg Tab) 8.6 mg PO Q12H PRN PRN Reason: Constipation Sodium Chloride (Sodium Chloride 0.9% 2.5 Ml Syringe) 2.5 ml FLUSH ASDIRECTED PRN PRN Reason: Keep Vein Open Discontinued Medications Albuterol (Albuterol 8 Gm Inhaler) 0 gm INH Q4H PRN PRN Reason: Shortness of Breath Last Admin: 10/31/20 05:25 Dose: 2 puff Documented by: Albuterol/Ipratropium (Albuterol/Ipratropium 4 Gm Inhalation [place]) 0 gm INH Q6HRRT [facility] [place] Last Admin: 11/03/20 06:16 Dose: 1 puff Documented by: Budesonide/Formoterol Fumarate (Budesonide/Formoterol 160-4.5 Mcg/Puff 6 Gm Inhaler) 0 gm INH BID [facility] [place] Last Admin: 11/07/20 09:15 Dose: Not Given Documented by: Ciprofloxacin (Ciprofloxacin 250 Mg Tab) 250 mg PO BID [facility] [place] Last Admin: 11/04/20 08:30 Dose: 250 mg Documented by: Dexamethasone (Dexamethasone 10 Mg/Ml Sdv) 10 mg IVPUSH ONETIME ONE Stop: 10/29/20 14:49 Last Admin: 10/29/20 15:22 Dose: 10 mg Documented by: Dexamethasone (Dexamethasone 4 Mg Tab) 6 mg PO DAILY [facility] [place] Last Admin: 11/08/20 09:01 Dose: 6 mg Documented by: Enoxaparin Sodium (Enoxaparin 40 Mg/0.4 Ml Syringe) 40 mg SUBCUT Q24H [place] Last Admin: 10/29/20 22:29 Dose: 40 mg Documented by: Furosemide (Furosemide 20 Mg/2 Ml Vial) 20 mg IVPUSH NOW ONE Stop: 11/03/20 12:07 Last Admin: 11/03/20 12:42 Dose: 20 mg Documented by: Furosemide (Furosemide 20 Mg/2 Ml Vial) 20 mg IVPUSH ONETIME ONE Stop: 11/07/20 13:03 Last Admin: 11/07/20 14:05 Dose: 20 mg Documented by: Remdesivir 200 mg/ Sodium (Chloride) 250 mls @ 250 mls/hr IV ONETIME ONE Stop: 10/29/20 14:48 Last Admin: 10/29/20 15:08 Dose: Not Given Documented by: Remdesivir 200 mg/ Sodium (Chloride) 250 mls @ 250 mls/hr IV ONETIME ONE Stop: 10/29/20 15:59 Last Admin: 10/29/20 15:27 Dose: 250 mls/hr Documented by: Sodium Chloride (Normal Saline) 1,000 mls @ 50 mls/hr IV ASDIRECTED [facility] [place] Last Admin: 10/29/20 15:21 Dose: 50 mls/hr Documented by: Remdesivir 100 mg/ Sodium (Chloride) 100 mls @ 100 mls/hr IV Q24H [facility] [place] Stop: 11/02/20 15:59 Last Admin: 10/30/20 19:19 Dose: Not Given Documented by: Remdesivir 100 mg/ Sodium (Chloride) 100 mls @ 100 mls/hr IV Q24H [facility] [place] Stop: 11/02/20 18:14 Last Admin: 11/02/20 17:40 Dose: 100 mls/hr Documented by: Tocilizumab 800 mg/ Sodium (Chloride) 100 mls @ 100 mls/hr IV ONETIME ONE Stop: 10/31/20 11:29 Last Admin: 10/31/20 10:45 Dose: 100 mls/hr Documented by: Insulin Aspart (Insulin Aspart 100 Units/Ml 3 Ml Pen) 0 unit SUBCUT TIDAC [facility] [place]; Protocol Insulin Aspart (Insulin Aspart 100 Units/Ml 3 Ml Pen) 0 unit SUBCUT TIDAC [facility] [place]; Protocol Last Admin: 11/02/20 08:52 Dose: 9 units Documented by: Insulin Aspart (Insulin Aspart 100 Units/Ml 3 Ml Pen) 5 unit SUBCUT TIDAC [facility] [place] Last Admin: 11/03/20 09:22 Dose: 5 units Documented by: Insulin Aspart (Insulin Aspart 100 Units/Ml 3 Ml Pen) 6 unit SUBCUT TIDAC [facility] [place] Last Admin: 11/10/20 08:48 Dose: 6 units Documented by: Insulin Glargine (Insulin Glargine,Human Rec. Analog 100 Units/Ml 3 Ml Pen) 5 units SUBCUT BEDTIME [facility] [place] Last Admin: 10/30/20 23:54 Dose: 5 units Documented by: Insulin Glargine (Insulin Glargine,Human Rec. Analog 100 Units/Ml 3 Ml Pen) Confirm Administered Dose 300 units .ROUTE .STK-MED ONE Stop: 10/30/20 23:52 Last Admin: 10/31/20 00:45 Dose: Not Given Documented by: Insulin Glargine (Insulin Glargine,Human Rec. Analog 100 Units/Ml 3 Ml Pen) 10 units SUBCUT BEDTIME [facility] [place] Last Admin: 10/31/20 21:53 Dose: 10 units Documented by: Insulin Glargine (Insulin Glargine,Human Rec. Analog 100 Units/Ml 3 Ml Pen) 15 units SUBCUT BEDTIME [facility] [place] Last Admin: 11/01/20 20:13 Dose: 15 units Documented by: Insulin Glargine (Insulin Glargine,Human Rec. Analog 100 Units/Ml 3 Ml Pen) 20 units SUBCUT BEDTIME [facility] [place] Last Admin: 11/02/20 22:00 Dose: 20 units Documented by: Insulin Glargine (Insulin Glargine,Human Rec. Analog 100 Units/Ml 3 Ml Pen) 24 units SUBCUT BEDTIME [facility] [place] Last Admin: 11/08/20 20:50 Dose: 24 units Documented by: Insulin Glargine (Insulin Glargine,Human Rec. Analog 100 Units/Ml 3 Ml Pen) 30 units SUBCUT BEDTIME [facility] [place] Last Admin: 11/09/20 20:20 Dose: Not Given Documented by: Insulin Glargine (Insulin Glargine,Human Rec. Analog 100 Units/Ml 3 Ml Pen) 6 units SUBCUT NOW ONE Stop: 11/09/20 02:46 Last Admin: 11/09/20 06:10 Dose: 6 units Documented by: Insulin Glargine (Insulin Glargine,Human Rec. Analog 100 Units/Ml 3 Ml Pen) 24 units SUBCUT BEDTIME ONE Stop: 11/09/20 20:18 Last Admin: 11/09/20 20:22 Dose: 24 units Documented by: Iopamidol (Iopamidol 755 Mg/Ml 200 Ml Multipack Bottle) 100 ml IVPUSH ONETIME ONE Stop: 10/31/20 12:59 Last Admin: 10/31/20 19:36 Dose: Not Given Documented by: Iopamidol (Iopamidol 755 Mg/Ml 200 Ml Multipack Bottle) 100 ml IVPUSH ONETIME ONE Stop: 10/31/20 13:01 Last Admin: 10/31/20 19:34 Dose: Not Given Documented by: Iopamidol (Iopamidol 755 Mg/Ml 500 Ml Multipack Bottle) 100 ml IVPUSH ONETIME ONE Stop: 10/31/20 13:02 Last Admin: 10/31/20 13:02 Dose: 100 ml Documented by: Iopamidol (Iopamidol 755 Mg/Ml 500 Ml Multipack Bottle) 100 ml IVPUSH ONETIME STA Stop: 11/04/20 15:19 Last Admin: 11/04/20 15:19 Dose: 100 ml Documented by: Budesonide/Formoterol 160-4.5 Mcg/Puff 6 Gm Inhaler 0 each INH BID [place] - Patient Data Lab Results Last 24 hrs: Laboratory Results - last 24 hr 11/10/20 11/10/20 11/11/20 Range/Units 18:24 20:13 05:20 WBC 4.27 (4.0-11.0) K/uL RBC 4.36 (4.30-5.90) M/uL Hgb 13.2 (12.0-16.0) g/dL Hct 38.9 (36.0-46.0) % MCV 89.2 (80.0-98.0) fL MCH 30.3 (27.0-32.0) pg MCHC 33.9 (31.0-37.0) g/dL RDW Std Deviation 44.2 (28.0-62.0) fl RDW Coeff of Ry 14 (11.0-15.0) % Plt Count 162 (150-400) K/uL MPV 9.30 (7.40-12.00) fL Neut % (Auto) 53.8 (48.0-80.0) % Lymph % (Auto) 34.7 (16.0-40.0) % Cherry % (Auto) 8.2 (0.0-15.0) % Eos % (Auto) 2.8 (0.0-7.0) % Baso % (Auto) 0.5 (0.0-1.5) % Neut # (Auto) 2.3 (1.4-5.7) K/uL Lymph # (Auto) 1.5 (0.6-2.4) K/uL Cherry # (Auto) 0.4 (0.0-0.8) K/uL Eos # (Auto) 0.1 (0.0-0.7) K/uL Baso # (Auto) 0.0 (0.0-0.1) K/uL Nucleated RBC % 0.0 /100WBC Nucleated RBCs # 0 K/uL Sodium (136-145) mmol/L Potassium (3.5-5.1) mmol/L Chloride (98-107) mmol/L Carbon Dioxide (21.0-32.0) mmol/L BUN (7.0-18.0) mg/dL Creatinine (0.6-1.0) mg/dL Est Cr Clr Drug Dosing mL/min Estimated GFR (MDRD) ml/min Glucose (74-106) mg/dL POC Glucose 121 H 203 H (70-99) mg/dL Calcium (8.5-10.1) mg/dL Phosphorus (2.6-4.7) mg/dL Magnesium (1.8-2.4) mg/dL 11/11/20 11/11/20 11/11/20 Range/Units 05:20 05:22 09:22 WBC (4.0-11.0) K/uL RBC (4.30-5.90) M/uL Hgb (12.0-16.0) g/dL Hct (36.0-46.0) % MCV (80.0-98.0) fL MCH (27.0-32.0) pg MCHC (31.0-37.0) g/dL RDW Std Deviation (28.0-62.0) fl RDW Coeff of Ry (11.0-15.0) % Plt Count (150-400) K/uL MPV (7.40-12.00) fL Neut % (Auto) (48.0-80.0) % Lymph % (Auto) (16.0-40.0) % Cherry % (Auto) (0.0-15.0) % Eos % (Auto) (0.0-7.0) % Baso % (Auto) (0.0-1.5) % Neut # (Auto) (1.4-5.7) K/uL Lymph # (Auto) (0.6-2.4) K/uL Cherry # (Auto) (0.0-0.8) K/uL Eos # (Auto) (0.0-0.7) K/uL Baso # (Auto) (0.0-0.1) K/uL Nucleated RBC % /100WBC Nucleated RBCs # K/uL Sodium 140 (136-145) mmol/L Potassium 4.0 (3.5-5.1) mmol/L Chloride 107 (98-107) mmol/L Carbon Dioxide 26.9 (21.0-32.0) mmol/L BUN 16 (7.0-18.0) mg/dL Creatinine 0.9 (0.6-1.0) mg/dL Est Cr Clr Drug Dosing 65.38 mL/min Estimated GFR (MDRD) > 60.0 ml/min Glucose 152 H (74-106) mg/dL POC Glucose 142 H 159 H (70-99) mg/dL Calcium 7.9 L (8.5-10.1) mg/dL Phosphorus 3.9 (2.6-4.7) mg/dL Magnesium 1.8 (1.8-2.4) mg/dL Result Diagrams: 11/11/20 05:20 11/11/20 05:20 Sepsis Event Note - Focused Exam Vital Signs: Vital Signs Temp Resp BP BP Pulse Ox Pulse Ox 11/11/20 12:00 21 H 92 L 11/11/20 11:24 36.2 C 20 127/64 93 L 11/11/20 09:25 117/65 11/11/20 09:21 36 C L 21 H 117/65 92 L 11/11/20 09:00 92 L 11/11/20 08:00 22 H 92 L 06/29/21 05:58 36.6 C 21 H 127/70 92 L 11/11/20 04:00 20 91 L 11/11/20 02:00 20 118/62 91 L - Problem List & Annotations (1) Acute respiratory failure with hypoxia SNOMED Code(s): 79165874, 872118424 Code(s): J96.01 - ACUTE RESPIRATORY FAILURE WITH HYPOXIA Status: Acute Current Visit: Yes (2) COVID-19 SNOMED Code(s): 106768579 Code(s): U07.1 - COVID-19 Status: Acute Current Visit: Yes (3) Hypoxia SNOMED Code(s): 409645490 Code(s): R09.02 - HYPOXEMIA Status: Acute Current Visit: Yes - Plan Plan:: I have seen and evaluated the patient and agree with the residents note unless specified in my note
[2020-11-07] MEDS: Montelukast 10 MG Tab PO SCH (20:29)
[2020-11-07] MEDS: Insulin Glargine,Human Rec. Analog 100 Units/ML 3 ML Pen SUBCUT SCH (20:31)
[2020-11-08] MEDS: LORazepam 2 MG/ML SDV IVPUSH PRN (00:33)
[2020-11-08] MEDS: Albuterol/Ipratropium 4 GM Inhalation Spray INH SCH ×6 (00:59→22:34)
[2020-11-08] MEDS: Benzonatate 100 MG Cap PO PRN ×3 (05:09→20:48)
[2020-11-08] MEDS: Albuterol 8 GM Inhaler INH PRN (05:29)
[2020-11-08 05:43] LABS: BLOOD UREA NITROGEN,BUN 21 mg/dL (7.0-18.0); CARBON DIOXIDE,CO2 26.9 mmol/L (21.0-32.0); CHLORIDE,CL 105 mmol/L (98-107); GLUCOSE RANDOM 174 mg/dL (74-106); POTASSIUM,K 3.9 mmol/L (3.5-5.1); SODIUM,NA 139 mmol/L (136-145)
[2020-11-08] MEDS: Omeprazole 20 MG Cap.CR PO SCH ×2 (08:08→17:13)
[2020-11-08] MEDS: Budesonide/Formoterol 160-4.5 MCG/Puff 6 GM Inhaler INH SCH ×2 (08:13→20:54)
[2020-11-08] MEDS: Insulin Aspart 100 Units/ML 3 ML Pen SUBCUT SCH ×6 (09:00→17:59)
[2020-11-08] MEDS: Dexamethasone 4 MG Tab PO SCH (09:01)
[2020-11-08] MEDS: Losartan 50 MG Tab PO SCH (09:02)
[2020-11-08] MEDS: Enoxaparin 40 MG/0.4 ML Syringe SUBCUT SCH ×2 (11:37→22:34)
--- NOTE | 2020-11-08 12:57 | PCM.PN ---
- General Info Date of Service: 11/08/20 Admission Dx/Problem (Free Text): Admission Diagnosis/Problem Admission Diagnosis/Problem acute hypoxic respiratory failure secondary to Covid pneumonia Subjective Update: 60-year-old female admitted for acute hypoxic respiratory failure secondary to Covid pneumonia. Currently on BiPAP tolerating it well, FiO2 requirement has significantly improved since yesterday from 80% to 60%. No increasing neck pain, chest pain Functional Status: Reports: Tolerating Diet, Ambulating, Urinating - Review of Systems General: Denies: Fever, Weakness, Fatigue Pulmonary: Reports: Shortness of Breath (On exertion). Denies: Pleuritic Chest Pain Cardiovascular: Reports: Dyspnea on Exertion. Denies: Chest Pain, Palpitations Gastrointestinal: Denies: Abdominal Pain, Constipation, Decreased Appetite Genitourinary: Denies: Dysuria, Frequency, Burning Musculoskeletal: Denies: Neck Pain, Shoulder Pain, Arm Pain, Hand Pain - Patient Data Vitals - Most Recent: Last Vital Signs Temp 36.7 C 11/08/20 08:00 Pulse 77 10/31/20 04:00 Resp 19 11/08/20 11:00 BP 130/68 11/08/20 09:02 Pulse Ox 89 L 11/08/20 11:00 Weight - Most Recent: 175.767 kg I&O - Last 24 Hours: Intake & Output 11/07/20 11/08/20 11/08/20 22:59 06:59 14:59 Intake Total 680 700 Output Total 1180 750 Balance -500 -50 Lab Results Last 24 Hours: Laboratory Results - last 24 hr 11/07/20 11/07/20 11/07/20 Range/Units 14:21 17:23 20:33 WBC (4.0-11.0) K/uL RBC (4.30-5.90) M/uL Hgb (12.0-16.0) g/dL Hct (36.0-46.0) % MCV (80.0-98.0) fL MCH (27.0-32.0) pg MCHC (31.0-37.0) g/dL RDW Std Deviation (28.0-62.0) fl RDW Coeff of Ry (11.0-15.0) % Plt Count (150-400) K/uL MPV (7.40-12.00) fL Neut % (Auto) (48.0-80.0) % Lymph % (Auto) (16.0-40.0) % [place] % (Auto) (0.0-15.0) % Eos % (Auto) (0.0-7.0) % Baso % (Auto) (0.0-1.5) % Neut # (Auto) (1.4-5.7) K/uL Lymph # (Auto) (0.6-2.4) K/uL [place] # (Auto) (0.0-0.8) K/uL Eos # (Auto) (0.0-0.7) K/uL Baso # (Auto) (0.0-0.1) K/uL ABG pH 7.40 (7.35-7.45) ABG pCO2 36 (35-45) mmHG ABG pO2 61 L (80-105) mmHG ABG HCO3 23 (22-26) mEq/L ABG Total CO2 20.0 L (23-27) mmol/L ABG Base Excess -1.6 (-2.0-3.0) Sodium (136-145) mmol/L Potassium (3.5-5.1) mmol/L Chloride (98-107) mmol/L Carbon Dioxide (21.0-32.0) mmol/L BUN (7.0-18.0) mg/dL Creatinine (0.6-1.0) mg/dL Est Cr Clr Drug Dosing mL/min Estimated GFR (MDRD) ml/min Glucose (74-106) mg/dL POC Glucose 308 H 246 H (70-99) mg/dL Calcium (8.5-10.1) mg/dL Phosphorus (2.6-4.7) mg/dL Magnesium (1.8-2.4) mg/dL Total Bilirubin (0.2-1.0) mg/dL AST (15-37) IU/L ALT (14-63) IU/L Alkaline Phosphatase (46-116) U/L Total Protein (6.4-8.2) g/dL Albumin (3.4-5.0) g/dL Globulin (2.6-4.0) g/dL Albumin/Globulin Ratio (0.9-1.6) 11/08/20 11/08/20 11/08/20 Range/Units 05:10 05:10 08:07 WBC 4.24 (4.0-11.0) K/uL RBC 4.59 (4.30-5.90) M/uL Hgb 14.1 (12.0-16.0) g/dL Hct 40.8 (36.0-46.0) % MCV 88.9 (80.0-98.0) fL MCH 30.7 (27.0-32.0) pg MCHC 34.6 (31.0-37.0) g/dL RDW Std Deviation 42.0 (28.0-62.0) fl RDW Coeff of Ry 13 (11.0-15.0) % Plt Count 218 (150-400) K/uL MPV 9.50 (7.40-12.00) fL Neut % (Auto) 62.8 (48.0-80.0) % Lymph % (Auto) 25.7 (16.0-40.0) % [place] % (Auto) 7.5 (0.0-15.0) % Eos % (Auto) 3.8 (0.0-7.0) % Baso % (Auto) 0.2 (0.0-1.5) % Neut # (Auto) 2.7 (1.4-5.7) K/uL Lymph # (Auto) 1.1 (0.6-2.4) K/uL [place] # (Auto) 0.3 (0.0-0.8) K/uL Eos # (Auto) 0.2 (0.0-0.7) K/uL Baso # (Auto) 0.0 (0.0-0.1) K/uL ABG pH (7.35-7.45) ABG pCO2 (35-45) mmHG ABG pO2 (80-105) mmHG ABG HCO3 (22-26) mEq/L ABG Total CO2 (23-27) mmol/L ABG Base Excess (-2.0-3.0) Sodium 139 (136-145) mmol/L Potassium 3.9 (3.5-5.1) mmol/L Chloride 105 (98-107) mmol/L Carbon Dioxide 26.9 (21.0-32.0) mmol/L BUN 21 H (7.0-18.0) mg/dL Creatinine 0.9 (0.6-1.0) mg/dL Est Cr Clr Drug Dosing 65.38 mL/min Estimated GFR (MDRD) > 60.0 ml/min Glucose 174 H (74-106) mg/dL POC Glucose 169 H (70-99) mg/dL Calcium 8.1 L (8.5-10.1) mg/dL Phosphorus 3.5 (2.6-4.7) mg/dL Magnesium 1.9 (1.8-2.4) mg/dL Total Bilirubin 0.7 (0.2-1.0) mg/dL AST 29 (15-37) IU/L ALT 53 (14-63) IU/L Alkaline Phosphatase 65 (46-116) U/L Total Protein 6.1 L (6.4-8.2) g/dL Albumin 2.9 L (3.4-5.0) g/dL Globulin 3.2 (2.6-4.0) g/dL Albumin/Globulin Ratio 0.9 (0.9-1.6) Med Orders - Current: Current Medications Albuterol (Albuterol 8 Gm Inhaler) 0 gm INH Q4HRRT PRN PRN Reason: Shortness of Breath Last Admin: 11/08/20 05:29 Dose: 2 puff Documented by: Albuterol/Ipratropium (Albuterol/Ipratropium 4 Gm Inhalation [place]) 0 gm INH Q4H [facility] Last Admin: 11/08/20 09:32 Dose: 1 puff Documented by: Benzonatate (Benzonatate 100 Mg Cap) 100 mg PO Q6H PRN PRN Reason: Cough Last Admin: 11/08/20 05:09 Dose: 100 mg Documented by: Dexamethasone (Dexamethasone 4 Mg Tab) 6 mg PO DAILY [facility] Last Admin: 11/08/20 09:01 Dose: 6 mg Documented by: Dextrose/Water (50% Dextrose In Water 50 Ml Syringe) 50 ml IVPUSH ASDIRECTED PRN PRN Reason: Hypoglycemia Docusate Sodium (Docusate Sodium 100 Mg Cap) 100 mg PO Q12H PRN PRN Reason: Constipation Enoxaparin Sodium (Enoxaparin 40 Mg/0.4 Ml Syringe) 40 mg SUBCUT Q12H [facility] Last Admin: 11/08/20 11:37 Dose: 40 mg Documented by: Glucagon (Glucagon,Human Recombinant 1 Mg Vial) 1 mg IM ASDIRECTED PRN PRN Reason: Hypoglycemia Insulin Aspart (Insulin Aspart 100 Units/Ml 3 Ml Pen) 0 unit SUBCUT TIDAC [facility]; Protocol Last Admin: 11/08/20 09:00 Dose: 2 units Documented by: Insulin Aspart (Insulin Aspart 100 Units/Ml 3 Ml Pen) 6 unit SUBCUT TIDAC [facility] Last Admin: 11/08/20 09:00 Dose: 6 units Documented by: Insulin Glargine (Insulin Glargine,Human Rec. Analog 100 Units/Ml 3 Ml Pen) 24 units SUBCUT BEDTIME [facility] Last Admin: 11/07/20 20:31 Dose: 24 units Documented by: Lorazepam (Lorazepam 2 Mg/Ml Sdv) 0.5 mg IVPUSH Q4H PRN PRN Reason: Anxiety Last Admin: 11/08/20 00:33 Dose: 0.5 mg Documented by: Losartan Potassium (Losartan 50 Mg Tab) 25 mg PO DAILY [facility] Last Admin: 11/08/20 09:02 Dose: 25 mg Documented by: Montelukast Sodium (Montelukast 10 Mg Tab) 10 mg PO BEDTIME [facility] Last Admin: 11/07/20 20:29 Dose: 10 mg Documented by: Omeprazole (Omeprazole 20 Mg Cap.Cr) 20 mg PO BIDAC [facility] Last Admin: 11/08/20 08:08 Dose: 20 mg Documented by: Budesonide/Formoterol 160-4.5 Mcg/Puff 6 Gm Inhaler 0 each INH BID [facility] Last Admin: 11/08/20 08:13 Dose: 1 each Documented by: Senna (Sennosides 8.6 Mg Tab) 8.6 mg PO Q12H PRN PRN Reason: Constipation Sodium Chloride (Sodium Chloride 0.9% 2.5 Ml Syringe) 2.5 ml FLUSH ASDIRECTED PRN PRN Reason: Keep Vein Open Discontinued Medications Albuterol (Albuterol 8 Gm Inhaler) 0 gm INH Q4H PRN PRN Reason: Shortness of Breath Last Admin: 10/31/20 05:25 Dose: 2 puff Documented by: Albuterol/Ipratropium (Albuterol/Ipratropium 4 Gm Inhalation [place]) 0 gm INH Q6HRRT [facility] Last Admin: 11/03/20 06:16 Dose: 1 puff Documented by: Budesonide/Formoterol Fumarate (Budesonide/Formoterol 160-4.5 Mcg/Puff 6 Gm Inhaler) 0 gm INH BID [facility] Last Admin: 11/07/20 09:15 Dose: Not Given Documented by: Ciprofloxacin (Ciprofloxacin 250 Mg Tab) 250 mg PO BID [facility] Last Admin: 11/04/20 08:30 Dose: 250 mg Documented by: Dexamethasone (Dexamethasone 10 Mg/Ml Sdv) 10 mg IVPUSH ONETIME ONE Stop: 10/29/20 14:49 Last Admin: 10/29/20 15:22 Dose: 10 mg Documented by: Enoxaparin Sodium (Enoxaparin 40 Mg/0.4 Ml Syringe) 40 mg SUBCUT Q24H [facility] Last Admin: 10/29/20 22:29 Dose: 40 mg Documented by: Furosemide (Furosemide 20 Mg/2 Ml Vial) 20 mg IVPUSH NOW ONE Stop: 11/03/20 12:07 Last Admin: 11/03/20 12:42 Dose: 20 mg Documented by: Furosemide (Furosemide 20 Mg/2 Ml Vial) 20 mg IVPUSH ONETIME ONE Stop: 11/07/20 13:03 Last Admin: 11/07/20 14:05 Dose: 20 mg Documented by: Remdesivir 200 mg/ Sodium (Chloride) 250 mls @ 250 mls/hr IV ONETIME ONE Stop: 10/29/20 14:48 Last Admin: 10/29/20 15:08 Dose: Not Given Documented by: Remdesivir 200 mg/ Sodium (Chloride) 250 mls @ 250 mls/hr IV ONETIME ONE Stop: 10/29/20 15:59 Last Admin: 10/29/20 15:27 Dose: 250 mls/hr Documented by: Sodium Chloride (Normal Saline) 1,000 mls @ 50 mls/hr IV ASDIRECTED [facility] Last Admin: 10/29/20 15:21 Dose: 50 mls/hr Documented by: Remdesivir 100 mg/ Sodium (Chloride) 100 mls @ 100 mls/hr IV Q24H [facility] Stop: 11/02/20 15:59 Last Admin: 10/30/20 19:19 Dose: Not Given Documented by: Remdesivir 100 mg/ Sodium (Chloride) 100 mls @ 100 mls/hr IV Q24H [facility] Stop: 11/02/20 18:14 Last Admin: 11/02/20 17:40 Dose: 100 mls/hr Documented by: Tocilizumab 800 mg/ Sodium (Chloride) 100 mls @ 100 mls/hr IV ONETIME ONE Stop: 10/31/20 11:29 Last Admin: 10/31/20 10:45 Dose: 100 mls/hr Documented by: Insulin Aspart (Insulin Aspart 100 Units/Ml 3 Ml Pen) 0 unit SUBCUT TIDAC [facility]; Protocol Insulin Aspart (Insulin Aspart 100 Units/Ml 3 Ml Pen) 0 unit SUBCUT TIDAC [facility]; Protocol Last Admin: 11/02/20 08:52 Dose: 9 units Documented by: Insulin Aspart (Insulin Aspart 100 Units/Ml 3 Ml Pen) 5 unit SUBCUT TIDAC [facility] Last Admin: 11/03/20 09:22 Dose: 5 units Documented by: Insulin Glargine (Insulin Glargine,Human Rec. Analog 100 Units/Ml 3 Ml Pen) 5 units SUBCUT BEDTIME [facility] Last Admin: 10/30/20 23:54 Dose: 5 units Documented by: Insulin Glargine (Insulin Glargine,Human Rec. Analog 100 Units/Ml 3 Ml Pen) Confirm Administered Dose 300 units .ROUTE .STK-MED ONE Stop: 10/30/20 23:52 Last Admin: 10/31/20 00:45 Dose: Not Given Documented by: Insulin Glargine (Insulin Glargine,Human Rec. Analog 100 Units/Ml 3 Ml Pen) 10 units SUBCUT BEDTIME [facility] Last Admin: 10/31/20 21:53 Dose: 10 units Documented by: Insulin Glargine (Insulin Glargine,Human Rec. Analog 100 Units/Ml 3 Ml Pen) 15 units SUBCUT BEDTIME [facility] Last Admin: 11/01/20 20:13 Dose: 15 units Documented by: Insulin Glargine (Insulin Glargine,Human Rec. Analog 100 Units/Ml 3 Ml Pen) 20 units SUBCUT BEDTIME [facility] Last Admin: 11/02/20 22:00 Dose: 20 units Documented by: Iopamidol (Iopamidol 755 Mg/Ml 200 Ml Multipack Bottle) 100 ml IVPUSH ONETIME ONE Stop: 10/31/20 12:59 Last Admin: 10/31/20 19:36 Dose: Not Given Documented by: Iopamidol (Iopamidol 755 Mg/Ml 200 Ml Multipack Bottle) 100 ml IVPUSH ONETIME ONE Stop: 10/31/20 13:01 Last Admin: 10/31/20 19:34 Dose: Not Given Documented by: Iopamidol (Iopamidol 755 Mg/Ml 500 Ml Multipack Bottle) 100 ml IVPUSH ONETIME ONE Stop: 10/31/20 13:02 Last Admin: 10/31/20 13:02 Dose: 100 ml Documented by: Iopamidol (Iopamidol 755 Mg/Ml 500 Ml Multipack Bottle) 100 ml IVPUSH ONETIME [facility] Stop: 11/04/20 15:19 Last Admin: 11/04/20 15:19 Dose: 100 ml Documented by: Budesonide/Formoterol 160-4.5 Mcg/Puff 6 Gm Inhaler 0 each INH BID [facility] - Exam Quality Assessment: Supplemental Oxygen General: Alert, Oriented, Cooperative, Mild Distress Neck: Supple, Trachea Midline Lungs: Clear to Auscultation, Normal Respiratory Effort, Decreased Breath Sounds Cardiovascular: Regular Rate, Regular Rhythm GI/Abdominal Exam: Normal Bowel Sounds, Non-Tender Extremities: Normal Inspection, Non-Tender, Pedal Edema. No: Joint Swelling, Increased Warmth, Mottled - Patient Data Lab Results Last 24 hrs: Laboratory Results - last 24 hr 11/07/20 11/07/20 11/07/20 Range/Units 14:21 17:23 20:33 WBC (4.0-11.0) K/uL RBC (4.30-5.90) M/uL Hgb (12.0-16.0) g/dL Hct (36.0-46.0) % MCV (80.0-98.0) fL MCH (27.0-32.0) pg MCHC (31.0-37.0) g/dL RDW Std Deviation (28.0-62.0) fl RDW Coeff of Ry (11.0-15.0) % Plt Count (150-400) K/uL MPV (7.40-12.00) fL Neut % (Auto) (48.0-80.0) % Lymph % (Auto) (16.0-40.0) % [place] % (Auto) (0.0-15.0) % Eos % (Auto) (0.0-7.0) % Baso % (Auto) (0.0-1.5) % Neut # (Auto) (1.4-5.7) K/uL Lymph # (Auto) (0.6-2.4) K/uL [place] # (Auto) (0.0-0.8) K/uL Eos # (Auto) (0.0-0.7) K/uL Baso # (Auto) (0.0-0.1) K/uL ABG pH 7.40 (7.35-7.45) ABG pCO2 36 (35-45) mmHG ABG pO2 61 L (80-105) mmHG ABG HCO3 23 (22-26) mEq/L ABG Total CO2 20.0 L (23-27) mmol/L ABG Base Excess -1.6 (-2.0-3.0) Sodium (136-145) mmol/L Potassium (3.5-5.1) mmol/L Chloride (98-107) mmol/L Carbon Dioxide (21.0-32.0) mmol/L BUN (7.0-18.0) mg/dL Creatinine (0.6-1.0) mg/dL Est Cr Clr Drug Dosing mL/min Estimated GFR (MDRD) ml/min Glucose (74-106) mg/dL POC Glucose 308 H 246 H (70-99) mg/dL Calcium (8.5-10.1) mg/dL Phosphorus (2.6-4.7) mg/dL Magnesium (1.8-2.4) mg/dL Total Bilirubin (0.2-1.0) mg/dL AST (15-37) IU/L ALT (14-63) IU/L Alkaline Phosphatase (46-116) U/L Total Protein (6.4-8.2) g/dL Albumin (3.4-5.0) g/dL Globulin (2.6-4.0) g/dL Albumin/Globulin Ratio (0.9-1.6) 11/08/20 11/08/20 11/08/20 Range/Units 05:10 05:10 08:07 WBC 4.24 (4.0-11.0) K/uL RBC 4.59 (4.30-5.90) M/uL Hgb 14.1 (12.0-16.0) g/dL Hct 40.8 (36.0-46.0) % MCV 88.9 (80.0-98.0) fL MCH 30.7 (27.0-32.0) pg MCHC 34.6 (31.0-37.0) g/dL RDW Std Deviation 42.0 (28.0-62.0) fl RDW Coeff of Ry 13 (11.0-15.0) % Plt Count 218 (150-400) K/uL MPV 9.50 (7.40-12.00) fL Neut % (Auto) 62.8 (48.0-80.0) % Lymph % (Auto) 25.7 (16.0-40.0) % [place] % (Auto) 7.5 (0.0-15.0) % Eos % (Auto) 3.8 (0.0-7.0) % Baso % (Auto) 0.2 (0.0-1.5) % Neut # (Auto) 2.7 (1.4-5.7) K/uL Lymph # (Auto) 1.1 (0.6-2.4) K/uL [place] # (Auto) 0.3 (0.0-0.8) K/uL Eos # (Auto) 0.2 (0.0-0.7) K/uL Baso # (Auto) 0.0 (0.0-0.1) K/uL ABG pH (7.35-7.45) ABG pCO2 (35-45) mmHG ABG pO2 (80-105) mmHG ABG HCO3 (22-26) mEq/L ABG Total CO2 (23-27) mmol/L ABG Base Excess (-2.0-3.0) Sodium 139 (136-145) mmol/L Potassium 3.9 (3.5-5.1) mmol/L Chloride 105 (98-107) mmol/L Carbon Dioxide 26.9 (21.0-32.0) mmol/L BUN 21 H (7.0-18.0) mg/dL Creatinine 0.9 (0.6-1.0) mg/dL Est Cr Clr Drug Dosing 65.38 mL/min Estimated GFR (MDRD) > 60.0 ml/min Glucose 174 H (74-106) mg/dL POC Glucose 169 H (70-99) mg/dL Calcium 8.1 L (8.5-10.1) mg/dL Phosphorus 3.5 (2.6-4.7) mg/dL Magnesium 1.9 (1.8-2.4) mg/dL Total Bilirubin 0.7 (0.2-1.0) mg/dL AST 29 (15-37) IU/L ALT 53 (14-63) IU/L Alkaline Phosphatase 65 (46-116) U/L Total Protein 6.1 L (6.4-8.2) g/dL Albumin 2.9 L (3.4-5.0) g/dL Globulin 3.2 (2.6-4.0) g/dL Albumin/Globulin Ratio 0.9 (0.9-1.6) Result Diagrams: 11/08/20 05:10 11/08/20 05:10 Sepsis Event Note - Evaluation Sepsis Screening Result: No Definite Risk - Focused Exam Vital Signs: Vital Signs Temp Resp BP BP Pulse Ox Pulse Ox 11/08/20 11:00 19 89 L 11/08/20 10:00 21 H 88 L 11/08/20 09:02 130/68 11/08/20 09:00 15 130/68 90 L 11/08/20 08:00 36.7 C 20 90 L 11/08/20 07:00 20 91 L 11/08/20 06:00 19 89 L 11/08/20 05:00 36.4 C 25 H 125/69 88 L 11/08/20 04:24 91 L 11/08/20 04:00 20 91 L 11/08/20 03:00 19 91 L 11/08/20 02:00 20 89 L - Problem List & Annotations (1) Acute respiratory failure with hypoxia SNOMED Code(s): 00476081, 071186297 Code(s): J96.01 - ACUTE RESPIRATORY FAILURE WITH HYPOXIA Status: Acute Current Visit: Yes (2) COVID-19 SNOMED Code(s): 726671124 Code(s): U07.1 - COVID-19 Status: Acute Current Visit: Yes (3) Hypoxia SNOMED Code(s): 056737446 Code(s): R09.02 - HYPOXEMIA Status: Acute Current Visit: Yes - Problem List Review Problem List Initiated/Reviewed/Updated: Yes - Plan Plan:: 60 yo female with past medical history of COPD/JAZMIN admitted with acute hypoxic respiratory failure due to COVID pneumonia. 1. AHRF secondary to COVID pneumonia: Status post remdesivir, tocilizumab, 2 days completing 10 days course of dexamethasone Tolerating BiPAP well, FiO2 requirement is improving, will continue to wean off the BiPAP as tolerated Will try to decrease the pressure requirements as well in view of patient's subcutaneous emphysema currently patient has no symptoms of worsening subcutaneous emphysema Continue supportive care Continue duo nebs as needed Continue proning as tolerated Continue incentive spirometry 2. Past medical history of diabetes mellitus: Continue sliding scale insulin and mealtime insulin, I am hoping the sugars will be better now that dexamethasone will be stopped Continue with Romanian diabetic diet. 3. Constipation: Resolved, 4. Past medical history of JAZMIN: Ensure appropriate use of either CPAP or heated high flow appropriate oxygenation overnight. 5. Past medical history of HTN/COPD: resume home meds
[2020-11-08] MEDS: Montelukast 10 MG Tab PO SCH (20:48)
[2020-11-08] MEDS: Insulin Glargine,Human Rec. Analog 100 Units/ML 3 ML Pen SUBCUT SCH (20:50)
[2020-11-09] MEDS: Albuterol/Ipratropium 4 GM Inhalation Spray INH SCH ×6 (01:29→22:49)
[2020-11-09] MEDS ORDERED: Insulin Glargine,Human Rec. Analog 100 Units/ML 3 ML Pen SUBCUT ONE ×2 (02:45→20:17)
--- NOTE | 2020-11-09 02:59 | PN ---
[facility] Physician - Brief Progress [id number]/27/2021 02:45[facility] lanie Goff, [place] - LUZ (ARIANA) - ANNA JOHANSENDate of Service 11/09/2020 02:45HPI/Events of Note [id number] roundsGlu in mid 250s to 300Increase Lantus to 30 units QHS Extra 6 unit dose nowInte rventions Intermediate-Hyperglycemia - evaluation and treatment
[2020-11-09] MEDS: Albuterol 8 GM Inhaler INH PRN (06:21)
[2020-11-09 07:18] LABS: BLOOD UREA NITROGEN,BUN 19 mg/dL (7.0-18.0); CARBON DIOXIDE,CO2 28.6 mmol/L (21.0-32.0); CHLORIDE,CL 105 mmol/L (98-107); GLUCOSE RANDOM 175 mg/dL (74-106); SODIUM,NA 138 mmol/L (136-145)
[2020-11-09] MEDS: Omeprazole 20 MG Cap.CR PO SCH ×2 (07:46→17:07)
[2020-11-09] MEDS: Budesonide/Formoterol 160-4.5 MCG/Puff 6 GM Inhaler INH SCH ×2 (09:09→20:14)
[2020-11-09] MEDS: Insulin Aspart 100 Units/ML 3 ML Pen SUBCUT SCH ×6 (09:09→18:05)
[2020-11-09] MEDS: Losartan 50 MG Tab PO SCH (09:14)
--- NOTE | 2020-11-09 09:24 | PCM.PN ---
<Isabel Eason - Last Filed: 11/09/20 10:54> - General Info Date of Service: 11/09/20 Admission Dx/Problem (Free Text): Admission Diagnosis/Problem Admission Diagnosis/Problem acute hypoxic respiratory failure secondary to Covid pneumonia Subjective Update: 60-year-old female admitted for acute hypoxic respiratory failure secondary to Covid pneumonia. Currently on Vapotherm tolerating it well, overnight was on BiPAP and patient has been able to appropriately wean down on BiPAP settings. Patient was seen at bedside this morning resting comfortably, with high spirits and stating that she feels much improved and optimistic. Denies any chest pain, neck pain, shortness of breath. Functional Status: Reports: Pain Controlled, Tolerating Diet, Ambulating, Urinating, Incentive Spirometry - Review of Systems General: Reports: No Symptoms HEENT: Reports: No Symptoms Pulmonary: Reports: No Symptoms Cardiovascular: Reports: No Symptoms Gastrointestinal: Reports: No Symptoms Genitourinary: Reports: No Symptoms Musculoskeletal: Reports: No Symptoms Skin: Reports: No Symptoms Neurological: Reports: No Symptoms Psychiatric: Reports: No Symptoms - Patient Data Vitals - Most Recent: Last Vital Signs Temp 96.9 F 11/09/20 08:00 Pulse 77 10/31/20 04:00 Resp 18 11/09/20 08:00 BP 108/64 11/09/20 09:14 Pulse Ox 89 L 11/09/20 08:00 Weight - Most Recent: 175.767 kg I&O - Last 24 Hours: Intake & Output 11/08/20 11/09/20 11/09/20 22:59 06:59 14:59 Intake Total 850 900 Output Total 900 650 Balance -50 250 Lab Results Last 24 Hours: Laboratory Results - last 24 hr 11/08/20 11/08/20 11/08/20 Range/Units 13:43 17:56 20:50 WBC (4.0-11.0) K/uL RBC (4.30-5.90) M/uL Hgb (12.0-16.0) g/dL Hct (36.0-46.0) % MCV (80.0-98.0) fL MCH (27.0-32.0) pg MCHC (31.0-37.0) g/dL RDW Std Deviation (28.0-62.0) fl RDW Coeff of Ry (11.0-15.0) % Plt Count (150-400) K/uL MPV (7.40-12.00) fL Neut % (Auto) (48.0-80.0) % Lymph % (Auto) (16.0-40.0) % [place] % (Auto) (0.0-15.0) % Eos % (Auto) (0.0-7.0) % Baso % (Auto) (0.0-1.5) % Neut # (Auto) (1.4-5.7) K/uL Lymph # (Auto) (0.6-2.4) K/uL [place] # (Auto) (0.0-0.8) K/uL Eos # (Auto) (0.0-0.7) K/uL Baso # (Auto) (0.0-0.1) K/uL Sodium (136-145) mmol/L Potassium (3.5-5.1) mmol/L Chloride (98-107) mmol/L Carbon Dioxide (21.0-32.0) mmol/L BUN (7.0-18.0) mg/dL Creatinine (0.6-1.0) mg/dL Est Cr Clr Drug Dosing mL/min Estimated GFR (MDRD) ml/min Glucose (74-106) mg/dL POC Glucose 243 H 301 H 269 H (70-99) mg/dL Calcium (8.5-10.1) mg/dL Phosphorus (2.6-4.7) mg/dL Magnesium (1.8-2.4) mg/dL 11/09/20 11/09/20 11/09/20 Range/Units 06:05 06:05 06:09 WBC 5.88 (4.0-11.0) K/uL RBC 4.51 (4.30-5.90) M/uL Hgb 13.8 (12.0-16.0) g/dL Hct 40.5 (36.0-46.0) % MCV 89.8 (80.0-98.0) fL MCH 30.6 (27.0-32.0) pg MCHC 34.1 (31.0-37.0) g/dL RDW Std Deviation 42.2 (28.0-62.0) fl RDW Coeff of Ry 13 (11.0-15.0) % Plt Count 206 (150-400) K/uL MPV 9.50 (7.40-12.00) fL Neut % (Auto) 72.9 (48.0-80.0) % Lymph % (Auto) 17.9 (16.0-40.0) % [place] % (Auto) 7.3 (0.0-15.0) % Eos % (Auto) 1.9 (0.0-7.0) % Baso % (Auto) 0.0 (0.0-1.5) % Neut # (Auto) 4.3 (1.4-5.7) K/uL Lymph # (Auto) 1.1 (0.6-2.4) K/uL [place] # (Auto) 0.4 (0.0-0.8) K/uL Eos # (Auto) 0.1 (0.0-0.7) K/uL Baso # (Auto) 0.0 (0.0-0.1) K/uL Sodium 138 (136-145) mmol/L Potassium 4.0 (3.5-5.1) mmol/L Chloride 105 (98-107) mmol/L Carbon Dioxide 28.6 (21.0-32.0) mmol/L BUN 19 H (7.0-18.0) mg/dL Creatinine 0.9 (0.6-1.0) mg/dL Est Cr Clr Drug Dosing 65.38 mL/min Estimated GFR (MDRD) > 60.0 ml/min Glucose 175 H (74-106) mg/dL POC Glucose 166 H (70-99) mg/dL Calcium 8.3 L (8.5-10.1) mg/dL Phosphorus 3.4 (2.6-4.7) mg/dL Magnesium 1.9 (1.8-2.4) mg/dL Med Orders - Current: Current Medications Albuterol (Albuterol 8 Gm Inhaler) 0 gm INH Q4HRRT PRN PRN Reason: Shortness of Breath Last Admin: 11/09/20 06:21 Dose: 2 puff Documented by: Albuterol/Ipratropium (Albuterol/Ipratropium 4 Gm Inhalation [place]) 0 gm INH Q4 H [facility] Last Admin: 11/09/20 06:06 Dose: 1 puff Documented by: Benzonatate (Benzonatate 100 Mg Cap) 100 mg PO Q6H PRN PRN Reason: Cough Last Admin: 11/08/20 20:48 Dose: 100 mg Documented by: Dextrose/Water (50% Dextrose In Water 50 Ml Syringe) 50 ml IVPUSH ASDIRECTED PRN PRN Reason: Hypoglycemia Docusate Sodium (Docusate Sodium 100 Mg Cap) 100 mg PO Q12H PRN PRN Reason: Constipation Enoxaparin Sodium (Enoxaparin 40 Mg/0.4 Ml Syringe) 40 mg SUBCUT Q12H [facility] Last Admin: 11/08/20 22:34 Dose: 40 mg Documented by: Glucagon (Glucagon,Human Recombinant 1 Mg Vial) 1 mg IM ASDIRECTED PRN PRN Reason: Hypoglycemia Insulin Aspart (Insulin Aspart 100 Units/Ml 3 Ml Pen) 0 unit SUBCUT TIDAC [facility]; Protocol Last Admin: 11/09/20 09:09 Dose: 2 units Documented by: Insulin Aspart (Insulin Aspart 100 Units/Ml 3 Ml Pen) 6 unit SUBCUT TIDAC [facility] Last Admin: 11/09/20 09:10 Dose: 6 units Documented by: Insulin Glargine (Insulin Glargine,Human Rec. Analog 100 Units/Ml 3 Ml Pen) 30 units SUBCUT BEDTIME [facility] Lorazepam (Lorazepam 2 Mg/Ml Sdv) 0.5 mg IVPUSH Q4H PRN PRN Reason: Anxiety Last Admin: 11/08/20 00:33 Dose: 0.5 mg Documented by: Losartan Potassium (Losartan 50 Mg Tab) 25 mg PO DAILY [facility] Last Admin: 11/09/20 09:14 Dose: 25 mg Documented by: Montelukast Sodium (Montelukast 10 Mg Tab) 10 mg PO BEDTIME [facility] Last Admin: 11/08/20 20:48 Dose: 10 mg Documented by: Omeprazole (Omeprazole 20 Mg Cap.Cr) 20 mg PO BIDAC [facility] Last Admin: 11/09/20 07:46 Dose: 20 mg Documented by: Budesonide/Formoterol 160-4.5 Mcg/Puff 6 Gm Inhaler 0 each INH BID [facility] Last Admin: 11/09/20 09:09 Dose: 1 each Documented by: Senna (Sennosides 8.6 Mg Tab) 8.6 mg PO Q12H PRN PRN Reason: Constipation Sodium Chloride (Sodium Chloride 0.9% 2.5 Ml Syringe) 2.5 ml FLUSH ASDIRECTED PRN PRN Reason: Keep Vein Open Discontinued Medications Albuterol (Albuterol 8 Gm Inhaler) 0 gm INH Q4H PRN PRN Reason: Shortness of Breath Last Admin: 10/31/20 05:25 Dose: 2 puff Documented by: Albuterol/Ipratropium (Albuterol/Ipratropium 4 Gm Inhalation [place]) 0 gm INH Q6HRRT [facility] Last Admin: 11/03/20 06:16 Dose: 1 puff Documented by: Budesonide/Formoterol Fumarate (Budesonide/Formoterol 160-4.5 Mcg/Puff 6 Gm Inhaler) 0 gm INH BID [facility] Last Admin: 11/07/20 09:15 Dose: Not Given Documented by: Ciprofloxacin (Ciprofloxacin 250 Mg Tab) 250 mg PO BID [facility] Last Admin: 11/04/20 08:30 Dose: 250 mg Documented by: Dexamethasone (Dexamethasone 10 Mg/Ml Sdv) 10 mg IVPUSH ONETIME ONE Stop: 10/29/20 14:49 Last Admin: 10/29/20 15:22 Dose: 10 mg Documented by: Dexamethasone (Dexamethasone 4 Mg Tab) 6 mg PO DAILY [facility] Last Admin: 11/08/20 09:01 Dose: 6 mg Documented by: Enoxaparin Sodium (Enoxaparin 40 Mg/0.4 Ml Syringe) 40 mg SUBCUT Q24H [facility] Last Admin: 10/29/20 22:29 Dose: 40 mg Documented by: Furosemide (Furosemide 20 Mg/2 Ml Vial) 20 mg IVPUSH NOW ONE Stop: 11/03/20 12:07 Last Admin: 11/03/20 12:42 Dose: 20 mg Documented by: Furosemide (Furosemide 20 Mg/2 Ml Vial) 20 mg IVPUSH ONETIME ONE Stop: 11/07/20 13:03 Last Admin: 11/07/20 14:05 Dose: 20 mg Documented by: Remdesivir 200 mg/ Sodium (Chloride) 250 mls @ 250 mls/hr IV ONETIME ONE Stop: 10/29/20 14:48 Last Admin: 10/29/20 15:08 Dose: Not Given Documented by: Remdesivir 200 mg/ Sodium (Chloride) 250 mls @ 250 mls/hr IV ONETIME ONE Stop: 10/29/20 15:59 Last Admin: 10/29/20 15:27 Dose: 250 mls/hr Documented by: Sodium Chloride (Normal Saline) 1,000 mls @ 50 mls/hr IV ASDIRECTED [facility] Last Admin: 10/29/20 15:21 Dose: 50 mls/hr Documented by: Remdesivir 100 mg/ Sodium (Chloride) 100 mls @ 100 mls/hr IV Q24H [place] Stop: 11/02/20 15:59 Last Admin: 10/30/20 19:19 Dose: Not Given Documented by: Remdesivir 100 mg/ Sodium (Chloride) 100 mls @ 100 mls/hr IV Q24H [place] Stop: 11/02/20 18:14 Last Admin: 11/02/20 17:40 Dose: 100 mls/hr Documented by: Tocilizumab 800 mg/ Sodium (Chloride) 100 mls @ 100 mls/hr IV ONETIME ONE Stop: 10/31/20 11:29 Last Admin: 10/31/20 10:45 Dose: 100 mls/hr Documented by: Insulin Aspart (Insulin Aspart 100 Units/Ml 3 Ml Pen) 0 unit SUBCUT TIDAC [place]; Protocol Insulin Aspart (Insulin Aspart 100 Units/Ml 3 Ml Pen) 0 unit SUBCUT TIDAC [place]; Protocol Last Admin: 11/02/20 08:52 Dose: 9 units Documented by: Insulin Aspart (Insulin Aspart 100 Units/Ml 3 Ml Pen) 5 unit SUBCUT TIDAC [facility] Last Admin: 11/03/20 09:22 Dose: 5 units Documented by: Insulin Glargine (Insulin Glargine,Human Rec. Analog 100 Units/Ml 3 Ml Pen) 5 units SUBCUT BEDTIME [facility] Last Admin: 10/30/20 23:54 Dose: 5 units Documented by: Insulin Glargine (Insulin Glargine,Human Rec. Analog 100 Units/Ml 3 Ml Pen) Confirm Administered Dose 300 units .ROUTE .STK-MED ONE Stop: 10/30/20 23:52 Last Admin: 10/31/20 00:45 Dose: Not Given Documented by: Insulin Glargine (Insulin Glargine,Human Rec. Analog 100 Units/Ml 3 Ml Pen) 10 units SUBCUT BEDTIME [facility] Last Admin: 10/31/20 21:53 Dose: 10 units Documented by: Insulin Glargine (Insulin Glargine,Human Rec. Analog 100 Units/Ml 3 Ml Pen) 15 units SUBCUT BEDTIME [facility] Last Admin: 11/01/20 20:13 Dose: 15 units Documented by: Insulin Glargine (Insulin Glargine,Human Rec. Analog 100 Units/Ml 3 Ml Pen) 20 units SUBCUT BEDTIME [facility] Last Admin: 11/02/20 22:00 Dose: 20 units Documented by: Insulin Glargine (Insulin Glargine,Human Rec. Analog 100 Units/Ml 3 Ml Pen) 24 units SUBCUT BEDTIME [facility] Last Admin: 11/08/20 20:50 Dose: 24 units Documented by: Insulin Glargine (Insulin Glargine,Human Rec. Analog 100 Units/Ml 3 Ml Pen) 6 units SUBCUT NOW ONE Stop: 11/09/20 02:46 Last Admin: 11/09/20 06:10 Dose: 6 units Documented by: Iopamidol (Iopamidol 755 Mg/Ml 200 Ml Multipack Bottle) 100 ml IVPUSH ONETIME ONE Stop: 10/31/20 12:59 Last Admin: 10/31/20 19:36 Dose: Not Given Documented by: Iopamidol (Iopamidol 755 Mg/Ml 200 Ml Multipack Bottle) 100 ml IVPUSH ONETIME ONE Stop: 10/31/20 13:01 Last Admin: 10/31/20 19:34 Dose: Not Given Documented by: Iopamidol (Iopamidol 755 Mg/Ml 500 Ml Multipack Bottle) 100 ml IVPUSH ONETIME ONE Stop: 10/31/20 13:02 Last Admin: 10/31/20 13:02 Dose: 100 ml Documented by: Iopamidol (Iopamidol 755 Mg/Ml 500 Ml Multipack Bottle) 100 ml IVPUSH ONETIME STA Stop: 11/04/20 15:19 Last Admin: 11/04/20 15:19 Dose: 100 ml Documented by: Budesonide/Formoterol 160-4.5 Mcg/Puff 6 Gm Inhaler 0 each INH BID [place] - Exam Quality Assessment: Supplemental Oxygen (Currently on Vapotherm), DVT Prophylaxis General: Alert, Oriented, Cooperative, No Acute Distress HEENT: Pupils Equal, Pupils Reactive, EOMI, Mucous Membr. Moist/[place] Neck: Supple, No JVD Lungs: Clear to Auscultation, Normal Respiratory Effort Cardiovascular: Regular Rate, Regular Rhythm GI/Abdominal Exam: Normal Bowel Sounds, Soft, Non-Tender, No Organomegaly, No Distention, No Abnormal Bruit Extremities: Normal Inspection, Normal Range of Motion, Non-Tender, No Pedal Edema, Normal Capillary Refill Peripheral Pulses: 2+: Carotid (L), Carotid (R), Dorsalis Pedis (L), Dorsalis Pedis (R) Skin: Warm, Dry, Intact Neurological: No New Focal Deficit Psy/Mental Status: Alert, Normal Affect, Normal Mood - Patient Data Lab Results Last 24 hrs: Laboratory Results - last 24 hr 11/08/20 11/08/20 11/08/20 Range/Units 13:43 17:56 20:50 WBC (4.0-11.0) K/uL RBC (4.30-5.90) M/uL Hgb (12.0-16.0) g/dL Hct (36.0-46.0) % MCV (80.0-98.0) fL MCH (27.0-32.0) pg MCHC (31.0-37.0) g/dL RDW Std Deviation (28.0-62.0) fl RDW Coeff of Ry (11.0-15.0) % Plt Count (150-400) K/uL MPV (7.40-12.00) fL Neut % (Auto) (48.0-80.0) % Lymph % (Auto) (16.0-40.0) % [place] % (Auto) (0.0-15.0) % Eos % (Auto) (0.0-7.0) % Baso % (Auto) (0.0-1.5) % Neut # (Auto) (1.4-5.7) K/uL Lymph # (Auto) (0.6-2.4) K/uL [place] # (Auto) (0.0-0.8) K/uL Eos # (Auto) (0.0-0.7) K/uL Baso # (Auto) (0.0-0.1) K/uL Sodium (136-145) mmol/L Potassium (3.5-5.1) mmol/L Chloride (98-107) mmol/L Carbon Dioxide (21.0-32.0) mmol/L BUN (7.0-18.0) mg/dL Creatinine (0.6-1.0) mg/dL Est Cr Clr Drug Dosing mL/min Estimated GFR (MDRD) ml/min Glucose (74-106) mg/dL POC Glucose 243 H 301 H 269 H (70-99) mg/dL Calcium (8.5-10.1) mg/dL Phosphorus (2.6-4.7) mg/dL Magnesium (1.8-2.4) mg/dL 11/09/20 11/09/20 11/09/20 Range/Units 06:05 06:05 06:09 WBC 5.88 (4.0-11.0) K/uL RBC 4.51 (4.30-5.90) M/uL Hgb 13.8 (12.0-16.0) g/dL Hct 40.5 (36.0-46.0) % MCV 89.8 (80.0-98.0) fL MCH 30.6 (27.0-32.0) pg MCHC 34.1 (31.0-37.0) g/dL RDW Std Deviation 42.2 (28.0-62.0) fl RDW Coeff of Ry 13 (11.0-15.0) % Plt Count 206 (150-400) K/uL MPV 9.50 (7.40-12.00) fL Neut % (Auto) 72.9 (48.0-80.0) % Lymph % (Auto) 17.9 (16.0-40.0) % [place] % (Auto) 7.3 (0.0-15.0) % Eos % (Auto) 1.9 (0.0-7.0) % Baso % (Auto) 0.0 (0.0-1.5) % Neut # (Auto) 4.3 (1.4-5.7) K/uL Lymph # (Auto) 1.1 (0.6-2.4) K/uL [place] # (Auto) 0.4 (0.0-0.8) K/uL Eos # (Auto) 0.1 (0.0-0.7) K/uL Baso # (Auto) 0.0 (0.0-0.1) K/uL Sodium 138 (136-145) mmol/L Potassium 4.0 (3.5-5.1) mmol/L Chloride 105 (98-107) mmol/L Carbon Dioxide 28.6 (21.0-32.0) mmol/L BUN 19 H (7.0-18.0) mg/dL Creatinine 0.9 (0.6-1.0) mg/dL Est Cr Clr Drug Dosing 65.38 mL/min Estimated GFR (MDRD) > 60.0 ml/min Glucose 175 H (74-106) mg/dL POC Glucose 166 H (70-99) mg/dL Calcium 8.3 L (8.5-10.1) mg/dL Phosphorus 3.4 (2.6-4.7) mg/dL Magnesium 1.9 (1.8-2.4) mg/dL Result Diagrams: 11/09/20 06:05 11/09/20 06:05 Sepsis Event Note - Evaluation Sepsis Screening Result: No Definite Risk - Focused Exam Vital Signs: Vital Signs Temp Resp BP BP Pulse Ox Pulse Ox 11/09/20 09:14 108/64 11/09/20 08:00 96.9 F 18 108/64 89 L 11/09/20 07:00 18 92 L 11/09/20 06:00 97.4 F 19 103/78 91 L 11/09/20 05:00 19 91 L 11/09/20 04:37 91 L 11/09/20 04:00 20 91 L 11/09/20 03:00 20 91 L 11/09/20 02:00 97.2 F 16 132/70 95 11/09/20 01:00 22 H 88 L 11/09/20 00:00 22 H 90 L 11/08/20 22:45 97.5 F 23 H 129/70 88 L 11/08/20 22:00 18 92 L - Problem List & Annotations (1) COVID-19 SNOMED Code(s): 149914154 Code(s): U07.1 - COVID-19 Status: Acute Current Visit: Yes (2) Hypoxia SNOMED Code(s): 792206524 Code(s): R09.02 - HYPOXEMIA Status: Acute Current Visit: Yes - Problem List Review Problem List Initiated/Reviewed/Updated: Yes - Plan Plan:: 60 yo female with past medical history of COPD/JAZMIN admitted with acute hypoxic respiratory failure due to COVID pneumonia. 1. AHRF secondary to COVID pneumonia: Status post remdesivir, tocilizumab, 2 days completing 10 days course of dexamethasone Tolerating BiPAP well, FiO2 requirement is improving, will continue to wean off the BiPAP as tolerated Will try to decrease the pressure requirements as well in view of patient's subcutaneous emphysema currently patient has no symptoms of worsening subcutaneous emphysema Continue supportive care Continue duo nebs as needed Continue proning as tolerated Continue incentive spirometry 2. Past medical history of diabetes mellitus: eICU has been following, we appreciate their recommendations and guidance. Overnight, it was noted that she continues to have elevated blood sugars in the 200's-300 range. Therefore, Lantus was increased to 30, with a one-time 6 units sliding scale, continue with 3 times daily AC sliding scale insulin. Continue with [place] diabetic diet. 3. Past medical history of JAZMIN: Ensure appropriate use of either CPAP or heated high flow appropriate oxygenation overnight. 5. Past medical history of HTN/COPD: resume home meds <Kathy Vieyra - Last Filed: 11/11/20 12:33> - Patient Data Vitals - Most Recent: Last Vital Signs Temp 36.2 C 11/11/20 11:24 Pulse 77 10/31/20 04:00 Resp 21 H 11/11/20 12:00 BP 127/64 11/11/20 11:24 Pulse Ox 92 L 11/11/20 12:00 I&O - Last 24 Hours: Intake & Output 11/10/20 11/11/20 11/11/20 22:59 06:59 14:59 Intake Total 800 Output Total 1350 Balance -550 Lab Results Last 24 Hours: Laboratory Results - last 24 hr 11/10/20 11/10/20 11/11/20 Range/Units 18:24 20:13 05:20 WBC 4.27 (4.0-11.0) K/uL RBC 4.36 (4.30-5.90) M/uL Hgb 13.2 (12.0-16.0) g/dL Hct 38.9 (36.0-46.0) % MCV 89.2 (80.0-98.0) fL MCH 30.3 (27.0-32.0) pg MCHC 33.9 (31.0-37.0) g/dL RDW Std Deviation 44.2 (28.0-62.0) fl RDW Coeff of Ry 14 (11.0-15.0) % Plt Count 162 (150-400) K/uL MPV 9.30 (7.40-12.00) fL Neut % (Auto) 53.8 (48.0-80.0) % Lymph % (Auto) 34.7 (16.0-40.0) % [place] % (Auto) 8.2 (0.0-15.0) % Eos % (Auto) 2.8 (0.0-7.0) % Baso % (Auto) 0.5 (0.0-1.5) % Neut # (Auto) 2.3 (1.4-5.7) K/uL Lymph # (Auto) 1.5 (0.6-2.4) K/uL [place] # (Auto) 0.4 (0.0-0.8) K/uL Eos # (Auto) 0.1 (0.0-0.7) K/uL Baso # (Auto) 0.0 (0.0-0.1) K/uL Nucleated RBC % 0.0 /100WBC Nucleated RBCs # 0 K/uL Sodium (136-145) mmol/L Potassium (3.5-5.1) mmol/L Chloride (98-107) mmol/L Carbon Dioxide (21.0-32.0) mmol/L BUN (7.0-18.0) mg/dL Creatinine (0.6-1.0) mg/dL Est Cr Clr Drug Dosing mL/min Estimated GFR (MDRD) ml/min Glucose (74-106) mg/dL POC Glucose 121 H 203 H (70-99) mg/dL Calcium (8.5-10.1) mg/dL Phosphorus (2.6-4.7) mg/dL Magnesium (1.8-2.4) mg/dL 11/11/20 11/11/20 11/11/20 Range/Units 05:20 05:22 09:22 WBC (4.0-11.0) K/uL RBC (4.30-5.90) M/uL Hgb (12.0-16.0) g/dL Hct (36.0-46.0) % MCV (80.0-98.0) fL MCH (27.0-32.0) pg MCHC (31.0-37.0) g/dL RDW Std Deviation (28.0-62.0) fl RDW Coeff of Ry (11.0-15.0) % Plt Count (150-400) K/uL MPV (7.40-12.00) fL Neut % (Auto) (48.0-80.0) % Lymph % (Auto) (16.0-40.0) % [place] % (Auto) (0.0-15.0) % Eos % (Auto) (0.0-7.0) % Baso % (Auto) (0.0-1.5) % Neut # (Auto) (1.4-5.7) K/uL Lymph # (Auto) (0.6-2.4) K/uL [place] # (Auto) (0.0-0.8) K/uL Eos # (Auto) (0.0-0.7) K/uL Baso # (Auto) (0.0-0.1) K/uL Nucleated RBC % /100WBC Nucleated RBCs # K/uL Sodium 140 (136-145) mmol/L Potassium 4.0 (3.5-5.1) mmol/L Chloride 107 (98-107) mmol/L Carbon Dioxide 26.9 (21.0-32.0) mmol/L BUN 16 (7.0-18.0) mg/dL Creatinine 0.9 (0.6-1.0) mg/dL Est Cr Clr Drug Dosing 65.38 mL/min Estimated GFR (MDRD) > 60.0 ml/min Glucose 152 H (74-106) mg/dL POC Glucose 142 H 159 H (70-99) mg/dL Calcium 7.9 L (8.5-10.1) mg/dL Phosphorus 3.9 (2.6-4.7) mg/dL Magnesium 1.8 (1.8-2.4) mg/dL Med Orders - Current: Current Medications Albuterol (Albuterol 8 Gm Inhaler) 0 gm INH Q4HRRT PRN PRN Reason: Shortness of Breath Last Admin: 11/10/20 05:14 Dose: 2 puff Documented by: Albuterol/Ipratropium (Albuterol/Ipratropium 4 Gm Inhalation [place]) 0 gm INH Q4H [facility] Last Admin: 11/11/20 09:32 Dose: 1 puff Documented by: Benzonatate (Benzonatate 100 Mg Cap) 100 mg PO Q6H PRN PRN Reason: Cough Last Admin: 11/11/20 05:31 Dose: 100 mg Documented by: Dextrose/Water (50% Dextrose In Water 50 Ml Syringe) 50 ml IVPUSH ASDIRECTED PRN PRN Reason: Hypoglycemia Docusate Sodium (Docusate Sodium 100 Mg Cap) 100 mg PO Q12H PRN PRN Reason: Constipation Enoxaparin Sodium (Enoxaparin 40 Mg/0.4 Ml Syringe) 40 mg SUBCUT Q12H [place] Last Admin: 11/11/20 11:23 Dose: 40 mg Documented by: Glucagon (Glucagon,Human Recombinant 1 Mg Vial) 1 mg IM ASDIRECTED PRN PRN Reason: Hypoglycemia Insulin Aspart (Insulin Aspart 100 Units/Ml 3 Ml Pen) 0 unit SUBCUT TIDAC [facility]; Protocol Last Admin: 11/11/20 09:23 Dose: 2 units Documented by: Insulin Glargine (Insulin Glargine,Human Rec. Analog 100 Units/Ml 3 Ml Pen) 24 units SUBCUT BEDTIME [facility] Last Admin: 11/10/20 20:14 Dose: 24 units Documented by: Lorazepam (Lorazepam 2 Mg/Ml Sdv) 0.5 mg IVPUSH Q4H PRN PRN Reason: Anxiety Last Admin: 11/08/20 00:33 Dose: 0.5 mg Documented by: Losartan Potassium (Losartan 50 Mg Tab) 25 mg PO DAILY [facility] Last Admin: 11/11/20 09:25 Dose: 25 mg Documented by: Montelukast Sodium (Montelukast 10 Mg Tab) 10 mg PO BEDTIME [facility] Last Admin: 11/10/20 20:03 Dose: 10 mg Documented by: Omeprazole (Omeprazole 20 Mg Cap.Cr) 20 mg PO BIDAC [facility] Last Admin: 11/11/20 06:46 Dose: 20 mg Documented by: Budesonide/Formoterol 160-4.5 Mcg/Puff 6 Gm Inhaler 0 each INH BID [facility] Last Admin: 11/11/20 09:30 Dose: 1 each Documented by: Senna (Sennosides 8.6 Mg Tab) 8.6 mg PO Q12H PRN PRN Reason: Constipation Sodium Chloride (Sodium Chloride 0.9% 2.5 Ml Syringe) 2.5 ml FLUSH ASDIRECTED PRN PRN Reason: Keep Vein Open Discontinued Medications Albuterol (Albuterol 8 Gm Inhaler) 0 gm INH Q4H PRN PRN Reason: Shortness of Breath Last Admin: 10/31/20 05:25 Dose: 2 puff Documented by: Albuterol/Ipratropium (Albuterol/Ipratropium 4 Gm Inhalation [place]) 0 gm INH Q6HRRT [facility] Last Admin: 11/03/20 06:16 Dose: 1 puff Documented by: Budesonide/Formoterol Fumarate (Budesonide/Formoterol 160-4.5 Mcg/Puff 6 Gm Inhaler) 0 gm INH BID [facility] Last Admin: 11/07/20 09:15 Dose: Not Given Documented by: Ciprofloxacin (Ciprofloxacin 250 Mg Tab) 250 mg PO BID [facility] Last Admin: 11/04/20 08:30 Dose: 250 mg Documented by: Dexamethasone (Dexamethasone 10 Mg/Ml Sdv) 10 mg IVPUSH ONETIME ONE Stop: 10/29/20 14:49 Last Admin: 10/29/20 15:22 Dose: 10 mg Documented by: Dexamethasone (Dexamethasone 4 Mg Tab) 6 mg PO DAILY [facility] Last Admin: 11/08/20 09:01 Dose: 6 mg Documented by: Enoxaparin Sodium (Enoxaparin 40 Mg/0.4 Ml Syringe) 40 mg SUBCUT Q24H [facility] Last Admin: 10/29/20 22:29 Dose: 40 mg Documented by: Furosemide (Furosemide 20 Mg/2 Ml Vial) 20 mg IVPUSH NOW ONE Stop: 11/03/20 12:07 Last Admin: 11/03/20 12:42 Dose: 20 mg Documented by: Furosemide (Furosemide 20 Mg/2 Ml Vial) 20 mg IVPUSH ONETIME ONE Stop: 11/07/20 13:03 Last Admin: 11/07/20 14:05 Dose: 20 mg Documented by: Remdesivir 200 mg/ Sodium (Chloride) 250 mls @ 250 mls/hr IV ONETIME ONE Stop: 10/29/20 14:48 Last Admin: 10/29/20 15:08 Dose: Not Given Documented by: Remdesivir 200 mg/ Sodium (Chloride) 250 mls @ 250 mls/hr IV ONETIME ONE Stop: 10/29/20 15:59 Last Admin: 10/29/20 15:27 Dose: 250 mls/hr Documented by: Sodium Chloride (Normal Saline) 1,000 mls @ 50 mls/hr IV ASDIRECTED [facility] Last Admin: 10/29/20 15:21 Dose: 50 mls/hr Documented by: Remdesivir 100 mg/ Sodium (Chloride) 100 mls @ 100 mls/hr IV Q24H [facility] Stop: 11/02/20 15:59 Last Admin: 10/30/20 19:19 Dose: Not Given Documented by: Remdesivir 100 mg/ Sodium (Chloride) 100 mls @ 100 mls/hr IV Q24H [facility] Stop: 11/02/20 18:14 Last Admin: 11/02/20 17:40 Dose: 100 mls/hr Documented by: Tocilizumab 800 mg/ Sodium (Chloride) 100 mls @ 100 mls/hr IV ONETIME ONE Stop: 10/31/20 11:29 Last Admin: 10/31/20 10:45 Dose: 100 mls/hr Documented by: Insulin Aspart (Insulin Aspart 100 Units/Ml 3 Ml Pen) 0 unit SUBCUT TIDAC [facility]; Protocol Insulin Aspart (Insulin Aspart 100 Units/Ml 3 Ml Pen) 0 unit SUBCUT TIDAC [facility]; Protocol Last Admin: 11/02/20 08:52 Dose: 9 units Documented by: Insulin Aspart (Insulin Aspart 100 Units/Ml 3 Ml Pen) 5 unit SUBCUT TIDAC [facility] Last Admin: 11/03/20 09:22 Dose: 5 units Documented by: Insulin Aspart (Insulin Aspart 100 Units/Ml 3 Ml Pen) 6 unit SUBCUT TIDAC [facility] Last Admin: 11/10/20 08:48 Dose: 6 units Documented by: Insulin Glargine (Insulin Glargine,Human Rec. Analog 100 Units/Ml 3 Ml Pen) 5 units SUBCUT BEDTIME [facility] Last Admin: 10/30/20 23:54 Dose: 5 units Documented by: Insulin Glargine (Insulin Glargine,Human Rec. Analog 100 Units/Ml 3 Ml Pen) Confirm Administered Dose 300 units .ROUTE .STK-MED ONE Stop: 10/30/20 23:52 Last Admin: 10/31/20 00:45 Dose: Not Given Documented by: Insulin Glargine (Insulin Glargine,Human Rec. Analog 100 Units/Ml 3 Ml Pen) 10 units SUBCUT BEDTIME [facility] Last Admin: 10/31/20 21:53 Dose: 10 units Documented by: Insulin Glargine (Insulin Glargine,Human Rec. Analog 100 Units/Ml 3 Ml Pen) 15 units SUBCUT BEDTIME [facility] Last Admin: 11/01/20 20:13 Dose: 15 units Documented by: Insulin Glargine (Insulin Glargine,Human Rec. Analog 100 Units/Ml 3 Ml Pen) 20 units SUBCUT BEDTIME [facility] Last Admin: 11/02/20 22:00 Dose: 20 units Documented by: Insulin Glargine (Insulin Glargine,Human Rec. Analog 100 Units/Ml 3 Ml Pen) 24 units SUBCUT BEDTIME [facility] Last Admin: 11/08/20 20:50 Dose: 24 units Documented by: Insulin Glargine (Insulin Glargine,Human Rec. Analog 100 Units/Ml 3 Ml Pen) 30 units SUBCUT BEDTIME [facility] Last Admin: 11/09/20 20:20 Dose: Not Given Documented by: Insulin Glargine (Insulin Glargine,Human Rec. Analog 100 Units/Ml 3 Ml Pen) 6 units SUBCUT NOW ONE Stop: 11/09/20 02:46 Last Admin: 11/09/20 06:10 Dose: 6 units Documented by: Insulin Glargine (Insulin Glargine,Human Rec. Analog 100 Units/Ml 3 Ml Pen) 24 units SUBCUT BEDTIME ONE Stop: 11/09/20 20:18 Last Admin: 11/09/20 20:22 Dose: 24 units Documented by: Iopamidol (Iopamidol 755 Mg/Ml 200 Ml Multipack Bottle) 100 ml IVPUSH ONETIME ONE Stop: 10/31/20 12:59 Last Admin: 10/31/20 19:36 Dose: Not Given Documented by: Iopamidol (Iopamidol 755 Mg/Ml 200 Ml Multipack Bottle) 100 ml IVPUSH ONETIME ONE Stop: 10/31/20 13:01 Last Admin: 10/31/20 19:34 Dose: Not Given Documented by: Iopamidol (Iopamidol 755 Mg/Ml 500 Ml Multipack Bottle) 100 ml IVPUSH ONETIME ONE Stop: 10/31/20 13:02 Last Admin: 10/31/20 13:02 Dose: 100 ml Documented by: Iopamidol (Iopamidol 755 Mg/Ml 500 Ml Multipack Bottle) 100 ml IVPUSH ONETIME STA Stop: 11/04/20 15:19 Last Admin: 11/04/20 15:19 Dose: 100 ml Documented by: Budesonide/Formoterol 160-4.5 Mcg/Puff 6 Gm Inhaler 0 each INH BID [facility] - Patient Data Lab Results Last 24 hrs: Laboratory Results - last 24 hr 11/10/20 11/10/20 11/11/20 Range/Units 18:24 20:13 05:20 WBC 4.27 (4.0-11.0) K/uL RBC 4.36 (4.30-5.90) M/uL Hgb 13.2 (12.0-16.0) g/dL Hct 38.9 (36.0-46.0) % MCV 89.2 (80.0-98.0) fL MCH 30.3 (27.0-32.0) pg MCHC 33.9 (31.0-37.0) g/dL RDW Std Deviation 44.2 (28.0-62.0) fl RDW Coeff of Ry 14 (11.0-15.0) % Plt Count 162 (150-400) K/uL MPV 9.30 (7.40-12.00) fL Neut % (Auto) 53.8 (48.0-80.0) % Lymph % (Auto) 34.7 (16.0-40.0) % [place] % (Auto) 8.2 (0.0-15.0) % Eos % (Auto) 2.8 (0.0-7.0) % Baso % (Auto) 0.5 (0.0-1.5) % Neut # (Auto) 2.3 (1.4-5.7) K/uL Lymph # (Auto) 1.5 (0.6-2.4) K/uL [place] # (Auto) 0.4 (0.0-0.8) K/uL Eos # (Auto) 0.1 (0.0-0.7) K/uL Baso # (Auto) 0.0 (0.0-0.1) K/uL Nucleated RBC % 0.0 /100WBC Nucleated RBCs # 0 K/uL Sodium (136-145) mmol/L Potassium (3.5-5.1) mmol/L Chloride (98-107) mmol/L Carbon Dioxide (21.0-32.0) mmol/L BUN (7.0-18.0) mg/dL Creatinine (0.6-1.0) mg/dL Est Cr Clr Drug Dosing mL/min Estimated GFR (MDRD) ml/min Glucose (74-106) mg/dL POC Glucose 121 H 203 H (70-99) mg/dL Calcium (8.5-10.1) mg/dL Phosphorus (2.6-4.7) mg/dL Magnesium (1.8-2.4) mg/dL 11/11/20 11/11/20 11/11/20 Range/Units 05:20 05:22 09:22 WBC (4.0-11.0) K/uL RBC (4.30-5.90) M/uL Hgb (12.0-16.0) g/dL Hct (36.0-46.0) % MCV (80.0-98.0) fL MCH (27.0-32.0) pg MCHC (31.0-37.0) g/dL RDW Std Deviation (28.0-62.0) fl RDW Coeff of Ry (11.0-15.0) % Plt Count (150-400) K/uL MPV (7.40-12.00) fL Neut % (Auto) (48.0-80.0) % Lymph % (Auto) (16.0-40.0) % [place] % (Auto) (0.0-15.0) % Eos % (Auto) (0.0-7.0) % Baso % (Auto) (0.0-1.5) % Neut # (Auto) (1.4-5.7) K/uL Lymph # (Auto) (0.6-2.4) K/uL [place] # (Auto) (0.0-0.8) K/uL Eos # (Auto) (0.0-0.7) K/uL Baso # (Auto) (0.0-0.1) K/uL Nucleated RBC % /100WBC Nucleated RBCs # K/uL Sodium 140 (136-145) mmol/L Potassium 4.0 (3.5-5.1) mmol/L Chloride 107 (98-107) mmol/L Carbon Dioxide 26.9 (21.0-32.0) mmol/L BUN 16 (7.0-18.0) mg/dL Creatinine 0.9 (0.6-1.0) mg/dL Est Cr Clr Drug Dosing 65.38 mL/min Estimated GFR (MDRD) > 60.0 ml/min Glucose 152 H (74-106) mg/dL POC Glucose 142 H 159 H (70-99) mg/dL Calcium 7.9 L (8.5-10.1) mg/dL Phosphorus 3.9 (2.6-4.7) mg/dL Magnesium 1.8 (1.8-2.4) mg/dL Result Diagrams: 11/11/20 05:20 11/11/20 05:20 Sepsis Event Note - Focused Exam Vital Signs: Vital Signs Temp Resp BP BP Pulse Ox Pulse Ox 11/11/20 12:00 21 H 92 L 11/11/20 11:24 36.2 C 20 127/64 93 L 11/11/20 09:25 117/65 11/11/20 09:21 36 C L 21 H 117/65 92 L 11/11/20 09:00 92 L 11/11/20 08:00 22 H 92 L 11/11/20 05:58 36.6 C 21 H 127/70 92 L 11/11/20 04:00 20 91 L 11/11/20 02:00 20 118/62 91 L - Problem List & Annotations (1) Acute respiratory failure with hypoxia SNOMED Code(s): 63038288, 229132411 Code(s): J96.01 - ACUTE RESPIRATORY FAILURE WITH HYPOXIA Status: Acute Current Visit: Yes (2) COVID-19 SNOMED Code(s): 769960267 Code(s): U07.1 - COVID-19 Status: Acute Current Visit: Yes (3) Hypoxia SNOMED Code(s): 394718433 Code(s): R09.02 - HYPOXEMIA Status: Acute Current Visit: Yes - Plan Plan:: I have seen and evaluated the patient and agree with the residents note unless specified in my note
[2020-11-09] MEDS: Enoxaparin 40 MG/0.4 ML Syringe SUBCUT SCH ×2 (11:38→22:52)
[2020-11-09] MEDS: Montelukast 10 MG Tab PO SCH (20:08)
[2020-11-09] MEDS: Benzonatate 100 MG Cap PO PRN (20:08)
[2020-11-09] MEDS ORDERED: Insulin Glargine,Human Rec. Analog 100 Units/ML 3 ML Pen SUBCUT SCH (21:00)
[2020-11-10] MEDS: Albuterol/Ipratropium 4 GM Inhalation Spray INH SCH ×6 (01:42→22:57)
[2020-11-10] MEDS: Benzonatate 100 MG Cap PO PRN ×2 (05:08→20:03)
[2020-11-10] MEDS: Albuterol 8 GM Inhaler INH PRN (05:14)
[2020-11-10 06:12] LABS: BLOOD UREA NITROGEN,BUN 19 mg/dL (7.0-18.0); CHLORIDE,CL 107 mmol/L (98-107); GLUCOSE RANDOM 127 mg/dL (74-106); POTASSIUM,K 3.6 mmol/L (3.5-5.1); SODIUM,NA 141 mmol/L (136-145)
[2020-11-10] MEDS: Omeprazole 20 MG Cap.CR PO SCH ×2 (08:10→17:50)
[2020-11-10] MEDS: Insulin Aspart 100 Units/ML 3 ML Pen SUBCUT SCH ×4 (08:10→18:32)
[2020-11-10] MEDS: Losartan 50 MG Tab PO SCH (08:10)
[2020-11-10] MEDS: Budesonide/Formoterol 160-4.5 MCG/Puff 6 GM Inhaler INH SCH ×2 (08:48→20:08)
[2020-11-10] MEDS: Enoxaparin 40 MG/0.4 ML Syringe SUBCUT SCH ×2 (12:20→23:22)
--- NOTE | 2020-11-10 12:45 | PCM.PN ---
- General Info Date of Service: 11/10/20 Admission Dx/Problem (Free Text): Admission Diagnosis/Problem Admission Diagnosis/Problem acute hypoxic respiratory failure secondary to Covid pneumonia Subjective Update: 60-year-old female admitted for acute hypoxic respiratory failure secondary to Covid pneumonia. Currently on high flow tolerating it well, overnight was on BiPAP and patient has been able to appropriately wean down on BiPAP settings. Patient was seen at bedside this morning resting comfortably, with high spirits and stating that she feels much improved and optimistic. Denies any chest pain, neck pain, shortness of breath. Functional Status: Reports: Tolerating Diet, Ambulating, Urinating - Review of Systems General: Denies: Fever, Weakness, Fatigue Pulmonary: Denies: Shortness of Breath, Pleuritic Chest Pain Gastrointestinal: Denies: Abdominal Pain, Constipation Genitourinary: Denies: Dysuria, Frequency, Burning Musculoskeletal: Denies: Neck Pain, Shoulder Pain, Arm Pain Skin: Denies: Cyanosis, Jaundice, Mottled, Pallor - Patient Data Vitals - Most Recent: Last Vital Signs Temp 36.4 C 11/10/20 12:00 Pulse 77 10/31/20 04:00 Resp 24 H 11/10/20 12:00 BP 132/71 11/10/20 12:00 Pulse Ox 92 L 11/10/20 12:00 Weight - Most Recent: 175.767 kg I&O - Last 24 Hours: Intake & Output 11/09/20 11/10/20 11/10/20 22:59 06:59 14:59 Intake Total 750 1250 Output Total 850 750 Balance -100 500 Lab Results Last 24 Hours: Laboratory Results - last 24 hr 11/09/20 11/09/20 11/09/20 Range/Units 13:34 17:13 20:12 WBC (4.0-11.0) K/uL RBC (4.30-5.90) M/uL Hgb (12.0-16.0) g/dL Hct (36.0-46.0) % MCV (80.0-98.0) fL MCH (27.0-32.0) pg MCHC (31.0-37.0) g/dL RDW Std Deviation (28.0-62.0) fl RDW Coeff of Ry (11.0-15.0) % Plt Count (150-400) K/uL MPV (7.40-12.00) fL Neut % (Auto) (48.0-80.0) % Lymph % (Auto) (16.0-40.0) % [place] % (Auto) (0.0-15.0) % Eos % (Auto) (0.0-7.0) % Baso % (Auto) (0.0-1.5) % Neut # (Auto) (1.4-5.7) K/uL Lymph # (Auto) (0.6-2.4) K/uL [place] # (Auto) (0.0-0.8) K/uL Eos # (Auto) (0.0-0.7) K/uL Baso # (Auto) (0.0-0.1) K/uL Sodium (136-145) mmol/L Potassium (3.5-5.1) mmol/L Chloride (98-107) mmol/L Carbon Dioxide (21.0-32.0) mmol/L BUN (7.0-18.0) mg/dL Creatinine (0.6-1.0) mg/dL Est Cr Clr Drug Dosing mL/min Estimated GFR (MDRD) ml/min Glucose (74-106) mg/dL POC Glucose 156 H 181 H 192 H (70-99) mg/dL Calcium (8.5-10.1) mg/dL Phosphorus (2.6-4.7) mg/dL Magnesium (1.8-2.4) mg/dL Total Bilirubin (0.2-1.0) mg/dL AST (15-37) IU/L ALT (14-63) IU/L Alkaline Phosphatase (46-116) U/L Total Protein (6.4-8.2) g/dL Albumin (3.4-5.0) g/dL Globulin (2.6-4.0) g/dL Albumin/Globulin Ratio (0.9-1.6) 11/10/20 11/10/20 11/10/20 Range/Units 05:00 05:00 05:02 WBC 4.91 (4.0-11.0) K/uL RBC 4.29 L (4.30-5.90) M/uL Hgb 13.2 (12.0-16.0) g/dL Hct 38.6 (36.0-46.0) % MCV 90.0 (80.0-98.0) fL MCH 30.8 (27.0-32.0) pg MCHC 34.2 (31.0-37.0) g/dL RDW Std Deviation 42.2 (28.0-62.0) fl RDW Coeff of Ry 13 (11.0-15.0) % Plt Count 188 (150-400) K/uL MPV 9.50 (7.40-12.00) fL Neut % (Auto) 56.6 (48.0-80.0) % Lymph % (Auto) 30.3 (16.0-40.0) % [place] % (Auto) 9.4 (0.0-15.0) % Eos % (Auto) 3.5 (0.0-7.0) % Baso % (Auto) 0.2 (0.0-1.5) % Neut # (Auto) 2.8 (1.4-5.7) K/uL Lymph # (Auto) 1.5 (0.6-2.4) K/uL [place] # (Auto) 0.5 (0.0-0.8) K/uL Eos # (Auto) 0.2 (0.0-0.7) K/uL Baso # (Auto) 0.0 (0.0-0.1) K/uL Sodium 141 (136-145) mmol/L Potassium 3.6 (3.5-5.1) mmol/L Chloride 107 (98-107) mmol/L Carbon Dioxide 27.0 (21.0-32.0) mmol/L BUN 19 H (7.0-18.0) mg/dL Creatinine 0.8 (0.6-1.0) mg/dL Est Cr Clr Drug Dosing 73.55 mL/min Estimated GFR (MDRD) > 60.0 ml/min Glucose 127 H (74-106) mg/dL POC Glucose 125 H (70-99) mg/dL Calcium 7.8 L (8.5-10.1) mg/dL Phosphorus 3.5 (2.6-4.7) mg/dL Magnesium 1.8 (1.8-2.4) mg/dL Total Bilirubin 0.5 (0.2-1.0) mg/dL AST 36 (15-37) IU/L ALT 68 H (14-63) IU/L Alkaline Phosphatase 55 (46-116) U/L Total Protein 5.5 L (6.4-8.2) g/dL Albumin 2.7 L (3.4-5.0) g/dL Globulin 2.8 (2.6-4.0) g/dL Albumin/Globulin Ratio 1.0 (0.9-1.6) 11/10/20 11/10/20 Range/Units 08:08 12:08 WBC (4.0-11.0) K/uL RBC (4.30-5.90) M/uL Hgb (12.0-16.0) g/dL Hct (36.0-46.0) % MCV (80.0-98.0) fL MCH (27.0-32.0) pg MCHC (31.0-37.0) g/dL RDW Std Deviation (28.0-62.0) fl RDW Coeff of Ry (11.0-15.0) % Plt Count (150-400) K/uL MPV (7.40-12.00) fL Neut % (Auto) (48.0-80.0) % Lymph % (Auto) (16.0-40.0) % [place] % (Auto) (0.0-15.0) % Eos % (Auto) (0.0-7.0) % Baso % (Auto) (0.0-1.5) % Neut # (Auto) (1.4-5.7) K/uL Lymph # (Auto) (0.6-2.4) K/uL [place] # (Auto) (0.0-0.8) K/uL Eos # (Auto) (0.0-0.7) K/uL Baso # (Auto) (0.0-0.1) K/uL Sodium (136-145) mmol/L Potassium (3.5-5.1) mmol/L Chloride (98-107) mmol/L Carbon Dioxide (21.0-32.0) mmol/L BUN (7.0-18.0) mg/dL Creatinine (0.6-1.0) mg/dL Est Cr Clr Drug Dosing mL/min Estimated GFR (MDRD) ml/min Glucose (74-106) mg/dL POC Glucose 143 H 159 H (70-99) mg/dL Calcium (8.5-10.1) mg/dL Phosphorus (2.6-4.7) mg/dL Magnesium (1.8-2.4) mg/dL Total Bilirubin (0.2-1.0) mg/dL AST (15-37) IU/L ALT (14-63) IU/L Alkaline Phosphatase (46-116) U/L Total Protein (6.4-8.2) g/dL Albumin (3.4-5.0) g/dL Globulin (2.6-4.0) g/dL Albumin/Globulin Ratio (0.9-1.6) Med Orders - Current: Current Medications Albuterol (Albuterol 8 Gm Inhaler) 0 gm INH Q4HRRT PRN PRN Reason: Shortness of Breath Last Admin: 11/10/20 05:14 Dose: 2 puff Documented by: Albuterol/Ipratropium (Albuterol/Ipratropium 4 Gm Inhalation [place]) 0 gm INH Q4H [facility] Last Admin: 11/10/20 09:24 Dose: 1 puff Documented by: Benzonatate (Benzonatate 100 Mg Cap) 100 mg PO Q6H PRN PRN Reason: Cough Last Admin: 11/10/20 05:08 Dose: 100 mg Documented by: Dextrose/Water (50% Dextrose In Water 50 Ml Syringe) 50 ml IVPUSH ASDIRECTED PRN PRN Reason: Hypoglycemia Docusate Sodium (Docusate Sodium 100 Mg Cap) 100 mg PO Q12H PRN PRN Reason: Constipation Enoxaparin Sodium (Enoxaparin 40 Mg/0.4 Ml Syringe) 40 mg SUBCUT Q12H [facility] Last Admin: 11/10/20 12:20 Dose: 40 mg Documented by: Glucagon (Glucagon,Human Recombinant 1 Mg Vial) 1 mg IM ASDIRECTED PRN PRN Reason: Hypoglycemia Insulin Aspart (Insulin Aspart 100 Units/Ml 3 Ml Pen) 0 unit SUBCUT TIDAC [facility]; Protocol Last Admin: 11/10/20 12:36 Dose: 2 units Documented by: Insulin Glargine (Insulin Glargine,Human Rec. Analog 100 Units/Ml 3 Ml Pen) 24 units SUBCUT BEDTIME [facility] Lorazepam (Lorazepam 2 Mg/Ml Sdv) 0.5 mg IVPUSH Q4H PRN PRN Reason: Anxiety Last Admin: 11/08/20 00:33 Dose: 0.5 mg Documented by: Losartan Potassium (Losartan 50 Mg Tab) 25 mg PO DAILY [facility] Last Admin: 11/10/20 08:10 Dose: 25 mg Documented by: Montelukast Sodium (Montelukast 10 Mg Tab) 10 mg PO BEDTIME [facility] Last Admin: 11/09/20 20:08 Dose: 10 mg Documented by: Omeprazole (Omeprazole 20 Mg Cap.Cr) 20 mg PO BIDAC [facility] Last Admin: 11/10/20 08:10 Dose: 20 mg Documented by: Budesonide/Formoterol 160-4.5 Mcg/Puff 6 Gm Inhaler 0 each INH BID [facility] Last Admin: 11/10/20 08:48 Dose: 1 each Documented by: Senna (Sennosides 8.6 Mg Tab) 8.6 mg PO Q12H PRN PRN Reason: Constipation Sodium Chloride (Sodium Chloride 0.9% 2.5 Ml Syringe) 2.5 ml FLUSH ASDIRECTED PRN PRN Reason: Keep Vein Open Discontinued Medications Albuterol (Albuterol 8 Gm Inhaler) 0 gm INH Q4H PRN PRN Reason: Shortness of Breath Last Admin: 10/31/20 05:25 Dose: 2 puff Documented by: Albuterol/Ipratropium (Albuterol/Ipratropium 4 Gm Inhalation [place]) 0 gm INH Q6HRRT [facility] Last Admin: 11/03/20 06:16 Dose: 1 puff Documented by: Budesonide/Formoterol Fumarate (Budesonide/Formoterol 160-4.5 Mcg/Puff 6 Gm Inhaler) 0 gm INH BID [facility] Last Admin: 11/07/20 09:15 Dose: Not Given Documented by: Ciprofloxacin (Ciprofloxacin 250 Mg Tab) 250 mg PO BID [facility] Last Admin: 11/04/20 08:30 Dose: 250 mg Documented by: Dexamethasone (Dexamethasone 10 Mg/Ml Sdv) 10 mg IVPUSH ONETIME ONE Stop: 10/29/20 14:49 Last Admin: 10/29/20 15:22 Dose: 10 mg Documented by: Dexamethasone (Dexamethasone 4 Mg Tab) 6 mg PO DAILY [facility] Last Admin: 11/08/20 09:01 Dose: 6 mg Documented by: Enoxaparin Sodium (Enoxaparin 40 Mg/0.4 Ml Syringe) 40 mg SUBCUT Q24H [facility] Last Admin: 10/29/20 22:29 Dose: 40 mg Documented by: Furosemide (Furosemide 20 Mg/2 Ml Vial) 20 mg IVPUSH NOW ONE Stop: 11/03/20 12:07 Last Admin: 11/03/20 12:42 Dose: 20 mg Documented by: Furosemide (Furosemide 20 Mg/2 Ml Vial) 20 mg IVPUSH ONETIME ONE Stop: 11/07/20 13:03 Last Admin: 11/07/20 14:05 Dose: 20 mg Documented by: Remdesivir 200 mg/ Sodium (Chloride) 250 mls @ 250 mls/hr IV ONETIME ONE Stop: 10/29/20 14:48 Last Admin: 10/29/20 15:08 Dose: Not Given Documented by: Remdesivir 200 mg/ Sodium (Chloride) 250 mls @ 250 mls/hr IV ONETIME ONE Stop: 10/29/20 15:59 Last Admin: 10/29/20 15:27 Dose: 250 mls/hr Documented by: Sodium Chloride (Normal Saline) 1,000 mls @ 50 mls/hr IV ASDIRECTED [facility] Last Admin: 10/29/20 15:21 Dose: 50 mls/hr Documented by: Remdesivir 100 mg/ Sodium (Chloride) 100 mls @ 100 mls/hr IV Q24H [facility] Stop: 11/02/20 15:59 Last Admin: 10/30/20 19:19 Dose: Not Given Documented by: Remdesivir 100 mg/ Sodium (Chloride) 100 mls @ 100 mls/hr IV Q24H [facility] Stop: 11/02/20 18:14 Last Admin: 11/02/20 17:40 Dose: 100 mls/hr Documented by: Tocilizumab 800 mg/ Sodium (Chloride) 100 mls @ 100 mls/hr IV ONETIME ONE Stop: 10/31/20 11:29 Last Admin: 10/31/20 10:45 Dose: 100 mls/hr Documented by: Insulin Aspart (Insulin Aspart 100 Units/Ml 3 Ml Pen) 0 unit SUBCUT TIDAC [facility]; Protocol Insulin Aspart (Insulin Aspart 100 Units/Ml 3 Ml Pen) 0 unit SUBCUT TIDAC [facility]; Protocol Last Admin: 11/02/20 08:52 Dose: 9 units Documented by: Insulin Aspart (Insulin Aspart 100 Units/Ml 3 Ml Pen) 5 unit SUBCUT TIDAC [facility] Last Admin: 11/03/20 09:22 Dose: 5 units Documented by: Insulin Aspart (Insulin Aspart 100 Units/Ml 3 Ml Pen) 6 unit SUBCUT TIDAC [facility] Last Admin: 11/10/20 08:48 Dose: 6 units Documented by: Insulin Glargine (Insulin Glargine,Human Rec. Analog 100 Units/Ml 3 Ml Pen) 5 units SUBCUT BEDTIME [facility] Last Admin: 10/30/20 23:54 Dose: 5 units Documented by: Insulin Glargine (Insulin Glargine,Human Rec. Analog 100 Units/Ml 3 Ml Pen) Confirm Administered Dose 300 units .ROUTE .[facility] ONE Stop: 10/30/20 23:52 Last Admin: 10/31/20 00:45 Dose: Not Given Documented by: Insulin Glargine (Insulin Glargine,Human Rec. Analog 100 Units/Ml 3 Ml Pen) 10 units SUBCUT BEDTIME [facility] Last Admin: 10/31/20 21:53 Dose: 10 units Documented by: Insulin Glargine (Insulin Glargine,Human Rec. Analog 100 Units/Ml 3 Ml Pen) 15 units SUBCUT BEDTIME [facility] Last Admin: 11/01/20 20:13 Dose: 15 units Documented by: Insulin Glargine (Insulin Glargine,Human Rec. Analog 100 Units/Ml 3 Ml Pen) 20 units SUBCUT BEDTIME [facility] Last Admin: 11/02/20 22:00 Dose: 20 units Documented by: Insulin Glargine (Insulin Glargine,Human Rec. Analog 100 Units/Ml 3 Ml Pen) 24 units SUBCUT BEDTIME [facility] Last Admin: 11/08/20 20:50 Dose: 24 units Documented by: Insulin Glargine (Insulin Glargine,Human Rec. Analog 100 Units/Ml 3 Ml Pen) 30 units SUBCUT BEDTIME [facility] Last Admin: 11/09/20 20:20 Dose: Not Given Documented by: Insulin Glargine (Insulin Glargine,Human Rec. Analog 100 Units/Ml 3 Ml Pen) 6 units SUBCUT NOW ONE Stop: 11/09/20 02:46 Last Admin: 11/09/20 06:10 Dose: 6 units Documented by: Insulin Glargine (Insulin Glargine,Human Rec. Analog 100 Units/Ml 3 Ml Pen) 24 units SUBCUT BEDTIME ONE Stop: 11/09/20 20:18 Last Admin: 11/09/20 20:22 Dose: 24 units Documented by: Iopamidol (Iopamidol 755 Mg/Ml 200 Ml Multipack Bottle) 100 ml IVPUSH ONETIME ONE Stop: 10/31/20 12:59 Last Admin: 10/31/20 19:36 Dose: Not Given Documented by: Iopamidol (Iopamidol 755 Mg/Ml 200 Ml Multipack Bottle) 100 ml IVPUSH ONETIME ONE Stop: 10/31/20 13:01 Last Admin: 10/31/20 19:34 Dose: Not Given Documented by: Iopamidol (Iopamidol 755 Mg/Ml 500 Ml Multipack Bottle) 100 ml IVPUSH ONETIME ONE Stop: 10/31/20 13:02 Last Admin: 10/31/20 13:02 Dose: 100 ml Documented by: Iopamidol (Iopamidol 755 Mg/Ml 500 Ml Multipack Bottle) 100 ml IVPUSH ONETIME [facility] Stop: 11/04/20 15:19 Last Admin: 11/04/20 15:19 Dose: 100 ml Documented by: Budesonide/Formoterol 160-4.5 Mcg/Puff 6 Gm Inhaler 0 each INH BID [facility] - Exam Quality Assessment: Supplemental Oxygen General: Alert, Oriented Lungs: Normal Respiratory Effort, Other (coarse breath sounds) Cardiovascular: Regular Rate, Regular Rhythm GI/Abdominal Exam: Normal Bowel Sounds, Soft, Non-Tender Back Exam: Normal Inspection, Full Range of Motion - Patient Data Lab Results Last 24 hrs: Laboratory Results - last 24 hr 11/09/20 11/09/20 11/09/20 Range/Units 13:34 17:13 20:12 WBC (4.0-11.0) K/uL RBC (4.30-5.90) M/uL Hgb (12.0-16.0) g/dL Hct (36.0-46.0) % MCV (80.0-98.0) fL MCH (27.0-32.0) pg MCHC (31.0-37.0) g/dL RDW Std Deviation (28.0-62.0) fl RDW Coeff of Ry (11.0-15.0) % Plt Count (150-400) K/uL MPV (7.40-12.00) fL Neut % (Auto) (48.0-80.0) % Lymph % (Auto) (16.0-40.0) % [place] % (Auto) (0.0-15.0) % Eos % (Auto) (0.0-7.0) % Baso % (Auto) (0.0-1.5) % Neut # (Auto) (1.4-5.7) K/uL Lymph # (Auto) (0.6-2.4) K/uL [place] # (Auto) (0.0-0.8) K/uL Eos # (Auto) (0.0-0.7) K/uL Baso # (Auto) (0.0-0.1) K/uL Sodium (136-145) mmol/L Potassium (3.5-5.1) mmol/L Chloride (98-107) mmol/L Carbon Dioxide (21.0-32.0) mmol/L BUN (7.0-18.0) mg/dL Creatinine (0.6-1.0) mg/dL Est Cr Clr Drug Dosing mL/min Estimated GFR (MDRD) ml/min Glucose (74-106) mg/dL POC Glucose 156 H 181 H 192 H (70-99) mg/dL Calcium (8.5-10.1) mg/dL Phosphorus (2.6-4.7) mg/dL Magnesium (1.8-2.4) mg/dL Total Bilirubin (0.2-1.0) mg/dL AST (15-37) IU/L ALT (14-63) IU/L Alkaline Phosphatase (46-116) U/L Total Protein (6.4-8.2) g/dL Albumin (3.4-5.0) g/dL Globulin (2.6-4.0) g/dL Albumin/Globulin Ratio (0.9-1.6) 11/10/20 11/10/20 11/10/20 Range/Units 05:00 05:00 05:02 WBC 4.91 (4.0-11.0) K/uL RBC 4.29 L (4.30-5.90) M/uL Hgb 13.2 (12.0-16.0) g/dL Hct 38.6 (36.0-46.0) % MCV 90.0 (80.0-98.0) fL MCH 30.8 (27.0-32.0) pg MCHC 34.2 (31.0-37.0) g/dL RDW Std Deviation 42.2 (28.0-62.0) fl RDW Coeff of Ry 13 (11.0-15.0) % Plt Count 188 (150-400) K/uL MPV 9.50 (7.40-12.00) fL Neut % (Auto) 56.6 (48.0-80.0) % Lymph % (Auto) 30.3 (16.0-40.0) % [place] % (Auto) 9.4 (0.0-15.0) % Eos % (Auto) 3.5 (0.0-7.0) % Baso % (Auto) 0.2 (0.0-1.5) % Neut # (Auto) 2.8 (1.4-5.7) K/uL Lymph # (Auto) 1.5 (0.6-2.4) K/uL [place] # (Auto) 0.5 (0.0-0.8) K/uL Eos # (Auto) 0.2 (0.0-0.7) K/uL Baso # (Auto) 0.0 (0.0-0.1) K/uL Sodium 141 (136-145) mmol/L Potassium 3.6 (3.5-5.1) mmol/L Chloride 107 (98-107) mmol/L Carbon Dioxide 27.0 (21.0-32.0) mmol/L BUN 19 H (7.0-18.0) mg/dL Creatinine 0.8 (0.6-1.0) mg/dL Est Cr Clr Drug Dosing 73.55 mL/min Estimated GFR (MDRD) > 60.0 ml/min Glucose 127 H (74-106) mg/dL POC Glucose 125 H (70-99) mg/dL Calcium 7.8 L (8.5-10.1) mg/dL Phosphorus 3.5 (2.6-4.7) mg/dL Magnesium 1.8 (1.8-2.4) mg/dL Total Bilirubin 0.5 (0.2-1.0) mg/dL AST 36 (15-37) IU/L ALT 68 H (14-63) IU/L Alkaline Phosphatase 55 (46-116) U/L Total Protein 5.5 L (6.4-8.2) g/dL Albumin 2.7 L (3.4-5.0) g/dL Globulin 2.8 (2.6-4.0) g/dL Albumin/Globulin Ratio 1.0 (0.9-1.6) 11/10/20 11/10/20 Range/Units 08:08 12:08 WBC (4.0-11.0) K/uL RBC (4.30-5.90) M/uL Hgb (12.0-16.0) g/dL Hct (36.0-46.0) % MCV (80.0-98.0) fL MCH (27.0-32.0) pg MCHC (31.0-37.0) g/dL RDW Std Deviation (28.0-62.0) fl RDW Coeff of Ry (11.0-15.0) % Plt Count (150-400) K/uL MPV (7.40-12.00) fL Neut % (Auto) (48.0-80.0) % Lymph % (Auto) (16.0-40.0) % [place] % (Auto) (0.0-15.0) % Eos % (Auto) (0.0-7.0) % Baso % (Auto) (0.0-1.5) % Neut # (Auto) (1.4-5.7) K/uL Lymph # (Auto) (0.6-2.4) K/uL [place] # (Auto) (0.0-0.8) K/uL Eos # (Auto) (0.0-0.7) K/uL Baso # (Auto) (0.0-0.1) K/uL Sodium (136-145) mmol/L Potassium (3.5-5.1) mmol/L Chloride (98-107) mmol/L Carbon Dioxide (21.0-32.0) mmol/L BUN (7.0-18.0) mg/dL Creatinine (0.6-1.0) mg/dL Est Cr Clr Drug Dosing mL/min Estimated GFR (MDRD) ml/min Glucose (74-106) mg/dL POC Glucose 143 H 159 H (70-99) mg/dL Calcium (8.5-10.1) mg/dL Phosphorus (2.6-4.7) mg/dL Magnesium (1.8-2.4) mg/dL Total Bilirubin (0.2-1.0) mg/dL AST (15-37) IU/L ALT (14-63) IU/L Alkaline Phosphatase (46-116) U/L Total Protein (6.4-8.2) g/dL Albumin (3.4-5.0) g/dL Globulin (2.6-4.0) g/dL Albumin/Globulin Ratio (0.9-1.6) Result Diagrams: 11/10/20 05:00 11/10/20 05:00 Sepsis Event Note - Evaluation Sepsis Screening Result: No Definite Risk - Focused Exam Vital Signs: Vital Signs Temp Resp BP BP Pulse Ox 11/10/20 12:00 36.4 C 24 H 132/71 92 L 11/10/20 10:00 36.3 C 25 H 121/58 L 93 L 11/10/20 08:10 126/74 11/10/20 08:00 36.3 C 26 H 126/74 90 L 11/10/20 06:00 22 H 92 L 11/10/20 05:00 36.3 C 22 H 106/61 90 L 11/10/20 04:00 20 91 L 11/10/20 03:00 20 90 L 11/10/20 02:00 36.3 C 23 H 131/66 90 L 11/10/20 01:00 19 90 L - Problem List & Annotations (1) Acute respiratory failure with hypoxia SNOMED Code(s): 51855823, 425733707 Code(s): J96.01 - ACUTE RESPIRATORY FAILURE WITH HYPOXIA Status: Acute Current Visit: Yes (2) COVID-19 SNOMED Code(s): 032712861 Code(s): U07.1 - COVID-19 Status: Acute Current Visit: Yes (3) Hypoxia SNOMED Code(s): 511019281 Code(s): R09.02 - HYPOXEMIA Status: Acute Current Visit: Yes - Problem List Review Problem List Initiated/Reviewed/Updated: Yes - My Orders Last 24 Hours: My Active Orders 11/11/20 05:11 BMP [BASIC METABOLIC PANEL,BMP] [CHEM] AM CBC WITH AUTO DIFF [HEME] AM MAGNESIUM [CHEM] AM PHOSPHORUS [CHEM] AM - Plan Plan:: 60 yo female with past medical history of COPD/JAZMIN admitted with acute hypoxic respiratory failure due to COVID pneumonia. 1. AHRF secondary to COVID pneumonia: Status post remdesivir, tocilizumab, 2 days completing 10 days course of dexamethasone cont to wean off high flow as tolerated Continue supportive care Continue duo nebs as needed Continue proning as tolerated Continue incentive spirometry 2. Past medical history of diabetes mellitus: sugars beter cocntroled after steroids stopped. -d/c meal time insulin -cont SSI -cont long acting insulin Continue with [place] diabetic diet. 3. Past medical history of JAZMIN: Ensure heated high flow appropriate oxygenation overnight. 5. Past medical history of HTN/COPD: resume home meds
[2020-11-10] MEDS: Montelukast 10 MG Tab PO SCH (20:03)
[2020-11-10] MEDS: Insulin Glargine,Human Rec. Analog 100 Units/ML 3 ML Pen SUBCUT SCH (20:14)
[2020-11-11] MEDS: Albuterol/Ipratropium 4 GM Inhalation Spray INH SCH ×6 (01:18→23:49)
[2020-11-11] MEDS: Benzonatate 100 MG Cap PO PRN ×3 (05:31→20:28)
[2020-11-11 06:38] LABS: BLOOD UREA NITROGEN,BUN 16 mg/dL (7.0-18.0); CARBON DIOXIDE,CO2 26.9 mmol/L (21.0-32.0); CHLORIDE,CL 107 mmol/L (98-107); GLUCOSE RANDOM 152 mg/dL (74-106); SODIUM,NA 140 mmol/L (136-145)
[2020-11-11] MEDS: Omeprazole 20 MG Cap.CR PO SCH ×2 (06:46→18:20)
[2020-11-11] MEDS: Insulin Aspart 100 Units/ML 3 ML Pen SUBCUT SCH ×3 (09:23→18:26)
--- NOTE | 2020-11-11 09:24 | PN ---
[facility] Physician - Brief Progress [id number]/29/2021 09:15[facility] Rosario Scarlet dela cruz, ANU - LUZ (ARIANA) - EMERALDN ANNA NOEDate of Service 11/11/2020 09:15HPI/Events of Note eICU Note60 yof with DM II, OSAHere with COVIDO/E Seen on cameraVSS, NADOn BiPAP FiO2 35%DVT Prophylaxis: LovenoxGI Prophylaxis: PPIIssuesCOVID PNA (s/p Decadron, Remdesivir, Tocilizumab)Hypoxem ic Respiratory Failure - improvingOK to try to wean to HFNCDM IIGlu under better control (completed s teroids)OSABiPAP at nightCase reviewed with bedside teamCall with questionsWill followInterventions Danilo mccabe-Respiratory failure - evaluation and management
[2020-11-11] MEDS: Losartan 50 MG Tab PO SCH (09:25)
[2020-11-11] MEDS: Budesonide/Formoterol 160-4.5 MCG/Puff 6 GM Inhaler INH SCH ×2 (09:30→20:29)
[2020-11-11] MEDS: Enoxaparin 40 MG/0.4 ML Syringe SUBCUT SCH ×2 (11:23→23:49)
--- NOTE | 2020-11-11 12:35 | PCM.PN ---
- General Info Date of Service: 11/11/20 Admission Dx/Problem (Free Text): Admission Diagnosis/Problem Admission Diagnosis/Problem acute hypoxic respiratory failure secondary to Covid pneumonia Subjective Update: 60-year-old female admitted for acute hypoxic respiratory failure secondary to Covid pneumonia. Currently on high flow tolerating it well, o Patient was seen at bedside this morning resting comfortably, Denies any chest pain, neck pain, shortness of breath. Functional Status: Reports: Pain Controlled, Tolerating Diet, Urinating - Review of Systems General: Denies: Fever, Weakness Pulmonary: Reports: Shortness of Breath. Denies: Cough, Sputum Cardiovascular: Denies: Chest Pain Gastrointestinal: Denies: Abdominal Pain, Constipation, Decreased Appetite Genitourinary: Denies: Dysuria, Frequency, Burning Musculoskeletal: Denies: Neck Pain, Shoulder Pain, Arm Pain, Hand Pain Skin: Denies: Cyanosis, Jaundice, Mottled, Pallor Neurological: Denies: Confusion, Dizziness, Headache, Numbness - Patient Data Vitals - Most Recent: Last Vital Signs Temp 36.2 C 11/11/20 11:24 Pulse 77 10/31/20 04:00 Resp 21 H 11/11/20 12:00 BP 127/64 11/11/20 11:24 Pulse Ox 92 L 11/11/20 12:00 Weight - Most Recent: 175.767 kg I&O - Last 24 Hours: Intake & Output 11/10/20 11/11/20 11/11/20 22:59 06:59 14:59 Intake Total 800 Output Total 1350 Balance -550 Lab Results Last 24 Hours: Laboratory Results - last 24 hr 11/10/20 11/10/20 11/11/20 Range/Units 18:24 20:13 05:20 WBC 4.27 (4.0-11.0) K/uL RBC 4.36 (4.30-5.90) M/uL Hgb 13.2 (12.0-16.0) g/dL Hct 38.9 (36.0-46.0) % MCV 89.2 (80.0-98.0) fL MCH 30.3 (27.0-32.0) pg MCHC 33.9 (31.0-37.0) g/dL RDW Std Deviation 44.2 (28.0-62.0) fl RDW Coeff of Ry 14 (11.0-15.0) % Plt Count 162 (150-400) K/uL MPV 9.30 (7.40-12.00) fL Neut % (Auto) 53.8 (48.0-80.0) % Lymph % (Auto) 34.7 (16.0-40.0) % [place] % (Auto) 8.2 (0.0-15.0) % Eos % (Auto) 2.8 (0.0-7.0) % Baso % (Auto) 0.5 (0.0-1.5) % Neut # (Auto) 2.3 (1.4-5.7) K/uL Lymph # (Auto) 1.5 (0.6-2.4) K/uL [place] # (Auto) 0.4 (0.0-0.8) K/uL Eos # (Auto) 0.1 (0.0-0.7) K/uL Baso # (Auto) 0.0 (0.0-0.1) K/uL Nucleated RBC % 0.0 /100WBC Nucleated RBCs # 0 K/uL Sodium (136-145) mmol/L Potassium (3.5-5.1) mmol/L Chloride (98-107) mmol/L Carbon Dioxide (21.0-32.0) mmol/L BUN (7.0-18.0) mg/dL Creatinine (0.6-1.0) mg/dL Est Cr Clr Drug Dosing mL/min Estimated GFR (MDRD) ml/min Glucose (74-106) mg/dL POC Glucose 121 H 203 H (70-99) mg/dL Calcium (8.5-10.1) mg/dL Phosphorus (2.6-4.7) mg/dL Magnesium (1.8-2.4) mg/dL 11/11/20 11/11/20 11/11/20 Range/Units 05:20 05:22 09:22 WBC (4.0-11.0) K/uL RBC (4.30-5.90) M/uL Hgb (12.0-16.0) g/dL Hct (36.0-46.0) % MCV (80.0-98.0) fL MCH (27.0-32.0) pg MCHC (31.0-37.0) g/dL RDW Std Deviation (28.0-62.0) fl RDW Coeff of Ry (11.0-15.0) % Plt Count (150-400) K/uL MPV (7.40-12.00) fL Neut % (Auto) (48.0-80.0) % Lymph % (Auto) (16.0-40.0) % [place] % (Auto) (0.0-15.0) % Eos % (Auto) (0.0-7.0) % Baso % (Auto) (0.0-1.5) % Neut # (Auto) (1.4-5.7) K/uL Lymph # (Auto) (0.6-2.4) K/uL [place] # (Auto) (0.0-0.8) K/uL Eos # (Auto) (0.0-0.7) K/uL Baso # (Auto) (0.0-0.1) K/uL Nucleated RBC % /100WBC Nucleated RBCs # K/uL Sodium 140 (136-145) mmol/L Potassium 4.0 (3.5-5.1) mmol/L Chloride 107 (98-107) mmol/L Carbon Dioxide 26.9 (21.0-32.0) mmol/L BUN 16 (7.0-18.0) mg/dL Creatinine 0.9 (0.6-1.0) mg/dL Est Cr Clr Drug Dosing 65.38 mL/min Estimated GFR (MDRD) > 60.0 ml/min Glucose 152 H (74-106) mg/dL POC Glucose 142 H 159 H (70-99) mg/dL Calcium 7.9 L (8.5-10.1) mg/dL Phosphorus 3.9 (2.6-4.7) mg/dL Magnesium 1.8 (1.8-2.4) mg/dL Med Orders - Current: Current Medications Albuterol (Albuterol 8 Gm Inhaler) 0 gm INH Q4HRRT PRN PRN Reason: Shortness of Breath Last Admin: 11/10/20 05:14 Dose: 2 puff Documented by: Albuterol/Ipratropium (Albuterol/Ipratropium 4 Gm Inhalation [place]) 0 gm INH Q4H [facility] Last Admin: 11/11/20 09:32 Dose: 1 puff Documented by: Benzonatate (Benzonatate 100 Mg Cap) 100 mg PO Q6H PRN PRN Reason: Cough Last Admin: 11/11/20 05:31 Dose: 100 mg Documented by: Dextrose/Water (50% Dextrose In Water 50 Ml Syringe) 50 ml IVPUSH ASDIRECTED PRN PRN Reason: Hypoglycemia Docusate Sodium (Docusate Sodium 100 Mg Cap) 100 mg PO Q12H PRN PRN Reason: Constipation Enoxaparin Sodium (Enoxaparin 40 Mg/0.4 Ml Syringe) 40 mg SUBCUT Q12H [facility] Last Admin: 11/11/20 11:23 Dose: 40 mg Documented by: Glucagon (Glucagon,Human Recombinant 1 Mg Vial) 1 mg IM ASDIRECTED PRN PRN Reason: Hypoglycemia Insulin Aspart (Insulin Aspart 100 Units/Ml 3 Ml Pen) 0 unit SUBCUT TIDAC [facility]; Protocol Last Admin: 11/11/20 09:23 Dose: 2 units Documented by: Insulin Glargine (Insulin Glargine,Human Rec. Analog 100 Units/Ml 3 Ml Pen) 24 units SUBCUT BEDTIME [facility] Last Admin: 11/10/20 20:14 Dose: 24 units Documented by: Lorazepam (Lorazepam 2 Mg/Ml Sdv) 0.5 mg IVPUSH Q4H PRN PRN Reason: Anxiety Last Admin: 11/08/20 00:33 Dose: 0.5 mg Documented by: Losartan Potassium (Losartan 50 Mg Tab) 25 mg PO DAILY [facility] Last Admin: 11/11/20 09:25 Dose: 25 mg Documented by: Montelukast Sodium (Montelukast 10 Mg Tab) 10 mg PO BEDTIME [facility] Last Admin: 11/10/20 20:03 Dose: 10 mg Documented by: Omeprazole (Omeprazole 20 Mg Cap.Cr) 20 mg PO BIDAC [facility] Last Admin: 11/11/20 06:46 Dose: 20 mg Documented by: Budesonide/Formoterol 160-4.5 Mcg/Puff 6 Gm Inhaler 0 each INH BID [facility] Last Admin: 11/11/20 09:30 Dose: 1 each Documented by: Senna (Sennosides 8.6 Mg Tab) 8.6 mg PO Q12H PRN PRN Reason: Constipation Sodium Chloride (Sodium Chloride 0.9% 2.5 Ml Syringe) 2.5 ml FLUSH ASDIRECTED PRN PRN Reason: Keep Vein Open Discontinued Medications Albuterol (Albuterol 8 Gm Inhaler) 0 gm INH Q4H PRN PRN Reason: Shortness of Breath Last Admin: 10/31/20 05:25 Dose: 2 puff Documented by: Albuterol/Ipratropium (Albuterol/Ipratropium 4 Gm Inhalation [place]) 0 gm INH Q6HRRT [facility] Last Admin: 11/03/20 06:16 Dose: 1 puff Documented by: Budesonide/Formoterol Fumarate (Budesonide/Formoterol 160-4.5 Mcg/Puff 6 Gm Inhaler) 0 gm INH BID [facility] Last Admin: 11/07/20 09:15 Dose: Not Given Documented by: Ciprofloxacin (Ciprofloxacin 250 Mg Tab) 250 mg PO BID [facility] Last Admin: 11/04/20 08:30 Dose: 250 mg Documented by: Dexamethasone (Dexamethasone 10 Mg/Ml Sdv) 10 mg IVPUSH ONETIME ONE Stop: 10/29/20 14:49 Last Admin: 10/29/20 15:22 Dose: 10 mg Documented by: Dexamethasone (Dexamethasone 4 Mg Tab) 6 mg PO DAILY [facility] Last Admin: 11/08/20 09:01 Dose: 6 mg Documented by: Enoxaparin Sodium (Enoxaparin 40 Mg/0.4 Ml Syringe) 40 mg SUBCUT Q24H [facility] Last Admin: 10/29/20 22:29 Dose: 40 mg Documented by: Furosemide (Furosemide 20 Mg/2 Ml Vial) 20 mg IVPUSH NOW ONE Stop: 11/03/20 12:07 Last Admin: 11/03/20 12:42 Dose: 20 mg Documented by: Furosemide (Furosemide 20 Mg/2 Ml Vial) 20 mg IVPUSH ONETIME ONE Stop: 11/07/20 13:03 Last Admin: 11/07/20 14:05 Dose: 20 mg Documented by: Remdesivir 200 mg/ Sodium (Chloride) 250 mls @ 250 mls/hr IV ONETIME ONE Stop: 10/29/20 14:48 Last Admin: 10/29/20 15:08 Dose: Not Given Documented by: Remdesivir 200 mg/ Sodium (Chloride) 250 mls @ 250 mls/hr IV ONETIME ONE Stop: 10/29/20 15:59 Last Admin: 10/29/20 15:27 Dose: 250 mls/hr Documented by: Sodium Chloride (Normal Saline) 1,000 mls @ 50 mls/hr IV ASDIRECTED [facility] Last Admin: 10/29/20 15:21 Dose: 50 mls/hr Documented by: Remdesivir 100 mg/ Sodium (Chloride) 100 mls @ 100 mls/hr IV Q24H [facility] Stop: 11/02/20 15:59 Last Admin: 10/30/20 19:19 Dose: Not Given Documented by: Remdesivir 100 mg/ Sodium (Chloride) 100 mls @ 100 mls/hr IV Q24H [facility] Stop: 11/02/20 18:14 Last Admin: 11/02/20 17:40 Dose: 100 mls/hr Documented by: Tocilizumab 800 mg/ Sodium (Chloride) 100 mls @ 100 mls/hr IV ONETIME ONE Stop: 10/31/20 11:29 Last Admin: 10/31/20 10:45 Dose: 100 mls/hr Documented by: Insulin Aspart (Insulin Aspart 100 Units/Ml 3 Ml Pen) 0 unit SUBCUT TIDAC [facility]; Protocol Insulin Aspart (Insulin Aspart 100 Units/Ml 3 Ml Pen) 0 unit SUBCUT TIDAC [facility]; Protocol Last Admin: 11/02/20 08:52 Dose: 9 units Documented by: Insulin Aspart (Insulin Aspart 100 Units/Ml 3 Ml Pen) 5 unit SUBCUT TIDAC [facility] Last Admin: 11/03/20 09:22 Dose: 5 units Documented by: Insulin Aspart (Insulin Aspart 100 Units/Ml 3 Ml Pen) 6 unit SUBCUT TIDAC [facility] Last Admin: 11/10/20 08:48 Dose: 6 units Documented by: Insulin Glargine (Insulin Glargine,Human Rec. Analog 100 Units/Ml 3 Ml Pen) 5 units SUBCUT BEDTIME [facility] Last Admin: 10/30/20 23:54 Dose: 5 units Documented by: Insulin Glargine (Insulin Glargine,Human Rec. Analog 100 Units/Ml 3 Ml Pen) Confirm Administered Dose 300 units .ROUTE .STK-MED ONE Stop: 10/30/20 23:52 Last Admin: 10/31/20 00:45 Dose: Not Given Documented by: Insulin Glargine (Insulin Glargine,Human Rec. Analog 100 Units/Ml 3 Ml Pen) 10 units SUBCUT BEDTIME [facility] Last Admin: 10/31/20 21:53 Dose: 10 units Documented by: Insulin Glargine (Insulin Glargine,Human Rec. Analog 100 Units/Ml 3 Ml Pen) 15 units SUBCUT BEDTIME [facility] Last Admin: 11/01/20 20:13 Dose: 15 units Documented by: Insulin Glargine (Insulin Glargine,Human Rec. Analog 100 Units/Ml 3 Ml Pen) 20 units SUBCUT BEDTIME [facility] Last Admin: 11/02/20 22:00 Dose: 20 units Documented by: Insulin Glargine (Insulin Glargine,Human Rec. Analog 100 Units/Ml 3 Ml Pen) 24 units SUBCUT BEDTIME [facility] Last Admin: 11/08/20 20:50 Dose: 24 units Documented by: Insulin Glargine (Insulin Glargine,Human Rec. Analog 100 Units/Ml 3 Ml Pen) 30 units SUBCUT BEDTIME [facility] Last Admin: 11/09/20 20:20 Dose: Not Given Documented by: Insulin Glargine (Insulin Glargine,Human Rec. Analog 100 Units/Ml 3 Ml Pen) 6 units SUBCUT NOW ONE Stop: 11/09/20 02:46 Last Admin: 11/09/20 06:10 Dose: 6 units Documented by: Insulin Glargine (Insulin Glargine,Human Rec. Analog 100 Units/Ml 3 Ml Pen) 24 units SUBCUT BEDTIME ONE Stop: 11/09/20 20:18 Last Admin: 11/09/20 20:22 Dose: 24 units Documented by: Iopamidol (Iopamidol 755 Mg/Ml 200 Ml Multipack Bottle) 100 ml IVPUSH ONETIME ONE Stop: 10/31/20 12:59 Last Admin: 10/31/20 19:36 Dose: Not Given Documented by: Iopamidol (Iopamidol 755 Mg/Ml 200 Ml Multipack Bottle) 100 ml IVPUSH ONETIME ONE Stop: 10/31/20 13:01 Last Admin: 10/31/20 19:34 Dose: Not Given Documented by: Iopamidol (Iopamidol 755 Mg/Ml 500 Ml Multipack Bottle) 100 ml IVPUSH ONETIME ONE Stop: 10/31/20 13:02 Last Admin: 10/31/20 13:02 Dose: 100 ml Documented by: Iopamidol (Iopamidol 755 Mg/Ml 500 Ml Multipack Bottle) 100 ml IVPUSH ONETIME [facility] Stop: 11/04/20 15:19 Last Admin: 11/04/20 15:19 Dose: 100 ml Documented by: Budesonide/Formoterol 160-4.5 Mcg/Puff 6 Gm Inhaler 0 each INH BID [facility] - Exam Quality Assessment: Supplemental Oxygen General: Alert, Oriented, Cooperative, No Acute Distress Lungs: Normal Respiratory Effort, Other (coarse breath sounds). No: Clear to Auscultation, Crackles, Rales, Wheezing Cardiovascular: Regular Rate, Regular Rhythm GI/Abdominal Exam: Normal Bowel Sounds, Soft, Non-Tender Extremities: Normal Inspection, Normal Range of Motion Skin: Warm, Dry - Patient Data Lab Results Last 24 hrs: Laboratory Results - last 24 hr 11/10/20 11/10/20 11/11/20 Range/Units 18:24 20:13 05:20 WBC 4.27 (4.0-11.0) K/uL RBC 4.36 (4.30-5.90) M/uL Hgb 13.2 (12.0-16.0) g/dL Hct 38.9 (36.0-46.0) % MCV 89.2 (80.0-98.0) fL MCH 30.3 (27.0-32.0) pg MCHC 33.9 (31.0-37.0) g/dL RDW Std Deviation 44.2 (28.0-62.0) fl RDW Coeff of Ry 14 (11.0-15.0) % Plt Count 162 (150-400) K/uL MPV 9.30 (7.40-12.00) fL Neut % (Auto) 53.8 (48.0-80.0) % Lymph % (Auto) 34.7 (16.0-40.0) % [place] % (Auto) 8.2 (0.0-15.0) % Eos % (Auto) 2.8 (0.0-7.0) % Baso % (Auto) 0.5 (0.0-1.5) % Neut # (Auto) 2.3 (1.4-5.7) K/uL Lymph # (Auto) 1.5 (0.6-2.4) K/uL [place] # (Auto) 0.4 (0.0-0.8) K/uL Eos # (Auto) 0.1 (0.0-0.7) K/uL Baso # (Auto) 0.0 (0.0-0.1) K/uL Nucleated RBC % 0.0 /100WBC Nucleated RBCs # 0 K/uL Sodium (136-145) mmol/L Potassium (3.5-5.1) mmol/L Chloride (98-107) mmol/L Carbon Dioxide (21.0-32.0) mmol/L BUN (7.0-18.0) mg/dL Creatinine (0.6-1.0) mg/dL Est Cr Clr Drug Dosing mL/min Estimated GFR (MDRD) ml/min Glucose (74-106) mg/dL POC Glucose 121 H 203 H (70-99) mg/dL Calcium (8.5-10.1) mg/dL Phosphorus (2.6-4.7) mg/dL Magnesium (1.8-2.4) mg/dL 11/11/20 11/11/20 11/11/20 Range/Units 05:20 05:22 09:22 WBC (4.0-11.0) K/uL RBC (4.30-5.90) M/uL Hgb (12.0-16.0) g/dL Hct (36.0-46.0) % MCV (80.0-98.0) fL MCH (27.0-32.0) pg MCHC (31.0-37.0) g/dL RDW Std Deviation (28.0-62.0) fl RDW Coeff of Ry (11.0-15.0) % Plt Count (150-400) K/uL MPV (7.40-12.00) fL Neut % (Auto) (48.0-80.0) % Lymph % (Auto) (16.0-40.0) % [place] % (Auto) (0.0-15.0) % Eos % (Auto) (0.0-7.0) % Baso % (Auto) (0.0-1.5) % Neut # (Auto) (1.4-5.7) K/uL Lymph # (Auto) (0.6-2.4) K/uL [place] # (Auto) (0.0-0.8) K/uL Eos # (Auto) (0.0-0.7) K/uL Baso # (Auto) (0.0-0.1) K/uL Nucleated RBC % /100WBC Nucleated RBCs # K/uL Sodium 140 (136-145) mmol/L Potassium 4.0 (3.5-5.1) mmol/L Chloride 107 (98-107) mmol/L Carbon Dioxide 26.9 (21.0-32.0) mmol/L BUN 16 (7.0-18.0) mg/dL Creatinine 0.9 (0.6-1.0) mg/dL Est Cr Clr Drug Dosing 65.38 mL/min Estimated GFR (MDRD) > 60.0 ml/min Glucose 152 H (74-106) mg/dL POC Glucose 142 H 159 H (70-99) mg/dL Calcium 7.9 L (8.5-10.1) mg/dL Phosphorus 3.9 (2.6-4.7) mg/dL Magnesium 1.8 (1.8-2.4) mg/dL Result Diagrams: 11/11/20 05:20 11/11/20 05:20 Sepsis Event Note - Evaluation Sepsis Screening Result: No Definite Risk - Focused Exam Vital Signs: Vital Signs Temp Resp BP BP Pulse Ox Pulse Ox 11/11/20 12:00 21 H 92 L 11/11/20 11:24 36.2 C 20 127/64 93 L 11/11/20 09:25 117/65 11/11/20 09:21 36 C L 21 H 117/65 92 L 11/11/20 09:00 92 L 11/11/20 08:00 22 H 92 L 11/11/20 05:58 36.6 C 21 H 127/70 92 L 11/11/20 04:00 20 91 L 11/11/20 02:00 20 118/62 91 L - Problem List & Annotations (1) Acute respiratory failure with hypoxia SNOMED Code(s): 61435195, 477304424 Code(s): J96.01 - ACUTE RESPIRATORY FAILURE WITH HYPOXIA Status: Acute Current Visit: Yes (2) COVID-19 SNOMED Code(s): 588114150 Code(s): U07.1 - COVID-19 Status: Acute Current Visit: Yes (3) Hypoxia SNOMED Code(s): 385515508 Code(s): R09.02 - HYPOXEMIA Status: Acute Current Visit: Yes - Problem List Review Problem List Initiated/Reviewed/Updated: Yes - Assessment Assessment:: 60 yo female with past medical history of COPD/JAZMIN admitted with acute hypoxic respiratory failure due to COVID pneumonia. 1. AHRF secondary to COVID pneumonia: Status post remdesivir, tocilizumab, completed 10 days course of dexamethasone cont to wean off high flow as tolerated Continue supportive care Continue duo nebs as needed Continue proning as tolerated Continue incentive spirometry 2. Past medical history of diabetes mellitus: sugars better controlled after steroids stopped. -d/c meal time insulin -cont SSI -cont long acting insulin Continue with [place] diabetic diet. 3. Past medical history of JAZMIN: Ensure heated high flow appropriate oxygenation overnight. 5. Past medical history of HTN/COPD: resume home meds
[2020-11-11] MEDS: Al and Mag Hydroxide/Diphenhydramine/Lidocaine/Simethicone 237 ML Bottle PO PRN ×2 (18:31→23:51)
[2020-11-11] MEDS: Montelukast 10 MG Tab PO SCH (20:28)
[2020-11-11] MEDS: Insulin Glargine,Human Rec. Analog 100 Units/ML 3 ML Pen SUBCUT SCH (20:33)
[2020-11-12] MEDS: Albuterol/Ipratropium 4 GM Inhalation Spray INH SCH ×6 (02:19→22:57)
[2020-11-12] MEDS: Benzonatate 100 MG Cap PO PRN ×2 (05:06→20:30)
[2020-11-12 06:10] LABS: BLOOD UREA NITROGEN,BUN 15 mg/dL (7.0-18.0); CARBON DIOXIDE,CO2 30.2 mmol/L (21.0-32.0); CHLORIDE,CL 107 mmol/L (98-107); GLUCOSE RANDOM 149 mg/dL (74-106); POTASSIUM,K 4.2 mmol/L (3.5-5.1); SODIUM,NA 141 mmol/L (136-145)
[2020-11-12] MEDS: Omeprazole 20 MG Cap.CR PO SCH ×2 (08:22→17:10)
[2020-11-12] MEDS: Insulin Aspart 100 Units/ML 3 ML Pen SUBCUT SCH ×3 (09:06→18:00)
[2020-11-12] MEDS: Losartan 50 MG Tab PO SCH (09:07)
[2020-11-12] MEDS: Budesonide/Formoterol 160-4.5 MCG/Puff 6 GM Inhaler INH SCH ×2 (09:08→20:31)
--- NOTE | 2020-11-12 11:14 | PN ---
[facility] Physician - Brief Progress [id number]/30/2021 10:56[facility] [place], [place] - MWN (ARIANA) - MWN CHERRIEANNA CARVAJALSandyDate of Service 11/12/2020 10:56HPI/Events of Note 60 y.o. pt with COVID PNA and hypoxemic respiratory failure Sx's around October 23, Admitted o n 16thHx JAZMIN, on CPAP, DMIISeen over camera, discussed with bedside RN. BP 107/ 66 HR 100's, RR arou nd 30On HHFNC 30L/45%, sats high 80's -90%, at night BiPAP 10/6/28%Received 10-day course decadron, s/p Remdesivir, tocilizumab. On Lovenox 40 BID. Protonix POSeems to trend slowly toward better per primary team. RR and tachycardia suggest limited reserve ,though.Recommended routine CXR ( last abou t 10 days ago)Interventions Intermediate-Communication with other healthcare providers and/or family, Other: clinical eval.
[2020-11-12] MEDS: Enoxaparin 40 MG/0.4 ML Syringe SUBCUT SCH ×2 (11:24→23:14)
--- NOTE | 2020-11-12 15:57 | PCM.PN ---
- General Info Date of Service: 11/12/20 - Review of Systems Systems Review Comment:: patient feeling better, shortness of breath has improved, no fevers - Patient Data Vitals - Most Recent: Last Vital Signs Temp 36.2 C 11/12/20 09:00 Pulse 77 10/31/20 04:00 Resp 22 H 11/12/20 14:00 BP 129/73 11/12/20 14:00 Pulse Ox 94 L 11/12/20 14:00 Weight - Most Recent: 175.767 kg I&O - Last 24 Hours: Intake & Output 11/12/20 11/12/20 11/12/20 06:59 14:59 22:59 Intake Total 1300 Output Total 1450 Balance -150 Lab Results Last 24 Hours: Laboratory Results - last 24 hr 11/11/20 11/11/20 11/12/20 Range/Units 18:17 20:31 05:00 WBC 4.80 (4.0-11.0) K/uL RBC 4.38 (4.30-5.90) M/uL Hgb 13.3 (12.0-16.0) g/dL Hct 39.3 (36.0-46.0) % MCV 89.7 (80.0-98.0) fL MCH 30.4 (27.0-32.0) pg MCHC 33.8 (31.0-37.0) g/dL RDW Std Deviation 44.5 (28.0-62.0) fl RDW Coeff of Ry 14 (11.0-15.0) % Plt Count 162 (150-400) K/uL MPV 9.70 (7.40-12.00) fL Neut % (Auto) 51.5 (48.0-80.0) % Lymph % (Auto) 35.2 (16.0-40.0) % [place] % (Auto) 10.0 (0.0-15.0) % Eos % (Auto) 2.5 (0.0-7.0) % Baso % (Auto) 0.8 (0.0-1.5) % Neut # (Auto) 2.5 (1.4-5.7) K/uL Lymph # (Auto) 1.7 (0.6-2.4) K/uL [place] # (Auto) 0.5 (0.0-0.8) K/uL Eos # (Auto) 0.1 (0.0-0.7) K/uL Baso # (Auto) 0.0 (0.0-0.1) K/uL Nucleated RBC % 0.0 /100WBC Nucleated RBCs # 0 K/uL Sodium (136-145) mmol/L Potassium (3.5-5.1) mmol/L Chloride (98-107) mmol/L Carbon Dioxide (21.0-32.0) mmol/L BUN (7.0-18.0) mg/dL Creatinine (0.6-1.0) mg/dL Est Cr Clr Drug Dosing mL/min Estimated GFR (MDRD) ml/min Glucose (74-106) mg/dL POC Glucose 170 H 192 H (70-99) mg/dL Calcium (8.5-10.1) mg/dL Phosphorus (2.6-4.7) mg/dL Magnesium (1.8-2.4) mg/dL 11/12/20 11/12/20 11/12/20 Range/Units 05:00 05:02 09:01 WBC (4.0-11.0) K/uL RBC (4.30-5.90) M/uL Hgb (12.0-16.0) g/dL Hct (36.0-46.0) % MCV (80.0-98.0) fL MCH (27.0-32.0) pg MCHC (31.0-37.0) g/dL RDW Std Deviation (28.0-62.0) fl RDW Coeff of Ry (11.0-15.0) % Plt Count (150-400) K/uL MPV (7.40-12.00) fL Neut % (Auto) (48.0-80.0) % Lymph % (Auto) (16.0-40.0) % [place] % (Auto) (0.0-15.0) % Eos % (Auto) (0.0-7.0) % Baso % (Auto) (0.0-1.5) % Neut # (Auto) (1.4-5.7) K/uL Lymph # (Auto) (0.6-2.4) K/uL [place] # (Auto) (0.0-0.8) K/uL Eos # (Auto) (0.0-0.7) K/uL Baso # (Auto) (0.0-0.1) K/uL Nucleated RBC % /100WBC Nucleated RBCs # K/uL Sodium 141 (136-145) mmol/L Potassium 4.2 (3.5-5.1) mmol/L Chloride 107 (98-107) mmol/L Carbon Dioxide 30.2 (21.0-32.0) mmol/L BUN 15 (7.0-18.0) mg/dL Creatinine 0.9 (0.6-1.0) mg/dL Est Cr Clr Drug Dosing 65.38 mL/min Estimated GFR (MDRD) > 60.0 ml/min Glucose 149 H (74-106) mg/dL POC Glucose 146 H 157 H (70-99) mg/dL Calcium 8.2 L (8.5-10.1) mg/dL Phosphorus 4.3 (2.6-4.7) mg/dL Magnesium 1.9 (1.8-2.4) mg/dL 11/12/20 Range/Units 13:24 WBC (4.0-11.0) K/uL RBC (4.30-5.90) M/uL Hgb (12.0-16.0) g/dL Hct (36.0-46.0) % MCV (80.0-98.0) fL MCH (27.0-32.0) pg MCHC (31.0-37.0) g/dL RDW Std Deviation (28.0-62.0) fl RDW Coeff of Ry (11.0-15.0) % Plt Count (150-400) K/uL MPV (7.40-12.00) fL Neut % (Auto) (48.0-80.0) % Lymph % (Auto) (16.0-40.0) % [place] % (Auto) (0.0-15.0) % Eos % (Auto) (0.0-7.0) % Baso % (Auto) (0.0-1.5) % Neut # (Auto) (1.4-5.7) K/uL Lymph # (Auto) (0.6-2.4) K/uL [place] # (Auto) (0.0-0.8) K/uL Eos # (Auto) (0.0-0.7) K/uL Baso # (Auto) (0.0-0.1) K/uL Nucleated RBC % /100WBC Nucleated RBCs # K/uL Sodium (136-145) mmol/L Potassium (3.5-5.1) mmol/L Chloride (98-107) mmol/L Carbon Dioxide (21.0-32.0) mmol/L BUN (7.0-18.0) mg/dL Creatinine (0.6-1.0) mg/dL Est Cr Clr Drug Dosing mL/min Estimated GFR (MDRD) ml/min Glucose (74-106) mg/dL POC Glucose 161 H (70-99) mg/dL Calcium (8.5-10.1) mg/dL Phosphorus (2.6-4.7) mg/dL Magnesium (1.8-2.4) mg/dL Med Orders - Current: Current Medications Albuterol (Albuterol 8 Gm Inhaler) 0 gm INH Q4HRRT PRN PRN Reason: Shortness of Breath Last Admin: 11/10/20 05:14 Dose: 2 puff Documented by: Albuterol/Ipratropium (Albuterol/Ipratropium 4 Gm Inhalation [place]) 0 gm INH Q4H [facility] Last Admin: 11/12/20 13:26 Dose: 1 puff Documented by: Benzonatate (Benzonatate 100 Mg Cap) 100 mg PO Q6H PRN PRN Reason: Cough Last Admin: 11/12/20 05:06 Dose: 100 mg Documented by: Dextrose/Water (50% Dextrose In Water 50 Ml Syringe) 50 ml IVPUSH ASDIRECTED PRN PRN Reason: Hypoglycemia Diphenhydr/Magaldrate/Simeth/Lidoca (Al And Mag Hydroxide/Diphenhydramine/Lidocaine/Simethicone 237 Ml Bottle) 10 ml PO Q6H PRN PRN Reason: sore gums Last Admin: 11/11/20 23:51 Dose: 10 ml Documented by: Docusate Sodium (Docusate Sodium 100 Mg Cap) 100 mg PO Q12H PRN PRN Reason: Constipation Enoxaparin Sodium (Enoxaparin 40 Mg/0.4 Ml Syringe) 40 mg SUBCUT Q12H [facility] Last Admin: 11/12/20 11:24 Dose: 40 mg Documented by: Glucagon (Glucagon,Human Recombinant 1 Mg Vial) 1 mg IM ASDIRECTED PRN PRN Reason: Hypoglycemia Insulin Aspart (Insulin Aspart 100 Units/Ml 3 Ml Pen) 0 unit SUBCUT TIDAC [facility]; Protocol Last Admin: 11/12/20 13:27 Dose: 2 units Documented by: Insulin Glargine (Insulin Glargine,Human Rec. Analog 100 Units/Ml 3 Ml Pen) 24 units SUBCUT BEDTIME [facility] Last Admin: 11/11/20 20:33 Dose: 24 units Documented by: Lorazepam (Lorazepam 2 Mg/Ml Sdv) 0.5 mg IVPUSH Q4H PRN PRN Reason: Anxiety Last Admin: 11/08/20 00:33 Dose: 0.5 mg Documented by: Losartan Potassium (Losartan 50 Mg Tab) 25 mg PO DAILY [facility] Last Admin: 11/12/20 09:07 Dose: 25 mg Documented by: Montelukast Sodium (Montelukast 10 Mg Tab) 10 mg PO BEDTIME [facility] Last Admin: 11/11/20 20:28 Dose: 10 mg Documented by: Omeprazole (Omeprazole 20 Mg Cap.Cr) 20 mg PO BIDAC [facility] Last Admin: 11/12/20 08:22 Dose: 20 mg Documented by: Budesonide/Formoterol 160-4.5 Mcg/Puff 6 Gm Inhaler 0 each INH BID [facility] Last Admin: 11/12/20 09:08 Dose: 1 each Documented by: Senna (Sennosides 8.6 Mg Tab) 8.6 mg PO Q12H PRN PRN Reason: Constipation Sodium Chloride (Sodium Chloride 0.9% 2.5 Ml Syringe) 2.5 ml FLUSH ASDIRECTED PRN PRN Reason: Keep Vein Open Discontinued Medications Albuterol (Albuterol 8 Gm Inhaler) 0 gm INH Q4H PRN PRN Reason: Shortness of Breath Last Admin: 10/31/20 05:25 Dose: 2 puff Documented by: Albuterol/Ipratropium (Albuterol/Ipratropium 4 Gm Inhalation [place]) 0 gm INH Q6HRRT [facility] Last Admin: 11/03/20 06:16 Dose: 1 puff Documented by: Budesonide/Formoterol Fumarate (Budesonide/Formoterol 160-4.5 Mcg/Puff 6 Gm Inhaler) 0 gm INH BID [facility] Last Admin: 11/07/20 09:15 Dose: Not Given Documented by: Ciprofloxacin (Ciprofloxacin 250 Mg Tab) 250 mg PO BID [facility] Last Admin: 11/04/20 08:30 Dose: 250 mg Documented by: Dexamethasone (Dexamethasone 10 Mg/Ml Sdv) 10 mg IVPUSH ONETIME ONE Stop: 10/29/20 14:49 Last Admin: 10/29/20 15:22 Dose: 10 mg Documented by: Dexamethasone (Dexamethasone 4 Mg Tab) 6 mg PO DAILY [facility] Last Admin: 11/08/20 09:01 Dose: 6 mg Documented by: Enoxaparin Sodium (Enoxaparin 40 Mg/0.4 Ml Syringe) 40 mg SUBCUT Q24H [facility] Last Admin: 10/29/20 22:29 Dose: 40 mg Documented by: Furosemide (Furosemide 20 Mg/2 Ml Vial) 20 mg IVPUSH NOW ONE Stop: 11/03/20 12:07 Last Admin: 11/03/20 12:42 Dose: 20 mg Documented by: Furosemide (Furosemide 20 Mg/2 Ml Vial) 20 mg IVPUSH ONETIME ONE Stop: 11/07/20 13:03 Last Admin: 11/07/20 14:05 Dose: 20 mg Documented by: Remdesivir 200 mg/ Sodium (Chloride) 250 mls @ 250 mls/hr IV ONETIME ONE Stop: 10/29/20 14:48 Last Admin: 10/29/20 15:08 Dose: Not Given Documented by: Remdesivir 200 mg/ Sodium (Chloride) 250 mls @ 250 mls/hr IV ONETIME ONE Stop: 10/29/20 15:59 Last Admin: 10/29/20 15:27 Dose: 250 mls/hr Documented by: Sodium Chloride (Normal Saline) 1,000 mls @ 50 mls/hr IV ASDIRECTED [facility] Last Admin: 10/29/20 15:21 Dose: 50 mls/hr Documented by: Remdesivir 100 mg/ Sodium (Chloride) 100 mls @ 100 mls/hr IV Q24H [facility] Stop: 11/02/20 15:59 Last Admin: 10/30/20 19:19 Dose: Not Given Documented by: Remdesivir 100 mg/ Sodium (Chloride) 100 mls @ 100 mls/hr IV Q24H [facility] Stop: 11/02/20 18:14 Last Admin: 11/02/20 17:40 Dose: 100 mls/hr Documented by: Tocilizumab 800 mg/ Sodium (Chloride) 100 mls @ 100 mls/hr IV ONETIME ONE Stop: 10/31/20 11:29 Last Admin: 10/31/20 10:45 Dose: 100 mls/hr Documented by: Insulin Aspart (Insulin Aspart 100 Units/Ml 3 Ml Pen) 0 unit SUBCUT TIDAC [facility]; Protocol Insulin Aspart (Insulin Aspart 100 Units/Ml 3 Ml Pen) 0 unit SUBCUT TIDAC [facility]; Protocol Last Admin: 11/02/20 08:52 Dose: 9 units Documented by: Insulin Aspart (Insulin Aspart 100 Units/Ml 3 Ml Pen) 5 unit SUBCUT TIDAC [facility] Last Admin: 11/03/20 09:22 Dose: 5 units Documented by: Insulin Aspart (Insulin Aspart 100 Units/Ml 3 Ml Pen) 6 unit SUBCUT TIDAC [facility] Last Admin: 11/10/20 08:48 Dose: 6 units Documented by: Insulin Glargine (Insulin Glargine,Human Rec. Analog 100 Units/Ml 3 Ml Pen) 5 units SUBCUT BEDTIME [facility] Last Admin: 10/30/20 23:54 Dose: 5 units Documented by: Insulin Glargine (Insulin Glargine,Human Rec. Analog 100 Units/Ml 3 Ml Pen) Confirm Administered Dose 300 units .ROUTE .STK-MED ONE Stop: 10/30/20 23:52 Last Admin: 10/31/20 00:45 Dose: Not Given Documented by: Insulin Glargine (Insulin Glargine,Human Rec. Analog 100 Units/Ml 3 Ml Pen) 10 units SUBCUT BEDTIME [facility] Last Admin: 10/31/20 21:53 Dose: 10 units Documented by: Insulin Glargine (Insulin Glargine,Human Rec. Analog 100 Units/Ml 3 Ml Pen) 15 units SUBCUT BEDTIME [facility] Last Admin: 11/01/20 20:13 Dose: 15 units Documented by: Insulin Glargine (Insulin Glargine,Human Rec. Analog 100 Units/Ml 3 Ml Pen) 20 units SUBCUT BEDTIME [facility] Last Admin: 11/02/20 22:00 Dose: 20 units Documented by: Insulin Glargine (Insulin Glargine,Human Rec. Analog 100 Units/Ml 3 Ml Pen) 24 units SUBCUT BEDTIME [facility] Last Admin: 11/08/20 20:50 Dose: 24 units Documented by: Insulin Glargine (Insulin Glargine,Human Rec. Analog 100 Units/Ml 3 Ml Pen) 30 units SUBCUT BEDTIME [facility] Last Admin: 11/09/20 20:20 Dose: Not Given Documented by: Insulin Glargine (Insulin Glargine,Human Rec. Analog 100 Units/Ml 3 Ml Pen) 6 units SUBCUT NOW ONE Stop: 11/09/20 02:46 Last Admin: 11/09/20 06:10 Dose: 6 units Documented by: Insulin Glargine (Insulin Glargine,Human Rec. Analog 100 Units/Ml 3 Ml Pen) 24 units SUBCUT BEDTIME ONE Stop: 11/09/20 20:18 Last Admin: 11/09/20 20:22 Dose: 24 units Documented by: Iopamidol (Iopamidol 755 Mg/Ml 200 Ml Multipack Bottle) 100 ml IVPUSH ONETIME ONE Stop: 10/31/20 12:59 Last Admin: 10/31/20 19:36 Dose: Not Given Documented by: Iopamidol (Iopamidol 755 Mg/Ml 200 Ml Multipack Bottle) 100 ml IVPUSH ONETIME ONE Stop: 10/31/20 13:01 Last Admin: 10/31/20 19:34 Dose: Not Given Documented by: Iopamidol (Iopamidol 755 Mg/Ml 500 Ml Multipack Bottle) 100 ml IVPUSH ONETIME ONE Stop: 10/31/20 13:02 Last Admin: 10/31/20 13:02 Dose: 100 ml Documented by: Iopamidol (Iopamidol 755 Mg/Ml 500 Ml Multipack Bottle) 100 ml IVPUSH ONETIME STA Stop: 11/04/20 15:19 Last Admin: 11/04/20 15:19 Dose: 100 ml Documented by: Budesonide/Formoterol 160-4.5 Mcg/Puff 6 Gm Inhaler 0 each INH BID [facility] - Exam General: Alert, Oriented Neck: Supple Lungs: Clear to Auscultation, Normal Respiratory Effort Cardiovascular: Regular Rate, Regular Rhythm GI/Abdominal Exam: Normal Bowel Sounds, Soft, Non-Tender Extremities: Non-Tender, Pedal Edema (+1) Skin: Warm, Dry, Intact - Patient Data Lab Results Last 24 hrs: Laboratory Results - last 24 hr 11/11/20 11/11/20 11/12/20 Range/Units 18:17 20:31 05:00 WBC 4.80 (4.0-11.0) K/uL RBC 4.38 (4.30-5.90) M/uL Hgb 13.3 (12.0-16.0) g/dL Hct 39.3 (36.0-46.0) % MCV 89.7 (80.0-98.0) fL MCH 30.4 (27.0-32.0) pg MCHC 33.8 (31.0-37.0) g/dL RDW Std Deviation 44.5 (28.0-62.0) fl RDW Coeff of Ry 14 (11.0-15.0) % Plt Count 162 (150-400) K/uL MPV 9.70 (7.40-12.00) fL Neut % (Auto) 51.5 (48.0-80.0) % Lymph % (Auto) 35.2 (16.0-40.0) % [place] % (Auto) 10.0 (0.0-15.0) % Eos % (Auto) 2.5 (0.0-7.0) % Baso % (Auto) 0.8 (0.0-1.5) % Neut # (Auto) 2.5 (1.4-5.7) K/uL Lymph # (Auto) 1.7 (0.6-2.4) K/uL [place] # (Auto) 0.5 (0.0-0.8) K/uL Eos # (Auto) 0.1 (0.0-0.7) K/uL Baso # (Auto) 0.0 (0.0-0.1) K/uL Nucleated RBC % 0.0 /100WBC Nucleated RBCs # 0 K/uL Sodium (136-145) mmol/L Potassium (3.5-5.1) mmol/L Chloride (98-107) mmol/L Carbon Dioxide (21.0-32.0) mmol/L BUN (7.0-18.0) mg/dL Creatinine (0.6-1.0) mg/dL Est Cr Clr Drug Dosing mL/min Estimated GFR (MDRD) ml/min Glucose (74-106) mg/dL POC Glucose 170 H 192 H (70-99) mg/dL Calcium (8.5-10.1) mg/dL Phosphorus (2.6-4.7) mg/dL Magnesium (1.8-2.4) mg/dL 11/12/20 11/12/20 11/12/20 Range/Units 05:00 05:02 09:01 WBC (4.0-11.0) K/uL RBC (4.30-5.90) M/uL Hgb (12.0-16.0) g/dL Hct (36.0-46.0) % MCV (80.0-98.0) fL MCH (27.0-32.0) pg MCHC (31.0-37.0) g/dL RDW Std Deviation (28.0-62.0) fl RDW Coeff of Ry (11.0-15.0) % Plt Count (150-400) K/uL MPV (7.40-12.00) fL Neut % (Auto) (48.0-80.0) % Lymph % (Auto) (16.0-40.0) % [place] % (Auto) (0.0-15.0) % Eos % (Auto) (0.0-7.0) % Baso % (Auto) (0.0-1.5) % Neut # (Auto) (1.4-5.7) K/uL Lymph # (Auto) (0.6-2.4) K/uL [place] # (Auto) (0.0-0.8) K/uL Eos # (Auto) (0.0-0.7) K/uL Baso # (Auto) (0.0-0.1) K/uL Nucleated RBC % /100WBC Nucleated RBCs # K/uL Sodium 141 (136-145) mmol/L Potassium 4.2 (3.5-5.1) mmol/L Chloride 107 (98-107) mmol/L Carbon Dioxide 30.2 (21.0-32.0) mmol/L BUN 15 (7.0-18.0) mg/dL Creatinine 0.9 (0.6-1.0) mg/dL Est Cr Clr Drug Dosing 65.38 mL/min Estimated GFR (MDRD) > 60.0 ml/min Glucose 149 H (74-106) mg/dL POC Glucose 146 H 157 H (70-99) mg/dL Calcium 8.2 L (8.5-10.1) mg/dL Phosphorus 4.3 (2.6-4.7) mg/dL Magnesium 1.9 (1.8-2.4) mg/dL 11/12/20 Range/Units 13:24 WBC (4.0-11.0) K/uL RBC (4.30-5.90) M/uL Hgb (12.0-16.0) g/dL Hct (36.0-46.0) % MCV (80.0-98.0) fL MCH (27.0-32.0) pg MCHC (31.0-37.0) g/dL RDW Std Deviation (28.0-62.0) fl RDW Coeff of Ry (11.0-15.0) % Plt Count (150-400) K/uL MPV (7.40-12.00) fL Neut % (Auto) (48.0-80.0) % Lymph % (Auto) (16.0-40.0) % [place] % (Auto) (0.0-15.0) % Eos % (Auto) (0.0-7.0) % Baso % (Auto) (0.0-1.5) % Neut # (Auto) (1.4-5.7) K/uL Lymph # (Auto) (0.6-2.4) K/uL [place] # (Auto) (0.0-0.8) K/uL Eos # (Auto) (0.0-0.7) K/uL Baso # (Auto) (0.0-0.1) K/uL Nucleated RBC % /100WBC Nucleated RBCs # K/uL Sodium (136-145) mmol/L Potassium (3.5-5.1) mmol/L Chloride (98-107) mmol/L Carbon Dioxide (21.0-32.0) mmol/L BUN (7.0-18.0) mg/dL Creatinine (0.6-1.0) mg/dL Est Cr Clr Drug Dosing mL/min Estimated GFR (MDRD) ml/min Glucose (74-106) mg/dL POC Glucose 161 H (70-99) mg/dL Calcium (8.5-10.1) mg/dL Phosphorus (2.6-4.7) mg/dL Magnesium (1.8-2.4) mg/dL Result Diagrams: 11/12/20 05:00 11/12/20 05:00 Sepsis Event Note - Evaluation Sepsis Screening Result: No Definite Risk - Focused Exam Vital Signs: Vital Signs Temp Resp BP BP Pulse Ox 11/12/20 14:00 22 H 129/73 94 L 11/12/20 13:00 24 H 93 L 11/12/20 11:00 23 H 91 L 11/12/20 09:07 107/66 11/12/20 09:00 36.2 C 19 107/66 91 L 11/12/20 07:00 19 93 L 11/12/20 05:00 36.5 C 16 127/64 95 - Problem List Review Problem List Initiated/Reviewed/Updated: Yes - My Orders Last 24 Hours: My Active Orders 11/13/20 05:11 BASIC METABOLIC PANEL,BMP [CHEM] AM CBC WITH AUTO DIFF [HEME] AM - Assessment Assessment:: 60 yo female with past medical history of COPD/JAZMIN admitted with acute hypoxic respiratory failure due to COVID pneumonia. 1. AHRF secondary to COVID pneumonia: Status post remdesivir, tocilizumab, completed 10 days course of dexamethasone weened to 10 L simple NC, with CPAP at night Continue supportive care Continue duo nebs as needed Continue proning as tolerated Continue incentive spirometry 2. Past medical history of diabetes mellitus: sugars better controlled after steroids stopped. -d/c meal time insulin -cont SSI -cont long acting insulin Continue with [place] diabetic diet. 3. Past medical history of HTN/COPD: continue home meds
[2020-11-12] MEDS: Insulin Glargine,Human Rec. Analog 100 Units/ML 3 ML Pen SUBCUT SCH (20:32)
[2020-11-12] MEDS: Montelukast 10 MG Tab PO SCH (20:34)
[2020-11-13] MEDS: Albuterol/Ipratropium 4 GM Inhalation Spray INH SCH ×6 (01:57→21:16)
[2020-11-13] MEDS: Benzonatate 100 MG Cap PO PRN ×2 (05:26→11:37)
[2020-11-13 06:20] LABS: BLOOD UREA NITROGEN,BUN 12 mg/dL (7.0-18.0); CARBON DIOXIDE,CO2 24.9 mmol/L (21.0-32.0); CHLORIDE,CL 106 mmol/L (98-107); GLUCOSE RANDOM 155 mg/dL (74-106); POTASSIUM,K 3.6 mmol/L (3.5-5.1); SODIUM,NA 140 mmol/L (136-145)
[2020-11-13] MEDS: Omeprazole 20 MG Cap.CR PO SCH ×2 (08:03→17:00)
[2020-11-13] MEDS: Insulin Aspart 100 Units/ML 3 ML Pen SUBCUT SCH ×3 (08:32→18:18)
[2020-11-13] MEDS: Losartan 50 MG Tab PO SCH (08:33)
[2020-11-13] MEDS: Budesonide/Formoterol 160-4.5 MCG/Puff 6 GM Inhaler INH SCH ×2 (08:33→21:17)
[2020-11-13] MEDS: Enoxaparin 40 MG/0.4 ML Syringe SUBCUT SCH (12:06)
--- NOTE | 2020-11-13 13:03 | PCM.PN ---
- General Info Date of Service: 11/13/20 - Review of Systems Systems Review Comment:: feeling better, shortness of breath while walking - Patient Data Vitals - Most Recent: Last Vital Signs Temp 36.3 C 11/13/20 10:00 Pulse 77 10/31/20 04:00 Resp 21 H 11/13/20 10:00 BP 122/75 11/13/20 10:00 Pulse Ox 93 L 11/13/20 10:00 Weight - Most Recent: 175.767 kg I&O - Last 24 Hours: Intake & Output 11/12/20 11/13/20 11/13/20 22:59 06:59 14:59 Intake Total 1200 450 Output Total 1250 1950 Balance -50 -1500 Lab Results Last 24 Hours: Laboratory Results - last 24 hr 11/12/20 11/12/20 11/12/20 Range/Units 13:24 17:41 20:29 WBC (4.0-11.0) K/uL RBC (4.30-5.90) M/uL Hgb (12.0-16.0) g/dL Hct (36.0-46.0) % MCV (80.0-98.0) fL MCH (27.0-32.0) pg MCHC (31.0-37.0) g/dL RDW Std Deviation (28.0-62.0) fl RDW Coeff of Ry (11.0-15.0) % Plt Count (150-400) K/uL MPV (7.40-12.00) fL Neut % (Auto) (48.0-80.0) % Lymph % (Auto) (16.0-40.0) % [place] % (Auto) (0.0-15.0) % Eos % (Auto) (0.0-7.0) % Baso % (Auto) (0.0-1.5) % Neut # (Auto) (1.4-5.7) K/uL Lymph # (Auto) (0.6-2.4) K/uL [place] # (Auto) (0.0-0.8) K/uL Eos # (Auto) (0.0-0.7) K/uL Baso # (Auto) (0.0-0.1) K/uL Nucleated RBC % /100WBC Nucleated RBCs # K/uL Sodium (136-145) mmol/L Potassium (3.5-5.1) mmol/L Chloride (98-107) mmol/L Carbon Dioxide (21.0-32.0) mmol/L BUN (7.0-18.0) mg/dL Creatinine (0.6-1.0) mg/dL Est Cr Clr Drug Dosing mL/min Estimated GFR (MDRD) ml/min Glucose (74-106) mg/dL POC Glucose 161 H 148 H 170 H (70-99) mg/dL Calcium (8.5-10.1) mg/dL 11/13/20 11/13/20 11/13/20 Range/Units 05:15 05:15 05:18 WBC 5.27 (4.0-11.0) K/uL RBC 4.17 L (4.30-5.90) M/uL Hgb 12.7 (12.0-16.0) g/dL Hct 37.3 (36.0-46.0) % MCV 89.4 (80.0-98.0) fL MCH 30.5 (27.0-32.0) pg MCHC 34.0 (31.0-37.0) g/dL RDW Std Deviation 44.6 (28.0-62.0) fl RDW Coeff of Ry 14 (11.0-15.0) % Plt Count 160 (150-400) K/uL MPV 9.70 (7.40-12.00) fL Neut % (Auto) 56.1 (48.0-80.0) % Lymph % (Auto) 31.5 (16.0-40.0) % [place] % (Auto) 9.7 (0.0-15.0) % Eos % (Auto) 2.1 (0.0-7.0) % Baso % (Auto) 0.6 (0.0-1.5) % Neut # (Auto) 3.0 (1.4-5.7) K/uL Lymph # (Auto) 1.7 (0.6-2.4) K/uL [place] # (Auto) 0.5 (0.0-0.8) K/uL Eos # (Auto) 0.1 (0.0-0.7) K/uL Baso # (Auto) 0.0 (0.0-0.1) K/uL Nucleated RBC % 0.0 /100WBC Nucleated RBCs # 0 K/uL Sodium 140 (136-145) mmol/L Potassium 3.6 (3.5-5.1) mmol/L Chloride 106 (98-107) mmol/L Carbon Dioxide 24.9 (21.0-32.0) mmol/L BUN 12 (7.0-18.0) mg/dL Creatinine 0.7 (0.6-1.0) mg/dL Est Cr Clr Drug Dosing 84.06 mL/min Estimated GFR (MDRD) > 60.0 ml/min Glucose 155 H (74-106) mg/dL POC Glucose 151 H (70-99) mg/dL Calcium 8.0 L (8.5-10.1) mg/dL 11/13/20 Range/Units 08:31 WBC (4.0-11.0) K/uL RBC (4.30-5.90) M/uL Hgb (12.0-16.0) g/dL Hct (36.0-46.0) % MCV (80.0-98.0) fL MCH (27.0-32.0) pg MCHC (31.0-37.0) g/dL RDW Std Deviation (28.0-62.0) fl RDW Coeff of Ry (11.0-15.0) % Plt Count (150-400) K/uL MPV (7.40-12.00) fL Neut % (Auto) (48.0-80.0) % Lymph % (Auto) (16.0-40.0) % [place] % (Auto) (0.0-15.0) % Eos % (Auto) (0.0-7.0) % Baso % (Auto) (0.0-1.5) % Neut # (Auto) (1.4-5.7) K/uL Lymph # (Auto) (0.6-2.4) K/uL [place] # (Auto) (0.0-0.8) K/uL Eos # (Auto) (0.0-0.7) K/uL Baso # (Auto) (0.0-0.1) K/uL Nucleated RBC % /100WBC Nucleated RBCs # K/uL Sodium (136-145) mmol/L Potassium (3.5-5.1) mmol/L Chloride (98-107) mmol/L Carbon Dioxide (21.0-32.0) mmol/L BUN (7.0-18.0) mg/dL Creatinine (0.6-1.0) mg/dL Est Cr Clr Drug Dosing mL/min Estimated GFR (MDRD) ml/min Glucose (74-106) mg/dL POC Glucose 156 H (70-99) mg/dL Calcium (8.5-10.1) mg/dL Med Orders - Current: Current Medications Albuterol (Albuterol 8 Gm Inhaler) 0 gm INH Q4HRRT PRN PRN Reason: Shortness of Breath Last Admin: 11/10/20 05:14 Dose: 2 puff Documented by: Albuterol/Ipratropium (Albuterol/Ipratropium 4 Gm Inhalation [place]) 0 gm INH Q4H [facility] Last Admin: 11/13/20 09:24 Dose: 1 puff Documented by: Benzonatate (Benzonatate 100 Mg Cap) 100 mg PO Q6H PRN PRN Reason: Cough Last Admin: 11/13/20 11:37 Dose: 100 mg Documented by: Dextrose/Water (50% Dextrose In Water 50 Ml Syringe) 50 ml IVPUSH ASDIRECTED PRN PRN Reason: Hypoglycemia Diphenhydr/Magaldrate/Simeth/Lidoca (Al And Mag Hydroxide/Diphenhydramine/Lidocaine/Simethicone 237 Ml Bottle) 10 ml PO Q6H PRN PRN Reason: sore gums Last Admin: 11/11/20 23:51 Dose: 10 ml Documented by: Docusate Sodium (Docusate Sodium 100 Mg Cap) 100 mg PO Q12H PRN PRN Reason: Constipation Enoxaparin Sodium (Enoxaparin 40 Mg/0.4 Ml Syringe) 40 mg SUBCUT Q12H [facility] Last Admin: 11/13/20 12:06 Dose: 40 mg Documented by: Glucagon (Glucagon,Human Recombinant 1 Mg Vial) 1 mg IM ASDIRECTED PRN PRN Reason: Hypoglycemia Insulin Aspart (Insulin Aspart 100 Units/Ml 3 Ml Pen) 0 unit SUBCUT TIDAC [facility]; Protocol Last Admin: 11/13/20 08:32 Dose: 2 units Documented by: Insulin Glargine (Insulin Glargine,Human Rec. Analog 100 Units/Ml 3 Ml Pen) 24 units SUBCUT BEDTIME [facility] Last Admin: 11/12/20 20:32 Dose: 24 units Documented by: Lorazepam (Lorazepam 2 Mg/Ml Sdv) 0.5 mg IVPUSH Q4H PRN PRN Reason: Anxiety Last Admin: 11/08/20 00:33 Dose: 0.5 mg Documented by: Losartan Potassium (Losartan 50 Mg Tab) 25 mg PO DAILY [facility] Last Admin: 11/13/20 08:33 Dose: 25 mg Documented by: Montelukast Sodium (Montelukast 10 Mg Tab) 10 mg PO BEDTIME [facility] Last Admin: 11/12/20 20:34 Dose: 10 mg Documented by: Omeprazole (Omeprazole 20 Mg Cap.Cr) 20 mg PO BIDAC [facility] Last Admin: 11/13/20 08:03 Dose: 20 mg Documented by: Budesonide/Formoterol 160-4.5 Mcg/Puff 6 Gm Inhaler 0 each INH BID [facility] Last Admin: 11/13/20 08:33 Dose: 1 each Documented by: Senna (Sennosides 8.6 Mg Tab) 8.6 mg PO Q12H PRN PRN Reason: Constipation Sodium Chloride (Sodium Chloride 0.9% 2.5 Ml Syringe) 2.5 ml FLUSH ASDIRECTED PRN PRN Reason: Keep Vein Open Discontinued Medications Albuterol (Albuterol 8 Gm Inhaler) 0 gm INH Q4H PRN PRN Reason: Shortness of Breath Last Admin: 10/31/20 05:25 Dose: 2 puff Documented by: Albuterol/Ipratropium (Albuterol/Ipratropium 4 Gm Inhalation [place]) 0 gm INH Q6HRRT [facility] Last Admin: 11/03/20 06:16 Dose: 1 puff Documented by: Budesonide/Formoterol Fumarate (Budesonide/Formoterol 160-4.5 Mcg/Puff 6 Gm Inhaler) 0 gm INH BID [facility] Last Admin: 11/07/20 09:15 Dose: Not Given Documented by: Ciprofloxacin (Ciprofloxacin 250 Mg Tab) 250 mg PO BID [facility] Last Admin: 11/04/20 08:30 Dose: 250 mg Documented by: Dexamethasone (Dexamethasone 10 Mg/Ml Sdv) 10 mg IVPUSH ONETIME ONE Stop: 10/29/20 14:49 Last Admin: 10/29/20 15:22 Dose: 10 mg Documented by: Dexamethasone (Dexamethasone 4 Mg Tab) 6 mg PO DAILY [facility] Last Admin: 11/08/20 09:01 Dose: 6 mg Documented by: Enoxaparin Sodium (Enoxaparin 40 Mg/0.4 Ml Syringe) 40 mg SUBCUT Q24H [facility] Last Admin: 10/29/20 22:29 Dose: 40 mg Documented by: Furosemide (Furosemide 20 Mg/2 Ml Vial) 20 mg IVPUSH NOW ONE Stop: 11/03/20 12:07 Last Admin: 11/03/20 12:42 Dose: 20 mg Documented by: Furosemide (Furosemide 20 Mg/2 Ml Vial) 20 mg IVPUSH ONETIME ONE Stop: 11/07/20 13:03 Last Admin: 11/07/20 14:05 Dose: 20 mg Documented by: Remdesivir 200 mg/ Sodium (Chloride) 250 mls @ 250 mls/hr IV ONETIME ONE Stop: 10/29/20 14:48 Last Admin: 10/29/20 15:08 Dose: Not Given Documented by: Remdesivir 200 mg/ Sodium (Chloride) 250 mls @ 250 mls/hr IV ONETIME ONE Stop: 10/29/20 15:59 Last Admin: 10/29/20 15:27 Dose: 250 mls/hr Documented by: Sodium Chloride (Normal Saline) 1,000 mls @ 50 mls/hr IV ASDIRECTED [facility] Last Admin: 10/29/20 15:21 Dose: 50 mls/hr Documented by: Remdesivir 100 mg/ Sodium (Chloride) 100 mls @ 100 mls/hr IV Q24H [facility] Stop: 11/02/20 15:59 Last Admin: 10/30/20 19:19 Dose: Not Given Documented by: Remdesivir 100 mg/ Sodium (Chloride) 100 mls @ 100 mls/hr IV Q24H [facility] Stop: 11/02/20 18:14 Last Admin: 11/02/20 17:40 Dose: 100 mls/hr Documented by: Tocilizumab 800 mg/ Sodium (Chloride) 100 mls @ 100 mls/hr IV ONETIME ONE Stop: 10/31/20 11:29 Last Admin: 10/31/20 10:45 Dose: 100 mls/hr Documented by: Insulin Aspart (Insulin Aspart 100 Units/Ml 3 Ml Pen) 0 unit SUBCUT TIDAC [facility]; Protocol Insulin Aspart (Insulin Aspart 100 Units/Ml 3 Ml Pen) 0 unit SUBCUT TIDAC [facility]; Protocol Last Admin: 11/02/20 08:52 Dose: 9 units Documented by: Insulin Aspart (Insulin Aspart 100 Units/Ml 3 Ml Pen) 5 unit SUBCUT TIDAC [facility] Last Admin: 11/03/20 09:22 Dose: 5 units Documented by: Insulin Aspart (Insulin Aspart 100 Units/Ml 3 Ml Pen) 6 unit SUBCUT TIDAC [facility] Last Admin: 11/10/20 08:48 Dose: 6 units Documented by: Insulin Glargine (Insulin Glargine,Human Rec. Analog 100 Units/Ml 3 Ml Pen) 5 units SUBCUT BEDTIME [facility] Last Admin: 10/30/20 23:54 Dose: 5 units Documented by: Insulin Glargine (Insulin Glargine,Human Rec. Analog 100 Units/Ml 3 Ml Pen) Confirm Administered Dose 300 units .ROUTE .[facility] ONE Stop: 10/30/20 23:52 Last Admin: 10/31/20 00:45 Dose: Not Given Documented by: Insulin Glargine (Insulin Glargine,Human Rec. Analog 100 Units/Ml 3 Ml Pen) 10 units SUBCUT BEDTIME [facility] Last Admin: 10/31/20 21:53 Dose: 10 units Documented by: Insulin Glargine (Insulin Glargine,Human Rec. Analog 100 Units/Ml 3 Ml Pen) 15 units SUBCUT BEDTIME [facility] Last Admin: 11/01/20 20:13 Dose: 15 units Documented by: Insulin Glargine (Insulin Glargine,Human Rec. Analog 100 Units/Ml 3 Ml Pen) 20 units SUBCUT BEDTIME [facility] Last Admin: 11/02/20 22:00 Dose: 20 units Documented by: Insulin Glargine (Insulin Glargine,Human Rec. Analog 100 Units/Ml 3 Ml Pen) 24 units SUBCUT BEDTIME [facility] Last Admin: 11/08/20 20:50 Dose: 24 units Documented by: Insulin Glargine (Insulin Glargine,Human Rec. Analog 100 Units/Ml 3 Ml Pen) 30 units SUBCUT BEDTIME [facility] Last Admin: 11/09/20 20:20 Dose: Not Given Documented by: Insulin Glargine (Insulin Glargine,Human Rec. Analog 100 Units/Ml 3 Ml Pen) 6 units SUBCUT NOW ONE Stop: 11/09/20 02:46 Last Admin: 11/09/20 06:10 Dose: 6 units Documented by: Insulin Glargine (Insulin Glargine,Human Rec. Analog 100 Units/Ml 3 Ml Pen) 24 units SUBCUT BEDTIME ONE Stop: 11/09/20 20:18 Last Admin: 11/09/20 20:22 Dose: 24 units Documented by: Iopamidol (Iopamidol 755 Mg/Ml 200 Ml Multipack Bottle) 100 ml IVPUSH ONETIME ONE Stop: 10/31/20 12:59 Last Admin: 10/31/20 19:36 Dose: Not Given Documented by: Iopamidol (Iopamidol 755 Mg/Ml 200 Ml Multipack Bottle) 100 ml IVPUSH ONETIME ONE Stop: 10/31/20 13:01 Last Admin: 10/31/20 19:34 Dose: Not Given Documented by: Iopamidol (Iopamidol 755 Mg/Ml 500 Ml Multipack Bottle) 100 ml IVPUSH ONETIME ONE Stop: 10/31/20 13:02 Last Admin: 10/31/20 13:02 Dose: 100 ml Documented by: Iopamidol (Iopamidol 755 Mg/Ml 500 Ml Multipack Bottle) 100 ml IVPUSH ONETIME STA Stop: 11/04/20 15:19 Last Admin: 11/04/20 15:19 Dose: 100 ml Documented by: Budesonide/Formoterol 160-4.5 Mcg/Puff 6 Gm Inhaler 0 each INH BID [facility] - Exam General: Alert, Oriented Neck: Supple Lungs: Clear to Auscultation, Normal Respiratory Effort Cardiovascular: Regular Rate, Regular Rhythm GI/Abdominal Exam: Normal Bowel Sounds, Soft, Non-Tender, No Distention Extremities: Pedal Edema (+1) Skin: Warm, Dry, Intact Neurological: No New Focal Deficit - Patient Data Lab Results Last 24 hrs: Laboratory Results - last 24 hr 11/12/20 11/12/20 11/12/20 Range/Units 13:24 17:41 20:29 WBC (4.0-11.0) K/uL RBC (4.30-5.90) M/uL Hgb (12.0-16.0) g/dL Hct (36.0-46.0) % MCV (80.0-98.0) fL MCH (27.0-32.0) pg MCHC (31.0-37.0) g/dL RDW Std Deviation (28.0-62.0) fl RDW Coeff of Ry (11.0-15.0) % Plt Count (150-400) K/uL MPV (7.40-12.00) fL Neut % (Auto) (48.0-80.0) % Lymph % (Auto) (16.0-40.0) % [place] % (Auto) (0.0-15.0) % Eos % (Auto) (0.0-7.0) % Baso % (Auto) (0.0-1.5) % Neut # (Auto) (1.4-5.7) K/uL Lymph # (Auto) (0.6-2.4) K/uL [place] # (Auto) (0.0-0.8) K/uL Eos # (Auto) (0.0-0.7) K/uL Baso # (Auto) (0.0-0.1) K/uL Nucleated RBC % /100WBC Nucleated RBCs # K/uL Sodium (136-145) mmol/L Potassium (3.5-5.1) mmol/L Chloride (98-107) mmol/L Carbon Dioxide (21.0-32.0) mmol/L BUN (7.0-18.0) mg/dL Creatinine (0.6-1.0) mg/dL Est Cr Clr Drug Dosing mL/min Estimated GFR (MDRD) ml/min Glucose (74-106) mg/dL POC Glucose 161 H 148 H 170 H (70-99) mg/dL Calcium (8.5-10.1) mg/dL 11/13/20 11/13/20 11/13/20 Range/Units 05:15 05:15 05:18 WBC 5.27 (4.0-11.0) K/uL RBC 4.17 L (4.30-5.90) M/uL Hgb 12.7 (12.0-16.0) g/dL Hct 37.3 (36.0-46.0) % MCV 89.4 (80.0-98.0) fL MCH 30.5 (27.0-32.0) pg MCHC 34.0 (31.0-37.0) g/dL RDW Std Deviation 44.6 (28.0-62.0) fl RDW Coeff of Ry 14 (11.0-15.0) % Plt Count 160 (150-400) K/uL MPV 9.70 (7.40-12.00) fL Neut % (Auto) 56.1 (48.0-80.0) % Lymph % (Auto) 31.5 (16.0-40.0) % [place] % (Auto) 9.7 (0.0-15.0) % Eos % (Auto) 2.1 (0.0-7.0) % Baso % (Auto) 0.6 (0.0-1.5) % Neut # (Auto) 3.0 (1.4-5.7) K/uL Lymph # (Auto) 1.7 (0.6-2.4) K/uL [place] # (Auto) 0.5 (0.0-0.8) K/uL Eos # (Auto) 0.1 (0.0-0.7) K/uL Baso # (Auto) 0.0 (0.0-0.1) K/uL Nucleated RBC % 0.0 /100WBC Nucleated RBCs # 0 K/uL Sodium 140 (136-145) mmol/L Potassium 3.6 (3.5-5.1) mmol/L Chloride 106 (98-107) mmol/L Carbon Dioxide 24.9 (21.0-32.0) mmol/L BUN 12 (7.0-18.0) mg/dL Creatinine 0.7 (0.6-1.0) mg/dL Est Cr Clr Drug Dosing 84.06 mL/min Estimated GFR (MDRD) > 60.0 ml/min Glucose 155 H (74-106) mg/dL POC Glucose 151 H (70-99) mg/dL Calcium 8.0 L (8.5-10.1) mg/dL 11/13/20 Range/Units 08:31 WBC (4.0-11.0) K/uL RBC (4.30-5.90) M/uL Hgb (12.0-16.0) g/dL Hct (36.0-46.0) % MCV (80.0-98.0) fL MCH (27.0-32.0) pg MCHC (31.0-37.0) g/dL RDW Std Deviation (28.0-62.0) fl RDW Coeff of Ry (11.0-15.0) % Plt Count (150-400) K/uL MPV (7.40-12.00) fL Neut % (Auto) (48.0-80.0) % Lymph % (Auto) (16.0-40.0) % [place] % (Auto) (0.0-15.0) % Eos % (Auto) (0.0-7.0) % Baso % (Auto) (0.0-1.5) % Neut # (Auto) (1.4-5.7) K/uL Lymph # (Auto) (0.6-2.4) K/uL [place] # (Auto) (0.0-0.8) K/uL Eos # (Auto) (0.0-0.7) K/uL Baso # (Auto) (0.0-0.1) K/uL Nucleated RBC % /100WBC Nucleated RBCs # K/uL Sodium (136-145) mmol/L Potassium (3.5-5.1) mmol/L Chloride (98-107) mmol/L Carbon Dioxide (21.0-32.0) mmol/L BUN (7.0-18.0) mg/dL Creatinine (0.6-1.0) mg/dL Est Cr Clr Drug Dosing mL/min Estimated GFR (MDRD) ml/min Glucose (74-106) mg/dL POC Glucose 156 H (70-99) mg/dL Calcium (8.5-10.1) mg/dL Result Diagrams: 11/13/20 05:15 11/13/20 05:15 Sepsis Event Note - Evaluation Sepsis Screening Result: No Definite Risk - Focused Exam Vital Signs: Vital Signs Temp Resp BP BP Pulse Ox 11/13/20 10:00 36.3 C 21 H 122/75 93 L 11/13/20 08:33 122/75 11/13/20 07:00 20 90 L 11/13/20 05:32 36.5 C 25 H 132/69 92 L 11/13/20 02:00 14 133/72 92 L - Problem List Review Problem List Initiated/Reviewed/Updated: Yes - My Orders Last 24 Hours: My Active Orders 11/13/20 12:59 Transfer Patient (Change bed) [ADT] Routine 11/14/20 05:11 BASIC METABOLIC PANEL,BMP [CHEM] AM CBC WITH AUTO DIFF [HEME] AM - Assessment Assessment:: 60 yo female with past medical history of COPD/JAZMIN admitted with acute hypoxic respiratory failure due to COVID pneumonia. 1. AHRF secondary to COVID pneumonia: Status post remdesivir, tocilizumab, completed 10 days course of dexamethasone weened to 3 L simple NC, with CPAP at night Continue supportive care Continue duo nebs as needed Continue proning as tolerated Continue incentive spirometry will transfer to medical floor 2. Past medical history of diabetes mellitus: sugars better controlled after steroids stopped. -d/c meal time insulin -cont SSI -cont long acting insulin Continue with [place] diabetic diet. 3. Past medical history of HTN/COPD: continue home meds dispo: likely home in next 2-3 days
[2020-11-13] MEDS: Montelukast 10 MG Tab PO SCH (21:15)
[2020-11-13] MEDS: Insulin Glargine,Human Rec. Analog 100 Units/ML 3 ML Pen SUBCUT SCH (21:16)
[2020-11-14] MEDS: Enoxaparin 40 MG/0.4 ML Syringe SUBCUT SCH ×2 (01:56→12:09)
[2020-11-14] MEDS: Albuterol/Ipratropium 4 GM Inhalation Spray INH SCH ×3 (02:00→09:20)
[2020-11-14 06:21] LABS: BLOOD UREA NITROGEN,BUN 11 mg/dL (7.0-18.0); CARBON DIOXIDE,CO2 25.4 mmol/L (21.0-32.0); CHLORIDE,CL 108 mmol/L (98-107); GLUCOSE RANDOM 151 mg/dL (74-106); POTASSIUM,K 3.7 mmol/L (3.5-5.1); SODIUM,NA 141 mmol/L (136-145)
[2020-11-14] MEDS: Benzonatate 100 MG Cap PO PRN (08:25)
[2020-11-14] MEDS: Omeprazole 20 MG Cap.CR PO SCH (08:25)
[2020-11-14] MEDS: Losartan 50 MG Tab PO SCH (08:27)
[2020-11-14] MEDS: Insulin Aspart 100 Units/ML 3 ML Pen SUBCUT SCH (08:38)
[2020-11-14] MEDS: Budesonide/Formoterol 160-4.5 MCG/Puff 6 GM Inhaler INH SCH (09:19)
--- NOTE | 2020-11-14 11:57 | PCM.DCSUM1 ---
Discharge Summary - Discharge Data Discharge Date: 11/14/20 Discharge Disposition: Home, Self-Care 01 Condition: Good - Referral to Home Health Primary Care Physician: PCP None - Patient Summary/Data Hospital Course: 60 yo female with pmh of HTN, COPD, DM, JAZMIN who was admitted for acute hypoxic respiratory failure due to COVID pneumonia. She was diagnosed with COVID prior to admsission when she reported several days of worsening shortness of breath, cough with fevers and chills. She presented to the infusion center for shedualed antibody therapy who was recently diagnosed with COVID and scheduled for antibody therapy today. When she presented to infusion center she was found to be hypoxic satting mid 80s on room and was transferred to the ED where she was then subsequently admitted. Initially on admission she was treated with dexamethasone and remdesivir. Taclozimab was started shortly after when her oxygen demands required High flow nasal canula. She did have CT PE scans which were negative for PE but did show extensive ground glass opacities. When Oxygen demands increased to the use of BIPAP the CT scan was repeated again and still no PE. She did finish a 5 day course of remdesivir and ten days of dexamethasone. She was eventually weaned down on her oxygen requirements and for the past 48 hours patient has only required 3 liters on [place]. Patient still h as some exertional dyspnea but is requesting discharge home. She is to be discharged home with home oxygen. During her hospital stay she was requiring insulin likely due to the use of steroids. I discussed continuing Lantus at home for better blood glucose control but patient would prefer using metformin for it ease of use and low risk of hypoglycemia. She will continue to check her blood glucose at home daily. She is to follow up with Dr. Butler. - Patient Instructions Diet: Diabetic Diet Activity: No Strenuous Activities Notify Provider of: Fever, Increased Pain, Nausea and/or Vomiting - Discharge Plan Home Medications: Home Meds Albuterol [Proair HFA] 2 puff INH Q4HR PRN 08/07/14 [History] Budesonide/Formoterol [Symbicort 160-4.5 MCG] 2 puff INH BID 08/07/14 [History] Montelukast Sodium [Singulair] 10 mg PO BEDTIME 08/07/14 [History] Ciprofloxacin HCl [Cipro] 250 mg PO BID 09/25/17 [History] Losartan [Cozaar] 25 mg PO DAILY 09/25/17 [History] Omeprazole 20 mg PO BID 10/30/20 [History] nitrofurantoin macrocrystaL [Macrodantin] 50 mg PO BEDTIME 10/30/20 [History] Oxygen Therapy Mode: Nasal Cannula Oxygen Flow Rate (L/min): 3 Patient Handouts: Hypoxia, COVID-19, COVID-19: How to Protect Yourself and Others - CDC, Acute Respiratory Failure, Adult, COVID-19: Quarantine vs. Isolation - CDC Referrals: Frank Boggs MD [Ordering Only Provider] - 11/21/20 10:15 am (After discharge, please call the clinic on Tuesday or 2-3 days prior to your follow-up schedule regarding your home quarantine. If advised to proceed with your appointment, please follow the clinic protocol such as wearing a mask upon entering the building. Arrive to the clinic 15 minutes before your schedule. Thank you.) - Discharge Summary/Plan Comment DC Time >30 min.: No - Patient Data Vitals - Most Recent: Last Vital Signs Temp 36.5 C 11/14/20 08:00 Pulse 77 10/31/20 04:00 Resp 18 11/14/20 08:00 BP 122/71 11/14/20 08:27 Pulse Ox 89 L 11/14/20 08:00 Weight - Most Recent: 175.767 kg I&O - Last 24 hours: Intake & Output 11/13/20 11/14/20 11/14/20 22:59 06:59 14:59 Intake Total 850 Output Total 900 800 Balance -50 -800 Lab Results - Last 24 hrs: Laboratory Results - last 24 hr 11/13/20 11/13/20 11/13/20 Range/Units 13:13 17:18 21:10 WBC (4.0-11.0) K/uL RBC (4.30-5.90) M/uL Hgb (12.0-16.0) g/dL Hct (36.0-46.0) % MCV (80.0-98.0) fL MCH (27.0-32.0) pg MCHC (31.0-37.0) g/dL RDW Std Deviation (28.0-62.0) fl RDW Coeff of Ry (11.0-15.0) % Plt Count (150-400) K/uL MPV (7.40-12.00) fL Neut % (Auto) (48.0-80.0) % Lymph % (Auto) (16.0-40.0) % [place] % (Auto) (0.0-15.0) % Eos % (Auto) (0.0-7.0) % Baso % (Auto) (0.0-1.5) % Neut # (Auto) (1.4-5.7) K/uL Lymph # (Auto) (0.6-2.4) K/uL [place] # (Auto) (0.0-0.8) K/uL Eos # (Auto) (0.0-0.7) K/uL Baso # (Auto) (0.0-0.1) K/uL Nucleated RBC % /100WBC Nucleated RBCs # K/uL Sodium (136-145) mmol/L Potassium (3.5-5.1) mmol/L Chloride (98-107) mmol/L Carbon Dioxide (21.0-32.0) mmol/L BUN (7.0-18.0) mg/dL Creatinine (0.6-1.0) mg/dL Est Cr Clr Drug Dosing mL/min Estimated GFR (MDRD) ml/min Glucose (74-106) mg/dL POC Glucose 157 H 160 H 172 H (70-99) mg/dL Calcium (8.5-10.1) mg/dL 11/14/20 11/14/20 11/14/20 Range/Units 05:12 05:12 08:21 WBC 5.33 (4.0-11.0) K/uL RBC 4.12 L (4.30-5.90) M/uL Hgb 12.3 (12.0-16.0) g/dL Hct 37.1 (36.0-46.0) % MCV 90.0 (80.0-98.0) fL MCH 29.9 (27.0-32.0) pg MCHC 33.2 (31.0-37.0) g/dL RDW Std Deviation 45.1 (28.0-62.0) fl RDW Coeff of Ry 14 (11.0-15.0) % Plt Count 153 (150-400) K/uL MPV 9.90 (7.40-12.00) fL Neut % (Auto) 58.7 (48.0-80.0) % Lymph % (Auto) 28.7 (16.0-40.0) % [place] % (Auto) 9.9 (0.0-15.0) % Eos % (Auto) 2.3 (0.0-7.0) % Baso % (Auto) 0.4 (0.0-1.5) % Neut # (Auto) 3.1 (1.4-5.7) K/uL Lymph # (Auto) 1.5 (0.6-2.4) K/uL [place] # (Auto) 0.5 (0.0-0.8) K/uL Eos # (Auto) 0.1 (0.0-0.7) K/uL Baso # (Auto) 0.0 (0.0-0.1) K/uL Nucleated RBC % 0.0 /100WBC Nucleated RBCs # 0 K/uL Sodium 141 (136-145) mmol/L Potassium 3.7 (3.5-5.1) mmol/L Chloride 108 H (98-107) mmol/L Carbon Dioxide 25.4 (21.0-32.0) mmol/L BUN 11 (7.0-18.0) mg/dL Creatinine 0.8 (0.6-1.0) mg/dL Est Cr Clr Drug Dosing 73.55 mL/min Estimated GFR (MDRD) > 60.0 ml/min Glucose 151 H (74-106) mg/dL POC Glucose 137 H (70-99) mg/dL Calcium 7.9 L (8.5-10.1) mg/dL Med Orders - Current: Current Medications Albuterol (Albuterol 8 Gm Inhaler) 0 gm INH Q4HRRT PRN PRN Reason: Shortness of Breath Last Admin: 11/10/20 05:14 Dose: 2 puff Documented by: Albuterol/Ipratropium (Albuterol/Ipratropium 4 Gm Inhalation [place]) 0 gm INH Q4H [place] Last Admin: 11/14/20 09:20 Dose: 1 puff Documented by: Benzonatate (Benzonatate 100 Mg Cap) 100 mg PO Q6H PRN PRN Reason: Cough Last Admin: 11/14/20 08:25 Dose: 100 mg Documented by: Dextrose/Water (50% Dextrose In Water 50 Ml Syringe) 50 ml IVPUSH ASDIRECTED PRN PRN Reason: Hypoglycemia Diphenhydr/Magaldrate/Simeth/Lidoca (Al And Mag Hydroxide/Diphenhyd ramine/Lidocaine/Simethicone 237 Ml Bottle) 10 ml PO Q6H PRN PRN Reason: sore gums Last Admin: 11/11/20 23:51 Dose: 10 ml Documented by: Docusate Sodium (Docusate Sodium 100 Mg Cap) 100 mg PO Q12H PRN PRN Reason: Constipation Enoxaparin Sodium (Enoxaparin 40 Mg/0.4 Ml Syringe) 40 mg SUBCUT Q12H [facility] Last Admin: 11/14/20 01:56 Dose: 40 mg Documented by: Glucagon (Glucagon,Human Recombinant 1 Mg Vial) 1 mg IM ASDIRECTED PRN PRN Reason: Hypoglycemia Insulin Aspart (Insulin Aspart 100 Units/Ml 3 Ml Pen) 0 unit SUBCUT TIDAC [facility]; Protocol Last Admin: 11/14/20 08:38 Dose: Not Given Documented by: Insulin Glargine (Insulin Glargine,Human Rec. Analog 100 Units/Ml 3 Ml Pen) 24 units SUBCUT BEDTIME [facility] Last Admin: 11/13/20 21:16 Dose: 24 units Documented by: Lorazepam (Lorazepam 2 Mg/Ml Sdv) 0.5 mg IVPUSH Q4H PRN PRN Reason: Anxiety Last Admin: 11/08/20 00:33 Dose: 0.5 mg Documented by: Losartan Potassium (Losartan 50 Mg Tab) 25 mg PO DAILY [facility] Last Admin: 11/14/20 08:27 Dose: 25 mg Documented by: Montelukast Sodium (Montelukast 10 Mg Tab) 10 mg PO BEDTIME [facility] Last Admin: 11/13/20 21:15 Dose: 10 mg Documented by: Omeprazole (Omeprazole 20 Mg Cap.Cr) 20 mg PO BIDAC [facility] Last Admin: 11/14/20 08:25 Dose: 20 mg Documented by: Budesonide/Formoterol 160-4.5 Mcg/Puff 6 Gm Inhaler 0 each INH BID [facility] Last Admin: 11/14/20 09:19 Dose: 1 each Documented by: Senna (Sennosides 8.6 Mg Tab) 8.6 mg PO Q12H PRN PRN Reason: Constipation Sodium Chloride (Sodium Chloride 0.9% 2.5 Ml Syringe) 2.5 ml FLUSH ASDIRECTED PRN PRN Reason: Keep Vein Open Discontinued Medications Albuterol (Albuterol 8 Gm Inhaler) 0 gm INH Q4H PRN PRN Reason: Shortness of Breath Last Admin: 10/31/20 05:25 Dose: 2 puff Documented by: Albuterol/Ipratropium (Albuterol/Ipratropium 4 Gm Inhalation [place]) 0 gm INH Q6HRRT [facility] Last Admin: 11/03/20 06:16 Dose: 1 puff Documented by: Budesonide/Formoterol Fumarate (Budesonide/Formoterol 160-4.5 Mcg/Puff 6 Gm Inhaler) 0 gm INH BID [facility] Last Admin: 11/07/20 09:15 Dose: Not Given Documented by: Ciprofloxacin (Ciprofloxacin 250 Mg Tab) 250 mg PO BID [facility] Last Admin: 11/04/20 08:30 Dose: 250 mg Documented by: Dexamethasone (Dexamethasone 10 Mg/Ml Sdv) 10 mg IVPUSH ONETIME ONE Stop: 10/29/20 14:49 Last Admin: 10/29/20 15:22 Dose: 10 mg Documented by: Dexamethasone (Dexamethasone 4 Mg Tab) 6 mg PO DAILY [facility] Last Admin: 11/08/20 09:01 Dose: 6 mg Documented by: Enoxaparin Sodium (Enoxaparin 40 Mg/0.4 Ml Syringe) 40 mg SUBCUT Q24H [facility] Last Admin: 10/29/20 22:29 Dose: 40 mg Documented by: Furosemide (Furosemide 20 Mg/2 Ml Vial) 20 mg IVPUSH NOW ONE Stop: 11/03/20 12:07 Last Admin: 11/03/20 12:42 Dose: 20 mg Documented by: Furosemide (Furosemide 20 Mg/2 Ml Vial) 20 mg IVPUSH ONETIME ONE Stop: 11/07/20 13:03 Last Admin: 11/07/20 14:05 Dose: 20 mg Documented by: Remdesivir 200 mg/ Sodium (Chloride) 250 mls @ 250 mls/hr IV ONETIME ONE Stop: 10/29/20 14:48 Last Admin: 10/29/20 15:08 Dose: Not Given Documented by: Remdesivir 200 mg/ Sodium (Chloride) 250 mls @ 250 mls/hr IV ONETIME ONE Stop: 10/29/20 15:59 Last Admin: 10/29/20 15:27 Dose: 250 mls/hr Documented by: Sodium Chloride (Normal Saline) 1,000 mls @ 50 mls/hr IV ASDIRECTED [facility] Last Admin: 10/29/20 15:21 Dose: 50 mls/hr Documented by: Remdesivir 100 mg/ Sodium (Chloride) 100 mls @ 100 mls/hr IV Q24H [facility] Stop: 11/02/20 15:59 Last Admin: 10/30/20 19:19 Dose: Not Given Documented by: Remdesivir 100 mg/ Sodium (Chloride) 100 mls @ 100 mls/hr IV Q24H [facility] Stop: 11/02/20 18:14 Last Admin: 11/02/20 17:40 Dose: 100 mls/hr Documented by: Tocilizumab 800 mg/ Sodium (Chloride) 100 mls @ 100 mls/hr IV ONETIME ONE Stop: 10/31/20 11:29 Last Admin: 10/31/20 10:45 Dose: 100 mls/hr Documented by: Insulin Aspart (Insulin Aspart 100 Units/Ml 3 Ml Pen) 0 unit SUBCUT TIDAC [facility]; Protocol Insulin Aspart (Insulin Aspart 100 Units/Ml 3 Ml Pen) 0 unit SUBCUT TIDAC [facility]; Protocol Last Admin: 11/02/20 08:52 Dose: 9 units Documented by: Insulin Aspart (Insulin Aspart 100 Units/Ml 3 Ml Pen) 5 unit SUBCUT TIDAC [facility] Last Admin: 11/03/20 09:22 Dose: 5 units Documented by: Insulin Aspart (Insulin Aspart 100 Units/Ml 3 Ml Pen) 6 unit SUBCUT TIDAC [facility] Last Admin: 11/10/20 08:48 Dose: 6 units Documented by: Insulin Glargine (Insulin Glargine,Human Rec. Analog 100 Units/Ml 3 Ml Pen) 5 units SUBCUT BEDTIME [facility] Last Admin: 10/30/20 23:54 Dose: 5 units Documented by: Insulin Glargine (Insulin Glargine,Human Rec. Analog 100 Units/Ml 3 Ml Pen) Confirm Administered Dose 300 units .ROUTE .STK-MED ONE Stop: 10/30/20 23:52 Last Admin: 10/31/20 00:45 Dose: Not Given Documented by: Insulin Glargine (Insulin Glargine,Human Rec. Analog 100 Units/Ml 3 Ml Pen) 10 units SUBCUT BEDTIME [facility] Last Admin: 10/31/20 21:53 Dose: 10 units Documented by: Insulin Glargine (Insulin Glargine,Human Rec. Analog 100 Units/Ml 3 Ml Pen) 15 units SUBCUT BEDTIME [facility] Last Admin: 11/01/20 20:13 Dose: 15 units Documented by: Insulin Glargine (Insulin Glargine,Human Rec. Analog 100 Units/Ml 3 Ml Pen) 20 units SUBCUT BEDTIME [facility] Last Admin: 11/02/20 22:00 Dose: 20 units Documented by: Insulin Glargine (Insulin Glargine,Human Rec. Analog 100 Units/Ml 3 Ml Pen) 24 units SUBCUT BEDTIME [facility] Last Admin: 11/08/20 20:50 Dose: 24 units Documented by: Insulin Glargine (Insulin Glargine,Human Rec. Analog 100 Units/Ml 3 Ml Pen) 30 units SUBCUT BEDTIME [facility] Last Admin: 11/09/20 20:20 Dose: Not Given Documented by: Insulin Glargine (Insulin Glargine,Human Rec. Analog 100 Units/Ml 3 Ml Pen) 6 units SUBCUT NOW ONE Stop: 11/09/20 02:46 Last Admin: 11/09/20 06:10 Dose: 6 units Documented by: Insulin Glargine (Insulin Glargine,Human Rec. Analog 100 Units/Ml 3 Ml Pen) 24 units SUBCUT BEDTIME ONE Stop: 11/09/20 20:18 Last Admin: 11/09/20 20:22 Dose: 24 units Documented by: Iopamidol (Iopamidol 755 Mg/Ml 200 Ml Multipack Bottle) 100 ml IVPUSH ONETIME ONE Stop: 10/31/20 12:59 Last Admin: 10/31/20 19:36 Dose: Not Given Documented by: Iopamidol (Iopamidol 755 Mg/Ml 200 Ml Multipack Bottle) 100 ml IVPUSH ONETIME ONE Stop: 10/31/20 13:01 Last Admin: 10/31/20 19:34 Dose: Not Given Documented by: Iopamidol (Iopamidol 755 Mg/Ml 500 Ml Multipack Bottle) 100 ml IVPUSH ONETIME ONE Stop: 10/31/20 13:02 Last Admin: 10/31/20 13:02 Dose: 100 ml Documented by: Iopamidol (Iopamidol 755 Mg/Ml 500 Ml Multipack Bottle) 100 ml IVPUSH ONETIME STA Stop: 11/04/20 15:19 Last Admin: 11/04/20 15:19 Dose: 100 ml Documented by: Budesonide/Formoterol 160-4.5 Mcg/Puff 6 Gm Inhaler 0 each INH BID [place]
[2020-11-14 12:11] VITALS: BP 129/80
== END 2020-11-14 14:15 | disposition home or self-care (01) | DRG 177 ==
LOC: MW.ED 14:23 → MW.ICU 16:28 → INTOOBSV 16:28 → OBSVTOIN 16:29 → MW.ICU 11-07 13:26
PROVIDERS: ADMIT Internal Medicine; ATTEND Internal Medicine
PROC: XW033E5 Introduction of Remdesivir Anti-infective into Peripheral Vein, Percutaneous Approach, New Technology Group 5 (ICD-10-PCS; principal; 2020-10-30)
PROC: XW033H5 Introduction of Tocilizumab into Peripheral Vein, Percutaneous Approach, New Technology Group 5 (ICD-10-PCS; 2020-10-31)
PROC: 5A0955A Assistance with Respiratory Ventilation, Greater than 96 Consecutive Hours, High Flow/Velocity Cannula (ICD-10-PCS; 2020-10-31)
DX: U07.1 COVID-19 (principal); J12.82 Pneumonia due to coronavirus disease 2019; J96.01 Acute respiratory failure with hypoxia; J44.0 Chronic obstructive pulmonary disease with (acute) lower respiratory infection; Z68.43 Body mass index [BMI] 50.0-59.9, adult; H54.7 Unspecified visual loss; J44.9 Chronic obstructive pulmonary disease, unspecified; E66.9 Obesity, unspecified; E11.9 Type 2 diabetes mellitus without complications; I10 Essential (primary) hypertension; Z66 Do not resuscitate; D69.6 Thrombocytopenia, unspecified; E87.6 Hypokalemia; E78.5 Hyperlipidemia, unspecified; Z91.040 Latex allergy status; Z91.09 Other allergy status, other than to drugs and biological substances; Z91.013 Allergy to seafood; Z88.6 Allergy status to analgesic agent; G47.33 Obstructive sleep apnea (adult) (pediatric); Z90.49 Acquired absence of other specified parts of digestive tract; Z90.710 Acquired absence of both cervix and uterus; Z87.442 Personal history of urinary calculi; Z87.891 Personal history of nicotine dependence; E66.01 Morbid (severe) obesity due to excess calories; Z79.4 Long term (current) use of insulin; Z79.899 Other long term (current) drug therapy
CPT/HCPCS: 36415; 71045; 80053; 82248; 83605; 83735; 84484; 85025; 85379; 93005; 96365; 96375; 99285; J1100; J7030; J7050; 36600; 71275; 71275-26; 80048; 82803; 82947; 83036; 84100; 84145; 86140; 94640; 94660; 94664; 99291; A9270-GY; J1650; J1815-GY; J1940; J2060; J3262; J8540; Q9967

== ENCOUNTER 2022-08-07 10:40 | Inpatient (IN) | payer MEDICARE ==
[2022-08-07] MEDS ORDERED: Sodium Chloride 0.9% 2.5 ML Syringe FLUSH PRN (11:25)
[2022-08-07] MEDS ORDERED: Sodium Chloride 0.9% 10 ML Syringe FLUSH PRN (11:25)
[2022-08-07 12:30] LABS: POTASSIUM,K 4.4 mmol/L (3.5-5.1)
[2022-08-07] MEDS ORDERED: Magnesium Sulfate/Water 2 GM in Premix Bag 1 BAG IV STA (13:28)
[2022-08-07] MEDS ORDERED: Sodium Chloride 0.9% 1,000 ML IV STA ×2 (13:28→14:43)
[2022-08-07] MEDS ORDERED: Ketorolac 30 MG/ML SDV IVPUSH STA (13:29)
[2022-08-07] MEDS ORDERED: Levofloxacin/Dextrose 5%-Water 750 MG in Premix Bag 1 BAG IV STA (13:57)
[2022-08-07] MEDS ORDERED: ALBUTEROL INH PRN (15:34)
[2022-08-07] MEDS ORDERED: SUMAtriptan 6 MG/0.5 ML SDV SUBCUT PRN (15:37)
[2022-08-07] MEDS ORDERED: Albuterol 8 GM Inhaler INH PRN (15:38)
[2022-08-07] MEDS ORDERED: 50% Dextrose in Water 50 ML Syringe IVPUSH PRN (15:45)
[2022-08-07] MEDS ORDERED: Glucagon,Human Recombinant 1 MG Vial IM PRN (15:45)
[2022-08-07] MEDS ORDERED: Sodium Chloride 0.9% 1,000 ML IV SCH (15:45)
[2022-08-07 16:05] LABS: CORONAVIRUS COVID-19 NAA NEGATIVE (NEGATIVE); INFLUENZA A NAA NEGATIVE (NEGATIVE); INFLUENZA B NAA NEGATIVE (NEGATIVE); RESPIRATORY SYNCYTIAL VIR NAA NEGATIVE (NEGATIVE)
[2022-08-07] MEDS ORDERED: VANCOmycin 2 GM/400 ML 2 GM in Premix Bag 1 BAG IV ONE (16:30)
[2022-08-07 16:34] LABS: HEMOGLOBIN A1C 9.8 %
[2022-08-07] MEDS: Levofloxacin/Dextrose 5%-Water 750 MG in Premix Bag 1 BAG IV SCH (16:44)
[2022-08-07] MEDS: Insulin Aspart 100 Units/ML 3 ML Pen SUBCUT SCH (16:54)
[2022-08-07] MEDS: methylPREDNISolone Sodium Succinate 40 MG/1 ML SDV IVPUSH SCH (16:56)
[2022-08-07] MEDS: Enoxaparin 40 MG/0.4 ML Syringe SUBCUT SCH (16:59)
[2022-08-07] MEDS: Albuterol/Ipratropium 3.0-0.5 MG/3 ML Neb Soln NEB SCH ×2 (18:04→23:01)
[2022-08-07] MEDS: Omeprazole 20 MG Cap.CR PO SCH (20:30)
[2022-08-07] MEDS: Montelukast 10 MG Tab PO SCH (20:30)
[2022-08-07] MEDS ORDERED: FORMOTEROL INH SCH (21:00)
[2022-08-07] MEDS ORDERED: BUDESONIDE INH SCH (21:00)
[2022-08-07] MEDS ORDERED: Budesonide/Formoterol 160-4.5 MCG/Puff 6 GM Inhaler INH SCH (21:00)
[2022-08-08] MEDS: Albuterol/Ipratropium 3.0-0.5 MG/3 ML Neb Soln NEB SCH (05:54)
[2022-08-08 06:53] LABS: POTASSIUM,K 4.7 mmol/L (3.5-5.1)
[2022-08-08] MEDS: Insulin Aspart 100 Units/ML 3 ML Pen SUBCUT SCH ×3 (08:17→16:51)
[2022-08-08] MEDS: Losartan 50 MG Tab PO SCH (08:20)
[2022-08-08] MEDS: Omeprazole 20 MG Cap.CR PO SCH ×2 (08:20→20:23)
[2022-08-08] MEDS: methylPREDNISolone Sodium Succinate 40 MG/1 ML SDV IVPUSH SCH (08:20)
[2022-08-08] MEDS ORDERED: BUDESONIDE INH SCH (09:00)
[2022-08-08] MEDS ORDERED: FORMOTEROL INH SCH (09:00)
[2022-08-08] MEDS: VANCOmycin 1.5 GM/300 ML 1.5 GM in Premix Bag 1 BAG IV SCH (09:43)
[2022-08-08] MEDS: Budesonide/Formoterol 160-4.5 MCG/Puff 6 GM Inhaler INH SCH ×2 (10:16→20:24)
[2022-08-08] MEDS: Ipratropium 0.02% 0.5 MG/2.5 ML Neb Soln INH SCH ×3 (12:29→23:05)
[2022-08-08] MEDS: Albuterol 0.083% 2.5 MG/3 ML Neb Soln INH SCH ×3 (12:29→23:05)
[2022-08-08] MEDS: Enoxaparin 40 MG/0.4 ML Syringe SUBCUT SCH (15:39)
[2022-08-08] MEDS: Levofloxacin/Dextrose 5%-Water 750 MG in Premix Bag 1 BAG IV SCH (15:39)
[2022-08-08] MEDS: Montelukast 10 MG Tab PO SCH (20:23)
[2022-08-08] MEDS ORDERED: Benzocaine/Cetylpyridinium/Menthol Lozenge MUCMEM PRN (21:53)
[2022-08-08] MEDS ORDERED: Sodium Chloride 0.65% Nasal Spray 45 ML Bottle NAS PRN (21:55)
[2022-08-09] MEDS: VANCOmycin 1.5 GM/300 ML 1.5 GM in Premix Bag 1 BAG IV SCH (02:23)
[2022-08-09 06:32] LABS: CARBON DIOXIDE,CO2 24.7 mmol/L (21.0-32.0); POTASSIUM,K 4.3 mmol/L (3.5-5.1)
[2022-08-09] MEDS: Ipratropium 0.02% 0.5 MG/2.5 ML Neb Soln INH SCH ×2 (06:38→13:13)
[2022-08-09] MEDS: Albuterol 0.083% 2.5 MG/3 ML Neb Soln INH SCH ×2 (06:38→13:13)
[2022-08-09] MEDS: Insulin Aspart 100 Units/ML 3 ML Pen SUBCUT SCH ×2 (08:14→12:10)
[2022-08-09] MEDS: Omeprazole 20 MG Cap.CR PO SCH (08:14)
[2022-08-09] MEDS: Losartan 50 MG Tab PO SCH (08:16)
[2022-08-09] MEDS: Budesonide/Formoterol 160-4.5 MCG/Puff 6 GM Inhaler INH SCH (08:44)
[2022-08-09 09:37] VITALS: BP 139/75; PULSE 91
== END 2022-08-09 14:00 | disposition home or self-care (01) | DRG 638 ==
LOC: MW.ED 10:40 → MW.MS 15:34
PROVIDERS: ADMIT Internal Medicine; ATTEND Internal Medicine
DX: E11.628 Type 2 diabetes mellitus with other skin complications (principal); J44.1 Chronic obstructive pulmonary disease with (acute) exacerbation; R51.9 Headache, unspecified; L03.115 Cellulitis of right lower limb; E86.0 Dehydration; G44.001 Cluster headache syndrome, unspecified, intractable; Z20.822 Contact with and (suspected) exposure to COVID-19; E11.9 Type 2 diabetes mellitus without complications; M19.90 Unspecified osteoarthritis, unspecified site; I10 Essential (primary) hypertension; Z79.51 Long term (current) use of inhaled steroids; E66.9 Obesity, unspecified; Z90.49 Acquired absence of other specified parts of digestive tract; Z90.710 Acquired absence of both cervix and uterus; Z79.84 Long term (current) use of oral hypoglycemic drugs; Z88.8 Allergy status to other drugs, medicaments and biological substances; Z88.5 Allergy status to narcotic agent; Z91.013 Allergy to seafood; Z87.442 Personal history of urinary calculi; Z98.890 Other specified postprocedural states; Z87.891 Personal history of nicotine dependence; Z79.899 Other long term (current) drug therapy; Z86.16 Personal history of COVID-19
CPT/HCPCS: 0241U; 36415; 70450; 71045; 80048; 80053; 80202; 81001; 82947; 83036; 83605; 83880; 85025; 87040; 87086; 93005; 93970; 94640; 96365; 96367; 96375; 99285; 93010; 99221; 99231; 99238; 99284; A9270-GY; J1650; J1815-GY; J1885; J1956; J2920; J3370; J3475; J3490; J7030; J7050; J7620-GY

== ENCOUNTER 2022-08-29 19:32 | Emergency (ER) | payer MEDICARE ==
[2022-08-29 19:53] VITALS: BP 206/96
[2022-08-29] MEDS ORDERED: Alum Hydro/Mag Hydro/Simeth XS 15 ML, Lidocaine 2% 5 ML PO ONE ×2 (19:55)
[2022-08-29] MEDS ORDERED: diphenhydrAMINE 50 MG Cap PO ONE (19:55)
[2022-08-29 20:31] LABS: POTASSIUM,K 4.2 mmol/L (3.5-5.1)
[2022-08-29 21:24] VITALS: PULSE 68
== END 2022-08-29 21:23 | disposition home or self-care (01) ==
LOC: MW.ED 19:32
DX: M79.89 Other specified soft tissue disorders (principal); T36.8X5A Adverse effect of other systemic antibiotics, initial encounter; I10 Essential (primary) hypertension; J44.9 Chronic obstructive pulmonary disease, unspecified; E11.9 Type 2 diabetes mellitus without complications; E66.9 Obesity, unspecified; Z68.43 Body mass index [BMI] 50.0-59.9, adult; Z88.1 Allergy status to other antibiotic agents; Z91.048 Other nonmedicinal substance allergy status; Z88.5 Allergy status to narcotic agent; Z91.040 Latex allergy status; Z91.013 Allergy to seafood; Z79.899 Other long term (current) drug therapy
CPT/HCPCS: 36415; 71045; 80053; 83880; 85025; 99283; A9270

== ENCOUNTER 2022-10-16 07:17 | Emergency (ER) | payer MEDICARE ==
[2022-10-16 07:31] VITALS: BP 176/81; PULSE 88
[2022-10-16] MEDS ORDERED: HYDROmorphone 1 MG/ML Syringe IM ONE (08:04)
[2022-10-16] MEDS ORDERED: Ondansetron 4 MG Tab.DIS PO ONE (08:04)
[2022-10-16] MEDS ORDERED: fentaNYL 50 MCG/ML SDV IVPUSH ONE (08:12)
== END 2022-10-16 09:03 | disposition home or self-care (01) ==
LOC: MW.ED 07:17
DX: M54.32 Sciatica, left side (principal); I10 Essential (primary) hypertension; J44.9 Chronic obstructive pulmonary disease, unspecified; M19.90 Unspecified osteoarthritis, unspecified site; E11.9 Type 2 diabetes mellitus without complications; E66.9 Obesity, unspecified; Z98.890 Other specified postprocedural states; Z91.048 Other nonmedicinal substance allergy status; Z88.5 Allergy status to narcotic agent; Z88.1 Allergy status to other antibiotic agents; Z91.040 Latex allergy status; Z91.013 Allergy to seafood; Z79.4 Long term (current) use of insulin; Z79.899 Other long term (current) drug therapy
CPT/HCPCS: 96374; 99283; A9270; J3010

== ENCOUNTER 2023-09-15 13:43 | Emergency (ER) | payer MEDICARE ==
[2023-09-15 14:56] LABS: BASOPHILS ABSOLUTE AUTO 0.04 K/uL (0.00-0.20); BASOPHILS PERCENT AUTO 0.5 % (0.0-1.0); EOSINOPHILS PERCENT AUTO 1.2 % (0.0-6.0); HEMATOCRIT 41.9 % (37.0-47.0); HEMOGLOBIN 14.8 g/dL (12.0-16.0); IMMATURE GRAN ABSOLUTE AUTO 0.03 K/uL (0.00-0.05); IMMATURE GRAN PERCENT AUTO 0.4 % (0.0-0.4); LYMPHOCYTES ABSOLUTE AUTO 2.35 K/uL (1.00-4.80); LYMPHOCYTES PERCENT AUTO 28.6 % (24.0-44.0); MEAN CORPUSCULAR HEMOGLOBIN 30.8 pg (28.0-32.0); MEAN CORPUSCULAR HGB CONC 35.3 g/dL (32.0-36.0); MEAN CORPUSCULAR VOLUME 87.1 fL (83.0-99.0); MEAN PLATELET VOLUME 9.4 fL (9.4-12.3); MONOCYTES PERCENT AUTO 8.5 % (0.0-8.0); NEUTROPHILS ABSOLUTE AUTO 4.99 K/uL (1.80-7.70); NEUTROPHILS PERCENT AUTO 60.8 % (41.0-71.0); PLATELET COUNT,PLT 167 K/uL (150-400); RED BLOOD CELL COUNT 4.81 M/uL (4.10-5.30); WHITE BLOOD CELL COUNT,WBC 8.21 K/uL (3.9-11.3)
[2023-09-15 15:40] LABS: ALBUMIN 3.6 g/dL (3.4-5.0); BILIRUBIN TOTAL 0.5 mg/dL (0.2-1.0); CALCIUM 9.1 mg/dL (8.5-10.1); CARBON DIOXIDE,CO2 22.4 mmol/L (21.0-32.0); CREATININE 1.1 mg/dL (0.6-1.0); EST CRCL DRUG DOSING (CG) 51.43 mL/min; POTASSIUM,K 4.4 mmol/L (3.5-5.1); PROTEIN TOTAL,TP 7.2 g/dL (6.4-8.2)
[2023-09-15 19:49] VITALS: BP 159/79; PULSE 97
== END 2023-09-15 17:17 | disposition home or self-care (01) ==
LOC: MW.ED 13:43
DX: L03.115 Cellulitis of right lower limb (principal); I10 Essential (primary) hypertension; J44.9 Chronic obstructive pulmonary disease, unspecified; E11.9 Type 2 diabetes mellitus without complications; F17.210 Nicotine dependence, cigarettes, uncomplicated; Z75.8 Other problems related to medical facilities and other health care; Z88.1 Allergy status to other antibiotic agents; Z91.048 Other nonmedicinal substance allergy status; Z91.040 Latex allergy status; Z91.013 Allergy to seafood; Z88.5 Allergy status to narcotic agent; Z79.51 Long term (current) use of inhaled steroids; Z79.4 Long term (current) use of insulin; Z79.84 Long term (current) use of oral hypoglycemic drugs; Z79.899 Other long term (current) drug therapy
CPT/HCPCS: 36415; 80053; 83880; 85025; 99283

== ENCOUNTER 2025-01-24 07:44 | Emergency (ER) | payer MEDICARE ==
[2025-01-24 07:58] VITALS: BP 170/85; PULSE 103
[2025-01-24] MEDS: Acetaminophen/HYDROcodone 325-5 MG Tab PO ONE ×2 (09:01→09:43)
== END 2025-01-24 10:46 | disposition home or self-care (01) ==
LOC: MW.ED 07:44
DX: M54.41 Lumbago with sciatica, right side (principal); I10 Essential (primary) hypertension; J44.89 Other specified chronic obstructive pulmonary disease; E11.9 Type 2 diabetes mellitus without complications; E66.9 Obesity, unspecified; Z90.49 Acquired absence of other specified parts of digestive tract; Z90.710 Acquired absence of both cervix and uterus; Z88.1 Allergy status to other antibiotic agents; Z88.5 Allergy status to narcotic agent; Z91.040 Latex allergy status; Z91.013 Allergy to seafood; Z91.048 Other nonmedicinal substance allergy status; Z79.51 Long term (current) use of inhaled steroids; Z79.899 Other long term (current) drug therapy
CPT/HCPCS: 99283; A9270; 99284

== ENCOUNTER 2025-01-25 00:14 | Emergency (ER) | payer MEDICARE ==
[2025-01-25] MEDS: Acetaminophen/HYDROcodone 325-10 MG Tab PO STA (01:04)
[2025-01-25] MEDS: Ketorolac 30 MG/ML SDV IM ONE (01:10)
[2025-01-25] MEDS ORDERED: Sodium Chloride 0.9% 10 ML Syringe FLUSH PRN (01:34)
[2025-01-25] MEDS ORDERED: Sodium Chloride 0.9% 2.5 ML Syringe FLUSH PRN (01:34)
[2025-01-25] MEDS: Lactated Ringers 1,000 ML IV ONE (01:42)
[2025-01-25 01:45] LABS: BASOPHILS ABSOLUTE AUTO 0.05 K/uL (0.00-0.20); BASOPHILS PERCENT AUTO 0.5 % (0.0-1.0); EOSINOPHILS ABSOLUTE AUTO 0.09 K/uL (0.00-0.45); EOSINOPHILS PERCENT AUTO 0.9 % (0.0-6.0); IMMATURE GRAN ABSOLUTE AUTO 0.03 K/uL (0.00-0.05); IMMATURE GRAN PERCENT AUTO 0.3 % (0.0-0.4); LYMPHOCYTES ABSOLUTE AUTO 2.62 K/uL (1.00-4.80); LYMPHOCYTES PERCENT AUTO 26.4 % (24.0-44.0); MEAN PLATELET VOLUME 9.3 fL (9.4-12.3); MONOCYTES ABSOLUTE AUTO 0.83 K/uL (0.00-0.80); MONOCYTES PERCENT AUTO 8.4 % (0.0-8.0); NEUTROPHILS ABSOLUTE AUTO 6.29 K/uL (1.80-7.70); NEUTROPHILS PERCENT AUTO 63.5 % (41.0-71.0); NRBC ABSOLUTE 0.00 K/uL (0.00-0.02); NRBC PERCENT 0.0 /100WBC (0.0-0.2); PLATELET COUNT,PLT 180 K/uL (150-400); RED BLOOD CELL COUNT 4.48 M/uL (4.10-5.30); WHITE BLOOD CELL COUNT,WBC 9.91 K/uL (3.9-11.3)
[2025-01-25 01:49] VITALS: PULSE 86
[2025-01-25 02:21] LABS: BLOOD UREA NITROGEN,BUN 17.0 mg/dL (7.0-18.0); CARBON DIOXIDE,CO2 22.8 mmol/L (21.0-32.0); CHLORIDE,CL 98.0 mmol/L (98-107); CREATININE 1.0 mg/dL (0.6-1.0); EST CRCL DRUG DOSING (CG) 47.79 mL/min; GLUCOSE RANDOM 318.0 mg/dL (74-106); POTASSIUM,K 4.5 mmol/L (3.5-5.1); SODIUM,NA 135.0 mmol/L (136-145)
[2025-01-25 02:23] LABS: ESTIMATED GFR 62.0 mL/min (>60)
[2025-01-25] MEDS: Ondansetron 4 MG/2 ML SDV IVPUSH ONE (02:49)
[2025-01-25 03:37] VITALS: BP 168/78
== END 2025-01-25 03:37 | disposition home or self-care (01) ==
LOC: MW.ED 00:14
DX: M54.41 Lumbago with sciatica, right side (principal); I10 Essential (primary) hypertension; J44.89 Other specified chronic obstructive pulmonary disease; E11.9 Type 2 diabetes mellitus without complications; E66.9 Obesity, unspecified; Z68.44 Body mass index [BMI] 60.0-69.9, adult; Z90.49 Acquired absence of other specified parts of digestive tract; Z90.710 Acquired absence of both cervix and uterus; Z88.1 Allergy status to other antibiotic agents; Z88.5 Allergy status to narcotic agent; Z88.8 Allergy status to other drugs, medicaments and biological substances; Z91.013 Allergy to seafood; Z91.040 Latex allergy status; Z79.51 Long term (current) use of inhaled steroids; Z79.899 Other long term (current) drug therapy
CPT/HCPCS: 36415; 80048; 85025; 86140; 96361; 96372; 96374; 96375; 99283; A9270; J1885; J2270; J2405; J2765; J7120; 99284